=== PATIENT | male | born 1945 | race Caucasian/White ===

== ENCOUNTER → 2016-07-21 | Outpatient (CLI) | payer MEDICARE, BC | LOC: MW.CHFP 09:32 | PROVIDERS: ATTEND Physician Assistant | DX: R31.9 Hematuria, unspecified (principal); N41.0 Acute prostatitis; R97.20 Elevated prostate specific antigen [PSA] | CPT/HCPCS: 81001; 87086; G0463 ==

== ENCOUNTER → 2016-09-14 | Outpatient (CLI) | payer MEDICARE, BC | LOC: MW.CHFP 08:00 | PROVIDERS: ATTEND Emergency Medicine | DX: L82.1 Other seborrheic keratosis (principal); R31.29 Other microscopic hematuria; R97.20 Elevated prostate specific antigen [PSA]; N40.0 Benign prostatic hyperplasia without lower urinary tract symptoms | CPT/HCPCS: G0463 ==

== ENCOUNTER → 2016-09-21 | Outpatient (CLI) | payer MEDICARE, BC | LOC: MW.CHFP 08:06 | PROVIDERS: ATTEND Emergency Medicine | DX: R31.29 Other microscopic hematuria (principal); Z53.9 Procedure and treatment not carried out, unspecified reason ==

== ENCOUNTER → 2016-09-26 | Outpatient (CLI) | payer MEDICARE, BC | LOC: MW.CHFP 08:00 | PROVIDERS: ATTEND Physician Assistant | DX: L82.1 Other seborrheic keratosis (principal); S39.012A Strain of muscle, fascia and tendon of lower back, initial encounter | CPT/HCPCS: G0463 ==

== ENCOUNTER → 2016-10-04 | Outpatient (CLI) | payer MEDICARE, BC | LOC: MW.CHUR 11:42 | PROVIDERS: ATTEND Urology | DX: R97.20 Elevated prostate specific antigen [PSA] (principal); R31.9 Hematuria, unspecified; R31.29 Other microscopic hematuria; N40.0 Benign prostatic hyperplasia without lower urinary tract symptoms | CPT/HCPCS: 36415; 81001; 84153; G0463 ==

== ENCOUNTER 2017-01-30 10:17 | Observation (INO) | payer MEDICARE, BC ==
[2017-01-30] MEDS ORDERED: Haloperidol Lactate 5 MG/ML SDV IM ONE ×2 (10:29→10:35)
[2017-01-30] MEDS ORDERED: diphenhydrAMINE 50 MG/ML SDV IVPUSH ONE (10:29)
[2017-01-30] MEDS ORDERED: LORazepam 2 MG/ML MDV IVPUSH ONE (10:29)
[2017-01-30] MEDS ORDERED: diphenhydrAMINE 50 MG/ML SDV ONE (10:31)
[2017-01-30] MEDS ORDERED: Haloperidol Lactate 5 MG/ML SDV ONE (10:31)
[2017-01-30] MEDS ORDERED: LORazepam 2 MG/ML MDV ONE (10:32)
--- NOTE | 2017-01-30 10:37 | EDM.PDOC ---
ED HPI GENERAL MEDICAL PROBLEM - General Chief Complaint: Genitourinary Problem Stated Complaint: HASN'T URINATE ALL NIGHT Time Seen by Provider: 01/30/17 10:26 Source of Information: Reports: Patient, Family History Limitations: Reports: No Limitations - History of Present Illness INITIAL COMMENTS - FREE TEXT/NARRATIVE: HISTORY AND PHYSICAL: 72-year-old male presents to the emergency room with complaints of inability to void History of present illness: 72-year-old male brought into the emergency room by his with complaints of inability to void for the past 24 hours. His states he has been up and down all night with multiple attempts to urinate without success. Patient does have a history of Alzheimer's disease which at times he can have some agitation. Last night patient complained of inability to void and was up and down multiple times became more and more agitated complaining of suprapubic pain. does report that he has had some diarrhea this last evening. Patient has a history of BPH which he has seen Dr. Márquez for. reports he has not had any previous surgeries to prostate. Review of systems: As per history of present illness and below otherwise all systems reviewed and negative. Past medical history: As per history of present illness and as reviewed below otherwise noncontributory. Surgical history: As per history of present illness and as reviewed below otherwise noncontributory. Social history: No reported history of drug or alcohol abuse. Family history: As per history of present illness and as reviewed below otherwise noncontributory. Physical exam: Gen.: Nontoxic appearing 72-year-old male. Appears to be agitated, easily redirected, answers questions inappropriately ( reports this is normal for his mentation) HEENT: Atraumatic, normocephalic, pupils reactive, negative for conjunctival pallor or scleral icterus, mucous membranes moist, throat clear, neck supple, nontender, trachea midline. Lungs: Clear to auscultation, breath sounds equal bilaterally, chest nontender. Heart: S1S2, regular, negative for clicks, rubs, or JVD. Abdomen: Soft, slightly distended, generalized tenderness. Suprapubic tenderness. Negative for masses or hepatosplenomegaly. Negative for costovertebral tenderness. Pelvis: Stable nontender. Genitourinary: Deferred. Rectal: Deferred. Extremities: Atraumatic, negative for cords or calf pain. Neurovascular unremarkable. Neuro: Awake, alert and appropriate for self. Cranial nerves II through XII unremarkable. Cerebellum unremarkable. Motor and sensory unremarkable throughout. Exam nonfocal. 1100- Bladder scan revealed 703 mL. Diagnostics: CBC, CMP, ammonia level, UA/UC, chest x-ray, EKG, head CT without contrast Therapeutics: Benadryl IV, Haldol IV, Ativan IV Impression: #1 urinary retention #2 history of Alzheimer's #3 altered mental status Definitive disposition and diagnosis as appropriate pending reevaluation and review of above. Onset: Other (Last evening) Onset Date: 01/29/17 Duration: Hour(s): Location: Reports: Other (Suprapubic/denies abdominal) Bladder Pain Score (Numeric/FACES): 8 - Related Data Allergies Allergy/AdvReac Type Severity Reaction Status Date / Time No Known Allergies Allergy Verified 01/30/17 10:41 Home Meds: Home Meds ALPRAZolam [Alprazolam] 1 mg PO PRN 01/30/17 [History] Donepezil HCl [Aricept] 10 mg PO DAILY 01/30/17 [History] FLUoxetine [PROzac] 40 mg PO DAILY 01/30/17 [History] Memantine HCl [Namenda XR] 7 mg PO BID 01/30/17 [History] ED ROS GENERAL - Review of Systems Review Of Systems: See Below ED EXAM, RENAL/ - Physical Exam Exam: See Below (See dictation) EKG INTERPRETATION EKG Date: 01/30/17 Time: 10:57 Rhythm: NSR (Normal sinus rhythm with a rate of 72) Rate (Beats/Min): 72 Comparison: NA - No Prior EKG Course - Vital Signs Last Recorded V/S: Last Vital Signs Temp 36.5 C 01/30/17 10:23 Pulse 97 01/30/17 10:23 Resp 22 H 01/30/17 10:23 BP 139/86 01/30/17 10:23 Pulse Ox 98 01/30/17 10:23 - Orders/Labs/Meds Orders: Active Orders 24 hr Category Date Time Status EKG Documentation Completion [RC] STAT Care 01/30/17 10:31 Active Head wo Cont [CT] Stat Exams 01/30/17 11:42 Ordered CULTURE BLOOD [BC] Stat Lab 01/30/17 11:42 Ordered CULTURE BLOOD [BC] Stat Lab 01/30/17 11:42 Ordered CULTURE URINE [RM] Stat Lab 01/30/17 11:10 Received LACTIC ACID,WHOLE BLOOD [BG] Stat Lab 01/30/17 11:41 Ordered Blood Culture x2 Reflex Set [OM.PC] Stat Oth 01/30/17 11:42 Ordered Labs: Laboratory Tests 01/30/17 01/30/17 01/30/17 Range/Units 10:42 10:42 10:42 WBC 19.58 H (4.0-11.0) K/uL RBC 4.63 (4.50-5.90) M/uL Hgb 13.9 (13.0-17.0) g/dL Hct 41.2 (38.0-50.0) % MCV 89.0 (80.0-98.0) fL MCH 30.0 (27.0-32.0) pg MCHC 33.7 (31.0-37.0) g/dL RDW Std Deviation 43.6 (28.0-62.0) fl RDW Coeff of Giulia 14 (11.0-15.0) % Plt Count 169 (150-400) K/uL MPV 10.30 (7.40-12.00) fL Add Manual Diff YES Neutrophils % (Manual) 65 (48.0-80.0) % Band Neutrophils % 4 % Lymphocytes % (Manual) 12 L (16.0-40.0) % Monocytes % (Manual) 16 H (0.0-15.0) % Metamyelocytes % 3 % Nucleated RBC % 0.0 /100WBC Absolute Seg Neuts 12.7 Band Neutrophils # 0.8 Lymphocytes # (Manual) 2.3 Monocytes # (Manual) 3.1 Absolute Metamyelocyte 0.6 Nucleated RBCs # 0 K/uL Sodium 136 (136-146) mmol/L Potassium 4.2 (3.5-5.1) mmol/L Chloride 104 (98-110) mmol/L Carbon Dioxide 23 (21-31) mmol/L BUN 14 (6.0-23.0) mg/dL Creatinine 1.1 (0.6-1.5) mg/dL Est Cr Clr Drug Dosing 64.52 mL/min Estimated GFR (MDRD) > 60.0 ml/min Glucose 116 H (60-110) mg/dL Calcium 9.4 (8.8-10.8) mg/dL Total Bilirubin 0.6 (0.1-1.5) mg/dL AST 22 (5-40) IU/L ALT 19 (8-54) IU/L Alkaline Phosphatase 86 (40-150) Ammonia 29 (14-68) UG/DL Total Protein 7.3 (6.0-8.0) g/dL Albumin 4.3 (3.4-4.8) g/dL Globulin 3.0 (2.0-3.5) g/dL Albumin/Globulin Ratio 1.4 (1.3-2.8) Urine Color Urine Appearance Urine pH (5.0-8.0) Ur Specific Stephen (1.001-1.035) Urine Protein (NEGATIVE) mg/dL Urine Glucose (UA) (NEGATIVE) mg/dL Urine Ketones (NEGATIVE) mg/dL Urine Occult Blood (NEGATIVE) Urine Nitrite (NEGATIVE) Urine Bilirubin (NEGATIVE) Urine Urobilinogen (<2.0) EU/dL Ur Leukocyte Esterase (NEGATIVE) Urine RBC (0-2/HPF) Urine WBC (0-5/HPF) Ur Epithelial Cells (NONE-FEW) Urine Bacteria (NEGATIVE) 01/30/17 Range/Units 11:10 WBC (4.0-11.0) K/uL RBC (4.50-5.90) M/uL Hgb (13.0-17.0) g/dL Hct (38.0-50.0) % MCV (80.0-98.0) fL MCH (27.0-32.0) pg MCHC (31.0-37.0) g/dL RDW Std Deviation (28.0-62.0) fl RDW Coeff of Giulia (11.0-15.0) % Plt Count (150-400) K/uL MPV (7.40-12.00) fL Add Manual Diff Neutrophils % (Manual) (48.0-80.0) % Band Neutrophils % % Lymphocytes % (Manual) (16.0-40.0) % Monocytes % (Manual) (0.0-15.0) % Metamyelocytes % % Nucleated RBC % /100WBC Absolute Seg Neuts Band Neutrophils # Lymphocytes # (Manual) Monocytes # (Manual) Absolute Metamyelocyte Nucleated RBCs # K/uL Sodium (136-146) mmol/L Potassium (3.5-5.1) mmol/L Chloride (98-110) mmol/L Carbon Dioxide (21-31) mmol/L BUN (6.0-23.0) mg/dL Creatinine (0.6-1.5) mg/dL Est Cr Clr Drug Dosing mL/min Estimated GFR (MDRD) ml/min Glucose (60-110) mg/dL Calcium (8.8-10.8) mg/dL Total Bilirubin (0.1-1.5) mg/dL AST (5-40) IU/L ALT (8-54) IU/L Alkaline Phosphatase (40-150) Ammonia (14-68) UG/DL Total Protein (6.0-8.0) g/dL Albumin (3.4-4.8) g/dL Globulin (2.0-3.5) g/dL Albumin/Globulin Ratio (1.3-2.8) Urine Color YELLOW Urine Appearance CLEAR Urine pH 6.0 (5.0-8.0) Ur Specific Stephen 1.010 (1.001-1.035) Urine Protein NEGATIVE (NEGATIVE) mg/dL Urine Glucose (UA) NEGATIVE (NEGATIVE) mg/dL Urine Ketones NEGATIVE (NEGATIVE) mg/dL Urine Occult Blood LARGE H (NEGATIVE) Urine Nitrite NEGATIVE (NEGATIVE) Urine Bilirubin NEGATIVE (NEGATIVE) Urine Urobilinogen 0.2 (<2.0) EU/dL Ur Leukocyte Esterase NEGATIVE (NEGATIVE) Urine RBC 5-10 (0-2/HPF) Urine WBC 0-2 (0-5/HPF) Ur Epithelial Cells RARE (NONE-FEW) Urine Bacteria RARE (NEGATIVE) Meds: Medications Discontinued Medications Generic Name Dose Route Start Last Admin Trade Name Freq PRN Reason Stop Dose Admin Diphenhydramine HCl 50 mg 01/30/17 10:29 01/30/17 10:35 Benadryl IVPUSH 01/30/17 10:30 50 mg ONETIME ONE Administration Diphenhydramine HCl Confirm 01/30/17 10:31 01/30/17 10:51 Benadryl Administered 01/30/17 10:32 Not Given Dose 50 mg .ROUTE .STK-MED ONE Haloperidol Lactate Confirm 01/30/17 10:31 01/30/17 10:51 Haldol Administered 01/30/17 10:32 Not Given Dose 10 mg .ROUTE .STK-MED ONE Haloperidol Lactate 10 mg 01/30/17 10:35 01/30/17 10:54 Haldol IM 01/30/17 10:36 10 mg ONETIME ONE Administration Lorazepam 1 mg 01/30/17 10:29 01/30/17 10:35 Ativan IVPUSH 01/30/17 10:30 1 mg ONETIME ONE Administration Lorazepam Confirm 01/30/17 10:32 01/30/17 10:51 Ativan Administered 01/30/17 10:33 Not Given Dose 2 mg .ROUTE .STK-MED ONE Departure - Departure Time of Disposition: 11:44 Disposition: Refer to Observation Condition: Good Clinical Impression: Dementia, Leukocytosis, Urinary retention - Discharge Information Referrals: Andrei Wheeler MD [Primary Care Provider] - Forms: ED Department Discharge - My Orders Last 24 Hours: My Active Orders 01/30/17 10:31 EKG Documentation Completion [RC] STAT 01/30/17 11:10 CULTURE URINE [RM] Stat 01/30/17 11:41 LACTIC ACID,WHOLE BLOOD [BG] Stat 01/30/17 11:42 Head wo Cont [CT] Stat CULTURE BLOOD [BC] Stat CULTURE BLOOD [BC] Stat Blood Culture x2 Reflex Set [OM.PC] Stat - Assessment/Plan Last 24 Hours: My Active Orders 01/30/17 10:31 EKG Documentation Completion [RC] STAT 01/30/17 11:10 CULTURE URINE [RM] Stat 01/30/17 11:41 LACTIC ACID,WHOLE BLOOD [BG] Stat 01/30/17 11:42 Head wo Cont [CT] Stat CULTURE BLOOD [BC] Stat CULTURE BLOOD [BC] Stat Blood Culture x2 Reflex Set [OM.PC] Stat
[2017-01-30 11:22] LABS: CHLORIDE,CL 104 mmol/L (98-110); SODIUM,NA 136 mmol/L (136-146)
--- NOTE | 2017-01-30 11:29 | CR ---
EXAMINATION: Portable chest radiograph. HISTORY: Agitation. FINDINGS: The trachea is midline. The cardiomediastinal silhouette is within normal limits. No pulmonary infilt rates, effusions or pneumothorax. Osseous structures appear unremarkable. IMPRESSION: No acute cardiopulmonary process.
--- NOTE | 2017-01-30 12:08 | CT ---
EXAMINATION: Non contrast CT head. Coronal and sagittal reformats. HISTORY: Pain FINDINGS: No evidence of intra or extra axial hemorrhage, mass, midline shift, hydrocephalus or edema. There i s mild generalized atrophy. Mild periventricular white matter lucencies noted, nonspecific, likely sm all vessel ischemic changes. No hypoattenuation changes in the major vascular territories to suggest acute infarct. No abnormal intracranial calcifications are detected. Mild vascular calcifications noted. Paranasal sinuses and mastoid air cells are well aerated without substantial findings. Pituitary fossa appears unremarkable. The orbits and globes are symmetric. Calvarium is intact. No evidence of skull fracture. IMPRESSION: 1. No acute intracranial findings. 2. Generalized atrophy and trace small vessel ischemic changes.
--- NOTE | 2017-01-30 13:35 | PCM.HP ---
H&P History of Present Illness - General Date of Service: 01/30/17 Admit Problem/Dx: Urinary retention, leukocytosis Source of Information: Patient, Family ( at bedside) History Limitations: Reports: Altered Mental Status - History of Present Illness Initial Comments - Free Text/Narative: This 72 wilner old male with pmh of BPH Alzheimer's presented to the ED with his with concerns of urinary retention. His reports he has been unable to void since yesterday and has progressively become more agitated and complaining of suprapubic lower abdominal pain. She denies any recent illness, no fevers or chills. She denies him having any diarrhea recently. She report otherwise healthy as of recently. She has noticed increase in urinary frequency and urgency over the past couple weeks. He has never been on medications for BPH. He takes Aricept, Namenda, Prozac and Xanax now. She reports last Sunday he had a slip in [facility] shower and got "wedged" between a a shelf and the shower, he has some bruising and abrasions to R flank, but he has denied any pain. While in [facility] ED Luan was given Haldol, benadryl and Ativan due to agitation. He was resting for most of interview. He did awake on assessment and denied pain, SOB or abdominal pain. He was glad to have slept a little and felt better, he then quickly fell back asleep. He does follow with Dr. Delaney for BPH. In the ED leukocytosis noted at 19,580, lactate 0.8, BMP WNL. UA negative. Tomlinson was placed in the ED after bladder scan revealed 703 ml. CXR negative, Head CT revealed NO acute intracranial process, did show generalized atrophy with trace small vessel ischemic changes. He will be admitted for urinary retention and leukocytosis. PCP, Dr Wheeler. Bladder Pain Score (Numeric/FACES): 8 - Related Data Allergies/Adverse Reactions: Allergies Allergy/AdvReac Type Severity Reaction Status Date / Time No Known Allergies Allergy Verified 01/30/17 10:41 Home Medications: Home Meds ALPRAZolam [Alprazolam] 1 mg PO PRN 01/30/17 [History] Donepezil HCl [Aricept] 10 mg PO DAILY 01/30/17 [History] FLUoxetine [PROzac] 40 mg PO DAILY 01/30/17 [History] Memantine HCl [Namenda XR] 7 mg PO BID 01/30/17 [History] Past Medical History Cardiovascular History: Reports: None. Denies: Afib, Blood Clots/VTE/DVT, High Cholesterol, Hypertension, PR Respiratory History: Reports: None. Denies: Asthma, COPD, PE Gastrointestinal History: Reports: None. Denies: GERD, GI Bleed Genitourinary History: Reports: BPH, UTI, Recurrent Neurological History: Reports: Alzheimers Disease. Denies: CVA, TIA Endocrine/Metabolic History: Reports: None. 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 Denies: Fever, Chills, Malaise, Decreased Appetite Pulmonary: Reports: No Symptoms. Denies: Shortness of Breath Cardiovascular: Denies: Chest Pain Gastrointestinal: Reports: No Symptoms. Denies: Abdominal Pain, Black Stool, Bloody Stool, Nausea, Vomiting Genitourinary: Reports: Frequency, Urgency, Retention. Denies: Incontinence, Flank Pain Musculoskeletal: Reports: No Symptoms Skin: Reports: Bruising (R flank) Neurological: Reports: No Symptoms (no changes.) Hematologic/Lymphatic: Reports: No Symptoms Immunologic: Reports: No Symptoms Exam - Exam Exam: See Below - Vital Signs Vital Signs: Last Vital Signs Temp 97.7 F 01/30/17 10:23 Pulse 59 L 01/30/17 12:06 Resp 14 01/30/17 12:06 BP 118/75 01/30/17 12:06 Pulse Ox 98 01/30/17 12:06 Weight: 78.2 kg - Exam General: Alert, Cooperative. No: Oriented HEENT: Conjunctiva Clear, Mucosa Moist & [place], Posterior Pharynx Clear, Pupils Equal Neck: Supple, Trachea Midline, Full Range of Motion. No: Lymphadenopathy Lungs: Clear to Auscultation, Normal Respiratory Effort Cardiovascular: Regular Rate, Regular Rhythm GI/Abdominal Exam: Normal Bowel Sounds, Soft, Non-Tender, No Organomegaly, No Distention, No Abnormal Bruit, No Mass, Pelvis Stable Rectal (Males) Exam: Normal Rectal Tone, BPH (prostate large, unable to reach backside of prostate, firm and tender to palpation. ) Extremities: Normal Inspection, Normal Range of Motion, Non-Tender, No Pedal Edema, Normal Capillary Refill Skin: Ecchymosis (bruising and abrasion noted to R flank.) Neuro Extensive - Mental Status: Alert, Normal Mood/Affect, Normal Cognition, Other ( reports he is at baseline now that he has calmed down. ) Psychiatric: Alert, Normal Affect, Normal Mood - Patient Data Result Diagrams: 01/30/17 10:42 01/30/17 10:42 EKG INTERPRETATION Rhythm: NSR Rate (Beats/Min): 60 [place]: Normal P-Wave: Present QRS: Normal ST-T: Normal QT: Normal *Q Meaningful Use (ADM) - VTE *Q VTE Criteria *Q: - Stroke *Q Stroke Criteria *Q: - AMI *Q AMI Criteria *Q: - Problem List (1) Leukocytosis SNOMED Code(s): 309128864, 950456164 ICD Code: D72.829 - ELEVATED WHITE BLOOD CELL COUNT, UNSPECIFIED Status: Acute Current Visit: Yes (2) Urinary retention SNOMED Code(s): 761420066 ICD Code: R33.9 - RETENTION OF URINE, UNSPECIFIED Status: Acute Current Visit: Yes (3) Alzheimer disease SNOMED Code(s): 28314425 ICD Code: G30.9 - ALZHEIMER'S DISEASE, UNSPECIFIED Status: Chronic Current Visit: Yes Qualifiers: Alzheimer's disease onset: early-onset Dementia behavioral disturbance: with behavioral disturbance Qualified Code(s): G30.0 - Alzheimer's disease with early onset; F02.81 - Dementia in other diseases classified elsewhere with behavioral disturbance Problem List Initiated/Reviewed/Updated: Yes Assessment/Plan Comment:: This 72 year old male admitted with urinary retention and leukocytosis 1. Urinary retention: Tomlinson placed in ED will keep in place. Spoke with Dr Delaney who visited with patient and . He will review records and visit in the morning. Recommendation we could start Cipro and Flomax for prostatitis, which may be cause of leukocytosis. After rectal exam, remembers he has been complaining of some rectail pain and sitting in the bath to help with this. No rectal fissures noted or hemorrhoids, no rectal bleeding. 2. Alzheimers: Continue home medications, Namenda, Prozac, Aricept. Haldol for agitation PRN. VTE prophylaxis: Lovenox Dispo: 1-2 days pending improvement.
[2017-01-30] MEDS ORDERED: Acetaminophen 325 MG Tab PO PRN (13:44)
[2017-01-30] MEDS ORDERED: Ondansetron 4 MG/2 ML SDV IVPUSH PRN (13:44)
[2017-01-30] MEDS: Ciprofloxacin 500 MG Tab PO SCH ×2 (14:48→21:14)
[2017-01-30] MEDS: Tamsulosin 0.4 MG Cap.ER PO SCH (14:48)
[2017-01-30] MEDS ORDERED: Ibuprofen 400 MG Tab PO PRN (18:32)
[2017-01-30] MEDS ORDERED: oxyCODONE 5 MG Tab PO PRN (18:32)
[2017-01-30] MEDS: Haloperidol Lactate 5 MG/ML SDV IM PRN (18:45)
[2017-01-30] MEDS: BIMATOPROST 0.01% EYEBOTH SCH (21:14)
[2017-01-30] MEDS: Memantine 10 MG Tab PO SCH (21:14)
[2017-01-31] MEDS: Morphine 2 MG/ML Syringe IVPUSH PRN ×2 (04:57→20:53)
[2017-01-31] MEDS: Haloperidol Lactate 5 MG/ML SDV IM PRN ×2 (05:21→20:52)
[2017-01-31 05:29] LABS: CHLORIDE,CL 108 mmol/L (98-110); SODIUM,NA 140 mmol/L (136-146)
[2017-01-31] MEDS: Memantine 10 MG Tab PO SCH ×2 (09:05→20:43)
[2017-01-31] MEDS: FLUoxetine 20 MG Cap PO SCH (09:05)
[2017-01-31] MEDS: Ciprofloxacin 500 MG Tab PO SCH ×2 (09:05→20:43)
[2017-01-31] MEDS: Donepezil 10 MG Tab PO SCH (09:05)
[2017-01-31] MEDS: Enoxaparin 40 MG/0.4 ML Syringe SUBCUT SCH (09:06)
[2017-01-31] MEDS: Tamsulosin 0.4 MG Cap.ER PO SCH (09:06)
--- NOTE | 2017-01-31 10:15 | PCM.DCSUM1 ---
Discharge Summary - Discharge Data Discharge Date: 01/31/17 Discharge Disposition: Home, Self-Care 01 Condition: Good - Discharge Diagnosis/Problem(s) (1) Leukocytosis SNOMED Code(s): 943811879, 445037869 ICD Code: D72.829 - ELEVATED WHITE BLOOD CELL COUNT, UNSPECIFIED Status: Acute Current Visit: Yes (2) Urinary retention SNOMED Code(s): 687337381 ICD Code: R33.9 - RETENTION OF URINE, UNSPECIFIED Status: Acute Current Visit: Yes (3) Alzheimer disease SNOMED Code(s): 00347845 ICD Code: G30.9 - ALZHEIMER'S DISEASE, UNSPECIFIED Status: Chronic Current Visit: Yes Qualifiers: Alzheimer's disease onset: early-onset Dementia behavioral disturbance: with behavioral disturbance Qualified Code(s): G30.0 - Alzheimer's disease with early onset; F02.81 - Dementia in other diseases classified elsewhere with behavioral disturbance (4) Prostatitis SNOMED Code(s): 1984460 ICD Code: N41.9 - INFLAMMATORY DISEASE OF PROSTATE, UNSPECIFIED Status: Acute Current Visit: Yes - Patient Summary/Data Consults: Consultations 01/30/17 14:28 Consult to Physician [CONS] Routine - Patient Instructions Diet: Usual Diet as Tolerated Activity: As Tolerated Showering/Bathing: May Shower Notify Provider of: Fever, Increased Pain, Swelling and Redness, Drainage, Nausea and/or Vomiting - Discharge Plan Prescriptions/Med Rec: Ciprofloxacin [Ciprofloxacin HCl] 500 mg PO BID #12 tablet Tamsulosin [Flomax] 0.4 mg PO PCBREAKFAST #30 cap.er Home Medications: Home Meds ALPRAZolam [Alprazolam] 1 mg PO DAILY PRN 01/30/17 [History] Bimatoprost [LUMIGAN 0.01% Ophth Soln] 1 drop EYEBOTH BEDTIME 01/30/17 [History] Donepezil HCl [Aricept] 10 mg PO DAILY 01/30/17 [History] FLUoxetine [PROzac] 40 mg PO DAILY 01/30/17 [History] Memantine HCl 10 mg PO BID 01/30/17 [History] Ciprofloxacin [Ciprofloxacin HCl] 500 mg PO BID #12 tablet 01/31/17 [Rx] Tamsulosin [Flomax] 0.4 mg PO PCBREAKFAST #30 cap.er 01/31/17 [Rx] Forms: ED Department Discharge Referrals: Andrei Wheeler MD [Primary Care Provider] - - Patient Data Vitals - Most Recent: Last Vital Signs Temp 97.6 F 01/31/17 08:00 Pulse 66 01/31/17 08:00 Resp 22 H 01/31/17 08:00 BP 112/64 01/31/17 08:00 Pulse Ox 96 01/31/17 08:00 Weight - Most Recent: 78.2 kg I&O - Last 24 hours: Intake & Output 01/30/17 01/31/17 01/31/17 22:59 06:59 14:59 Intake Total 50 300 Output Total 380 400 Balance -330 -100 Lab Results - Last 24 hrs: Laboratory Results - last 24 hr 01/31/17 01/31/17 Range/Units 04:34 04:34 WBC 11.93 H (4.0-11.0) K/uL RBC 4.29 L (4.50-5.90) M/uL Hgb 12.9 L (13.0-17.0) g/dL Hct 38.9 (38.0-50.0) % MCV 90.7 (80.0-98.0) fL MCH 30.1 (27.0-32.0) pg MCHC 33.2 (31.0-37.0) g/dL RDW Std Deviation 45.7 (28.0-62.0) fl RDW Coeff of Giulia 14 (11.0-15.0) % Plt Count 149 L (150-400) K/uL MPV 10.60 (7.40-12.00) fL Add Manual Diff YES Neutrophils % (Manual) 58 (48.0-80.0) % Lymphocytes % (Manual) 27 (16.0-40.0) % Monocytes % (Manual) 10 (0.0-15.0) % Metamyelocytes % 5 % Nucleated RBC % 0.0 /100WBC Absolute Seg Neuts 6.9 Lymphocytes # (Manual) 3.2 Monocytes # (Manual) 1.2 Absolute Metamyelocyte 0.6 Nucleated RBCs # 0 K/uL Sodium 140 (136-146) mmol/L Potassium 3.9 (3.5-5.1) mmol/L Chloride 108 (98-110) mmol/L Carbon Dioxide 24 (21-31) mmol/L BUN 11 (6.0-23.0) mg/dL Creatinine 0.9 (0.6-1.5) mg/dL Est Cr Clr Drug Dosing 79.05 mL/min Estimated GFR (MDRD) > 60.0 ml/min Glucose 97 (60-110) mg/dL Calcium 8.8 (8.8-10.8) mg/dL Med Orders - Current: Current Medications Acetaminophen (Tylenol) 650 mg PO Q4H PRN PRN Reason: Pain Last Admin: 01/30/17 17:52 Dose: 650 mg Bimatoprost (Lumigan 0.01% Ophth Soln) 0 ml EYEBOTH BEDTIME [facility] Last Admin: 01/30/17 21:14 Dose: 1 drop Ciprofloxacin (Ciprofloxacin Hcl) 500 mg PO BID [facility] Last Admin: 01/31/17 09:05 Dose: 500 mg Donepezil HCl (Aricept) 10 mg PO DAILY [facility] Last Admin: 01/31/17 09:05 Dose: 10 mg Enoxaparin Sodium (Lovenox) 40 mg SUBCUT DAILY [facility] Last Admin: 01/31/17 09:06 Dose: 40 mg Fluoxetine HCl (Prozac) 40 mg PO DAILY [facility] Last Admin: 01/31/17 09:05 Dose: 40 mg Haloperidol Lactate (Haldol) 1 mg IM Q8H PRN PRN Reason: Agitation Last Admin: 01/31/17 05:21 Dose: 1 mg Ibuprofen (Motrin) 400 mg PO Q4H PRN PRN Reason: Pain Memantine (Namenda) 10 mg PO BID [facility] Last Admin: 01/31/17 09:05 Dose: 10 mg Morphine Sulfate (Morphine) 2 mg IVPUSH Q2H PRN PRN Reason: Pain Last Admin: 01/31/17 04:57 Dose: 2 mg Ondansetron HCl (Zofran) 4 mg IVPUSH Q4H PRN PRN Reason: Nausea Oxycodone HCl (Oxycodone) 5 mg PO Q4H PRN PRN Reason: Pain Last Admin: 01/31/17 05:22 Dose: 5 mg Tamsulosin HCl (Flomax) 0.4 mg PO PCBREAKFAST [facility] Last Admin: 01/31/17 09:06 Dose: 0.4 mg Discontinued Medications Diphenhydramine HCl (Benadryl) 50 mg IVPUSH ONETIME ONE Stop: 01/30/17 10:30 Last Admin: 01/30/17 10:35 Dose: 50 mg Diphenhydramine HCl (Benadryl) Confirm Administered Dose 50 mg .ROUTE .STK-MED ONE Stop: 01/30/17 10:32 Last Admin: 01/30/17 10:51 Dose: Not Given Haloperidol Lactate (Haldol) Confirm Administered Dose 10 mg .ROUTE .STK-MED ONE Stop: 01/30/17 10:32 Last Admin: 01/30/17 10:51 Dose: Not Given Haloperidol Lactate (Haldol) 10 mg IM ONETIME ONE Stop: 01/30/17 10:36 Last Admin: 01/30/17 10:54 Dose: 10 mg Lorazepam (Ativan) 1 mg IVPUSH ONETIME ONE Stop: 01/30/17 10:30 Last Admin: 01/30/17 10:35 Dose: 1 mg Lorazepam (Ativan) Confirm Administered Dose 2 mg .ROUTE .STK-MED ONE Stop: 01/30/17 10:33 Last Admin: 01/30/17 10:51 Dose: Not Given *Q Meaningful Use (DIS) - VTE *Q VTE Criteria *Q: - Stroke *Q Stroke Criteria *Q: - AMI *Q AMI Criteria *Q:
[2017-01-31] MEDS ORDERED: ALPRAZolam 0.5 MG Tab PO PRN (17:00)
--- NOTE | 2017-01-31 17:00 | PCM.PN ---
- General Info Date of Service: 01/31/17 Admission Dx/Problem (Free Text): Urinary retention, leukocytosis Subjective Update: Patient doing well this am, calm no AMS. at baseline. Denies any pain Functional Status: Reports: Pain Controlled, Tolerating Diet, Ambulating. Denies: Urinating - Review of Systems General: Reports: No Symptoms HEENT: Reports: No Symptoms Pulmonary: Reports: No Symptoms. Denies: Shortness of Breath Cardiovascular: Reports: No Symptoms. Denies: Chest Pain Gastrointestinal: Reports: No Symptoms. Denies: Abdominal Pain, Nausea, Vomiting Genitourinary: Reports: No Symptoms. Denies: Dysuria, Frequency, Burning Psychiatric: Reports: Confusion (baseline) - Patient Data Vitals - Most Recent: Last Vital Signs Temp 97.9 F 01/31/17 15:50 Pulse 65 01/31/17 15:50 Resp 20 01/31/17 15:50 BP 147/81 H 01/31/17 15:50 Pulse Ox 96 01/31/17 15:50 Weight - Most Recent: 78.2 kg I&O - Last 24 Hours: Intake & Output 01/31/17 01/31/17 01/31/17 06:59 14:59 22:59 Intake Total 300 400 Output Total 400 170 Balance -100 230 Lab Results Last 24 Hours: Laboratory Results - last 24 hr 01/31/17 01/31/17 Range/Units 04:34 04:34 WBC 11.93 H (4.0-11.0) K/uL RBC 4.29 L (4.50-5.90) M/uL Hgb 12.9 L (13.0-17.0) g/dL Hct 38.9 (38.0-50.0) % MCV 90.7 (80.0-98.0) fL MCH 30.1 (27.0-32.0) pg MCHC 33.2 (31.0-37.0) g/dL RDW Std Deviation 45.7 (28.0-62.0) fl RDW Coeff of Giulia 14 (11.0-15.0) % Plt Count 149 L (150-400) K/uL MPV 10.60 (7.40-12.00) fL Add Manual Diff YES Neutrophils % (Manual) 58 (48.0-80.0) % Lymphocytes % (Manual) 27 (16.0-40.0) % Monocytes % (Manual) 10 (0.0-15.0) % Metamyelocytes % 5 % Nucleated RBC % 0.0 /100WBC Absolute Seg Neuts 6.9 Lymphocytes # (Manual) 3.2 Monocytes # (Manual) 1.2 Absolute Metamyelocyte 0.6 Nucleated RBCs # 0 K/uL Sodium 140 (136-146) mmol/L Potassium 3.9 (3.5-5.1) mmol/L Chloride 108 (98-110) mmol/L Carbon Dioxide 24 (21-31) mmol/L BUN 11 (6.0-23.0) mg/dL Creatinine 0.9 (0.6-1.5) mg/dL Est Cr Clr Drug Dosing 79.05 mL/min Estimated GFR (MDRD) > 60.0 ml/min Glucose 97 (60-110) mg/dL Calcium 8.8 (8.8-10.8) mg/dL Med Orders - Current: Current Medications Acetaminophen (Tylenol) 650 mg PO Q4H PRN PRN Reason: Pain Last Admin: 01/30/17 17:52 Dose: 650 mg Bimatoprost (Lumigan 0.01% Ophth Soln) 0 ml EYEBOTH BEDTIME [facility] Last Admin: 01/30/17 21:14 Dose: 1 drop Ciprofloxacin (Ciprofloxacin Hcl) 500 mg PO BID [facility] Last Admin: 01/31/17 09:05 Dose: 500 mg Donepezil HCl (Aricept) 10 mg PO DAILY [facility] Last Admin: 01/31/17 09:05 Dose: 10 mg Enoxaparin Sodium (Lovenox) 40 mg SUBCUT DAILY [facility] Last Admin: 01/31/17 09:06 Dose: 40 mg Fluoxetine HCl (Prozac) 40 mg PO DAILY [facility] Last Admin: 01/31/17 09:05 Dose: 40 mg Haloperidol Lactate (Haldol) 1 mg IM Q8H PRN PRN Reason: Agitation Last Admin: 01/31/17 05:21 Dose: 1 mg Ibuprofen (Motrin) 400 mg PO Q4H PRN PRN Reason: Pain Memantine (Namenda) 10 mg PO BID [facility] Last Admin: 01/31/17 09:05 Dose: 10 mg Morphine Sulfate (Morphine) 2 mg IVPUSH Q2H PRN PRN Reason: Pain Last Admin: 01/31/17 04:57 Dose: 2 mg Ondansetron HCl (Zofran) 4 mg IVPUSH Q4H PRN PRN Reason: Nausea Oxycodone HCl (Oxycodone) 5 mg PO Q4H PRN PRN Reason: Pain Last Admin: 01/31/17 05:22 Dose: 5 mg Tamsulosin HCl (Flomax) 0.4 mg PO PCBREAKFAST [facility] Last Admin: 01/31/17 09:06 Dose: 0.4 mg Discontinued Medications Diphenhydramine HCl (Benadryl) 50 mg IVPUSH ONETIME ONE Stop: 01/30/17 10:30 Last Admin: 01/30/17 10:35 Dose: 50 mg Diphenhydramine HCl (Benadryl) Confirm Administered Dose 50 mg .ROUTE .STK-MED ONE Stop: 01/30/17 10:32 Last Admin: 01/30/17 10:51 Dose: Not Given Haloperidol Lactate (Haldol) Confirm Administered Dose 10 mg .ROUTE .STK-MED ONE Stop: 01/30/17 10:32 Last Admin: 01/30/17 10:51 Dose: Not Given Haloperidol Lactate (Haldol) 10 mg IM ONETIME ONE Stop: 01/30/17 10:36 Last Admin: 01/30/17 10:54 Dose: 10 mg Lorazepam (Ativan) 1 mg IVPUSH ONETIME ONE Stop: 01/30/17 10:30 Last Admin: 01/30/17 10:35 Dose: 1 mg Lorazepam (Ativan) Confirm Administered Dose 2 mg .ROUTE .STK-MED ONE Stop: 01/30/17 10:33 Last Admin: 01/30/17 10:51 Dose: Not Given - Exam General: Alert, Cooperative, No Acute Distress. No: Oriented Neck: Supple Lungs: Clear to Auscultation, Normal Respiratory Effort Cardiovascular: Regular Rate, Regular Rhythm GI/Abdominal Exam: Normal Bowel Sounds, Soft, Non-Tender, No Organomegaly, No Distention, No Abnormal Bruit, No Mass, Pelvis Stable Extremities: Normal Inspection, Normal Range of Motion, Non-Tender, No Pedal Edema, Normal Capillary Refill Neurological: No New Focal Deficit Psy/Mental Status: Alert, Normal Affect, Normal Mood - Problem List & Annotations (1) Leukocytosis SNOMED Code(s): 460740307, 786140612 Code(s): D72.829 - ELEVATED WHITE BLOOD CELL COUNT, UNSPECIFIED Status: Acute Current Visit: Yes (2) Urinary retention SNOMED Code(s): 887282352 Code(s): R33.9 - RETENTION OF URINE, UNSPECIFIED Status: Acute Current Visit: Yes (3) Alzheimer disease SNOMED Code(s): 80471768 Code(s): G30.9 - ALZHEIMER'S DISEASE, UNSPECIFIED Status: Chronic Current Visit: Yes Qualifiers: Alzheimer's disease onset: early-onset Dementia behavioral disturbance: with behavioral disturbance Qualified Code(s): G30.0 - Alzheimer's disease with early onset; F02.81 - Dementia in other diseases classified elsewhere with behavioral disturbance (4) Prostatitis SNOMED Code(s): 2161462 Code(s): N41.9 - INFLAMMATORY DISEASE OF PROSTATE, UNSPECIFIED Status: Acute Current Visit: Yes - Problem List Review Problem List Initiated/Reviewed/Updated: Yes - My Orders Last 24 Hours: My Active Orders 01/30/17 21:00 Memantine [Namenda] 10 mg PO BID 01/30/17 Dinner Regular Diet [DIET] 01/31/17 09:00 Donepezil [Aricept] 10 mg PO DAILY Enoxaparin [Lovenox] 40 mg SUBCUT DAILY FLUoxetine [PROzac] 40 mg PO DAILY 01/31/17 10:14 Ready for Discharge [RC] PER UNIT ROUTINE 01/31/17 10:15 Communication Order [RC] PRN - Plan Plan:: This 72 year old male admitted with urinary retention and leukocytosis 1. Urinary retention: Spoke with Dr Delaney today who recommended removal of catheter, make sure he can void and discharge. Continue Cipro x 7 days and Flomax for prostatitis. Leukocytosis improved to 11,000. Tomlinson removed this am and patient has been unable to void. Bladder scan shows 60 mls. Will keep patient overnight to monitor and make sure he is able to void. is ok with this plan. 2. Alzheimers: Continue home medications, Namenda, Prozac, Aricept. Haldol for agitation PRN. VTE prophylaxis: Lovenox Dispo: 1-2 days pending improvement.
[2017-01-31] MEDS: BIMATOPROST 0.01% EYEBOTH SCH (20:54)
[2017-02-01 05:31] LABS: CHLORIDE,CL 106 mmol/L (98-110); SODIUM,NA 139 mmol/L (136-146)
[2017-02-01 08:42] VITALS: BP 121/68
--- NOTE | 2017-02-01 08:56 | PCM.DCSUM1 ---
Discharge Summary - Hospital Course Brief History: This 72 year old male with pmh of BPH Alzheimer's presented to the ED with his with concerns of urinary retention. His reports he has been unable to void since yesterday and has progressively become more agitated and complaining of suprapubic lower abdominal pain. She denies any recent illness, no fevers or chills. She denies him having any diarrhea recently. She report otherwise healthy as of recently. She has noticed increase in urinary frequency and urgency over the past couple weeks. He has never been on medications for BPH. He takes Aricept, Namenda, Prozac and Xanax now. She reports last Sunday he had a slip in [facility] shower and got "wedged" between a a shelf and the shower, he has some bruising and abrasions to R flank, but he has denied any pain. While in [facility] ED Luan was given Haldol, benadryl and Ativan due to agitation. He was resting for most of interview. He did awake on assessment and denied pain, SOB or abdominal pain. He was glad to have slept a little and felt better, he then quickly fell back asleep. He does follow with Dr. Delaney for BPH. In the ED leukocytosis noted at 19,580, lactate 0.8, BMP WNL. UA negative. Unger was placed in the ED after bladder scan revealed 703 ml. CXR negative, Head CT revealed NO acute intracranial process, did show generalized atrophy with trace small vessel ischemic changes. He will be admitted for urinary retention and leukocytosis. PCP, Dr Wheeler. - Discharge Data Discharge Date: 02/01/17 Discharge Disposition: Home, Self-Care 01 Condition: Good - Discharge Diagnosis/Problem(s) (1) Leukocytosis SNOMED Code(s): 933541465, 183471052 ICD Code: D72.829 - ELEVATED WHITE BLOOD CELL COUNT, UNSPECIFIED Status: Acute Current Visit: Yes (2) Urinary retention SNOMED Code(s): 420026609 ICD Code: R33.9 - RETENTION OF URINE, UNSPECIFIED Status: Acute Current Visit: Yes (3) Alzheimer disease SNOMED Code(s): 77085698 ICD Code: G30.9 - ALZHEIMER'S DISEASE, UNSPECIFIED Status: Chronic Current Visit: Yes Qualifiers: Alzheimer's disease onset: early-onset Dementia behavioral disturbance: with behavioral disturbance Qualified Code(s): G30.0 - Alzheimer's disease with early onset; F02.81 - Dementia in other diseases classified elsewhere with behavioral disturbance (4) Prostatitis SNOMED Code(s): 4725208 ICD Code: N41.9 - INFLAMMATORY DISEASE OF PROSTATE, UNSPECIFIED Status: Acute Current Visit: Yes - Patient Summary/Data Consults: Consultations 01/30/17 14:28 Consult to Physician [CONS] Routine - Patient Instructions Diet: Usual Diet as Tolerated Activity: As Tolerated Showering/Bathing: May Shower Notify Provider of: Fever, Increased Pain, Swelling and Redness, Drainage, Nausea and/or Vomiting - Discharge Plan Prescriptions/Med Rec: Ciprofloxacin [Ciprofloxacin HCl] 500 mg PO BID #12 tablet Tamsulosin [Flomax] 0.4 mg PO PCBREAKFAST #30 cap.er Home Medications: Home Meds ALPRAZolam [Alprazolam] 1 mg PO DAILY PRN 01/30/17 [History] Bimatoprost [LUMIGAN 0.01% Ophth Soln] 1 drop EYEBOTH BEDTIME 01/30/17 [History] Donepezil HCl [Aricept] 10 mg PO DAILY 01/30/17 [History] FLUoxetine [PROzac] 40 mg PO DAILY 01/30/17 [History] Memantine HCl 10 mg PO BID 01/30/17 [History] Ciprofloxacin [Ciprofloxacin HCl] 500 mg PO BID #12 tablet 01/31/17 [Rx] Tamsulosin [Flomax] 0.4 mg PO PCBREAKFAST #30 cap.er 01/31/17 [Rx] Patient Handouts: Leukocytosis, Prostatitis, [id number], Acute Urinary Retention, Male, [id number] Referrals: Andrei Wheeler MD [Primary Care Provider] - 02/07/17 4:30 pm Nolberto Delaney MD [Physician] - 02/08/17 3:15 pm (Please check -in at 3:00 p.m. ) - Discharge Summary/Plan Comment DC Time >30 min.: No Discharge Summary/Plan Comment: Discharge diagnoses Urinary retention Leukocytosis Prostatitis Alzheimer's BPH-worsening? Luan was admitted from ED with unger in place due to urinary retention. I spoke with Dr. Delaney who has seen patient due to BPH in past. He recommended starting Cipro and Flomax. He was monitored overnight. Leukocytosis improved to 11,000. He remained afebrile and all other labwork negative. Questionable prostatitis or worsening of BPH symptoms. reports his having some rectal pain, increasing fatigue and increasing urinary frequency and urgency in the last couple weeks. Prostate was enlarged, firm and tender no nodules noted upon rectal exam. UA and UC negative. Unger was removed yesterday, unable to void during the day, Bladder scan revealed only 64 ml. He was encouraged to drink more fluids and monitored again overnight. He ended up voiding x4 per self. He will be discharged home today. He is at baseline orientation. He is follow up with PCP and Dr. Delaney. He will remain on CIpro for another 5 days and be placed on Flomax daily. He and were encouraged to return to clinic or ED if concerns should arise. - General Info Date of Service: 02/01/17 Admission Dx/Problem (Free Text: Urinary retention, leukocytosis Subjective Update: Alert and awake this morning. Voiding per self. Denies any pain, no chest pain or SOB. No abdominal pain Functional Status: Reports: Pain Controlled, Tolerating Diet, Ambulating, Urinating - Review of Systems General: Reports: No Symptoms. Denies: Fever HEENT: Reports: No Symptoms. Denies: Headaches, Visual Changes Pulmonary: Reports: No Symptoms. Denies: Shortness of Breath, Cough, Sputum Cardiovascular: Reports: No Symptoms. Denies: Chest Pain, Edema Gastrointestinal: Reports: No Symptoms. Denies: Abdominal Pain, Nausea, Vomiting Genitourinary: Reports: No Symptoms. Denies: Dysuria, Frequency, Burning - Patient Data Vitals - Most Recent: Last Vital Signs Temp 97.7 F 02/01/17 08:00 Pulse 60 02/01/17 08:00 Resp 13 02/01/17 08:00 BP 121/68 02/01/17 08:00 Pulse Ox 96 02/01/17 08:00 Weight - Most Recent: 78.2 kg I&O - Last 24 hours: Intake & Output 01/31/17 02/01/17 02/01/17 22:59 06:59 14:59 Intake Total 400 300 Output Total 170 170 Balance 230 130 Lab Results - Last 24 hrs: Laboratory Results - last 24 hr 02/01/17 02/01/17 Range/Units 04:45 04:45 WBC 11.49 H (4.0-11.0) K/uL RBC 4.38 L (4.50-5.90) M/uL Hgb 13.1 (13.0-17.0) g/dL Hct 39.9 (38.0-50.0) % MCV 91.1 (80.0-98.0) fL MCH 29.9 (27.0-32.0) pg MCHC 32.8 (31.0-37.0) g/dL RDW Std Deviation 45.6 (28.0-62.0) fl RDW Coeff of Giulia 14 (11.0-15.0) % Plt Count 141 L (150-400) K/uL MPV 10.30 (7.40-12.00) fL Add Manual Diff YES Neutrophils % (Manual) 50 (48.0-80.0) % Band Neutrophils % 4 % Lymphocytes % (Manual) 23 (16.0-40.0) % Monocytes % (Manual) 14 (0.0-15.0) % Eosinophils % (Manual) 1 (0.0-7.0) % Metamyelocytes % 8 % Nucleated RBC % 0.0 /100WBC Absolute Seg Neuts 5.7 Band Neutrophils # 0.5 Lymphocytes # (Manual) 2.6 Monocytes # (Manual) 1.6 Eosinophils # (Manual) 0.1 Absolute Metamyelocyte 0.9 Nucleated RBCs # 0 K/uL Sodium 139 (136-146) mmol/L Potassium 3.8 (3.5-5.1) mmol/L Chloride 106 (98-110) mmol/L Carbon Dioxide 25 (21-31) mmol/L BUN 12 (6.0-23.0) mg/dL Creatinine 0.9 (0.6-1.5) mg/dL Est Cr Clr Drug Dosing 79.05 mL/min Estimated GFR (MDRD) > 60.0 ml/min Glucose 94 (60-110) mg/dL Calcium 8.8 (8.8-10.8) mg/dL Med Orders - Current: Current Medications Acetaminophen (Tylenol) 650 mg PO Q4H PRN PRN Reason: Pain Last Admin: 01/30/17 17:52 Dose: 650 mg Alprazolam (Xanax) 1 mg PO DAILY PRN PRN Reason: Agitation Last Admin: 01/31/17 18:55 Dose: 1 mg Bimatoprost (Lumigan 0.01% Ophth Soln) 0 ml EYEBOTH BEDTIME [facility] Last Admin: 01/31/17 20:54 Dose: 1 drop Ciprofloxacin (Ciprofloxacin Hcl) 500 mg PO BID [facility] Last Admin: 01/31/17 20:43 Dose: 500 mg Donepezil HCl (Aricept) 10 mg PO DAILY [facility] Last Admin: 01/31/17 09:05 Dose: 10 mg Enoxaparin Sodium (Lovenox) 40 mg SUBCUT DAILY [facility] Last Admin: 01/31/17 09:06 Dose: 40 mg Fluoxetine HCl (Prozac) 40 mg PO DAILY [facility] Last Admin: 01/31/17 09:05 Dose: 40 mg Haloperidol Lactate (Haldol) 1 mg IM Q8H PRN PRN Reason: Agitation Last Admin: 01/31/17 20:52 Dose: 1 mg Ibuprofen (Motrin) 400 mg PO Q4H PRN PRN Reason: Pain Memantine (Namenda) 10 mg PO BID [facility] Last Admin: 01/31/17 20:43 Dose: 10 mg Morphine Sulfate (Morphine) 2 mg IVPUSH Q2H PRN PRN Reason: Pain Last Admin: 01/31/17 20:53 Dose: 2 mg Ondansetron HCl (Zofran) 4 mg IVPUSH Q4H PRN PRN Reason: Nausea Last Admin: 01/31/17 20:44 Dose: 4 mg Oxycodone HCl (Oxycodone) 5 mg PO Q4H PRN PRN Reason: Pain Last Admin: 01/31/17 05:22 Dose: 5 mg Tamsulosin HCl (Flomax) 0.4 mg PO PCBREAKFAST [facility] Last Admin: 01/31/17 09:06 Dose: 0.4 mg Discontinued Medications Diphenhydramine HCl (Benadryl) 50 mg IVPUSH ONETIME ONE Stop: 01/30/17 10:30 Last Admin: 01/30/17 10:35 Dose: 50 mg Diphenhydramine HCl (Benadryl) Confirm Administered Dose 50 mg .ROUTE .STK-MED ONE Stop: 01/30/17 10:32 Last Admin: 01/30/17 10:51 Dose: Not Given Haloperidol Lactate (Haldol) Confirm Administered Dose 10 mg .ROUTE .STK-MED ONE Stop: 01/30/17 10:32 Last Admin: 01/30/17 10:51 Dose: Not Given Haloperidol Lactate (Haldol) 10 mg IM ONETIME ONE Stop: 01/30/17 10:36 Last Admin: 01/30/17 10:54 Dose: 10 mg Lorazepam (Ativan) 1 mg IVPUSH ONETIME ONE Stop: 01/30/17 10:30 Last Admin: 01/30/17 10:35 Dose: 1 mg Lorazepam (Ativan) Confirm Administered Dose 2 mg .ROUTE .STK-MED ONE Stop: 01/30/17 10:33 Last Admin: 01/30/17 10:51 Dose: Not Given - Exam General: Reports: Alert, Cooperative, No Acute Distress Lungs: Reports: Clear to Auscultation, Normal Respiratory Effort Cardiovascular: Reports: Regular Rate, Regular Rhythm GI/Abdominal Exam: Normal Bowel Sounds, Soft, Non-Tender, No Organomegaly, No Distention, No Abnormal Bruit, No Mass, Pelvis Stable Neurological: Reports: No New Focal Deficit Psy/Mental Status: Reports: Alert, Normal Affect, Normal Mood *Q Meaningful Use (DIS) - VTE *Q VTE Criteria *Q: - Stroke *Q Stroke Criteria *Q: - AMI *Q AMI Criteria *Q:
[2017-02-01] MEDS: Tamsulosin 0.4 MG Cap.ER PO SCH (09:11)
[2017-02-01] MEDS: FLUoxetine 20 MG Cap PO SCH (09:11)
[2017-02-01] MEDS: Ciprofloxacin 500 MG Tab PO SCH (09:11)
[2017-02-01] MEDS: Donepezil 10 MG Tab PO SCH (09:12)
[2017-02-01] MEDS: Memantine 10 MG Tab PO SCH (09:12)
[2017-02-01] MEDS: Enoxaparin 40 MG/0.4 ML Syringe SUBCUT SCH (09:17)
== END 2017-02-01 09:30 | disposition home or self-care (01) ==
LOC: MW.ED 10:17 → MW.MS 13:02
PROVIDERS: ADMIT Internal Medicine; ATTEND Internal Medicine
DX: R33.9 Retention of urine, unspecified (principal); N40.1 Benign prostatic hyperplasia with lower urinary tract symptoms; D72.829 Elevated white blood cell count, unspecified; G30.0 Alzheimer's disease with early onset; F02.81 Dementia in other diseases classified elsewhere, unspecified severity, with behavioral disturbance; N41.9 Inflammatory disease of prostate, unspecified; Z87.440 Personal history of urinary (tract) infections; Z79.899 Other long term (current) drug therapy
CPT/HCPCS: 36415; 70450; 71010; 80048; 80053; 81001; 82140; 83605; 85025; 87040; 87086; 96372; 96374; 96375; 96376; 99285; A9270; G0378; J1200; J1630; J1650; J2060; J2270; J2405; 99283

== ENCOUNTER 2017-02-02 15:04 | Emergency (ER) | payer MEDICARE, BC ==
--- NOTE | 2017-02-02 15:38 | EDM.PDOC ---
ED HPI GENERAL MEDICAL PROBLEM - General Chief Complaint: Genitourinary Problem Stated Complaint: DIFFICULTY URINATING Time Seen by Provider: 02/02/17 15:06 Source of Information: Reports: Patient, Family History Limitations: Reports: No Limitations - History of Present Illness INITIAL COMMENTS - FREE TEXT/NARRATIVE: HISTORY AND PHYSICAL: History of present illness: Patient is a 72-year-old male that presents to the emergency room today with his with concerns of not being able to void. Earlier this week patient was seen in the emergency room for urinary retention and had a catheter placed in and was admitted for leukocytosis. He is being discharged a few days ago when he states he has been voiding without difficulty. Does have a follow-up appointment with Dr. Delaney and Dr. Wheeler early next week. Today patient made a comment he was unable to void and therefore the wanted him assessed. Upon arrival patient told his that he has been voiding and has no current concerns. Denies any pain or dysuria. Patient has a past medical history of prostatitis, urinary retention, Alzheimer' s disease, and dementia. Review of systems: As per history of present illness and below otherwise all systems reviewed and negative. Past medical history: As per history of present illness and as reviewed below otherwise noncontributory. Surgical history: As per history of present illness and as reviewed below otherwise noncontributory. Social history: No reported history of drug or alcohol abuse. Family history: As per history of present illness and as reviewed below otherwise noncontributory. Physical exam: Gen.: Nontoxic-appearing 72-year-old male. Able to speak in full sentences without shortness of breath. Appropriate for self. HEENT: Atraumatic, normocephalic, pupils reactive, negative for conjunctival pallor or scleral icterus, mucous membranes moist, throat clear, neck supple, nontender, trachea midline. Lungs: Clear to auscultation, breath sounds equal bilaterally, chest nontender. Heart: S1S2, regular, negative for clicks, rubs, or JVD. Abdomen: Soft, nondistended, nontender. Negative for masses or hepatosplenomegaly. Negative for costovertebral tenderness. Pelvis: Stable nontender. Genitourinary: Deferred. Rectal: Deferred. Extremities: Atraumatic, negative for cords or calf pain. Neurovascular unremarkable. Neuro: Awake, alert, oriented. Cranial nerves II through XII unremarkable. Cerebellum unremarkable. Motor and sensory unremarkable throughout. Exam nonfocal. Diagnostics: Bladder scanner Therapeutics: [] Impression: History of Urinary retention, medical screening exam Plan: 1. Please keep and attend your appointments that you have with Dr. Delaney and Dr. Wheeler. 2. Please return to the emergency room as needed as discussed. Definitive disposition and diagnosis as appropriate pending reevaluation and review of above. Onset: Today Onset Date: 02/02/17 Improves with: Reports: None Worsens with: Reports: None - Related Data Allergies Allergy/AdvReac Type Severity Reaction Status Date / Time No Known Allergies Allergy Verified 02/02/17 15:18 Home Meds: Home Meds ALPRAZolam [Alprazolam] 1 mg PO DAILY PRN 01/30/17 [History] Bimatoprost [LUMIGAN 0.01% Ophth Soln] 1 drop EYEBOTH BEDTIME 01/30/17 [History] Donepezil HCl [Aricept] 10 mg PO DAILY 01/30/17 [History] FLUoxetine [PROzac] 40 mg PO DAILY 01/30/17 [History] Memantine HCl 10 mg PO BID 01/30/17 [History] Ciprofloxacin [Ciprofloxacin HCl] 500 mg PO BID #12 tablet 01/31/17 [Rx] Tamsulosin [Flomax] 0.4 mg PO PCBREAKFAST #30 cap.er 01/31/17 [Rx] Past Medical History Cardiovascular History: Reports: None Respiratory History: Reports: None Gastrointestinal History: Reports: None Genitourinary History: Reports: BPH, UTI, Recurrent Other Genitourinary History: UTI hx Neurological History: Reports: Alzheimers Disease Psychiatric History: Reports: Anxiety Endocrine/Metabolic History: Reports: None Social & Family History - Family History Family Medical History: Noncontributory - Tobacco Use Smoking Status *Q: Never Smoker - Caffeine Use Caffeine Use: Reports: None - Recreational Drug Use Recreational Drug Use: No - Living Situation & Occupation Living situation: Reports: Occupation: Retired ED ROS GENERAL - Review of Systems Review Of Systems: ROS reveals no pertinent complaints other than HPI. ED EXAM, RENAL/ - Physical Exam Exam: See Below (See dictation) Course - Vital Signs Last Recorded V/S: Last Vital Signs Temp 36.4 C 02/02/17 15:21 Pulse 77 02/02/17 15:21 Resp 16 02/02/17 15:21 BP 141/77 H 02/02/17 15:21 Pulse Ox 98 02/02/17 15:21 - Orders/Labs/Meds Orders: Active Orders 24 hr Category Date Time Status Communication Order [RC] STAT Care 02/02/17 15:34 Active Labs: Laboratory Tests 02/02/17 Range/Units 15:58 Urine Color DARK YELLOW Urine Appearance CLOUDY Urine pH 5.5 (5.0-8.0) Ur Specific [place] >= 1.030 (1.001-1.035) Urine Protein 30 (NEGATIVE) mg/dL Urine Glucose (UA) NEGATIVE (NEGATIVE) mg/dL Urine Ketones NEGATIVE (NEGATIVE) mg/dL Urine Occult Blood LARGE H (NEGATIVE) Urine Nitrite NEGATIVE (NEGATIVE) Urine Bilirubin NEGATIVE (NEGATIVE) Urine Urobilinogen 0.2 (<2.0) EU/dL Ur Leukocyte Esterase TRACE (NEGATIVE) Urine RBC 68-75 (0-2/HPF) Urine WBC 2-4 (0-5/HPF) Ur Epithelial Cells OCCASIONAL (NONE-FEW) Urine Bacteria FEW (NEGATIVE) Urine Mucus LIGHT (NONE-MOD) Departure - Departure Time of Disposition: 16:28 Disposition: Home, Self-Care 01 Condition: Good Clinical Impression: Encounter for medical screening examination - Discharge Information Referrals: PCP,Unknown [Primary Care Provider] - Forms: ED Department Discharge Additional Instructions: The following information is given to patients seen in the emergency department who are being discharged to home. This information is to outline your options for follow-up care. We provide all patients seen in our emergency department with a follow-up referral. The need for follow-up, as well as the timing and circumstances, are variable depending upon the specifics of your emergency department visit. If you don't have a primary care physician on staff, we will provide you with a referral. We always advise you to contact your personal physician following an emergency department visit to inform them of the circumstance of the visit and for follow-up with them and/or the need for any referrals to a consulting specialist. The emergency department will also refer you to a specialist when appropriate. This referral assures that you have the opportunity for followup care with a specialist. All of these measure are taken in an effort to provide you with optimal care, which includes your followup. Under all circumstances we always encourage you to contact your private physician who remains a resource for coordinating your care. When calling for followup care, please make the office aware that this follow-up is from your recent emergency room visit. If for any reason you are refused follow-up, please contact the [facility] emergency department at and asked to speak to the emergency department charge nurse. [facility] Primary [facility] [address] [address] [facility] Specialty Care - Neurology Professional Building [address] [place] [address], [address] [place] [address] 1. Please keep and attend your appointments that you have with Dr. Delaney and Dr. Wheeler. 2. Please return to the emergency room as needed as discussed. - My Orders Last 24 Hours: My Active Orders 02/02/17 15:34 Communication Order [RC] STAT - Assessment/Plan Last 24 Hours: My Active Orders 02/02/17 15:34 Communication Order [RC] STAT
[2017-02-02 16:49] VITALS: BP 133/70
== END 2017-02-02 16:46 | disposition home or self-care (01) ==
LOC: MW.ED 15:04
DX: Z13.89 Encounter for screening for other disorder (principal); F41.9 Anxiety disorder, unspecified; Z79.899 Other long term (current) drug therapy; Z87.440 Personal history of urinary (tract) infections
CPT/HCPCS: 81001; 99282; 99284

== ENCOUNTER 2017-02-17 14:34 | Emergency (ER) | payer MEDICARE, BC ==
[2017-02-17 14:48] VITALS: BP 145/79
--- NOTE | 2017-02-17 14:49 | EDM.PDOC ---
ED HPI GENERAL MEDICAL PROBLEM - General Chief Complaint: Genitourinary Problem Stated Complaint: UNABLE TO URINATE Time Seen by Provider: 02/17/17 14:36 - History of Present Illness INITIAL COMMENTS - FREE TEXT/NARRATIVE: HISTORY AND PHYSICAL: History of present illness: The patient is a 72-year-old male with a known history of Alzheimer's dementia and BPH who was admitted here the end of January,January 30, with acute urinary retention leukocytosis and increased confusion. At that time he had a Toml[place] catheter placed and was admitted to the hospital and he has since been seen again in the ER on February 02 for again difficulty with urination. On that second ER visit he had a bladder scan which did not reveal urinary retention and he was advised to follow-up with his primary as well as our urologist. He has since seen Dr. Wheeler in the office but he has not seen Dr. Márquez. According to the he had a normal day with his urination but today she is not sure how much she has urinated and it seems to be much less than what should be normal. He's not good hydrating according to the . She says he was complaining of bladder pressure and feeling the urge but not able to get the urine out. He has no flank pain or fever no nausea vomiting or diarrhea and no upper respiratory symptoms or chest pain. Review of systems: As per history of present illness and below otherwise all systems reviewed and negative. Past medical history: As per history of present illness and as reviewed below otherwise noncontributory. Surgical history: As per history of present illness and as reviewed below otherwise noncontributory. Social history: No reported history of drug or alcohol abuse. Family history: As per history of present illness and as reviewed below otherwise noncontributory. Physical exam: General: Well-developed well-nourished man who ambulated into the ED ;vital signs of the note by me. HEENT: Atraumatic, normocephalic, negative for conjunctival pallor or scleral icterus, mucous membranes tacky, throat clear, neck supple, nontender, trachea midline. Lungs: Clear to auscultation, breath sounds equal bilaterally, chest nontender. No work of breathing Heart: S1S2, regular rate and rhythm no overt murmurs Abdomen: Soft, nondistended, nontender. NABS. The bladder feels distended at the pelvis but it is nontender Pelvis: Stable nontender. Genitourinary: Deferred. Rectal: Deferred. Extremities: Atraumatic, negative for cords or calf pain. Neurovascular unremarkable. Neuro: Awake, alert, and currently at his baseline per the . Motor and sensory unremarkable throughout. Exam nonfocal. Diagnostics: Bladder scan= 292cc per nursing Patient tried to give a urine sample to send for UA and culture but he was unable Therapeutics: none I discussed with the to continue to monitor his symptoms and to return if she felt like he was not passing urine for a recheck. I advised her to contact Dr. Aparicio and Dr. Delaney for follow-up. I also advised pushing more hydration As well as continuing the Flomax Impression: Medical screening exam with history of urinary retention and Alzheimer's dementia stable Definitive disposition and diagnosis as appropriate pending reevaluation and review of above. - Related Data Allergies Allergy/AdvReac Type Severity Reaction Status Date / Time No Known Allergies Allergy Verified 02/17/17 14:36 Home Meds: Home Meds ALPRAZolam [Alprazolam] 1 mg PO DAILY PRN 01/30/17 [History] Bimatoprost [LUMIGAN 0.01% Ophth Soln] 1 drop EYEBOTH BEDTIME 01/30/17 [History] Donepezil HCl [Aricept] 10 mg PO DAILY 01/30/17 [History] FLUoxetine [PROzac] 40 mg PO DAILY 01/30/17 [History] Memantine HCl 10 mg PO BID 01/30/17 [History] Tamsulosin [Flomax] 0.4 mg PO PCBREAKFAST #30 cap.er 01/31/17 [Rx] Past Medical History HEENT History: Reports: None Cardiovascular History: Reports: None Respiratory History: Reports: None Gastrointestinal History: Reports: None Genitourinary History: Reports: BPH, UTI, Recurrent Other Genitourinary History: UTI hx Musculoskeletal History: Reports: None Neurological History: Reports: Alzheimers Disease Psychiatric History: Reports: Anxiety Endocrine/Metabolic History: Reports: None Dermatologic History: Reports: None - Past Surgical History HEENT Surgical History: Reports: None Social & Family History - Family History Family Medical History: Noncontributory - Tobacco Use Smoking Status *Q: Never Smoker - Caffeine Use Caffeine Use: Reports: None - Recreational Drug Use Recreational Drug Use: No - Living Situation & Occupation Living situation: Reports: Occupation: Retired ED ROS GENERAL - Review of Systems Review Of Systems: ROS reveals no pertinent complaints other than HPI. ED EXAM, GENERAL - Physical Exam Exam: See Below (See dictation) Course - Vital Signs Last Recorded V/S: Last Vital Signs Temp 36.4 C 02/17/17 14:36 Pulse 69 02/17/17 14:36 Resp 16 02/17/17 14:36 BP 145/79 H 02/17/17 14:36 Pulse Ox 98 02/17/17 14:36 Departure - Departure Time of Disposition: 14:54 Disposition: Home, Self-Care 01 Condition: Good Clinical Impression: Encounter for medical screening examination - Discharge Information Referrals: PCP,None [Primary Care Provider] - Forms: ED Department Discharge Additional Instructions: The following information is given to patients seen in the emergency department who are being discharged to home. This information is to outline your options for follow-up care. We provide all patients seen in our emergency department with a follow-up referral. The need for follow-up, as well as the timing and circumstances, are variable depending upon the specifics of your emergency department visit. If you don't have a primary care physician on staff, we will provide you with a referral. We always advise you to contact your personal physician following an emergency department visit to inform them of the circumstance of the visit and for follow-up with them and/or the need for any referrals to a consulting specialist. The emergency department will also refer you to a specialist when appropriate. This referral assures that you have the opportunity for followup care with a specialist. All of these measure are taken in an effort to provide you with optimal care, which includes your followup. Under all circumstances we always encourage you to contact your private physician who remains a resource for coordinating your care. When calling for followup care, please make the office aware that this follow-up is from your recent emergency room visit. If for any reason you are refused follow-up, please contact the [facility] emergency department at and ask to speak to the emergency department charge nurse. [facility] Primary care- [place] [address] Wheeler early next week for discussion about further intervention evaluation and care. Push hydration and continue to monitor the symptoms and the urine output. Return to ER as needed and as discussed
== END 2017-02-17 15:03 | disposition home or self-care (01) ==
LOC: MW.ED 14:34
DX: R33.9 Retention of urine, unspecified (principal); G30.9 Alzheimer's disease, unspecified; F02.80 Dementia in other diseases classified elsewhere, unspecified severity, without behavioral disturbance, psychotic disturbance, mood disturbance, and anxiety; Z79.899 Other long term (current) drug therapy
CPT/HCPCS: 51798; 99282; 99283

== ENCOUNTER 2017-02-17 21:07 | Emergency (ER) | payer MEDICARE, BC ==
--- NOTE | 2017-02-17 21:27 | EDM.PDOC ---
ED HPI GENERAL MEDICAL PROBLEM - General Chief Complaint: Genitourinary Problem Stated Complaint: URINARY ISSUES Time Seen by Provider: 02/17/17 21:22 - History of Present Illness INITIAL COMMENTS - FREE TEXT/NARRATIVE: HISTORY AND PHYSICAL: History of present illness: Patient's a 72-year-old white male history of Alzheimer's disease presents with concern of dysuria he is on Flomax currently he has had prior episodes with urinary retention he was screened for this recently and was found to have no evidence of urinary retention. There's been no fever chills nausea vomiting or other complaints Review of systems: As per history of present illness and below otherwise all systems reviewed and negative. Past medical history: As per history of present illness and as reviewed below otherwise noncontributory. Surgical history: As per history of present illness and as reviewed below otherwise noncontributory. Social history: No reported history of drug or alcohol abuse. Family history: As per history of present illness and as reviewed below otherwise noncontributory. Physical exam: HEENT: Atraumatic, normocephalic, pupils reactive, negative for conjunctival pallor or scleral icterus, mucous membranes moist, throat clear, neck supple, nontender, trachea midline. Lungs: Clear to auscultation, breath sounds equal bilaterally, chest nontender. Heart: S1S2, regular, negative for clicks, rubs, or JVD. Abdomen: Soft, nondistended, nontender. Negative for masses or hepatosplenomegaly. Negative for costovertebral tenderness. Pelvis: Stable nontender. Genitourinary: Deferred. Rectal: Deferred. Extremities: Atraumatic, negative for cords or calf pain. Neurovascular unremarkable. Neuro: Awake, alert, oriented. Cranial nerves II through XII unremarkable. Cerebellum unremarkable. Motor and sensory unremarkable throughout. Exam nonfocal. Diagnostics: UA urine culture and sensitivity Therapeutics: None Impression: #1 dysuria etiology to be determined #2 history of Alzheimer's Definitive disposition and diagnosis as appropriate pending reevaluation and review of above. - Related Data Allergies Allergy/AdvReac Type Severity Reaction Status Date / Time No Known Allergies Allergy Verified 02/17/17 21:25 Home Meds: Home Meds ALPRAZolam [Alprazolam] 1 mg PO DAILY PRN 01/30/17 [History] Bimatoprost [LUMIGAN 0.01% Ophth Soln] 1 drop EYEBOTH BEDTIME 01/30/17 [History] Donepezil HCl [Aricept] 10 mg PO DAILY 01/30/17 [History] FLUoxetine [PROzac] 40 mg PO DAILY 01/30/17 [History] Memantine HCl 10 mg PO BID 01/30/17 [History] Tamsulosin [Flomax] 0.4 mg PO PCBREAKFAST #30 cap.er 01/31/17 [Rx] OLANZapine [ZyPREXA] 02/17/17 [History] Past Medical History HEENT History: Reports: None Cardiovascular History: Reports: None Respiratory History: Reports: None Gastrointestinal History: Reports: None Genitourinary History: Reports: BPH, UTI, Recurrent Other Genitourinary History: UTI hx Musculoskeletal History: Reports: None Neurological History: Reports: Alzheimers Disease Psychiatric History: Reports: Anxiety Endocrine/Metabolic History: Reports: None Dermatologic History: Reports: None - Past Surgical History HEENT Surgical History: Reports: None Social & Family History - Family History Family Medical History: Noncontributory - Tobacco Use Smoking Status *Q: Never Smoker - Caffeine Use Caffeine Use: Reports: None - Recreational Drug Use Recreational Drug Use: No - Living Situation & Occupation Living situation: Reports: Occupation: Retired ED ROS GENERAL - Review of Systems Review Of Systems: ROS reveals no pertinent complaints other than HPI. ED EXAM, GENERAL - Physical Exam Exam: See Below (See dictation) Course - Vital Signs Last Recorded V/S: Last Vital Signs Temp 36.7 C 02/17/17 21:07 Pulse 86 02/17/17 21:07 Resp 18 02/17/17 21:07 BP 120/70 02/17/17 21:07 Pulse Ox 95 02/17/17 21:07 - Orders/Labs/Meds Orders: Active Orders 24 hr Category Date Time Status CULTURE URINE [RM] Stat Lab 02/17/17 21:15 Received Labs: Laboratory Tests 02/17/17 Range/Units 21:15 Urine Color YELLOW Urine Appearance CLEAR Urine pH 6.5 (5.0-8.0) Ur Specific [place] 1.015 (1.001-1.035) Urine Protein NEGATIVE (NEGATIVE) mg/dL Urine Glucose (UA) NEGATIVE (NEGATIVE) mg/dL Urine Ketones NEGATIVE (NEGATIVE) mg/dL Urine Occult Blood SMALL H (NEGATIVE) Urine Nitrite NEGATIVE (NEGATIVE) Urine Bilirubin NEGATIVE (NEGATIVE) Urine Urobilinogen 0.2 (<2.0) EU/dL Ur Leukocyte Esterase NEGATIVE (NEGATIVE) Urine RBC 2-5 (0-2/HPF) Urine WBC 0-1 (0-5/HPF) Ur Epithelial Cells RARE (NONE-FEW) Urine Bacteria FEW (NEGATIVE) Departure - Departure Time of Disposition: 21:53 Disposition: Home, Self-Care 01 Condition: Good Clinical Impression: Encounter for medical screening examination - Discharge Information Referrals: PCP,Unknown [Primary Care Provider] - Forms: ED Department Discharge Additional Instructions: The following information is given to patients seen in the emergency department who are being discharged to home. This information is to outline your options for follow-up care. We provide all patients seen in our emergency department with a follow-up referral. The need for follow-up, as well as the timing and circumstances, are variable depending upon the specifics of your emergency department visit. If you don't have a primary care physician on staff, we will provide you with a referral. We always advise you to contact your personal physician following an emergency department visit to inform them of the circumstance of the visit and for follow-up with them and/or the need for any referrals to a consulting specialist. The emergency department will also refer you to a specialist when appropriate. This referral assures that you have the opportunity for followup care with a specialist. All of these measure are taken in an effort to provide you with optimal care, which includes your followup. Under all circumstances we always encourage you to contact your private physician who remains a resource for coordinating your care. When calling for followup care, please make the office aware that this follow-up is from your recent emergency room visit. If for any reason you are refused follow-up, please contact the [facility] emergency department at and asked to speak to the emergency department charge nurse. Follow-up private medical doctor continue current medications return as needed as discussed - My Orders Last 24 Hours: My Active Orders 02/17/17 21:15 CULTURE URINE [RM] Stat - Assessment/Plan Last 24 Hours: My Active Orders 02/17/17 21:15 CULTURE URINE [RM] Stat
[2017-02-17 22:00] VITALS: BP 117/67
== END 2017-02-17 22:02 | disposition home or self-care (01) ==
LOC: MW.ED 21:07
DX: R30.0 Dysuria (principal); G30.9 Alzheimer's disease, unspecified; F02.80 Dementia in other diseases classified elsewhere, unspecified severity, without behavioral disturbance, psychotic disturbance, mood disturbance, and anxiety; Z79.899 Other long term (current) drug therapy; Z87.440 Personal history of urinary (tract) infections; R33.9 Retention of urine, unspecified
CPT/HCPCS: 51798; 81001; 87086; 99282; 99283

== ENCOUNTER 2017-02-18 12:46 | Inpatient (IN) | payer MEDICARE, BC ==
[2017-02-18] MEDS ORDERED: Sodium Chloride 0.9% 2.5 ML Syringe FLUSH PRN (13:01)
[2017-02-18] MEDS ORDERED: Sodium Chloride 0.9% 10 ML Syringe FLUSH PRN (13:01)
[2017-02-18] MEDS ORDERED: Sodium Chloride 0.9% 1,000 ML IV SCH (13:15)
--- NOTE | 2017-02-18 13:22 | EDM.PDOC ---
ED HPI GENERAL MEDICAL PROBLEM - General Chief Complaint: Genitourinary Problem Stated Complaint: LOWER ABDMONIAL PAIN CANT NOT USE RESTROOM Time Seen by Provider: 02/18/17 12:48 - History of Present Illness INITIAL COMMENTS - FREE TEXT/NARRATIVE: HISTORY AND PHYSICAL: History of present illness: Patient 72-year-old white male with past medical history significant for Alzheimer's disease who was seen by myself recently for dysuria and frequency urinalysis was unremarkable urine was sent for culture sensitivity patient returns today with with concern of possible different etiology for this patient's seeming discomfort and agitation there's been no reported fever chills nausea or vomiting he does continue to have intermittent dribbling of urination and seeming discomfort different possibilities were offered by family including a retained stone at any level including his penis. This was specifically cited by family member is having occurred to one of their children and not having been diagnosed until seen by urology. They do have an Alzheimer' s unit that available in [place] per . Review of systems: As per history of present illness and below otherwise all systems reviewed and negative. Past medical history: As per history of present illness and as reviewed below otherwise noncontributory. Surgical history: As per history of present illness and as reviewed below otherwise noncontributory. Social history: No reported history of drug or alcohol abuse. Family history: As per history of present illness and as reviewed below otherwise noncontributory. Physical exam: HEENT: Atraumatic, normocephalic, pupils reactive, negative for conjunctival pallor or scleral icterus, mucous membranes moist, throat clear, neck supple, nontender, trachea midline. Lungs: Clear to auscultation, breath sounds equal bilaterally, chest nontender. Heart: S1S2, regular, negative for clicks, rubs, or JVD. Abdomen: Soft, nondistended, nontender. Negative for masses or hepatosplenomegaly. Negative for costovertebral tenderness. Pelvis: Stable nontender. Genitourinary: Deferred. Rectal: Deferred. Extremities: Atraumatic, negative for cords or calf pain. Neurovascular unremarkable. Neuro: Awake, alert, follows commands and is at baseline per family with a limited but grossly nonfocal exam Diagnostics: CBC CMP troponin UA lactic acid blood culture [address] brain EKG chest x-ray CT abdomen and pelvis Therapeutics: To be determined Impression: #1 medical screening exam of 2 history of Alzheimer's disease Definitive disposition and diagnosis as appropriate pending reevaluation and review of above. genital Pain Score (Numeric/FACES): 7 - Related Data Allergies Allergy/AdvReac Type Severity Reaction Status Date / Time No Known Allergies Allergy Verified 02/18/17 12:52 Home Meds: Home Meds ALPRAZolam [Alprazolam] 1 mg PO DAILY PRN 01/30/17 [History] Bimatoprost [LUMIGAN 0.01% Ophth Soln] 1 drop EYEBOTH BEDTIME 01/30/17 [History] Donepezil HCl [Aricept] 10 mg PO DAILY 01/30/17 [History] FLUoxetine [PROzac] 40 mg PO DAILY 01/30/17 [History] Memantine HCl 10 mg PO BID 01/30/17 [History] OLANZapine [ZyPREXA] 2.5 mg PO BID PRN 02/17/17 [History] Tamsulosin [Flomax] 0.4 mg PO DAILY 02/18/17 [History] Past Medical History HEENT History: Reports: None Cardiovascular History: Reports: None Respiratory History: Reports: None Gastrointestinal History: Reports: None Genitourinary History: Reports: BPH, UTI, Recurrent Other Genitourinary History: UTI hx Musculoskeletal History: Reports: None Neurological History: Reports: Alzheimers Disease Psychiatric History: Reports: Anxiety Endocrine/Metabolic History: Reports: None Dermatologic History: Reports: None - Past Surgical History HEENT Surgical History: Reports: None Social & Family History - Family History Family Medical History: Noncontributory - Tobacco Use Smoking Status *Q: Never Smoker - Caffeine Use Caffeine Use: Reports: None - Recreational Drug Use Recreational Drug Use: No - Living Situation & Occupation Living situation: Reports: Occupation: Retired ED ROS GENERAL - Review of Systems Review Of Systems: ROS reveals no pertinent complaints other than HPI. ED EXAM, GENERAL - Physical Exam Exam: See Below (See dictation) Course - Vital Signs Last Recorded V/S: Last Vital Signs Temp 36.5 C 02/18/17 12:52 Pulse 102 H 02/18/17 12:52 Resp 20 02/18/17 12:52 BP 156/100 H 02/18/17 12:52 Pulse Ox 97 02/18/17 12:52 - Orders/Labs/Meds Orders: Active Orders 24 hr Category Date Time Status EKG Documentation Completion [RC] STAT Care 02/18/17 12:59 Active Pulse Oximetry [RC] ASDIRECTED Care 02/18/17 13:00 Active Abdomen Pelvis wo Cont [CT] Stat Exams 02/18/17 13:00 Taken Chest 1V Frontal [CR] Stat Exams 02/18/17 13:01 Taken Head wo Cont [CT] Stat Exams 02/18/17 13:01 Taken CULTURE BLOOD [BC] Stat Lab 02/18/17 13:15 Received CULTURE BLOOD [BC] Stat Lab 02/18/17 13:22 Received CULTURE URINE [RM] Stat Lab 02/18/17 15:26 Received DRUG SCREEN, URINE [URCHEM] Stat Lab 02/18/17 15:26 Received UA W/MICROSCOPIC [URIN] Stat Lab 02/18/17 15:26 Received Sodium Chloride 0.9% [Normal Saline] 1,000 ml Med 02/18/17 13:15 Active IV STAT Sodium Chloride 0.9% [Saline Flush] Med 02/18/17 13:01 Active 10 ml FLUSH ASDIRECTED PRN Sodium Chloride 0.9% [Saline Flush] Med 02/18/17 13:01 Active 2.5 ml FLUSH ASDIRECTED PRN Blood Culture x2 Reflex Set [OM.PC] Stat Oth 02/18/17 13:00 Ordered Saline Lock Insert [OM.PC] Stat Oth 02/18/17 12:59 Ordered Medication Orders Sodium Chloride (Normal Saline) 1,000 mls @ 125 mls/hr IV STAT [facility] Last Admin: 02/18/17 13:20 Dose: 125 mls/hr Sodium Chloride (Saline Flush) 10 ml FLUSH ASDIRECTED PRN PRN Reason: Keep Vein Open Last Admin: 02/18/17 13:20 Dose: 10 ml Sodium Chloride (Saline Flush) 2.5 ml FLUSH ASDIRECTED PRN PRN Reason: Keep Vein Open Last Admin: 02/18/17 13:20 Dose: 2.5 ml Labs: Laboratory Tests 02/18/17 02/18/17 02/18/17 Range/Units 13:15 13:15 13:15 WBC 16.23 H (4.0-11.0) K/uL RBC 4.50 (4.50-5.90) M/uL Hgb 13.2 (13.0-17.0) g/dL Hct 41.2 (38.0-50.0) % MCV 91.6 (80.0-98.0) fL MCH 29.3 (27.0-32.0) pg MCHC 32.0 (31.0-37.0) g/dL RDW Std Deviation 48.2 (28.0-62.0) fl RDW Coeff of Giulia 14 (11.0-15.0) % Plt Count 119 L (150-400) K/uL MPV 10.90 (7.40-12.00) fL Add Manual Diff YES Neutrophils % (Manual) 54 (48.0-80.0) % Band Neutrophils % 11 % Lymphocytes % (Manual) 17 (16.0-40.0) % Monocytes % (Manual) 18 H (0.0-15.0) % Nucleated RBC % 0.0 /100WBC Absolute Seg Neuts 8.8 Band Neutrophils # 1.8 Lymphocytes # (Manual) 2.8 Monocytes # (Manual) 2.9 Nucleated RBCs # 0 K/uL INR 1.05 (0.86-1.11) Lactate 0.8 (0.20-2.00) mmol/L Sodium (136-146) mmol/L Potassium (3.5-5.1) mmol/L Chloride (98-110) mmol/L Carbon Dioxide (21-31) mmol/L BUN (6.0-23.0) mg/dL Creatinine (0.6-1.5) mg/dL Est Cr Clr Drug Dosing Estimated GFR (MDRD) ml/min Glucose (60-110) mg/dL Calcium (8.8-10.8) mg/dL Total Bilirubin (0.1-1.5) mg/dL AST (5-40) IU/L ALT (8-54) IU/L Alkaline Phosphatase (40-150) Ammonia (14-68) UG/DL Troponin I (0.0-0.29) NG/ML Total Protein (6.0-8.0) g/dL Albumin (3.4-4.8) g/dL Globulin (2.0-3.5) g/dL Albumin/Globulin Ratio (1.3-2.8) Amylase (10-90) U/L Lipase (7-80) U/L Ethyl Alcohol mg/dL 02/18/17 02/18/17 02/18/17 Range/Units 13:15 13:15 13:15 WBC (4.0-11.0) K/uL RBC (4.50-5.90) M/uL Hgb (13.0-17.0) g/dL Hct (38.0-50.0) % MCV (80.0-98.0) fL MCH (27.0-32.0) pg MCHC (31.0-37.0) g/dL RDW Std Deviation (28.0-62.0) fl RDW Coeff of Giulia (11.0-15.0) % Plt Count (150-400) K/uL MPV (7.40-12.00) fL Add Manual Diff Neutrophils % (Manual) (48.0-80.0) % Band Neutrophils % % Lymphocytes % (Manual) (16.0-40.0) % Monocytes % (Manual) (0.0-15.0) % Nucleated RBC % /100WBC Absolute Seg Neuts Band Neutrophils # Lymphocytes # (Manual) Monocytes # (Manual) Nucleated RBCs # K/uL INR (0.86-1.11) Lactate (0.20-2.00) mmol/L Sodium 137 (136-146) mmol/L Potassium 3.9 (3.5-5.1) mmol/L Chloride 105 (98-110) mmol/L Carbon Dioxide 22 (21-31) mmol/L BUN 14 (6.0-23.0) mg/dL Creatinine 0.9 (0.6-1.5) mg/dL Est Cr Clr Drug Dosing TNP Estimated GFR (MDRD) > 60.0 ml/min Glucose 105 (60-110) mg/dL Calcium 9.2 (8.8-10.8) mg/dL Total Bilirubin 0.9 (0.1-1.5) mg/dL AST 161 H (5-40) IU/L ALT 346 H (8-54) IU/L Alkaline Phosphatase 151 H (40-150) Ammonia 62 (14-68) UG/DL Troponin I < 0.10 (0.0-0.29) NG/ML Total Protein 7.0 (6.0-8.0) g/dL Albumin 4.3 (3.4-4.8) g/dL Globulin 2.7 (2.0-3.5) g/dL Albumin/Globulin Ratio 1.6 (1.3-2.8) Amylase 121 H (10-90) U/L Lipase 98 H (7-80) U/L Ethyl Alcohol < 10.0 mg/dL Meds: Medications Generic Name Dose Route Start Last Admin Trade Name Freq PRN Reason Stop Dose Admin Sodium Chloride 1,000 mls @ 125 mls/hr 02/18/17 13:15 02/18/17 13:20 Normal Saline IV 125 mls/hr STAT [facility] Administration Sodium Chloride 10 ml 02/18/17 13:01 02/18/17 13:20 Saline Flush FLUSH 10 ml ASDIRECTED PRN Administration Keep Vein Open Sodium Chloride 2.5 ml 02/18/17 13:01 02/18/17 13:20 Saline Flush FLUSH 2.5 ml ASDIRECTED PRN Administration Keep Vein Open Discontinued Medications Generic Name Dose Route Start Last Admin Trade Name Akhil PRN Reason Stop Dose Admin Ketorolac Tromethamine 15 mg 02/18/17 14:06 02/18/17 14:12 Toradol IVPUSH 02/18/17 14:07 15 mg ONETIME ONE Administration Departure - Departure Time of Disposition: 15:34 Disposition: Admitted As Inpatient 68 Condition: Good Clinical Impression: Leukocytosis, Dementia, Acute urinary retention - Discharge Information Referrals: PCP,None [Primary Care Provider] - Forms: ED Department Discharge - My Orders Last 24 Hours: My Active Orders 02/18/17 12:59 EKG Documentation Completion [RC] STAT Saline Lock Insert [OM.PC] Stat 02/18/17 13:00 Pulse Oximetry [RC] ASDIRECTED Abdomen Pelvis wo Cont [CT] Stat Blood Culture x2 Reflex Set [OM.PC] Stat 02/18/17 13:01 Chest 1V Frontal [CR] Stat Head wo Cont [CT] Stat Sodium Chloride 0.9% [Saline Flush] 10 ml FLUSH ASDIRECTED PRN Sodium Chloride 0.9% [Saline Flush] 2.5 ml FLUSH ASDIRECTED PRN 02/18/17 13:15 CULTURE BLOOD [BC] Stat Sodium Chloride 0.9% [Normal Saline] 1,000 ml IV STAT 02/18/17 13:22 CULTURE BLOOD [BC] Stat 02/18/17 15:26 CULTURE URINE [RM] Stat DRUG SCREEN, URINE [URCHEM] Stat UA W/MICROSCOPIC [URIN] Stat - Assessment/Plan Last 24 Hours: My Active Orders 02/18/17 12:59 EKG Documentation Completion [RC] STAT Saline Lock Insert [OM.PC] Stat 02/18/17 13:00 Pulse Oximetry [RC] ASDIRECTED Abdomen Pelvis wo Cont [CT] Stat Blood Culture x2 Reflex Set [OM.PC] Stat 02/18/17 13:01 Chest 1V Frontal [CR] Stat Head wo Cont [CT] Stat Sodium Chloride 0.9% [Saline Flush] 10 ml FLUSH ASDIRECTED PRN Sodium Chloride 0.9% [Saline Flush] 2.5 ml FLUSH ASDIRECTED PRN 02/18/17 13:15 CULTURE BLOOD [BC] Stat Sodium Chloride 0.9% [Normal Saline] 1,000 ml IV STAT 02/18/17 13:22 CULTURE BLOOD [BC] Stat 02/18/17 15:26 CULTURE URINE [RM] Stat DRUG SCREEN, URINE [URCHEM] Stat UA W/MICROSCOPIC [URIN] Stat
[2017-02-18 13:54] LABS: CHLORIDE,CL 105 mmol/L (98-110); SODIUM,NA 137 mmol/L (136-146)
[2017-02-18] MEDS ORDERED: Ketorolac 30 MG/ML SDV IVPUSH ONE (14:06)
[2017-02-18] MEDS ORDERED: cefTRIAXone 1,000 MG VIAL IVPUSH ONE (15:57)
--- NOTE | 2017-02-18 18:46 | PCM.HP ---
H&P History of Present Illness - General Date of Service: 02/18/17 Admit Problem/Dx: Admission Diagnosis/Problem Admission Diagnosis/Problem Urinary retention due to benign prostatic hyperplasia - History of Present Illness Initial Comments - Free Text/Narative: Seen in the ED today for increased agitation and noted to have acute urinary retention with 600 ml of urine noted on bladder scanning. leukocytosis noted but no definite source of infection found. He lives at home and has had agitation such that it has been difficult to manage him at home. genital Pain Score (Numeric/FACES): 7 - Related Data Allergies/Adverse Reactions: Allergies Allergy/AdvReac Type Severity Reaction Status Date / Time No Known Allergies Allergy Verified 02/18/17 12:52 Home Medications: Home Meds ALPRAZolam [Alprazolam] 1 mg PO DAILY PRN 01/30/17 [History] Bimatoprost [LUMIGAN 0.01% Ophth Soln] 1 drop EYEBOTH BEDTIME 01/30/17 [History] Donepezil HCl [Aricept] 10 mg PO DAILY 01/30/17 [History] FLUoxetine [PROzac] 40 mg PO DAILY 01/30/17 [History] Memantine HCl 10 mg PO BID 01/30/17 [History] OLANZapine [ZyPREXA] 2.5 mg PO BID PRN 02/17/17 [History] Tamsulosin [Flomax] 0.4 mg PO DAILY 02/18/17 [History] Past Medical History HEENT History: Reports: None Cardiovascular History: Reports: None Respiratory History: Reports: None. Denies: COPD Gastrointestinal History: Reports: None Genitourinary History: Reports: BPH, UTI, Recurrent Other Genitourinary History: UTI hx Musculoskeletal History: Reports: None Neurological History: Reports: Alzheimers Disease Psychiatric History: Reports: Anxiety Endocrine/Metabolic History: Reports: None Dermatologic History: Reports: None - Past Surgical History HEENT Surgical History: Reports: None Social & Family History - Family History Family Medical History: Noncontributory - Tobacco Use Smoking Status *Q: Never Smoker Second Hand Smoke Exposure: No - Caffeine Use Caffeine Use: Reports: None - Recreational Drug Use Recreational Drug Use: No - Living Situation & Occupation Living situation: Reports: Occupation: Retired H&P Review of Systems - Review of Systems: Review Of Systems: See Below Free Text/Narrative: no c/o pain no c/o dyspnea He is hungry unable to obtain a more detailed ROS from the patient; family members not present at the time of my interview with the patient. Exam - Exam Exam: See Below - Vital Signs Vital Signs: Last Vital Signs Temp 98 F 02/18/17 16:50 Pulse 66 02/18/17 15:30 Resp 12 02/18/17 18:00 BP 126/77 02/18/17 18:00 Pulse Ox 99 02/18/17 18:00 Weight: 80.1 kg - Exam General: Alert, Cooperative, Other (he cannot tell me what year it is. He was cooperative with me during the examination. ) HEENT: EOMI Lungs: Clear to Auscultation, Normal Respiratory Effort Cardiovascular: Regular Rate, Regular Rhythm GI/Abdominal Exam: Soft, Non-Tender (Male) Exam: Deferred Rectal (Males) Exam: Deferred Extremities: No Pedal Edema. No: Pedal Edema, Mottled, Pallor Neurological: Normal Speech Neuro Extensive - Mental Status: Normal Mood/Affect Neuro Extensive - Motor, Sensory, Reflexes: No: Facial palsy (L), Facial Palsy ( R), Hemeplagia (R), Hemeplagia (L) - Patient Data Result Diagrams: 02/18/17 13:15 02/18/17 13:15 *Q Meaningful Use (ADM) - VTE *Q VTE Criteria *Q: - Stroke *Q Stroke Criteria *Q: - AMI *Q AMI Criteria *Q: - Problem List (1) Agitation SNOMED Code(s): 11516455 ICD Code: R45.1 - RESTLESSNESS AND AGITATION Status: Acute Current Visit : Yes (2) Elevated liver enzymes SNOMED Code(s): 135598723 ICD Code: R74.8 - ABNORMAL LEVELS OF OTHER SERUM ENZYMES Status: Acute Current Visit: Yes (3) Acute urinary retention SNOMED Code(s): 055829340 ICD Code: R33.8 - OTHER RETENTION OF URINE Status: Acute Current Visit: Yes (4) Dementia SNOMED Code(s): 33007474 ICD Code: F03.90 - UNSPECIFIED DEMENTIA WITHOUT BEHAVIORAL DISTURBANCE Status: Acute Current Visit: Yes (5) Leukocytosis SNOMED Code(s): 892252746, 464760004 ICD Code: D72.829 - ELEVATED WHITE BLOOD CELL COUNT, UNSPECIFIED Status: Acute Current Visit: Yes Problem List Initiated/Reviewed/Updated: Yes Orders Last 24hrs: Active Orders 24 hr Category Date Time Status Regular Diet [DIET] Diet 02/18/17 Dinner Active Medication Orders Sodium Chloride (Normal Saline) 1,000 mls @ 125 mls/hr IV STAT [facility] Last Admin: 02/18/17 13:20 Dose: 125 mls/hr Sodium Chloride (Saline Flush) 10 ml FLUSH ASDIRECTED PRN PRN Reason: Keep Vein Open Last Admin: 02/18/17 13:20 Dose: 10 ml Sodium Chloride (Saline Flush) 2.5 ml FLUSH ASDIRECTED PRN PRN Reason: Keep Vein Open Last Admin: 02/18/17 13:20 Dose: 2.5 ml Assessment/Plan Comment:: will cover with broad spectrum antibiotics add flomax RUQ abdominal ultrasound tomorrow. catherine Kilgore MD
[2017-02-18] MEDS ORDERED: Bisacodyl 5 MG Tab PO PRN (18:53)
[2017-02-18] MEDS: Donepezil 10 MG Tab PO SCH ×2 (19:00→21:32)
[2017-02-18] MEDS: QUEtiapine 100 MG Tab PO SCH ×2 (19:02→20:32)
[2017-02-18] MEDS ORDERED: Acetaminophen 325 MG Tab PO PRN (19:05)
[2017-02-18] MEDS: Piperacillin/Tazobactam 3.375 GM in Sodium Chloride 0.9% 50 ML IV SCH (19:05)
[2017-02-18] MEDS: Memantine 10 MG Tab PO SCH (20:31)
[2017-02-18] MEDS: Docusate Sodium 100 MG Cap PO SCH (20:31)
[2017-02-18] MEDS ORDERED: traMADol 50 MG Tab PO PRN (20:45)
[2017-02-18] MEDS: LORazepam 2 MG/ML MDV IVPUSH PRN (20:50)
[2017-02-18] MEDS: Haloperidol Lactate 5 MG/ML SDV IM PRN (21:27)
[2017-02-18] MEDS: ALPRAZolam 0.5 MG Tab PO PRN (22:28)
[2017-02-19] MEDS: Piperacillin/Tazobactam 3.375 GM in Sodium Chloride 0.9% 50 ML IV SCH ×4 (06:00→18:39)
[2017-02-19 06:25] LABS: CHLORIDE,CL 111 mmol/L (98-110); SODIUM,NA 141 mmol/L (136-146)
[2017-02-19] MEDS: Docusate Sodium 100 MG Cap PO SCH ×2 (08:44→20:29)
[2017-02-19] MEDS: Memantine 10 MG Tab PO SCH ×2 (08:44→20:29)
[2017-02-19] MEDS: ALPRAZolam 0.5 MG Tab PO PRN ×2 (08:44→20:29)
[2017-02-19] MEDS: Tamsulosin 0.4 MG Cap.ER PO SCH (08:44)
[2017-02-19] MEDS: LORazepam 2 MG/ML MDV IVPUSH PRN ×3 (08:54→21:40)
[2017-02-19] MEDS: Haloperidol Lactate 5 MG/ML SDV IM PRN (10:42)
--- NOTE | 2017-02-19 11:15 | US ---
EXAMINATION: Right upper quadrant ultrasound HISTORY: Elevated liver enzymes COMPARISON: CT dated 02/18/2017 TECHNIQUE: Grayscale and color Doppler images obtained of the right upper quadrant. FINDINGS: The visualized pancreas appears normal. The visualized liver is normal in contour and echot exture without a focal hepatic mass. The gallbladder wall thickness is normal and no pericholecystic fluid or shadowing gallstones. The common bile duct measures 3 mm. Sonographic Cruz sign is reporte d. The right kidney measures at least 12 cm [id number] without evidence hydronephrosis. There is a cys t within the lower pole of the right kidney. IMPRESSION: 1. Normal hepatic echotexture. 2. No acute findings.
[2017-02-19] MEDS ORDERED: Bisacodyl 5 MG Tab PO ONE (12:56)
--- NOTE | 2017-02-19 16:28 | CT ---
EXAM DATE: 02/18/17 PATIENT'S AGE: 72 Patient: ANTWAN OSEI Facility: [place], [place] Site . Site : 1945 Study: CT Abdomen/Pelvis [id number]/17/2017 2:07:16 PM Ordering Physician: Raul Saba Final Report: HISTORY: Abdomen pain. TECHNIQUE: The abdomen and pelvis were scanned using helical technique at 3 mm intervals without IV contrast. Sagittal and coronal reconstructions were performed. FINDINGS: Lung bases: Minimal atelectatic lung in the right base. Liver and gallbladder: The unenhanced liver is homogeneous. No calcified gallstones. Spleen, pancreas and adrenal glands: Unremarkable. Kidneys and bladder: A 1.6 cm curvilinear calcification is in the inferior aspect of the left kidney. This most likely is in the wall of the 1.7 cm cyst. At the lower pole of the right kidney either a partially exophytic 4.2 cm cyst. There is no calcified urolithiasis or hydronephrosis. The bladder is distended. No bladder wall thickening. There is mild ill definition of the perivesicular fat. Retroperitoneum and lymph nodes: There is some calcification in the wall of the aorta. No aneurysm. No pathologic periaortic lymphadenopathy is seen. GI tract: Small hiatal hernia. The stomach is decompressed. No dilated small bowel loops are seen. Normal appendix is seen on images 94-101. Small amount of stool and gas are seen throughout the colon. There is diverticula of the descending and sigmoid colon. No pericolonic inflammatory change to suggest diverticulitis. There is no free air in the abdomen. There is trace free fluid in the paracolic gutters. Pelvic organs: The prostate is enlarged. Abdominal wall: Peritoneal fat extends on both inguinal canals. Osseous structures: There are degenerative changes of the SI joints with bridging spurring on the right. There is degenerative changes of the discs and facets within the lumbar spine. Vertebral body heights are maintained within the spine. IMPRESSION: 1. 4.2 cm cyst lower pole right kidney incompletely evaluated without IV contrast. In addition, there is a curvilinear calcification inferior aspect of the left kidney most likely within the wall of s 1.7 cm cyst. This is also incompletely evaluated without IV contrast. 2. Distention of the bladder. There is mild ill definition of the perivesicular fat making difficult to exclude cystitis. No bladder wall thickening is seen. 3. Prostatic hypertrophy. 4. Bilateral fat containing inguinal hernias. 5. Colonic diverticulosis. 6. Normal appendix. 7. Trace free fluid in the paracolic gutters. Dictated by Hortensia Cortez MD @ 02/18/2017 3:08:33 PM Dictated by: Hortensia Cortez MD @ 02/18/2017 15:09:06 (Electronic Signature) Report Signed by Proxy. NEL
--- NOTE | 2017-02-19 16:29 | CT ---
EXAM DATE: 02/18/17 PATIENT'S AGE: 72 Patient: ANTWAN OSEI Facility: [place], [place] Site . Site : 1945 Study: CT Head [id number]/17/2017 2:08:31 PM Ordering Physician: Raul Saba Final Report: HISTORY: Dementia. TECHNIQUE: The head was scanned in the axial plane at 3 mm intervals without IV contrast. Reconstructed bone windows obtained as well as coronal and sagittal reconstructions. COMPARISON: 30 January 2017. FINDINGS: 2.1 and 0.7 cm mucus retention cysts or polyps are seen in the right maxillary sinus. The remainder of the visualized paranasal sinuses and mastoid air cells are well aerated. The calvarium is intact. Calcifications seen within the right vertebral artery and the carotid siphons. The ventricles and sulci are enlarged. No intra-axial mass, edema or midline shift is identified. No extra- axial fluid collections are seen. Mcknight-white differentiation is preserved. IMPRESSION: 1. Atrophy. 2. No acute intracranial pathology or bleed. Dictated by Hortensia Cortez MD @ 02/18/2017 2:59:03 PM Dictated by: Hortensia oCrtez MD @ 02/18/2017 14:59:17 (Electronic Signature) Report Signed by Proxy. [facility] AMER[facility] HOSPITALRojelio
--- NOTE | 2017-02-19 16:29 | CR ---
EXAM DATE: 02/18/17 PATIENT'S AGE: 72 Patient: ANTWAN OSEI Facility: [place], [place] Site . Site : 1945 Study: XRay Chest [id number]/17/2017 2:09:04 PM Ordering Physician: Raul Saba Final Report: INDICATION: Chest pain; shortness of breath. Comparison: Portable AP chest radiograph January 30, 2017. Technique: Single AP chest. Findings: Normal size cardiac silhouette. Clear lung ramos without evidence of acute pneumonic infiltrates or CHF. No pneumothorax or pleural effusion. No interval change. Impression: Negative AP chest. Dictated by Mayo Sanabria MD @ Feb 18 2017 2:57PM (Electronic Signature) Report Signed by Proxy. NEL
--- NOTE | 2017-02-19 17:57 | PCM.PN ---
- General Info Date of Service: 02/19/17 Subjective Update: he is quite confused but slept fairly well for several hours last night. - Patient Data Vitals - Most Recent: Last Vital Signs Temp 98.6 F 02/19/17 14:00 Pulse 66 02/18/17 15:30 Resp 15 02/19/17 15:00 BP 114/63 02/19/17 15:00 Pulse Ox 95 02/19/17 15:00 Weight - Most Recent: 79.5 kg I&O - Last 24 Hours: Intake & Output 02/19/17 02/19/17 02/19/17 06:59 14:59 22:59 Intake Total 300 50 Output Total 950 Balance -650 50 Lab Results Last 24 Hours: Laboratory Results - last 24 hr 02/19/17 02/19/17 Range/Units 05:50 05:50 WBC 14.12 H (4.0-11.0) K/uL RBC 4.19 L (4.50-5.90) M/uL Hgb 12.5 L (13.0-17.0) g/dL Hct 39.1 (38.0-50.0) % MCV 93.3 (80.0-98.0) fL MCH 29.8 (27.0-32.0) pg MCHC 32.0 (31.0-37.0) g/dL RDW Std Deviation 49.6 (28.0-62.0) fl RDW Coeff of Giulia 15 (11.0-15.0) % Plt Count 122 L (150-400) K/uL MPV 10.50 (7.40-12.00) fL Add Manual Diff YES Neutrophils % (Manual) 64 (48.0-80.0) % Band Neutrophils % 8 % Lymphocytes % (Manual) 10 L (16.0-40.0) % Monocytes % (Manual) 18 H (0.0-15.0) % Nucleated RBC % 0.0 /100WBC Absolute Seg Neuts 9.0 Band Neutrophils # 1.1 Lymphocytes # (Manual) 1.4 Monocytes # (Manual) 2.5 Nucleated RBCs # 0 K/uL Sodium 141 (136-146) mmol/L Potassium 4.1 (3.5-5.1) mmol/L Chloride 111 H (98-110) mmol/L Carbon Dioxide 21 (21-31) mmol/L BUN 12 (6.0-23.0) mg/dL Creatinine 0.9 (0.6-1.5) mg/dL Est Cr Clr Drug Dosing 79.05 mL/min Estimated GFR (MDRD) > 60.0 ml/min Glucose 93 (60-110) mg/dL Calcium 8.9 (8.8-10.8) mg/dL Magnesium 1.8 (1.5-2.3) mEq/L Total Bilirubin 0.6 (0.1-1.5) mg/dL AST 97 H (5-40) IU/L ALT 237 H (8-54) IU/L Alkaline Phosphatase 119 (40-150) Total Protein 6.2 (6.0-8.0) g/dL Albumin 3.5 (3.4-4.8) g/dL Globulin 2.7 (2.0-3.5) g/dL Albumin/Globulin Ratio 1.3 (1.3-2.8) Med Orders - Current: Current Medications Acetaminophen (Tylenol) 325 mg PO Q4H PRN PRN Reason: Pain Last Admin: 02/18/17 20:50 Dose: 325 mg Alprazolam (Xanax) 1 mg PO BID PRN PRN Reason: Agitation Last Admin: 02/19/17 08:44 Dose: 1 mg Bimatoprost (Lumigan 0.01% Ophth Soln) 0 ml EYEBOTH BEDTIME [facility] Last Admin: 02/18/17 22:28 Dose: Not Given Bisacodyl (Dulcolax) 5 mg PO DAILY PRN PRN Reason: Constipation Docusate Sodium (Colace) 100 mg PO BID [facility] Last Admin: 02/19/17 08:44 Dose: 100 mg Donepezil HCl (Aricept) 10 mg PO BEDTIME [facility] Last Admin: 02/18/17 21:32 Dose: Not Given Haloperidol Lactate (Haldol) 5 mg IM Q8H PRN PRN Reason: Other Last Admin: 02/19/17 10:42 Dose: 5 mg Piperacillin Sod/Tazobactam (Sod 3.375 gm/ Sodium Chloride) 50 mls @ 100 mls/ hr IV Q6H [facility] Last Admin: 02/19/17 11:05 Dose: 100 mls/hr Lorazepam (Ativan) 1 mg IVPUSH Q4H PRN PRN Reason: Anxiety Last Admin: 02/19/17 12:54 Dose: 1 mg Memantine (Namenda) 10 mg PO BID [facility] Last Admin: 02/19/17 08:44 Dose: 10 mg Quetiapine Fumarate (Seroquel) 100 mg PO BEDTIME [facility] Last Admin: 02/18/17 20:32 Dose: 100 mg Quetiapine Fumarate (Seroquel) 50 mg PO DAILY [facility] Last Admin: 02/19/17 08:44 Dose: 50 mg Sodium Chloride (Saline Flush) 10 ml FLUSH ASDIRECTED PRN PRN Reason: Keep Vein Open Last Admin: 02/18/17 13:20 Dose: 10 ml Sodium Chloride (Saline Flush) 2.5 ml FLUSH ASDIRECTED PRN PRN Reason: Keep Vein Open Last Admin: 02/18/17 13:20 Dose: 2.5 ml Tamsulosin HCl (Flomax) 0.4 mg PO DAILY [facility] Last Admin: 02/19/17 08:44 Dose: 0.4 mg Tramadol HCl (Ultram) 50 mg PO Q4H PRN PRN Reason: Pain Last Admin: 02/19/17 09:43 Dose: 50 mg Discontinued Medications Bisacodyl (Dulcolax) 10 mg PO ONETIME ONE Stop: 02/19/17 12:57 Last Admin: 02/19/17 15:58 Dose: 10 mg Ceftriaxone Sodium (Rocephin) 1,000 mg IVPUSH ONETIME ONE Stop: 02/18/17 15:58 Last Admin: 02/18/17 16:03 Dose: 1,000 mg Sodium Chloride (Normal Saline) 1,000 mls @ 125 mls/hr IV STAT [facility] Last Admin: 02/18/17 13:20 Dose: 125 mls/hr Piperacillin Sod/Tazobactam (Sod 3.375 gm/ Sodium Chloride) 50 mls @ 100 mls/ hr IV Q6H [facility] Last Admin: 02/19/17 06:13 Dose: Not Given Ketorolac Tromethamine (Toradol) 15 mg IVPUSH ONETIME ONE Stop: 02/18/17 14:07 Last Admin: 02/18/17 14:12 Dose: 15 mg - Exam General: Alert, Cooperative, Other (confused; he has tried to get out of bed at times.). No: Oriented Lungs: Clear to Auscultation, Normal Respiratory Effort GI/Abdominal Exam: Soft - Problem List & Annotations (1) Agitation SNOMED Code(s): 18724648 Code(s): R45.1 - RESTLESSNESS AND AGITATION Status: Acute Current Visit: Yes (2) Elevated liver enzymes SNOMED Code(s): 868479524 Code(s): R74.8 - ABNORMAL LEVELS OF OTHER SERUM ENZYMES Status: Acute Current Visit: Yes (3) Acute urinary retention SNOMED Code(s): 953973702 Code(s): R33.8 - OTHER RETENTION OF URINE Status: Acute Current Visit: Yes (4) Dementia SNOMED Code(s): 20713524 Code(s): F03.90 - UNSPECIFIED DEMENTIA WITHOUT BEHAVIORAL DISTURBANCE Status: Acute Current Visit: Yes (5) Leukocytosis SNOMED Code(s): 350111043, 499420127 Code(s): D72.829 - ELEVATED WHITE BLOOD CELL COUNT, UNSPECIFIED Status: Acute Current Visit: Yes - Problem List Review Problem List Initiated/Reviewed/Updated: Yes - My Orders Last 24 Hours: My Active Orders 02/18/17 18:47 Oxygen Therapy [RC] PRN Vital Signs [RC] Q1H Resuscitation Status Routine 02/18/17 18:50 Haloperidol Lactate [Haldol] 5 mg IM Q8H PRN LORazepam [Ativan] 1 mg IVPUSH Q4H PRN 02/18/17 18:53 Bisacodyl [Dulcolax] 5 mg PO DAILY PRN 02/18/17 19:00 Donepezil [Aricept] 10 mg PO BEDTIME QUEtiapine [SEROquel] 100 mg PO BEDTIME 02/18/17 19:05 Acetaminophen [Tylenol] 325 mg PO Q4H PRN 02/18/17 20:45 traMADol [Ultram] 50 mg PO Q4H PRN 02/18/17 21:00 Bimatoprost [LUMIGAN 0.01% Ophth Soln] 0 ml EYEBOTH BEDTIME Docusate Sodium [Colace] 100 mg PO BID Memantine [Namenda] 10 mg PO BID 02/18/17 22:14 ALPRAZolam [Xanax] 1 mg PO BID PRN 02/19/17 09:00 QUEtiapine [SEROquel] 50 mg PO DAILY Tamsulosin [Flomax] 0.4 mg PO DAILY 02/19/17 12:00 Piperacillin/Tazobactam [Piperacil-Tazobact] 3.375 gm Sodium Chloride 0.9% [ Normal Saline] 50 ml IV Q6H 02/20/17 05:11 CBC WITH AUTO DIFF [HEME] AM COMPREHENSIVE METABOLIC PN,CMP [CHEM] AM MG [MAGNESIUM] [CHEM] AM 02/21/17 05:11 CBC WITH AUTO DIFF [HEME] AM COMPREHENSIVE METABOLIC PN,CMP [CHEM] AM MG [MAGNESIUM] [CHEM] AM - Assessment Assessment:: 02/19/17 suspected infection; must consider prostatitis. will trial of removing unger tomorrow am probable discharge home on Sunday may need outpatient urology consult. Kumar Kilgore - Plan Plan:: will cover with broad spectrum antibiotics add flomax RUQ abdominal ultrasound tomorrow. catherine Kilgore MD
[2017-02-19] MEDS: Donepezil 10 MG Tab PO SCH (20:29)
[2017-02-19] MEDS: QUEtiapine 100 MG Tab PO SCH (20:29)
[2017-02-20] MEDS: Piperacillin/Tazobactam 3.375 GM in Sodium Chloride 0.9% 50 ML IV SCH ×4 (00:27→18:42)
[2017-02-20] MEDS: Docusate Sodium 100 MG Cap PO SCH ×2 (08:56→20:42)
[2017-02-20] MEDS: ALPRAZolam 0.5 MG Tab PO PRN (08:57)
[2017-02-20] MEDS: Memantine 10 MG Tab PO SCH ×2 (08:57→20:42)
[2017-02-20] MEDS: Tamsulosin 0.4 MG Cap.ER PO SCH (08:57)
--- NOTE | 2017-02-20 16:41 | PCM.PN ---
- General Info Date of Service: 02/20/17 Subjective Update: He is resting peacefully this am. - Patient Data Vitals - Most Recent: Last Vital Signs Temp 97.7 F 02/20/17 12:00 Pulse 66 02/18/17 15:30 Resp 24 H 02/20/17 14:00 BP 144/83 H 02/20/17 14:00 Pulse Ox 98 02/20/17 14:00 Weight - Most Recent: 80.9 kg I&O - Last 24 Hours: Intake & Output 02/20/17 02/20/17 02/20/17 06:59 14:59 22:59 Intake Total 150 Output Total 560 Balance -410 Lab Results Last 24 Hours: Laboratory Results - last 24 hr 02/20/17 02/20/17 Range/Units 07:29 07:29 WBC 14.34 H (4.0-11.0) K/uL RBC 4.31 L (4.50-5.90) M/uL Hgb 13.1 (13.0-17.0) g/dL Hct 40.1 (38.0-50.0) % MCV 93.0 (80.0-98.0) fL MCH 30.4 (27.0-32.0) pg MCHC 32.7 (31.0-37.0) g/dL RDW Std Deviation 49.3 (28.0-62.0) fl RDW Coeff of Giulia 15 (11.0-15.0) % Plt Count 118 L (150-400) K/uL MPV 10.20 (7.40-12.00) fL Add Manual Diff YES Neutrophils % (Manual) 56 (48.0-80.0) % Band Neutrophils % 3 % Lymphocytes % (Manual) 20 (16.0-40.0) % Monocytes % (Manual) 21 H (0.0-15.0) % Nucleated RBC % 0.0 /100WBC Absolute Seg Neuts 8.0 Band Neutrophils # 0.4 Lymphocytes # (Manual) 2.9 Monocytes # (Manual) 3.0 Nucleated RBCs # 0 K/uL Sodium 144 (136-146) mmol/L Potassium 3.7 (3.5-5.1) mmol/L Chloride 112 H (98-110) mmol/L Carbon Dioxide 22 (21-31) mmol/L BUN 14 (6.0-23.0) mg/dL Creatinine 1.2 (0.6-1.5) mg/dL Est Cr Clr Drug Dosing 59.29 mL/min Estimated GFR (MDRD) 59.9 ml/min Glucose 98 (60-110) mg/dL Calcium 9.0 (8.8-10.8) mg/dL Magnesium 1.7 (1.5-2.3) mEq/L Total Bilirubin 0.8 (0.1-1.5) mg/dL AST 51 H (5-40) IU/L ALT 169 H (8-54) IU/L Alkaline Phosphatase 121 (40-150) Total Protein 6.5 (6.0-8.0) g/dL Albumin 3.6 (3.4-4.8) g/dL Globulin 2.9 (2.0-3.5) g/dL Albumin/Globulin Ratio 1.2 L (1.3-2.8) Med Orders - Current: Current Medications Acetaminophen (Tylenol) 325 mg PO Q4H PRN PRN Reason: Pain Last Admin: 02/18/17 20:50 Dose: 325 mg Alprazolam (Xanax) 1 mg PO BID PRN PRN Reason: Agitation Last Admin: 02/20/17 08:57 Dose: 1 mg Bimatoprost (Lumigan 0.01% [facility] Soln) 0 ml EYEBOTH BEDTIME [facility] Last Admin: 02/19/17 20:46 Dose: Not Given Bisacodyl (Dulcolax) 5 mg PO DAILY PRN PRN Reason: Constipation Last Admin: 02/20/17 08:57 Dose: 5 mg Docusate Sodium (Colace) 100 mg PO BID [facility] Last Admin: 02/20/17 08:56 Dose: 100 mg Donepezil HCl (Aricept) 10 mg PO BEDTIME [facility] Last Admin: 02/19/17 20:29 Dose: 10 mg Haloperidol Lactate (Haldol) 5 mg IM Q8H PRN PRN Reason: Other Last Admin: 02/19/17 10:42 Dose: 5 mg Piperacillin Sod/Tazobactam (Sod 3.375 gm/ Sodium Chloride) 50 mls @ 100 mls/ hr IV Q6H [facility] Last Admin: 02/20/17 13:14 Dose: 100 mls/hr Lorazepam (Ativan) 1 mg IVPUSH Q4H PRN PRN Reason: Anxiety Last Admin: 02/19/17 21:40 Dose: 1 mg Memantine (Namenda) 10 mg PO BID [facility] Last Admin: 02/20/17 08:57 Dose: 10 mg Quetiapine Fumarate (Seroquel) 100 mg PO BEDTIME [facility] Last Admin: 02/19/17 20:29 Dose: 100 mg Quetiapine Fumarate (Seroquel) 50 mg PO DAILY [facility] Last Admin: 02/20/17 08:57 Dose: 50 mg Sodium Chloride (Saline Flush) 10 ml FLUSH ASDIRECTED PRN PRN Reason: Keep Vein Open Last Admin: 02/18/17 13:20 Dose: 10 ml Sodium Chloride (Saline Flush) 2.5 ml FLUSH ASDIRECTED PRN PRN Reason: Keep Vein Open Last Admin: 02/18/17 13:20 Dose: 2.5 ml Tamsulosin HCl (Flomax) 0.4 mg PO DAILY [facility] Last Admin: 02/20/17 08:57 Dose: 0.4 mg Tramadol HCl (Ultram) 50 mg PO Q4H PRN PRN Reason: Pain Last Admin: 02/19/17 09:43 Dose: 50 mg Discontinued Medications Bisacodyl (Dulcolax) 10 mg PO ONETIME ONE Stop: 02/19/17 12:57 Last Admin: 02/19/17 15:58 Dose: 10 mg Ceftriaxone Sodium (Rocephin) 1,000 mg IVPUSH ONETIME ONE Stop: 02/18/17 15:58 Last Admin: 02/18/17 16:03 Dose: 1,000 mg Sodium Chloride (Normal Saline) 1,000 mls @ 125 mls/hr IV STAT [facility] Last Admin: 02/18/17 13:20 Dose: 125 mls/hr Piperacillin Sod/Tazobactam (Sod 3.375 gm/ Sodium Chloride) 50 mls @ 100 mls/ hr IV Q6H [facility] Last Admin: 02/19/17 06:13 Dose: Not Given Ketorolac Tromethamine (Toradol) 15 mg IVPUSH ONETIME ONE Stop: 02/18/17 14:07 Last Admin: 02/18/17 14:12 Dose: 15 mg - Exam Lungs: Clear to Auscultation, Normal Respiratory Effort Cardiovascular: Regular Rate, Regular Rhythm GI/Abdominal Exam: Soft, Non-Tender - Problem List & Annotations (1) Agitation SNOMED Code(s): 34580306 Code(s): R45.1 - RESTLESSNESS AND AGITATION Status: Acute Current Visit: Yes (2) Elevated liver enzymes SNOMED Code(s): 505884332 Code(s): R74.8 - ABNORMAL LEVELS OF OTHER SERUM ENZYMES Status: Acute Current Visit: Yes (3) Acute urinary retention SNOMED Code(s): 809882094 Code(s): R33.8 - OTHER RETENTION OF URINE Status: Acute Current Visit: Yes (4) Dementia SNOMED Code(s): 12080010 Code(s): F03.90 - UNSPECIFIED DEMENTIA WITHOUT BEHAVIORAL DISTURBANCE Status: Acute Current Visit: Yes (5) Leukocytosis SNOMED Code(s): 178779483, 924662434 Code(s): D72.829 - ELEVATED WHITE BLOOD CELL COUNT, UNSPECIFIED Status: Acute Current Visit: Yes - Problem List Review Problem List Initiated/Reviewed/Updated: Yes - My Orders Last 24 Hours: My Active Orders 02/21/17 05:11 CBC WITH AUTO DIFF [HEME] AM COMPREHENSIVE METABOLIC PN,CMP [CHEM] AM MG [MAGNESIUM] [CHEM] AM - Assessment Assessment:: 02/19/17 suspected infection; must consider prostatitis. will trial of removing unger tomorrow am probable discharge home on Sunday may need outpatient urology consult. Kumar Kilgore - Plan Plan:: will cover with broad spectrum antibiotics add flomax RUQ abdominal ultrasound tomorrow. seroquel Kumar Kilgore MD 02/20/2917 Nurses report that he has voided since discontinuation of unger catheter. I reviewed abdominal ultrasound etiology of elevated LFTs uncertain but could be secondary to sepsis anticipated discharge likely tomorrow. Kumar Kilgore MD
[2017-02-20] MEDS: LORazepam 2 MG/ML MDV IVPUSH PRN (19:02)
[2017-02-20] MEDS: Donepezil 10 MG Tab PO SCH (20:42)
[2017-02-20] MEDS: QUEtiapine 100 MG Tab PO SCH (20:42)
[2017-02-21] MEDS: Piperacillin/Tazobactam 3.375 GM in Sodium Chloride 0.9% 50 ML IV SCH ×3 (00:14→11:12)
[2017-02-21 07:59] LABS: CHLORIDE,CL 110 mmol/L (98-110); SODIUM,NA 142 mmol/L (136-146)
[2017-02-21] MEDS: Docusate Sodium 100 MG Cap PO SCH (08:10)
[2017-02-21] MEDS: Memantine 10 MG Tab PO SCH (08:10)
[2017-02-21] MEDS: Tamsulosin 0.4 MG Cap.ER PO SCH (08:10)
[2017-02-21 08:16] VITALS: BP 149/75
--- NOTE | 2017-02-21 13:37 | PCM.DCSUM1 ---
Discharge Summary - Hospital Course Brief History: He was admitted with suspected sepsis and with acute urinary retention. - Discharge Data Discharge Date: 02/21/17 Discharge Disposition: Home, Self-Care 01 Condition: Stable - Discharge Diagnosis/Problem(s) (1) Agitation SNOMED Code(s): 48219312 ICD Code: R45.1 - RESTLESSNESS AND AGITATION Status: Acute Current Visit : Yes (2) Elevated liver enzymes SNOMED Code(s): 016974957 ICD Code: R74.8 - ABNORMAL LEVELS OF OTHER SERUM ENZYMES Status: Acute Current Visit: Yes (3) Acute urinary retention SNOMED Code(s): 532969257 ICD Code: R33.8 - OTHER RETENTION OF URINE Status: Acute Current Visit: Yes (4) Dementia SNOMED Code(s): 81344922 ICD Code: F03.90 - UNSPECIFIED DEMENTIA WITHOUT BEHAVIORAL DISTURBANCE Status: Acute Current Visit: Yes (5) Leukocytosis SNOMED Code(s): 597563921, 333390564 ICD Code: D72.829 - ELEVATED WHITE BLOOD CELL COUNT, UNSPECIFIED Status: Acute Current Visit: Yes - Patient Summary/Data Hospital Course: He was started on zosyn. His flomax was continued. The unger catheter was removed one day before discharge and he is voiding well. perianal exam was performed which reviewed a very tight anal sphincter such that an accurate prostate digital exam was not done due to patient discomfort. He had chronic confusion and periods of agitation. Seroquel seemed very helpful in managing his agitation. His understands increased risk of in the elderly treated with atypical antipsychotics. He is being discharged home on a 28 day course of cipro for the possibility of a prostatitis. His wbc improved during the hospital course. - Patient Instructions Diet: Usual Diet as Tolerated - Discharge Plan Prescriptions/Med Rec: Ciprofloxacin HCl [Cipro] 500 mg PO BID #28 tablet QUEtiapine [SEROquel] 50 mg PO BID #90 tablet Home Medications: Home Meds ALPRAZolam [Alprazolam] 1 mg PO BID PRN 01/30/17 [History] Bimatoprost [LUMIGAN 0.01% Ophth Soln] 1 drop EYEBOTH BEDTIME 01/30/17 [History] Donepezil HCl [Aricept] 10 mg PO DAILY 01/30/17 [History] FLUoxetine [PROzac] 40 mg PO DAILY 01/30/17 [History] Memantine HCl 10 mg PO BID 01/30/17 [History] Tamsulosin [Flomax] 0.4 mg PO BEDTIME 02/18/17 [History] Ciprofloxacin HCl [Cipro] 500 mg PO BID #28 tablet 02/21/17 [Rx] QUEtiapine [SEROquel] 50 mg PO BID #90 tablet 02/21/17 [Rx] Patient Handouts: Benign Prostatic Hyperplasia, Acute Urinary Retention, Male, [id number] Referrals: Andrei Wheeler MD [Physician] - 03/09/17 9:00 am (Previously scheduled appointment) Jazmyne Jain NP [Nurse Practitioner] - 02/27/17 9:00 am - Patient Data Vitals - Most Recent: Last Vital Signs Temp 98.8 F 02/21/17 08:15 Pulse 75 02/21/17 08:15 Resp 18 02/21/17 08:15 BP 149/75 H 02/21/17 08:15 Pulse Ox 95 02/21/17 08:15 Weight - Most Recent: 80.9 kg I&O - Last 24 hours: Intake & Output 02/20/17 02/21/17 02/21/17 22:59 06:59 14:59 Intake Total 567 550 50 Output Total 681 980 Balance -114 -430 50 Lab Results - Last 24 hrs: Laboratory Results - last 24 hr 02/21/17 02/21/17 Range/Units 07:20 07:20 WBC 10.53 (4.0-11.0) K/uL RBC 4.32 L (4.50-5.90) M/uL Hgb 12.8 L (13.0-17.0) g/dL Hct 40.0 (38.0-50.0) % MCV 92.6 (80.0-98.0) fL MCH 29.6 (27.0-32.0) pg MCHC 32.0 (31.0-37.0) g/dL RDW Std Deviation 48.8 (28.0-62.0) fl RDW Coeff of Giulia 14 (11.0-15.0) % Plt Count 128 L (150-400) K/uL MPV 10.50 (7.40-12.00) fL Add Manual Diff YES Neutrophils % (Manual) 53 (48.0-80.0) % Band Neutrophils % 3 % Lymphocytes % (Manual) 14 L (16.0-40.0) % Monocytes % (Manual) 25 H (0.0-15.0) % Eosinophils % (Manual) 4 (0.0-7.0) % Basophils % (Manual) 1 (0.0-1.5) % Nucleated RBC % 0.0 /100WBC Absolute Seg Neuts 5.6 Band Neutrophils # 0.3 Lymphocytes # (Manual) 1.5 Monocytes # (Manual) 2.6 Eosinophils # (Manual) 0.4 Basophils # (Manual) 0 Nucleated RBCs # 0 K/uL Sodium 142 (136-146) mmol/L Potassium 3.6 (3.5-5.1) mmol/L Chloride 110 (98-110) mmol/L Carbon Dioxide 23 (21-31) mmol/L BUN 18 (6.0-23.0) mg/dL Creatinine 1.0 (0.6-1.5) mg/dL Est Cr Clr Drug Dosing 71.15 mL/min Estimated GFR (MDRD) > 60.0 ml/min Glucose 100 (60-110) mg/dL Calcium 9.2 (8.8-10.8) mg/dL Magnesium 1.5 (1.5-2.3) mEq/L Total Bilirubin 0.7 (0.1-1.5) mg/dL AST 34 (5-40) IU/L ALT 126 H (8-54) IU/L Alkaline Phosphatase 120 (40-150) Total Protein 6.5 (6.0-8.0) g/dL Albumin 3.6 (3.4-4.8) g/dL Globulin 2.9 (2.0-3.5) g/dL Albumin/Globulin Ratio 1.2 L (1.3-2.8) Med Orders - Current: Current Medications Acetaminophen (Tylenol) 325 mg PO Q4H PRN PRN Reason: Pain Last Admin: 02/18/17 20:50 Dose: 325 mg Alprazolam (Xanax) 1 mg PO BID PRN PRN Reason: Agitation Last Admin: 02/20/17 08:57 Dose: 1 mg Bimatoprost (Lumigan 0.01% Ophth Soln) 0 ml EYEBOTH BEDTIME [facility] Last Admin: 02/20/17 22:07 Dose: 1 drop Bisacodyl (Dulcolax) 5 mg PO DAILY PRN PRN Reason: Constipation Last Admin: 02/20/17 08:57 Dose: 5 mg Docusate Sodium (Colace) 100 mg PO BID [facility] Last Admin: 02/21/17 08:10 Dose: 100 mg Donepezil HCl (Aricept) 10 mg PO BEDTIME [facility] Last Admin: 02/20/17 20:42 Dose: 10 mg Haloperidol Lactate (Haldol) 5 mg IM Q8H PRN PRN Reason: Other Last Admin: 02/19/17 10:42 Dose: 5 mg Piperacillin Sod/Tazobactam (Sod 3.375 gm/ Sodium Chloride) 50 mls @ 100 mls/ hr IV Q6H [facility] Last Admin: 02/21/17 11:12 Dose: 100 mls/hr Lorazepam (Ativan) 1 mg IVPUSH Q4H PRN PRN Reason: Anxiety Last Admin: 02/20/17 19:02 Dose: 1 mg Memantine (Namenda) 10 mg PO BID [facility] Last Admin: 02/21/17 08:10 Dose: 10 mg Quetiapine Fumarate (Seroquel) 100 mg PO BEDTIME [facility] Last Admin: 02/20/17 20:42 Dose: 100 mg Quetiapine Fumarate (Seroquel) 50 mg PO DAILY [facility] Last Admin: 02/21/17 08:10 Dose: 50 mg Sodium Chloride (Saline Flush) 10 ml FLUSH ASDIRECTED PRN PRN Reason: Keep Vein Open Last Admin: 02/18/17 13:20 Dose: 10 ml Sodium Chloride (Saline Flush) 2.5 ml FLUSH ASDIRECTED PRN PRN Reason: Keep Vein Open Last Admin: 02/18/17 13:20 Dose: 2.5 ml Tamsulosin HCl (Flomax) 0.4 mg PO DAILY [facility] Last Admin: 02/21/17 08:10 Dose: 0.4 mg Tramadol HCl (Ultram) 50 mg PO Q4H PRN PRN Reason: Pain Last Admin: 02/19/17 09:43 Dose: 50 mg Discontinued Medications Bimatoprost (Lumigan 0.01% Oph Soln) 2.5 ml .ROUTE .STK-MED ONE Stop: 02/21/17 21:51 Bisacodyl (Dulcolax) 10 mg PO ONETIME ONE Stop: 02/19/17 12:57 Last Admin: 02/19/17 15:58 Dose: 10 mg Ceftriaxone Sodium (Rocephin) 1,000 mg IVPUSH ONETIME ONE Stop: 02/18/17 15:58 Last Admin: 02/18/17 16:03 Dose: 1,000 mg Sodium Chloride (Normal Saline) 1,000 mls @ 125 mls/hr IV STAT [facility] Last Admin: 02/18/17 13:20 Dose: 125 mls/hr Piperacillin Sod/Tazobactam (Sod 3.375 gm/ Sodium Chloride) 50 mls @ 100 mls/ hr IV Q6H [facility] Last Admin: 02/19/17 06:13 Dose: Not Given Ketorolac Tromethamine (Toradol) 15 mg IVPUSH ONETIME ONE Stop: 02/18/17 14:07 Last Admin: 02/18/17 14:12 Dose: 15 mg *Q Meaningful Use (DIS) - VTE *Q VTE Criteria *Q: - Stroke *Q Stroke Criteria *Q: - AMI *Q AMI Criteria *Q:
== END 2017-02-21 13:43 | disposition home or self-care (01) | DRG 872 ==
LOC: MW.ED 12:46 → MW.ICU 15:35
PROVIDERS: ADMIT Family Medicine; ATTEND Family Medicine
DX: R33.9 Retention of urine, unspecified (principal); A41.9 Sepsis, unspecified organism; N41.9 Inflammatory disease of prostate, unspecified; R33.8 Other retention of urine; R45.1 Restlessness and agitation; F41.9 Anxiety disorder, unspecified; D72.829 Elevated white blood cell count, unspecified; R74.8 Abnormal levels of other serum enzymes; G30.9 Alzheimer's disease, unspecified; F02.80 Dementia in other diseases classified elsewhere, unspecified severity, without behavioral disturbance, psychotic disturbance, mood disturbance, and anxiety; Z79.899 Other long term (current) drug therapy
CPT/HCPCS: 36415; 70450; 71010; 74176; 80053; 80305; 81001; 82140; 82150; 83605; 83690; 84484; 85025; 85610; 87040 ×2; 87086; 93005; 96361; 96374; 99285; G0480; J1885; J7040; 51701; 76705; 76705-26; 83735; 96375; 99283; A9270-GY; J0696; J1630; J2060; J2543; J7050

== ENCOUNTER 2017-07-09 12:52 | Emergency (ER) | payer MEDICARE, BC ==
[2017-07-09 13:21] VITALS: BP 178/111
--- NOTE | 2017-07-09 13:41 | EDM.PDOC ---
ED HPI GENERAL MEDICAL PROBLEM - General Chief Complaint: Gastrointestinal Problem Stated Complaint: LOSS OF APPETITE Time Seen by Provider: 07/09/17 13:28 - History of Present Illness INITIAL COMMENTS - FREE TEXT/NARRATIVE: HISTORY AND PHYSICAL: History of present illness: The patient is a 72-year-old male with a history of severe dementia and is unable to offer much history but his and family member here stating that they are concerned about decreased urine output that started today decreased by mouth intake that started today and bladder spasms. The patient has had prostatitis in the past and was admitted to the hospital in February for same and also is a history of urinary retention. The says that he had a good urine output today but he looks very bloated and he is complaining that his bladder is hurting him and he is grabbing at his crotch which is a sign that there is a problem according to the . He had a low-grade fever at home of 99 but no other symptoms of nausea vomiting or diarrhea. In fact the patient was constipated and the just recently gave him a laxative with good output today. Patient has had no chest pain coughing or flulike symptoms and most of the history is coming from the . The patient moves easily in the ED. The does tell me that he doesn't hydrate very well at home that has always been a problem. Review of systems: As per history of present illness and below otherwise all systems reviewed and negative. Past medical history: As per history of present illness and as reviewed below otherwise noncontributory. Surgical history: As per history of present illness and as reviewed below otherwise noncontributory. Social history: No reported history of drug or alcohol abuse. Family history: As per history of present illness and as reviewed below otherwise noncontributory. Physical exam: Gen.: Well-developed well-nourished man who is extremely demented but can be redirected and follow simple commands. Vital signs of the note by me. HEENT: Atraumatic, normocephalic, negative for conjunctival pallor or scleral icterus, mucous membranes moist, throat clear, neck supple, nontender, trachea midline. Lungs: Clear to auscultation, breath sounds equal bilaterally, chest nontender. Heart: S1S2, regular, negative for clicks, rubs, or JVD. Abdomen: Soft, lower abdomen is very distended and there appears to be a distended bladder appreciated with some mild tenderness diffusely but no rebound or guarding. Bowel sounds are present but hypoactive and there is no discrete tympany on percussion Negative for masses or hepatosplenomegaly. Negative for costovertebral tenderness. Pelvis: Stable nontender. Genitourinary: Deferred. Rectal: Deferred. Extremities: Atraumatic, negative for cords or calf pain. Neurovascular unremarkable. Neuro: Awake, alert, oriented. Cranial nerves II through XII unremarkable. Cerebellum unremarkable. Motor and sensory unremarkable throughout. Exam nonfocal. Diagnostics: CBC CMP UA urine culture bladder scan blood cultures Therapeutics: Tomlinson catheter Bladder scan revealed over 700 mL of retained urine swelling Tomlinson will be placed. I discussed with the and caregiver at bedside all testing results and I've also spoken with the patient's primary care physician Dr. Wheeler. The patient currently is on Flomax and Dr. Wheeler would like to start Levaquin and I sent blood and urine cultures. Both the and caregiver as well as Dr. Wheeler do not feel that the patient will do well on admission just to manage the white cell count as he is not toxic his lactic acid is normal and he is afebrile. We are going to try outpatient therapy with the Levaquin and close follow-up with Dr. Wheeler. His nurse is going to contact the later today with an appointment in 2 days for reevaluation and repeat blood work and care. The is aware to continue to monitor the temperature closely and reasons to return to the ED. The and caregiver both say that the patient will not do well on admission and they definitely want to try outpatient treatment as per the recommendation of Dr. Wheeler. Please also note that after the Tomlinson was placed the patient's vital signs normalized Impression: Acute urinary retention, leukocytosis rule out prostatitis stable Definitive disposition and diagnosis as appropriate pending reevaluation and review of above. - Related Data Allergies Allergy/AdvReac Type Severity Reaction Status Date / Time No Known Allergies Allergy Verified 07/09/17 13:18 Home Meds: Home Meds ALPRAZolam [Alprazolam ER] 1 mg PO TID PRN 07/09/17 [History] Bimatoprost [LUMIGAN 0.01% Ophth Soln] 1 drop EYEBOTH DAILY 07/09/17 [History] Donepezil HCl [Donepezil HCl Odt] 10 mg PO DAILY 07/09/17 [History] FLUoxetine [PROzac] 40 mg PO DAILY 07/09/17 [History] Finasteride 5 mg PO DAILY 07/09/17 [History] Memantine HCl 10 mg PO DAILY 07/09/17 [History] QUEtiapine Fumarate [Quetiapine Fumarate] 100 mg PO DAILY 07/09/17 [History] Past Medical History HEENT History: Reports: Glaucoma Cardiovascular History: Reports: None Respiratory History: Reports: None Gastrointestinal History: Reports: Other (See Below) Other Gastrointestinal History: dyslipidemia Genitourinary History: Reports: BPH, UTI, Recurrent Other Genitourinary History: UTI hx Musculoskeletal History: Reports: None Neurological History: Reports: Alzheimers Disease Psychiatric History: Reports: Anxiety Endocrine/Metabolic History: Reports: None Dermatologic History: Reports: None - Past Surgical History HEENT Surgical History: Reports: None Social & Family History - Family History Family Medical History: Noncontributory - Tobacco Use Smoking Status *Q: Never Smoker Second Hand Smoke Exposure: No - Caffeine Use Caffeine Use: Reports: None - Recreational Drug Use Recreational Drug Use: No - Living Situation & Occupation Living situation: Reports: Occupation: Retired ED ROS GENERAL - Review of Systems Review Of Systems: ROS reveals no pertinent complaints other than HPI. ED EXAM, GENERAL - Physical Exam Exam: See Below (See dictation) Course - Vital Signs Last Recorded V/S: Last Vital Signs Temp 36.1 C 07/09/17 13:18 Pulse 120 H 07/09/17 13:18 Resp 18 07/09/17 13:18 BP 178/111 H 07/09/17 13:18 Pulse Ox 97 07/09/17 13:18 - Orders/Labs/Meds Orders: Active Orders 24 hr Category Date Time Status Insert Tomlinson Catheter [Insert Urinary Catheter] [OM.PC] Care 07/09/17 14:00 Ordered Q24H Urinary Catheter Assessment [RC] ASDIRECTED Care 07/09/17 13:54 Active CULTURE BLOOD [BC] Stat Lab 07/09/17 14:29 Received CULTURE BLOOD [BC] Stat Lab 07/09/17 14:40 Received CULTURE URINE [RM] Stat Lab 07/09/17 14:09 Received Blood Culture x2 Reflex Set [OM.PC] Stat Oth 07/09/17 14:28 Ordered Labs: Laboratory Tests 07/09/17 07/09/17 07/09/17 Range/Units 13:57 13:57 14:09 WBC 22.96 H (4.0-11.0) K/uL RBC 4.67 (4.50-5.90) M/uL Hgb 13.9 (13.0-17.0) g/dL Hct 41.2 (38.0-50.0) % MCV 88.2 (80.0-98.0) fL MCH 29.8 (27.0-32.0) pg MCHC 33.7 (31.0-37.0) g/dL RDW Std Deviation 45.4 (28.0-62.0) fl RDW Coeff of Giulia 14 (11.0-15.0) % Plt Count 176 (150-400) K/uL MPV 10.60 (7.40-12.00) fL Add Manual Diff YES Neutrophils % (Manual) 76 (48.0-80.0) % Band Neutrophils % 3 % Lymphocytes % (Manual) 8 L (16.0-40.0) % Monocytes % (Manual) 13 (0.0-15.0) % Nucleated RBC % 0.0 /100WBC Absolute Seg Neuts 17.4 H (1.4-5.7) Band Neutrophils # 0.7 Lymphocytes # (Manual) 1.8 (0.6-2.4) Monocytes # (Manual) 3.0 H (0.0-0.8) Nucleated RBCs # 0 K/uL Lactate (0.20-2.00) mmol/L Sodium 139 (136-146) mmol/L Potassium 3.6 (3.5-5.1) mmol/L Chloride 107 (98-110) mmol/L Carbon Dioxide 18 L (21-31) mmol/L BUN 14 (6.0-23.0) mg/dL Creatinine 1.1 (0.6-1.5) mg/dL Est Cr Clr Drug Dosing 58.42 mL/min Estimated GFR (MDRD) > 60.0 ml/min Glucose 114 H (60-110) mg/dL Calcium 10.1 (8.8-10.8) mg/dL Total Bilirubin 0.9 (0.1-1.5) mg/dL AST 22 (5-40) IU/L ALT 19 (8-54) IU/L Alkaline Phosphatase 117 (40-150) Total Protein 8.1 H (6.0-8.0) g/dL Albumin 4.8 (3.4-4.8) g/dL Globulin 3.3 (2.0-3.5) g/dL Albumin/Globulin Ratio 1.5 (1.3-2.8) Urine Color DARK YELLOW Urine Appearance CLEAR Urine pH 5.5 (5.0-8.0) Ur Specific [place] >= 1.030 (1.001-1.035) Urine Protein NEGATIVE (NEGATIVE) mg/dL Urine Glucose (UA) NEGATIVE (NEGATIVE) mg/dL Urine Ketones NEGATIVE (NEGATIVE) mg/dL Urine Occult Blood SMALL H (NEGATIVE) Urine Nitrite NEGATIVE (NEGATIVE) Urine Bilirubin NEGATIVE (NEGATIVE) Urine Urobilinogen 0.2 (<2.0) EU/dL Ur Leukocyte Esterase NEGATIVE (NEGATIVE) Urine RBC 1-3 (0-2/HPF) Urine WBC 0-2 (0-5/HPF) Ur Epithelial Cells RARE (NONE-FEW) Amorphous Sediment LIGHT (NEGATIVE) Urine Bacteria FEW (NEGATIVE) Urine Mucus LIGHT (NONE-MOD) 07/09/17 Range/Units 14:29 WBC (4.0-11.0) K/uL RBC (4.50-5.90) M/uL Hgb (13.0-17.0) g/dL Hct (38.0-50.0) % MCV (80.0-98.0) fL MCH (27.0-32.0) pg MCHC (31.0-37.0) g/dL RDW Std Deviation (28.0-62.0) fl RDW Coeff of Giulia (11.0-15.0) % Plt Count (150-400) K/uL MPV (7.40-12.00) fL Add Manual Diff Neutrophils % (Manual) (48.0-80.0) % Band Neutrophils % % Lymphocytes % (Manual) (16.0-40.0) % Monocytes % (Manual) (0.0-15.0) % Nucleated RBC % /100WBC Absolute Seg Neuts (1.4-5.7) Band Neutrophils # Lymphocytes # (Manual) (0.6-2.4) Monocytes # (Manual) (0.0-0.8) Nucleated RBCs # K/uL Lactate 1.0 (0.20-2.00) mmol/L Sodium (136-146) mmol/L Potassium (3.5-5.1) mmol/L Chloride (98-110) mmol/L Carbon Dioxide (21-31) mmol/L BUN (6.0-23.0) mg/dL Creatinine (0.6-1.5) mg/dL Est Cr Clr Drug Dosing mL/min Estimated GFR (MDRD) ml/min Glucose (60-110) mg/dL Calcium (8.8-10.8) mg/dL Total Bilirubin (0.1-1.5) mg/dL AST (5-40) IU/L ALT (8-54) IU/L Alkaline Phosphatase (40-150) Total Protein (6.0-8.0) g/dL Albumin (3.4-4.8) g/dL Globulin (2.0-3.5) g/dL Albumin/Globulin Ratio (1.3-2.8) Urine Color Urine Appearance Urine pH (5.0-8.0) Ur Specific [place] (1.001-1.035) Urine Protein (NEGATIVE) mg/dL Urine Glucose (UA) (NEGATIVE) mg/dL Urine Ketones (NEGATIVE) mg/dL Urine Occult Blood (NEGATIVE) Urine Nitrite (NEGATIVE) Urine Bilirubin (NEGATIVE) Urine Urobilinogen (<2.0) EU/dL Ur Leukocyte Esterase (NEGATIVE) Urine RBC (0-2/HPF) Urine WBC (0-5/HPF) Ur Epithelial Cells (NONE-FEW) Amorphous Sediment (NEGATIVE) Urine Bacteria (NEGATIVE) Urine Mucus (NONE-MOD) Departure - Departure Time of Disposition: 15:14 Disposition: Home, Self-Care 01 Condition: Good Clinical Impression: Acute urinary retention Leukocytosis Qualifiers: Leukocytosis type: unspecified Qualified Code(s): D72.829 - Elevated white blood cell count, unspecified - Discharge Information Referrals: PCP,None [Primary Care Provider] - Forms: ED Department Discharge Additional Instructions: The following information is given to patients seen in the emergency department who are being discharged to home. This information is to outline your options for follow-up care. We provide all patients seen in our emergency department with a follow-up referral. The need for follow-up, as well as the timing and circumstances, are variable depending upon the specifics of your emergency department visit. If you don't have a primary care physician on staff, we will provide you with a referral. We always advise you to contact your personal physician following an emergency department visit to inform them of the circumstance of the visit and for follow-up with them and/or the need for any referrals to a consulting specialist. The emergency department will also refer you to a specialist when appropriate. This referral assures that you have the opportunity for followup care with a specialist. All of these measure are taken in an effort to provide you with optimal care, which includes your followup. Under all circumstances we always encourage you to contact your private physician who remains a resource for coordinating your care. When calling for followup care, please make the office aware that this follow-up is from your recent emergency room visit. If for any reason you are refused follow-up, please contact the [facility] emergency department at and ask to speak to the emergency department charge nurse. [facility] Primary care- [place] [address] Please take the Levaquin you had been prescribed and continue the Flomax that you have. Please keep your appointment with Dr. Wheeler in 2 days and the nurse should be contacting you with that information. Return to ER as needed and as discussed. - My Orders Last 24 Hours: My Active Orders 07/09/17 13:54 Urinary Catheter Assessment [RC] ASDIRECTED 07/09/17 14:00 Insert Tomlinson Catheter [Insert Urinary Catheter] [OM.PC] Q24H 07/09/17 14:09 CULTURE URINE [RM] Stat 07/09/17 14:28 Blood Culture x2 Reflex Set [OM.PC] Stat 07/09/17 14:29 CULTURE BLOOD [BC] Stat 07/09/17 14:40 CULTURE BLOOD [BC] Stat - Assessment/Plan Last 24 Hours: My Active Orders 07/09/17 13:54 Urinary Catheter Assessment [RC] ASDIRECTED 07/09/17 14:00 Insert Tomlinson Catheter [Insert Urinary Catheter] [OM.PC] Q24H 07/09/17 14:09 CULTURE URINE [RM] Stat 07/09/17 14:28 Blood Culture x2 Reflex Set [OM.PC] Stat 07/09/17 14:29 CULTURE BLOOD [BC] Stat 07/09/17 14:40 CULTURE BLOOD [BC] Stat
[2017-07-09 14:36] LABS: CHLORIDE,CL 107 mmol/L (98-110); SODIUM,NA 139 mmol/L (136-146)
== END 2017-07-09 15:36 | disposition home or self-care (01) ==
LOC: MW.ED 12:52
DX: R33.9 Retention of urine, unspecified (principal); D72.829 Elevated white blood cell count, unspecified
CPT/HCPCS: 36415; 51702; 51798; 80053; 81001; 83605; 85025; 87040; 87086; 99283

== ENCOUNTER 2017-07-14 17:47 | Emergency (ER) | payer MEDICARE, BC ==
[2017-07-14 18:04] VITALS: BP 145/83
--- NOTE | 2017-07-14 18:23 | EDM.PDOC ---
ED HPI GENERAL MEDICAL PROBLEM - General Chief Complaint: Genitourinary Problem Stated Complaint: BLADDER INFECTION Time Seen by Provider: 07/14/17 18:30 Source of Information: Reports: Patient History Limitations: Reports: No Limitations - History of Present Illness INITIAL COMMENTS - FREE TEXT/NARRATIVE: HISTORY AND PHYSICAL: History of present illness: [She comes to the emergency room brought in by his . He is well known to this emergency room. Has a history of enlarged prostate with frequent prostatitis. Was in the emergency room on July 09 started on Levaquin and had a Tomlinson catheter placed. Last night he woke up suddenly and got a bed clutching of his lower abdomen. This lasted for several seconds and then resolved. Patient described the sensation as a spasm last night. He has a well documented history of dementia and provides most of the patient's medical history information. denies fever and chills. Not had cough, or any signs or symptoms of illness. No nausea or vomiting. His appetite has been normal and he has been drinking normal amounts of fluids.] Review of systems: As per history of present illness and below otherwise all systems reviewed and negative. Past medical history: As per history of present illness and as reviewed below otherwise noncontributory. Surgical history: As per history of present illness and as reviewed below otherwise noncontributory. Social history: No reported history of drug or alcohol abuse. Family history: As per history of present illness and as reviewed below otherwise noncontributory. Physical exam: Vitals are stable and reviewed by me HEENT: Atraumatic, normocephalic. Mucous membranes are pink and moist. Lungs: Clear to auscultation, breath sounds equal bilaterally. Heart: S1S2, regular. Abdomen: Soft, nondistended, nontender. Is mildly tender with palpation over suprapubic area otherwise nontender. No distention noted. No masses guarding or rebound. Pelvis: Stable nontender. Genitourinary: Normal-appearing circumcised penis with catheter in place. [place] colored urine is present in leg bag. Catheter appears to be flushing well. Rectal: Deferred. Extremities: Atraumatic, negative for cords or calf pain. Neurovascular unremarkable. Neuro: Awake, alert. Makes good eye contact and answers questions reasonably. Diagnostics: [UA and culture] Impression: [UTI] Plan: [Urinalysis shows dark yellow slightly cloudy urine with large amount of blood, positive nitrates and 1-2 white blood cells present. Right blood cells are also present in the urine specimen. Urine culture is pending. Will have patient add Bactrim DS twice a day 10 days and continue Levaquin. He he is given a prescription for Pyridium 100 mg #10 sig 1 by mouth 3 times a day as needed for spasm 0 refills. Strict return precautions are reviewed with the . She is in agreement with today's plan.] Definitive disposition and diagnosis as appropriate pending reevaluation and review of above. - Related Data Allergies Allergy/AdvReac Type Severity Reaction Status Date / Time No Known Allergies Allergy Verified 07/09/17 13:18 Home Meds: Home Meds ALPRAZolam [Alprazolam ER] 1 mg PO TID PRN 07/09/17 [History] Donepezil HCl [Donepezil HCl Odt] 10 mg PO DAILY 07/09/17 [History] FLUoxetine [PROzac] 40 mg PO DAILY 07/09/17 [History] Finasteride 5 mg PO DAILY 07/09/17 [History] QUEtiapine Fumarate [Quetiapine Fumarate] 100 mg PO DAILY 07/09/17 [History] QUEtiapine Fumarate [Quetiapine Fumarate ER] 200 mg PO BEDTIME 07/14/17 [History ] Past Medical History - Past Health History Medical/Surgical History: Denies Medical/Surgical History HEENT History: Reports: Glaucoma Cardiovascular History: Reports: None Respiratory History: Reports: None Gastrointestinal History: Reports: Other (See Below) Other Gastrointestinal History: dyslipidemia Genitourinary History: Reports: BPH, UTI, Recurrent Other Genitourinary History: UTI hx Musculoskeletal History: Reports: None Neurological History: Reports: Alzheimers Disease Psychiatric History: Reports: Anxiety Endocrine/Metabolic History: Reports: None Dermatologic History: Reports: None - Past Surgical History HEENT Surgical History: Reports: None Social & Family History - Family History Family Medical History: Noncontributory - Tobacco Use Smoking Status *Q: Never Smoker Second Hand Smoke Exposure: No - Caffeine Use Caffeine Use: Reports: None - Recreational Drug Use Recreational Drug Use: No - Living Situation & Occupation Living situation: Reports: Occupation: Retired ED ROS GENERAL - Review of Systems Review Of Systems: ROS reveals no pertinent complaints other than HPI. ED EXAM, RENAL/ - Physical Exam Exam: See Below Course - Vital Signs Last Recorded V/S: Last Vital Signs Temp 98 F 07/14/17 17:47 Pulse 82 07/14/17 17:47 Resp 18 07/14/17 17:47 BP 145/83 H 07/14/17 17:47 Pulse Ox 94 L 07/14/17 17:47 - Orders/Labs/Meds Orders: Active Orders 24 hr Category Date Time Status CULTURE URINE [RM] Stat Lab 07/14/17 18:30 Received Labs: Laboratory Tests 07/14/17 Range/Units 18:30 Urine Color DARK YELLOW Urine Appearance SLT CLOUDY Urine pH 5.5 (5.0-8.0) Ur Specific [place] >= 1.030 (1.001-1.035) Urine Protein >=300 (NEGATIVE) mg/dL Urine Glucose (UA) NEGATIVE (NEGATIVE) mg/dL Urine Ketones TRACE H (NEGATIVE) mg/dL Urine Occult Blood LARGE H (NEGATIVE) Urine Nitrite POSITIVE H (NEGATIVE) Urine Bilirubin MODERATE H (NEGATIVE) Urine Ictotest NEGATIVE Urine Urobilinogen 0.2 (<2.0) EU/dL Ur Leukocyte Esterase TRACE (NEGATIVE) Urine RBC TOO NUMBEROUS TO CT (0-2/HPF) Urine WBC 1-2 (0-5/HPF) Ur Epithelial Cells FEW (NONE-FEW) Urine Bacteria FEW (NEGATIVE) Departure - Departure Time of Disposition: 19:05 Disposition: Home, Self-Care 01 Condition: Good Clinical Impression: UTI, Urinary tract infectious disease - Discharge Information Instructions: Urinary Tract Infection, Adult, [id number] Referrals: PCP,None [Primary Care Provider] - Forms: ED Department Discharge Additional Instructions: The following information is given to patients seen in the emergency department who are being discharged to home. This information is to outline your options for follow-up care. We provide all patients seen in our emergency department with a follow-up referral. The need for follow-up, as well as the timing and circumstances, are variable depending upon the specifics of your emergency department visit. If you don't have a primary care physician on staff, we will provide you with a referral. We always advise you to contact your personal physician following an emergency department visit to inform them of the circumstance of the visit and for follow-up with them and/or the need for any referrals to a consulting specialist. The emergency department will also refer you to a specialist when appropriate. This referral assures that you have the opportunity for follow-up care with a specialist. All of these measure are taken in an effort to provide you with optimal care, which includes your follow-up. Under all circumstances we always encourage you to contact your private physician who remains a resource for coordinating your care. When calling for follow-up care, please make the office aware that this follow-up is from your recent emergency room visit. If for any reason you are refused follow-up, please contact the [facility] emergency department at and asked to speak to the emergency department charge nurse. [facility] [address] [place] [id number] Follow-up with your primary care provider in the next 48-72 hours. Ad Bactrim and continue other antibiotics. Pyridium will help with bladder spasms. Push fluids. Return to ER as needed as discussed. - My Orders Last 24 Hours: My Active Orders 07/14/17 18:30 CULTURE URINE [RM] Stat - Assessment/Plan Last 24 Hours: My Active Orders 07/14/17 18:30 CULTURE URINE [RM] Stat
== END 2017-07-14 19:10 | disposition home or self-care (01) ==
LOC: MW.ED 17:47
DX: N39.0 Urinary tract infection, site not specified (principal); G30.9 Alzheimer's disease, unspecified; F02.80 Dementia in other diseases classified elsewhere, unspecified severity, without behavioral disturbance, psychotic disturbance, mood disturbance, and anxiety; F41.9 Anxiety disorder, unspecified; Z79.899 Other long term (current) drug therapy
CPT/HCPCS: 81001; 87086; 99283

== ENCOUNTER 2018-02-16 11:00 | Inpatient (IN) | payer MEDICARE, BC ==
[2018-02-16] MEDS ORDERED: Sodium Chloride 0.9% 1,000 ML IV ONE (11:02)
--- NOTE | 2018-02-16 11:09 | EDM.PDOC ---
ED HPI GENERAL MEDICAL PROBLEM - General Chief Complaint: General Stated Complaint: not feeling good Time Seen by Provider: 02/16/18 11:02 Source of Information: Reports: Patient History Limitations: Reports: No Limitations - History of Present Illness INITIAL COMMENTS - FREE TEXT/NARRATIVE: HISTORY AND PHYSICAL: History of present illness: Patient is a 73-year-old male who is brought to the emergency room by EMS with insertions of increased agitation. Patient's states that this morning he appeared to be restless and slightly agitated. They mentioned concern that he may have a UTI as he frequently does get bladder infections. also mentions concern that his Alzheimer's disease is progressing rapidly and his overall health appears to be declining. He normally does get up and walk about the house without any difficulty. states that Luan is progressively becoming more weak and does have frequent falls to where he lets himself to the ground. states he is able to control his "falls" and has not hit his head or had any loss of consciousness. reports that she does routinely give him stool softeners as Luan "does not have sensation of when he needs to go... he holds it all". Reports he has bad normal bowel movements. She believes that his right side of his abdomen appears distended. Upon arrival the patient is alert and appropriate for self, answering questions with short one word answers. He currently denies any pain or current complaints. Patient does have a medical history of enlarged prostate, frequent prostatitis, frequent UTI, Alzheimer's and dementia. Primary care provider is Dr Wheeler. Last visit was approx 6-8 months ago. Review of systems: As per history of present illness and below otherwise all systems reviewed and negative. Past medical history: As per history of present illness and as reviewed below otherwise noncontributory. Surgical history: As per history of present illness and as reviewed below otherwise noncontributory. Social history: No reported history of drug or alcohol abuse. Family history: As per history of present illness and as reviewed below otherwise noncontributory. Physical exam: General: Well-developed and well-nourished 73-year-old male. Alert and appropriate for self. Nontoxic appearing and in no acute distress. HEENT: Atraumatic, normocephalic, nontender with palpation. His pupils equal and reactive bilaterally, 3mm. Able to follow and has full intracular movement, has nystagmus of bilateral eyes. He is negative for conjunctival pallor or scleral icterus, mucous membranes moist, throat clear, neck supple, nontender, trachea midline. No drooling or trismus noted. No meningeal signs Lungs: Clear to auscultation, breath sounds equal bilaterally, chest nontender. Heart: S1S2, regular rate and rhythm without overt murmur Abdomen: Soft, nondistended, nontender. Negative for masses or hepatosplenomegaly. Negative for costovertebral tenderness. Pelvis: Stable nontender. Genitourinary: Deferred. Rectal: Deferred. Skin: Intact, warm, dry. No lesions or rashes noted. Extremities: Atraumatic, fatty mass to right shoulder cap ( reports he has lymphoma), moves all per self without difficulty, negative for cords or calf pain. Neurovascular unremarkable. Neuro: Awake, alert, oriented. Cranial nerves II through XII unremarkable. Cerebellum unremarkable. Motor and sensory unremarkable throughout. Exam nonfocal. Notes: Patient has become agitated and yelling at family members and staff. He appears restless on the cot. We'll give him some Ativan IV while waiting for labs. states that he will likely be incontinent of urine and will not give us a urine sample. She states that they usually have to straight catheter for a sample. Patient discontinued his IV per self. Staff nurse went down with patient to CT scan. VSS. Head CT shows no acute intracranial abnormalities. Moderate generalized cerebral volume loss. CT of the abdomen and pelvis shows possible constipation in the redundant colon, large amount of stool in rectum. Incidental finding of a benign 8 mm noncalcified nodule to the right middle lobe. 3.2 partially presumed cyst of the right kidney. 1315: I was called into the room by nursing staff. She had just returned from CT scan and staff was going back into the room to straight catheter for urine sample. Patient was found on the ground with a anterior scalp laceration. Staff states the patient was alert and appropriate when he was found. He stated he was trying to get up to use the bathroom. Assessment was performed to the C- spine and back. No pain with palpation of the c-spine or back. No crepitus, step -offs or obvious deformities. Able to move patient to the bed, assist 3. Vital signs stable. Physical examination was repeated. Patient has no pain with movement or palpation. The was informed of the patient's fall. She states she does not appear surprised, stating he has multiple falls at home - "I usually have to put in a time out, so he calms down". Scalp laceration was cleansed with chlorahexadin, # joo applied with education. The new head CT shows mild focal scalp swelling, otherwise no changes. No hemorrhage or fractures. 3 cm superficial laceration, linear to the mid upper anterior scalp. The area does appear that it could easily be ripped apart, I did leave the skin. #3 joo applied to ensure get approximation. Nonstick dressing applied. Patient tolerated well. VSS Dr. Campos was consulted on this case. He is agreeable to keeping this patient as inpatient on [facility]. The is aware that they do not have any extra staff to sit one-on-one with him. She is agreeable to staying with the patient as able. Dr Dickson was down to see patient before admission. Diagnostics: CBC, CMP, UA, CXR, EKG, head CT, abd/pelvis CT, repeat head CT Therapeutics: IV fluids 125ml/hr, Ativan, Haldol, wound care, joo Impression: Frequent Falls Head Injury Laceration Alzheimer's Dementia Plan: Inpatient admission to [facility] Definitive disposition and diagnosis as appropriate pending reevaluation and review of above. Onset: Today Duration: Day(s):, Chronic - Related Data Allergies Allergy/AdvReac Type Severity Reaction Status Date / Time No Known Allergies Allergy Verified 02/16/18 11:17 Home Meds: Home Meds ALPRAZolam [Alprazolam ER] 1 mg PO TID PRN 07/09/17 [History] Donepezil HCl [Donepezil HCl Odt] 10 mg PO DAILY 07/09/17 [History] FLUoxetine [PROzac] 40 mg PO DAILY 07/09/17 [History] Finasteride 5 mg PO DAILY 07/09/17 [History] QUEtiapine Fumarate [Quetiapine Fumarate] 100 mg PO DAILY 07/09/17 [History] QUEtiapine Fumarate [Quetiapine Fumarate ER] 200 mg PO BEDTIME 07/14/17 [History ] Past Medical History - Past Health History Medical/Surgical History: Denies Medical/Surgical History HEENT History: Reports: Glaucoma Cardiovascular History: Reports: None Respiratory History: Reports: None Gastrointestinal History: Reports: Other (See Below) Other Gastrointestinal History: dyslipidemia Genitourinary History: Reports: BPH, UTI, Recurrent Other Genitourinary History: UTI hx Musculoskeletal History: Reports: None Neurological History: Reports: Alzheimers Disease Psychiatric History: Reports: Anxiety Endocrine/Metabolic History: Reports: None Dermatologic History: Reports: None - Past Surgical History HEENT Surgical History: Reports: None Social & Family History - Family History Family Medical History: Noncontributory - Caffeine Use Caffeine Use: Reports: None - Living Situation & Occupation Living situation: Reports: Occupation: Retired ED ROS GENERAL - Review of Systems Review Of Systems: ROS reveals no pertinent complaints other than HPI. ED EXAM, GENERAL - Physical Exam Exam: See Below (See dictation) Course - Vital Signs Last Recorded V/S: Last Vital Signs Temp 97.2 F 02/16/18 11:09 Pulse 65 02/16/18 13:37 Resp 20 02/16/18 13:37 BP 119/77 02/16/18 13:37 Pulse Ox 96 02/16/18 13:37 - Orders/Labs/Meds Orders: Active Orders 24 hr Category Date Time Status Admission Status [Patient Status] [ADT] Stat ADT 02/16/18 14:22 Active EKG Documentation Completion [RC] STAT Care 02/16/18 11:02 Active Abdomen Pelvis wo Cont [CT] Stat Exams 02/16/18 12:13 Taken Chest 1V Frontal [CR] Stat Exams 02/16/18 11:02 Taken Head wo Cont [CT] Stat Exams 02/16/18 11:14 Taken Head wo Cont [CT] Stat Exams 02/16/18 13:23 Taken CULTURE SPUTUM + SMEAR [RM] Stat Lab 02/16/18 14:26 Received Sodium Chloride 0.9% [Normal Saline] 1,000 ml Med 02/16/18 11:02 Active IV STAT Medication Orders Sodium Chloride (Normal Saline) 1,000 mls @ 125 mls/hr IV STAT ONE Stop: 02/16/18 19:01 Last Admin: 02/16/18 12:14 Dose: 125 mls/hr Labs: Laboratory Tests 02/16/18 02/16/18 02/16/18 Range/Units 11:10 11:18 11:18 WBC 13.88 H (4.0-11.0) K/uL RBC 4.81 (4.50-5.90) M/uL Hgb 14.1 (13.0-17.0) g/dL Hct 42.7 (38.0-50.0) % MCV 88.8 (80.0-98.0) fL MCH 29.3 (27.0-32.0) pg MCHC 33.0 (31.0-37.0) g/dL RDW Std Deviation 45.6 (28.0-62.0) fl RDW Coeff of Giulia 14 (11.0-15.0) % Plt Count 123 L (150-400) K/uL MPV 10.60 (7.40-12.00) fL Add Manual Diff YES Neutrophils % (Manual) 54 (48.0-80.0) % Band Neutrophils % 7 % Lymphocytes % (Manual) 22 (16.0-40.0) % Monocytes % (Manual) 12 (0.0-15.0) % Eosinophils % (Manual) 2 (0.0-7.0) % Basophils % (Manual) 1 (0.0-1.5) % Metamyelocytes % 2 % Nucleated RBC % 0.0 /100WBC Absolute Seg Neuts 7.5 H (1.4-5.7) Band Neutrophils # 1.0 Lymphocytes # (Manual) 3.1 H (0.6-2.4) Monocytes # (Manual) 1.7 H (0.0-0.8) Eosinophils # (Manual) 0.3 (0.0-0.7) Basophils # (Manual) 0.1 (0.0-0.1) Absolute Metamyelocyte 0.3 Absolute Myelocytes 0.1 Nucleated RBCs # 0 K/uL Sodium 136 (136-148) mmol/L Potassium 3.9 (3.5-5.1) mmol/L Chloride 102 (98-107) mmol/L Carbon Dioxide 25.2 (21.0-32.0) mmol/L BUN 8 (7.0-18.0) mg/dL Creatinine 1.0 (0.8-1.3) mg/dL Est Cr Clr Drug Dosing 65.55 mL/min Estimated GFR (MDRD) > 60.0 ml/min Glucose 102 (74-106) mg/dL Calcium 9.0 (8.5-10.1) mg/dL Total Bilirubin 0.6 (0.2-1.0) mg/dL AST 51 H (15-37) IU/L ALT 86 H (14-63) IU/L Alkaline Phosphatase 125 H (46-116) U/L Troponin I < 0.050 (0.000-0.056) ng/mL Total Protein 7.3 (6.4-8.2) g/dL Albumin 3.7 (3.4-5.0) g/dL Globulin 3.6 H (2.0-3.5) g/dL Albumin/Globulin Ratio 1.0 L (1.3-2.8) Amylase 107 (25-115) U/L Lipase 368 (73-393) U/L Urine Color Urine Appearance Urine pH (5.0-8.0) Ur Specific [place] (1.001-1.035) Urine Protein (NEGATIVE) mg/dL Urine Glucose (UA) (NEGATIVE) mg/dL Urine Ketones (NEGATIVE) mg/dL Urine Occult Blood (NEGATIVE) Urine Nitrite (NEGATIVE) Urine Bilirubin (NEGATIVE) Urine Urobilinogen (<2.0) EU/dL Ur Leukocyte Esterase (NEGATIVE) Urine RBC (0-2/HPF) Urine WBC (0-5/HPF) Ur Epithelial Cells (NONE-FEW) Urine Bacteria (NEGATIVE) 02/16/18 Range/Units 13:44 WBC (4.0-11.0) K/uL RBC (4.50-5.90) M/uL Hgb (13.0-17.0) g/dL Hct (38.0-50.0) % MCV (80.0-98.0) fL MCH (27.0-32.0) pg MCHC (31.0-37.0) g/dL RDW Std Deviation (28.0-62.0) fl RDW Coeff of Giulia (11.0-15.0) % Plt Count (150-400) K/uL MPV (7.40-12.00) fL Add Manual Diff Neutrophils % (Manual) (48.0-80.0) % Band Neutrophils % % Lymphocytes % (Manual) (16.0-40.0) % Monocytes % (Manual) (0.0-15.0) % Eosinophils % (Manual) (0.0-7.0) % Basophils % (Manual) (0.0-1.5) % Metamyelocytes % % Nucleated RBC % /100WBC Absolute Seg Neuts (1.4-5.7) Band Neutrophils # Lymphocytes # (Manual) (0.6-2.4) Monocytes # (Manual) (0.0-0.8) Eosinophils # (Manual) (0.0-0.7) Basophils # (Manual) (0.0-0.1) Absolute Metamyelocyte Absolute Myelocytes Nucleated RBCs # K/uL Sodium (136-148) mmol/L Potassium (3.5-5.1) mmol/L Chloride (98-107) mmol/L Carbon Dioxide (21.0-32.0) mmol/L BUN (7.0-18.0) mg/dL Creatinine (0.8-1.3) mg/dL Est Cr Clr Drug Dosing mL/min Estimated GFR (MDRD) ml/min Glucose (74-106) mg/dL Calcium (8.5-10.1) mg/dL Total Bilirubin (0.2-1.0) mg/dL AST (15-37) IU/L ALT (14-63) IU/L Alkaline Phosphatase (46-116) U/L Troponin I (0.000-0.056) ng/mL Total Protein (6.4-8.2) g/dL Albumin (3.4-5.0) g/dL Globulin (2.0-3.5) g/dL Albumin/Globulin Ratio (1.3-2.8) Amylase (25-115) U/L Lipase (73-393) U/L Urine Color YELLOW Urine Appearance CLEAR Urine pH 6.0 (5.0-8.0) Ur Specific [place] 1.020 (1.001-1.035) Urine Protein NEGATIVE (NEGATIVE) mg/dL Urine Glucose (UA) NEGATIVE (NEGATIVE) mg/dL Urine Ketones NEGATIVE (NEGATIVE) mg/dL Urine Occult Blood SMALL H (NEGATIVE) Urine Nitrite NEGATIVE (NEGATIVE) Urine Bilirubin NEGATIVE (NEGATIVE) Urine Urobilinogen 0.2 (<2.0) EU/dL Ur Leukocyte Esterase NEGATIVE (NEGATIVE) Urine RBC 2-5 (0-2/HPF) Urine WBC 0-1 (0-5/HPF) Ur Epithelial Cells OCCASIONAL (NONE-FEW) Urine Bacteria RARE (NEGATIVE) Meds: Medications Generic Name Dose Route Start Last Admin Trade Name Freq PRN Reason Stop Dose Admin Sodium Chloride 1,000 mls @ 125 mls/hr 02/16/18 11:02 02/16/18 12:14 Normal Saline IV 02/16/18 19:01 125 mls/hr STAT ONE Administration Discontinued Medications Generic Name Dose Route Start Last Admin Trade Name Freq PRN Reason Stop Dose Admin Haloperidol 1 mg 02/16/18 14:15 02/16/18 14:31 Haldol PO 02/16/18 14:16 Not Given ONETIME ONE Haloperidol Lactate 1 mg 02/16/18 14:14 02/16/18 14:18 Haldol IM 02/16/18 14:15 Not Given ONETIME ONE Haloperidol Lactate 1 mg 02/16/18 14:27 02/16/18 14:34 Haldol IM 02/16/18 14:28 1 mg ONETIME ONE Administration Haloperidol Lactate 1 mg 02/16/18 14:32 02/16/18 14:34 Haldol IM 02/16/18 14:33 Not Given ONETIME ONE Lorazepam 0.5 mg 02/16/18 12:08 02/16/18 12:13 Ativan IVPUSH 02/16/18 12:09 0.5 mg ONETIME ONE Administration Lorazepam 0.5 mg 02/16/18 12:25 02/16/18 14:18 Ativan IVPUSH 02/16/18 12:26 Not Given ONETIME ONE Departure - Departure Time of Disposition: 14:38 Disposition: Admitted As Inpatient 68 Clinical Impression: Laceration, Frequent falls Head injury Qualifiers: Encounter type: initial encounter Qualified Code(s): S09.90XA - Unspecified injury of head, initial encounter Dementia Qualifiers: Dementia type: Alzheimer's disease Alzheimer's disease onset: unspecified onset Dementia behavioral disturbance: with behavioral disturbance Qualified Code(s): G30.9 - Alzheimer's disease, unspecified; F02.81 - Dementia in other diseases classified elsewhere with behavioral disturbance - Discharge Information Referrals: PCP,Unknown [Primary Care Provider] - Forms: ED Department Discharge - My Orders Last 24 Hours: My Active Orders 02/16/18 11:02 EKG Documentation Completion [RC] STAT Chest 1V Frontal [CR] Stat Sodium Chloride 0.9% [Normal Saline] 1,000 ml IV STAT 02/16/18 11:14 Head wo Cont [CT] Stat 02/16/18 12:13 Abdomen Pelvis wo Cont [CT] Stat 02/16/18 13:23 Head wo Cont [CT] Stat 02/16/18 14:22 Admission Status [Patient Status] [ADT] Stat 02/16/18 14:26 CULTURE SPUTUM + SMEAR [RM] Stat - Assessment/Plan Last 24 Hours: My Active Orders 02/16/18 11:02 EKG Documentation Completion [RC] STAT Chest 1V Frontal [CR] Stat Sodium Chloride 0.9% [Normal Saline] 1,000 ml IV STAT 02/16/18 11:14 Head wo Cont [CT] Stat 02/16/18 12:13 Abdomen Pelvis wo Cont [CT] Stat 02/16/18 13:23 Head wo Cont [CT] Stat 02/16/18 14:22 Admission Status [Patient Status] [ADT] Stat 02/16/18 14:26 CULTURE SPUTUM + SMEAR [RM] Stat
[2018-02-16 11:46] LABS: CHLORIDE,CL 102 mmol/L (98-107); SODIUM,NA 136 mmol/L (136-148)
[2018-02-16] MEDS ORDERED: LORazepam 2 MG/ML SDV IVPUSH ONE ×2 (12:08→12:25)
[2018-02-16] MEDS ORDERED: Haloperidol Lactate 5 MG/ML SDV IM ONE ×4 (14:14→17:58)
[2018-02-16] MEDS ORDERED: Haloperidol 1 MG Tab PO ONE (14:15)
[2018-02-16] MEDS ORDERED: Sodium Chloride 0.9% 10 ML Syringe FLUSH PRN (14:52)
[2018-02-16] MEDS ORDERED: Ondansetron 4 MG/2 ML SDV IVPUSH PRN (14:52)
[2018-02-16] MEDS ORDERED: Morphine 10 MG/ML Syringe IVPUSH PRN (14:52)
[2018-02-16] MEDS ORDERED: Sodium Chloride 0.9% 2.5 ML Syringe FLUSH PRN (14:52)
[2018-02-16] MEDS ORDERED: Magnesium Hydroxide 400 MG/5 ML Susp 30 ML Cup PO PRN (14:52)
[2018-02-16] MEDS ORDERED: Acetaminophen 325 MG Tab PO PRN (14:52)
[2018-02-16] MEDS ORDERED: Docusate Sodium/Sennosides Tab PO PRN (14:52)
--- NOTE | 2018-02-16 15:09 | PCM.HP ---
H&P History of Present Illness - General Date of Service: 02/16/18 Admit Problem/Dx: Admission Diagnosis/Problem Admission Diagnosis/Problem Falls Source of Information: Family - History of Present Illness Initial Comments - Free Text/Narative: 73-year-old male with a significant medical history of rapidly progressing Alzheimer's dementia is being admitted secondary to agitation and change in mental status, along with a head laceration of the patient suffered while in the ED after a fall from the bed. Patient had a head CT done prior to fall and a head CT done after fall both of which do not indicate any acute intracranial hemorrhage or issues, chest x-ray does not show any signs of pneumonia or underlying infection, and abdominal imaging did not show any signs of infection , the patient does have signs of constipation. Urine analysis did not indicate a urinary tract infection. The patient does have an elevated leukocytosis. At baseline the patient's agitation is well controlled by Xanax as needed per the patient's and he does follow commands well. Currently the patient is quite agitated he's pulled his IV out of his arm and was threatening to kill the staff and also made similar threat when I assessed this patient. The patient has received 2 doses of Haldol as well as a dose of Ativan. - Related Data Allergies/Adverse Reactions: Allergies Allergy/AdvReac Type Severity Reaction Status Date / Time No Known Allergies Allergy Verified 02/16/18 11:17 Home Medications: Home Meds ALPRAZolam [Alprazolam ER] 1 mg PO TID PRN 07/09/17 [History] Donepezil HCl [Donepezil HCl Odt] 10 mg PO DAILY 07/09/17 [History] FLUoxetine [PROzac] 40 mg PO DAILY 07/09/17 [History] Finasteride 5 mg PO DAILY 07/09/17 [History] QUEtiapine Fumarate [Quetiapine Fumarate] 100 mg PO DAILY 07/09/17 [History] QUEtiapine Fumarate [Quetiapine Fumarate ER] 200 mg PO BEDTIME 07/14/17 [History ] Past Medical History - Past Health History Medical/Surgical History: Denies Medical/Surgical History HEENT History: Reports: Glaucoma Cardiovascular History: Reports: None Respiratory History: Reports: None Gastrointestinal History: Reports: Other (See Below) Other Gastrointestinal History: dyslipidemia Genitourinary History: Reports: BPH, UTI, Recurrent Other Genitourinary History: UTI hx Musculoskeletal History: Reports: None Neurological History: Reports: Alzheimers Disease Psychiatric History: Reports: Anxiety Endocrine/Metabolic History: Reports: None Dermatologic History: Reports: None - Past Surgical History HEENT Surgical History: Reports: None Social & Family History - Family History Family Medical History: Noncontributory - Tobacco Use Smoking Status *Q: Never Smoker - Caffeine Use Caffeine Use: Reports: None - Recreational Drug Use Recreational Drug Use: No - Living Situation & Occupation Living situation: Reports: Occupation: Retired H&P Review of Systems - Review of Systems: Review Of Systems: ROS reveals no pertinent complaints other than HPI. Exam - Exam Exam: See Below - Vital Signs Vital Signs: Last Vital Signs Temp 36.2 C 02/16/18 11:09 Pulse 65 02/16/18 13:37 Resp 20 02/16/18 13:37 BP 119/77 02/16/18 13:37 Pulse Ox 96 02/16/18 13:37 Weight: 81.647 kg - Exam Quality Assessment: Supplemental Oxygen General: Mild Distress, Other (Agitated) Lungs: Clear to Auscultation, Normal Respiratory Effort Cardiovascular: Regular Rate, Regular Rhythm GI/Abdominal Exam: Normal Bowel Sounds Neuro Extensive - Mental Status: Disorientation to Person, Disorientation to Place, Disorientation to Time Psychiatric: Anxious, Agitated - Patient Data Lab Results Last 24 hrs: Laboratory Results - last 24 hr 02/16/18 02/16/18 02/16/18 Range/Units 11:10 11:18 11:18 WBC 13.88 H (4.0-11.0) K/uL RBC 4.81 (4.50-5.90) M/uL Hgb 14.1 (13.0-17.0) g/dL Hct 42.7 (38.0-50.0) % MCV 88.8 (80.0-98.0) fL MCH 29.3 (27.0-32.0) pg MCHC 33.0 (31.0-37.0) g/dL RDW Std Deviation 45.6 (28.0-62.0) fl RDW Coeff of Giulia 14 (11.0-15.0) % Plt Count 123 L (150-400) K/uL MPV 10.60 (7.40-12.00) fL Add Manual Diff YES Neutrophils % (Manual) 54 (48.0-80.0) % Band Neutrophils % 7 % Lymphocytes % (Manual) 22 (16.0-40.0) % Monocytes % (Manual) 12 (0.0-15.0) % Eosinophils % (Manual) 2 (0.0-7.0) % Basophils % (Manual) 1 (0.0-1.5) % Metamyelocytes % 2 % Nucleated RBC % 0.0 /100WBC Absolute Seg Neuts 7.5 H (1.4-5.7) Band Neutrophils # 1.0 Lymphocytes # (Manual) 3.1 H (0.6-2.4) Monocytes # (Manual) 1.7 H (0.0-0.8) Eosinophils # (Manual) 0.3 (0.0-0.7) Basophils # (Manual) 0.1 (0.0-0.1) Absolute Metamyelocyte 0.3 Absolute Myelocytes 0.1 Nucleated RBCs # 0 K/uL Sodium 136 (136-148) mmol/L Potassium 3.9 (3.5-5.1) mmol/L Chloride 102 (98-107) mmol/L Carbon Dioxide 25.2 (21.0-32.0) mmol/L BUN 8 (7.0-18.0) mg/dL Creatinine 1.0 (0.8-1.3) mg/dL Est Cr Clr Drug Dosing 65.55 mL/min Estimated GFR (MDRD) > 60.0 ml/min Glucose 102 (74-106) mg/dL Calcium 9.0 (8.5-10.1) mg/dL Total Bilirubin 0.6 (0.2-1.0) mg/dL AST 51 H (15-37) IU/L ALT 86 H (14-63) IU/L Alkaline Phosphatase 125 H (46-116) U/L Troponin I < 0.050 (0.000-0.056) ng/mL Total Protein 7.3 (6.4-8.2) g/dL Albumin 3.7 (3.4-5.0) g/dL Globulin 3.6 H (2.0-3.5) g/dL Albumin/Globulin Ratio 1.0 L (1.3-2.8) Amylase 107 (25-115) U/L Lipase 368 (73-393) U/L Urine Color Urine Appearance Urine pH (5.0-8.0) Ur Specific [place] (1.001-1.035) Urine Protein (NEGATIVE) mg/dL Urine Glucose (UA) (NEGATIVE) mg/dL Urine Ketones (NEGATIVE) mg/dL Urine Occult Blood (NEGATIVE) Urine Nitrite (NEGATIVE) Urine Bilirubin (NEGATIVE) Urine Urobilinogen (<2.0) EU/dL Ur Leukocyte Esterase (NEGATIVE) Urine RBC (0-2/HPF) Urine WBC (0-5/HPF) Ur Epithelial Cells (NONE-FEW) Urine Bacteria (NEGATIVE) 02/16/18 Range/Units 13:44 WBC (4.0-11.0) K/uL RBC (4.50-5.90) M/uL Hgb (13.0-17.0) g/dL Hct (38.0-50.0) % MCV (80.0-98.0) fL MCH (27.0-32.0) pg MCHC (31.0-37.0) g/dL RDW Std Deviation (28.0-62.0) fl RDW Coeff of Giulia (11.0-15.0) % Plt Count (150-400) K/uL MPV (7.40-12.00) fL Add Manual Diff Neutrophils % (Manual) (48.0-80.0) % Band Neutrophils % % Lymphocytes % (Manual) (16.0-40.0) % Monocytes % (Manual) (0.0-15.0) % Eosinophils % (Manual) (0.0-7.0) % Basophils % (Manual) (0.0-1.5) % Metamyelocytes % % Nucleated RBC % /100WBC Absolute Seg Neuts (1.4-5.7) Band Neutrophils # Lymphocytes # (Manual) (0.6-2.4) Monocytes # (Manual) (0.0-0.8) Eosinophils # (Manual) (0.0-0.7) Basophils # (Manual) (0.0-0.1) Absolute Metamyelocyte Absolute Myelocytes Nucleated RBCs # K/uL Sodium (136-148) mmol/L Potassium (3.5-5.1) mmol/L Chloride (98-107) mmol/L Carbon Dioxide (21.0-32.0) mmol/L BUN (7.0-18.0) mg/dL Creatinine (0.8-1.3) mg/dL Est Cr Clr Drug Dosing mL/min Estimated GFR (MDRD) ml/min Glucose (74-106) mg/dL Calcium (8.5-10.1) mg/dL Total Bilirubin (0.2-1.0) mg/dL AST (15-37) IU/L ALT (14-63) IU/L Alkaline Phosphatase (46-116) U/L Troponin I (0.000-0.056) ng/mL Total Protein (6.4-8.2) g/dL Albumin (3.4-5.0) g/dL Globulin (2.0-3.5) g/dL Albumin/Globulin Ratio (1.3-2.8) Amylase (25-115) U/L Lipase (73-393) U/L Urine Color YELLOW Urine Appearance CLEAR Urine pH 6.0 (5.0-8.0) Ur Specific [place] 1.020 (1.001-1.035) Urine Protein NEGATIVE (NEGATIVE) mg/dL Urine Glucose (UA) NEGATIVE (NEGATIVE) mg/dL Urine Ketones NEGATIVE (NEGATIVE) mg/dL Urine Occult Blood SMALL H (NEGATIVE) Urine Nitrite NEGATIVE (NEGATIVE) Urine Bilirubin NEGATIVE (NEGATIVE) Urine Urobilinogen 0.2 (<2.0) EU/dL Ur Leukocyte Esterase NEGATIVE (NEGATIVE) Urine RBC 2-5 (0-2/HPF) Urine WBC 0-1 (0-5/HPF) Ur Epithelial Cells OCCASIONAL (NONE-FEW) Urine Bacteria RARE (NEGATIVE) Result Diagrams: 02/16/18 11:18 02/16/18 11:18 Problem List Initiated/Reviewed/Updated: Yes Orders Last 24hrs: Active Orders 24 hr Category Date Time Status Admission Status [Patient Status] [ADT] Stat ADT 02/16/18 14:22 Active Cardiac Monitoring [RC] . DIRECTED Care 02/16/18 14:58 Ordered Communication Order [RC] ROUTINE Care 02/16/18 15:01 Ordered EKG Documentation Completion [RC] STAT Care 02/16/18 11:02 Active Enema [RC] ASDIRECTED Care 02/16/18 15:02 Ordered Height and Weight [RC] UPON Care 02/16/18 14:52 Ordered Intake and Output [RC] QSHIFT Care 02/16/18 14:53 Ordered Oxygen Therapy [RC] PRN Care 02/16/18 14:52 Ordered Peripheral IV Care [RC] . DIRECTED Care 02/16/18 14:52 Ordered Up With Assistance [RC] ASDIRECTED Care 02/16/18 14:52 Ordered VTE/DVT Education [RC] PER UNIT ROUTINE Care 02/16/18 14:52 Ordered Vital Signs [RC] Q4H Care 02/16/18 14:52 Ordered Wound Care [RC] DAILY Care 02/16/18 14:58 Ordered Consult to Case Management/Buttonholer [CONS] Cons 02/16/18 14:52 Ordered Routine Regular Diet [DIET] Diet 02/16/18 Breakfast Ordered Abdomen Pelvis wo Cont [CT] Stat Exams 02/16/18 12:13 Taken Chest 1V Frontal [CR] Stat Exams 02/16/18 11:02 Taken Head wo Cont [CT] Stat Exams 02/16/18 11:14 Taken Head wo Cont [CT] Stat Exams 02/16/18 13:23 Taken CBC WITH AUTO DIFF [HEME] AM Lab 02/17/18 05:11 Ordered COMPREHENSIVE METABOLIC PN,CMP [CHEM] AM Lab 02/17/18 05:11 Ordered CULTURE SPUTUM + SMEAR [RM] Stat Lab 02/16/18 14:26 Received Acetaminophen [Tylenol] Med 02/16/18 14:52 Ordered 650 mg PO Q4H PRN Docusate Sodium/Sennosides [Senokot-S] Med 02/16/18 14:52 Ordered 1 each PO BID PRN Enoxaparin [Lovenox] Med 02/16/18 15:00 Ordered 40 mg SUBCUT Q24H LORazepam [Ativan] Med 02/16/18 14:52 Ordered 1 mg IM Q4H PRN Magnesium Hydroxide [Milk of Magnesia] Med 02/16/18 14:52 Ordered 30 ml PO Q12H PRN Morphine Med 02/16/18 14:52 Ordered 2 mg IVPUSH Q2H PRN Ondansetron [Zofran] Med 02/16/18 14:52 Ordered 4 mg IVPUSH Q4H PRN Sodium Chloride 0.9% @ 125 MLS/HR (1000ml) Med 02/16/18 15:00 Ordered Sodium Chloride 0.9% [Normal Saline] 1,000 ml IV ASDIRECTED Sodium Chloride 0.9% [Normal Saline] 1,000 ml Med 02/16/18 11:02 Active IV STAT Sodium Chloride 0.9% [Saline Flush] Med 02/16/18 14:52 Ordered 10 ml FLUSH ASDIRECTED PRN Sodium Chloride 0.9% [Saline Flush] Med 02/16/18 14:52 Ordered 2.5 ml FLUSH ASDIRECTED PRN Peripheral IV Insertion Adult [OM.PC] Routine Oth 02/16/18 14:52 Ordered Saline Lock Insert [OM.PC] Routine Oth 02/16/18 14:52 Ordered Medication Orders Acetaminophen (Tylenol) 650 mg PO Q4H PRN PRN Reason: Pain (Mild 1-3)/fever Enoxaparin Sodium (Lovenox) 40 mg SUBCUT Q24H CLEMENTE Sodium Chloride (Normal Saline) 1,000 mls @ 125 mls/hr IV STAT ONE Stop: 02/16/18 19:01 Last Admin: 02/16/18 12:14 Dose: 125 mls/hr Sodium Chloride (Normal Saline) 1,000 mls @ 125 mls/hr IV ASDIRECTED [facility]MENTE Lorazepam (Ativan) 1 mg IM Q4H PRN PRN Reason: Agitation Magnesium Hydroxide (Milk Of Magnesia) 30 ml PO Q12H PRN PRN Reason: Constipation Morphine Sulfate (Morphine) 2 mg IVPUSH Q2H PRN PRN Reason: Pain (severe 7-10) Stop: 02/17/18 14:54 Ondansetron HCl (Zofran) 4 mg IVPUSH Q4H PRN PRN Reason: Nausea/Vomiting Senna/Docusate Sodium (Senokot-S) 1 each PO BID PRN PRN Reason: Constipation Sodium Chloride (Saline Flush) 10 ml FLUSH ASDIRECTED PRN PRN Reason: Keep Vein Open Sodium Chloride (Saline Flush) 2.5 ml FLUSH ASDIRECTED PRN PRN Reason: Keep Vein Open Assessment/Plan Comment:: 73-year-old male with a significant history of also missed dementia being admitted due to acute agitation, leukocytosis with no source of infection, fall in the ER resulting in a laceration that did not have any intracranial hemorrhaging. Most likely etiology for the patient's symptoms is dehydration. Patient is being admitted to the floor for fluid replacement, observation due to his head injury, and to obtain better control of his agitation and possible placement issue/disposition due to chronic issues. Patient reports constipation may benefit from a tap water enema and will also get stool softeners and laxatives for his constipation, IV normal saline at maintenance for his hydration. Consult to web content & social media manager for disposition related issues.
[2018-02-16] MEDS: LORazepam 2 MG/ML SDV IM PRN ×2 (16:16→21:58)
[2018-02-16] MEDS: Sodium Chloride 0.9% 1,000 ML IV SCH (17:31)
[2018-02-16] MEDS ORDERED: Haloperidol Lactate 5 MG/ML SDV IVPUSH ONE (17:45)
[2018-02-16] MEDS: Enoxaparin 40 MG/0.4 ML Syringe SUBCUT SCH (17:55)
[2018-02-16] MEDS: Morphine 2 MG/ML Syringe IVPUSH PRN (19:55)
[2018-02-16] MEDS ORDERED: Promethazine 25 MG/ML SDV IM PRN (20:03)
[2018-02-17] MEDS: Haloperidol Lactate 5 MG/ML SDV IM PRN (00:55)
[2018-02-17] MEDS: Sodium Chloride 0.9% 1,000 ML IV SCH ×3 (02:04→20:31)
[2018-02-17] MEDS: Morphine 2 MG/ML Syringe IVPUSH PRN (03:43)
[2018-02-17 06:34] LABS: CHLORIDE,CL 103 mmol/L (98-107); SODIUM,NA 137 mmol/L (136-148)
[2018-02-17] MEDS ORDERED: Cefepime 1 GM in Premix Bag 1 BAG IV SCH (10:45)
--- NOTE | 2018-02-17 10:59 | PCM.PN ---
- General Info Date of Service: 02/17/18 Subjective Update: He reportedly vomited last night. No definite aspiration suspected according to nursing staff. He ate breakfast. He has been less agitated. He remains very confused. - Patient Data Vitals - Most Recent: Last Vital Signs Temp 97.6 F 02/17/18 07:00 Pulse 76 02/17/18 07:00 Resp 18 02/17/18 07:00 BP 154/82 H 02/17/18 07:00 Pulse Ox 95 02/17/18 07:00 Weight - Most Recent: 81.964 kg I&O - Last 24 Hours: Intake & Output 02/16/18 02/17/18 02/17/18 22:59 06:59 14:59 Intake Total 0 1319 999 Output Total 0 1201 Balance 0 118 999 Lab Results Last 24 Hours: Laboratory Results - last 24 hr 02/16/18 02/16/18 02/16/18 Range/Units 11:10 11:18 11:18 WBC 13.88 H (4.0-11.0) K/uL RBC 4.81 (4.50-5.90) M/uL Hgb 14.1 (13.0-17.0) g/dL Hct 42.7 (38.0-50.0) % MCV 88.8 (80.0-98.0) fL MCH 29.3 (27.0-32.0) pg MCHC 33.0 (31.0-37.0) g/dL RDW Std Deviation 45.6 (28.0-62.0) fl RDW Coeff of Giulia 14 (11.0-15.0) % Plt Count 123 L (150-400) K/uL MPV 10.60 (7.40-12.00) fL Add Manual Diff YES Neutrophils % (Manual) 54 (48.0-80.0) % Band Neutrophils % 7 % Lymphocytes % (Manual) 22 (16.0-40.0) % Monocytes % (Manual) 12 (0.0-15.0) % Eosinophils % (Manual) 2 (0.0-7.0) % Basophils % (Manual) 1 (0.0-1.5) % Metamyelocytes % 2 % Nucleated RBC % 0.0 /100WBC Absolute Seg Neuts 7.5 H (1.4-5.7) Band Neutrophils # 1.0 Lymphocytes # (Manual) 3.1 H (0.6-2.4) Monocytes # (Manual) 1.7 H (0.0-0.8) Eosinophils # (Manual) 0.3 (0.0-0.7) Basophils # (Manual) 0.1 (0.0-0.1) Absolute Metamyelocyte 0.3 Absolute Myelocytes 0.1 Nucleated RBCs # 0 K/uL Sodium 136 (136-148) mmol/L Potassium 3.9 (3.5-5.1) mmol/L Chloride 102 (98-107) mmol/L Carbon Dioxide 25.2 (21.0-32.0) mmol/L BUN 8 (7.0-18.0) mg/dL Creatinine 1.0 (0.8-1.3) mg/dL Est Cr Clr Drug Dosing 65.55 mL/min Estimated GFR (MDRD) > 60.0 ml/min Glucose 102 (74-106) mg/dL Calcium 9.0 (8.5-10.1) mg/dL Total Bilirubin 0.6 (0.2-1.0) mg/dL AST 51 H (15-37) IU/L ALT 86 H (14-63) IU/L Alkaline Phosphatase 125 H (46-116) U/L Troponin I < 0.050 (0.000-0.056) ng/mL Total Protein 7.3 (6.4-8.2) g/dL Albumin 3.7 (3.4-5.0) g/dL Globulin 3.6 H (2.0-3.5) g/dL Albumin/Globulin Ratio 1.0 L (1.3-2.8) Amylase 107 (25-115) U/L Lipase 368 (73-393) U/L Urine Color Urine Appearance Urine pH (5.0-8.0) Ur Specific [place] (1.001-1.035) Urine Protein (NEGATIVE) mg/dL Urine Glucose (UA) (NEGATIVE) mg/dL Urine Ketones (NEGATIVE) mg/dL Urine Occult Blood (NEGATIVE) Urine Nitrite (NEGATIVE) Urine Bilirubin (NEGATIVE) Urine Urobilinogen (<2.0) EU/dL Ur Leukocyte Esterase (NEGATIVE) Urine RBC (0-2/HPF) Urine WBC (0-5/HPF) Ur Epithelial Cells (NONE-FEW) Urine Bacteria (NEGATIVE) 02/16/18 02/17/18 02/17/18 Range/Units 13:44 05:49 05:49 WBC 32.89 H (4.0-11.0) K/uL RBC 4.54 (4.50-5.90) M/uL Hgb 13.6 (13.0-17.0) g/dL Hct 40.0 (38.0-50.0) % MCV 88.1 (80.0-98.0) fL MCH 30.0 (27.0-32.0) pg MCHC 34.0 (31.0-37.0) g/dL RDW Std Deviation 44.6 (28.0-62.0) fl RDW Coeff of Giulia 14 (11.0-15.0) % Plt Count 137 L (150-400) K/uL MPV 10.50 (7.40-12.00) fL Add Manual Diff YES Neutrophils % (Manual) 72 (48.0-80.0) % Band Neutrophils % 5 % Lymphocytes % (Manual) 11 L (16.0-40.0) % Monocytes % (Manual) 12 (0.0-15.0) % Eosinophils % (Manual) (0.0-7.0) % Basophils % (Manual) (0.0-1.5) % Metamyelocytes % % Nucleated RBC % 0.0 /100WBC Absolute Seg Neuts 23.7 H (1.4-5.7) Band Neutrophils # 1.6 Lymphocytes # (Manual) 3.6 H (0.6-2.4) Monocytes # (Manual) 3.9 H (0.0-0.8) Eosinophils # (Manual) (0.0-0.7) Basophils # (Manual) (0.0-0.1) Absolute Metamyelocyte Absolute Myelocytes Nucleated RBCs # 0 K/uL Sodium 137 (136-148) mmol/L Potassium 3.6 (3.5-5.1) mmol/L Chloride 103 (98-107) mmol/L Carbon Dioxide 23.6 (21.0-32.0) mmol/L BUN 6 L (7.0-18.0) mg/dL Creatinine 0.9 (0.8-1.3) mg/dL Est Cr Clr Drug Dosing 72.83 mL/min Estimated GFR (MDRD) > 60.0 ml/min Glucose 114 H (74-106) mg/dL Calcium 8.5 (8.5-10.1) mg/dL Total Bilirubin 1.0 (0.2-1.0) mg/dL AST 46 H (15-37) IU/L ALT 79 H (14-63) IU/L Alkaline Phosphatase 130 H (46-116) U/L Troponin I (0.000-0.056) ng/mL Total Protein 7.1 (6.4-8.2) g/dL Albumin 3.7 (3.4-5.0) g/dL Globulin 3.4 (2.0-3.5) g/dL Albumin/Globulin Ratio 1.1 L (1.3-2.8) Amylase (25-115) U/L Lipase (73-393) U/L Urine Color YELLOW Urine Appearance CLEAR Urine pH 6.0 (5.0-8.0) Ur Specific [place] 1.020 (1.001-1.035) Urine Protein NEGATIVE (NEGATIVE) mg/dL Urine Glucose (UA) NEGATIVE (NEGATIVE) mg/dL Urine Ketones NEGATIVE (NEGATIVE) mg/dL Urine Occult Blood SMALL H (NEGATIVE) Urine Nitrite NEGATIVE (NEGATIVE) Urine Bilirubin NEGATIVE (NEGATIVE) Urine Urobilinogen 0.2 (<2.0) EU/dL Ur Leukocyte Esterase NEGATIVE (NEGATIVE) Urine RBC 2-5 (0-2/HPF) Urine WBC 0-1 (0-5/HPF) Ur Epithelial Cells OCCASIONAL (NONE-FEW) Urine Bacteria RARE (NEGATIVE) Peter Results Last 24 Hours: Microbiology 02/16/18 14:26 Gram Stain - Preliminary Sputum - Expectorated Med Orders - Current: Current Medications Acetaminophen (Tylenol) 650 mg PO Q4H PRN PRN Reason: Pain (Mild 1-3)/fever Alprazolam (Xanax) 1 mg PO TID PRN PRN Reason: Anxiety Donepezil HCl (Aricept) 10 mg PO DAILY [facility] Enoxaparin Sodium (Lovenox) 40 mg SUBCUT Q24H CLEMENTE Last Admin: 02/16/18 17:55 Dose: Not Given Finasteride (Proscar) 5 mg PO BEDTIME [facility] Fluoxetine HCl (Prozac) 40 mg PO DAILY [facility] Haloperidol Lactate (Haldol) 2 - 5 mg IM Q6H PRN PRN Reason: Agitation Last Admin: 02/17/18 00:55 Dose: 5 mg Sodium Chloride (Normal Saline) 1,000 mls @ 125 mls/hr IV ASDIRECTED CLEMENTE Last Admin: 02/17/18 10:10 Dose: 125 mls/hr Piperacillin Sod/Tazobactam (Sod 3.375 gm/ Sodium Chloride) 50 mls @ 100 mls/ hr IV Q6H [facility] Lorazepam (Ativan) 1 mg IM Q4H PRN PRN Reason: Agitation Last Admin: 02/16/18 21:58 Dose: 1 mg Magnesium Hydroxide (Milk Of Magnesia) 30 ml PO Q12H PRN PRN Reason: Constipation Memantine (Namenda) 10 mg PO BID [facility] Morphine Sulfate (Morphine) 2 mg IVPUSH Q2H PRN PRN Reason: Pain (severe 7-10) Stop: 02/17/18 14:54 Last Admin: 02/17/18 03:43 Dose: 2 mg Ondansetron HCl (Zofran) 4 mg IVPUSH Q4H PRN PRN Reason: Nausea/Vomiting Last Admin: 02/16/18 18:06 Dose: 4 mg Promethazine HCl (Phenergan) 25 mg IM Q6H PRN PRN Reason: nausea Last Admin: 02/16/18 20:15 Dose: 25 mg Quetiapine Fumarate (Seroquel) 100 mg PO DAILY [facility] Quetiapine Fumarate (Seroquel) 200 mg PO BEDTIME [facility] Senna/Docusate Sodium (Senokot-S) 1 each PO BID PRN PRN Reason: Constipation Sodium Chloride (Saline Flush) 10 ml FLUSH ASDIRECTED PRN PRN Reason: Keep Vein Open Sodium Chloride (Saline Flush) 2.5 ml FLUSH ASDIRECTED PRN PRN Reason: Keep Vein Open Tamsulosin HCl (Flomax) 0.4 mg PO BEDTIME [facility] Vancomycin HCl (Pharmacy To Dose - Vancomycin) 1 dose .XX ASDIRECTED [facility] Discontinued Medications Haloperidol (Haldol) 1 mg PO ONETIME ONE Stop: 02/16/18 14:16 Last Admin: 02/16/18 14:31 Dose: Not Given Haloperidol Lactate (Haldol) 1 mg IM ONETIME ONE Stop: 02/16/18 14:15 Last Admin: 02/16/18 14:18 Dose: Not Given Haloperidol Lactate (Haldol) 1 mg IM ONETIME ONE Stop: 02/16/18 14:28 Last Admin: 02/16/18 14:34 Dose: 1 mg Haloperidol Lactate (Haldol) 1 mg IM ONETIME ONE Stop: 02/16/18 14:33 Last Admin: 02/16/18 14:34 Dose: Not Given Haloperidol Lactate (Haldol) 2 mg IVPUSH ONETIME ONE Stop: 02/16/18 17:46 Last Admin: 02/16/18 18:07 Dose: Not Given Haloperidol Lactate (Haldol) 2 mg IM ONETIME ONE Stop: 02/16/18 17:59 Last Admin: 02/16/18 18:08 Dose: 2 mg Sodium Chloride (Normal Saline) 1,000 mls @ 125 mls/hr IV STAT ONE Stop: 02/16/18 19:01 Last Admin: 02/16/18 12:14 Dose: 125 mls/hr Cefepime HCl 1 gm/ Premix 50 mls @ 100 mls/hr IV Q8H [facility] Influenza Virus Vaccine (Pharmacy To Dose - Influenza Vaccine) 1 each IM ONETIME ONE Stop: 02/16/18 15:43 Lorazepam (Ativan) 0.5 mg IVPUSH ONETIME ONE Stop: 02/16/18 12:09 Last Admin: 02/16/18 12:13 Dose: 0.5 mg Lorazepam (Ativan) 0.5 mg IVPUSH ONETIME ONE Stop: 02/16/18 12:26 Last Admin: 02/16/18 14:18 Dose: Not Given Morphine Sulfate (Morphine) 2 mg IVPUSH Q2H PRN PRN Reason: Pain (severe 7-10) Stop: 02/17/18 14:54 - Exam Physical Findings Comments:: He is alert he is very confused with babbling type non sensical speech. He answers a few questions lungs CTA no increased work of breathing abdomen non tender no LE edema noted no facial droop he follows some simple commands sputum gram stain showed multiple organisms including some gr positive cocci in clusters - Problem List & Annotations (1) Dementia SNOMED Code(s): 01465082 Code(s): F03.90 - UNSPECIFIED DEMENTIA WITHOUT BEHAVIORAL DISTURBANCE Status: Acute Current Visit: Yes Qualifiers: Dementia type: Alzheimer's disease Alzheimer's disease onset: unspecified onset Dementia behavioral disturbance: with behavioral disturbance Qualified Code(s): G30.9 - Alzheimer's disease, unspecified; F02.81 - Dementia in other diseases classified elsewhere with behavioral disturbance (2) Frequent falls SNOMED Code(s): 161947745 Code(s): R29.6 - REPEATED FALLS Status: Acute Current Visit: Yes (3) Agitation SNOMED Code(s): 627397509 Code(s): R45.1 - RESTLESSNESS AND AGITATION Status: Acute Current Visit: No (4) Elevated liver enzymes SNOMED Code(s): 849649134 Code(s): R74.8 - ABNORMAL LEVELS OF OTHER SERUM ENZYMES Status: Acute Current Visit: No - Problem List Review Problem List Initiated/Reviewed/Updated: Yes - My Orders Last 24 Hours: My Active Orders 02/16/18 19:56 Haloperidol Lactate [Haldol] 2 - 5 mg IM Q6H PRN 02/16/18 20:05 Neuro Check [RC] Q4HR 02/16/18 23:00 Insert [place] Catheter [Insert Urinary Catheter] [OM.PC] Q24H 02/17/18 04:00 Urinary Catheter Assessment [RC] Q6HR 02/17/18 10:48 ALPRAZolam [Alprazolam ER] 1 mg PO TID PRN 02/17/18 10:51 Chest 1V Frontal [CR] Routine 02/17/18 10:56 CULTURE BLOOD [BC] Stat CULTURE BLOOD [BC] Stat Blood Culture x2 Reflex Set [OM.PC] Stat 02/17/18 11:00 Piperacillin/Tazobactam [Piperacil-Tazobact] 3.375 gm Sodium Chloride 0.9% [ Normal Saline] 50 ml IV Q6H QUEtiapine [SEROquel] 100 mg PO DAILY Vancomycin Pharmacy to Dose [Pharmacy to Dose - Vancomycin] 1 dose .XX ASDIRECTED 02/17/18 21:00 Finasteride [Proscar] 5 mg PO BEDTIME Memantine [Namenda] 10 mg PO BID QUEtiapine Fumarate [Quetiapine Fumarate ER] 200 mg PO BEDTIME Tamsulosin [Flomax] 0.4 mg PO BEDTIME 02/18/18 09:00 Donepezil HCl [Donepezil HCl Odt] 10 mg PO DAILY FLUoxetine [PROzac] 40 mg PO DAILY 02/18/18 10:57 CBC WITH AUTO DIFF [HEME] DAILY COMPREHENSIVE METABOLIC PN,CMP [CHEM] DAILY 02/19/18 10:57 CBC WITH AUTO DIFF [HEME] DAILY COMPREHENSIVE METABOLIC PN,CMP [CHEM] DAILY 02/20/18 10:57 CBC WITH AUTO DIFF [HEME] DAILY COMPREHENSIVE METABOLIC PN,CMP [CHEM] DAILY 02/21/18 10:57 CBC WITH AUTO DIFF [HEME] DAILY COMPREHENSIVE METABOLIC PN,CMP [CHEM] DAILY 02/22/18 10:57 CBC WITH AUTO DIFF [HEME] DAILY COMPREHENSIVE METABOLIC PN,CMP [CHEM] DAILY - Plan Plan:: 73-year-old male with a significant history of also missed dementia being admitted due to acute agitation, leukocytosis with no source of infection, fall in the ER resulting in a laceration that did not have any intracranial hemorrhaging. Most likely etiology for the patient's symptoms is dehydration. Patient is being admitted to the floor for fluid replacement, observation due to his head injury, and to obtain better control of his agitation and possible placement issue/disposition due to chronic issues. Patient reports constipation may benefit from a tap water enema and will also get stool softeners and laxatives for his constipation, IV normal saline at maintenance for his hydration. Consult to social work associate for disposition related issues. 02/17/2018 With marked increase in wbc will evaluated with CXR , blood culture , daily lab and will start zosyn and vancomycin. Most likely source is pulmonary in my opinion in light of recent cough noted on admission and sputum gram stain findings dulcolax suppository for fecal impaction. Kumar Kilgore MD
[2018-02-17] MEDS ORDERED: Bisacodyl 10 MG Supp RECTAL PRN (11:05)
[2018-02-17] MEDS: Donepezil 10 MG Tab PO SCH (12:02)
[2018-02-17] MEDS: Memantine 10 MG Tab PO SCH ×2 (12:02→21:06)
[2018-02-17] MEDS: Piperacillin/Tazobactam 3.375 GM in Sodium Chloride 0.9% 50 ML IV SCH ×3 (12:06→23:12)
[2018-02-17] MEDS: QUEtiapine 100 MG Tab PO SCH ×2 (12:09→21:04)
[2018-02-17] MEDS: Enoxaparin 40 MG/0.4 ML Syringe SUBCUT SCH (15:41)
[2018-02-17] MEDS: Tamsulosin 0.4 MG Cap.ER PO SCH (21:03)
[2018-02-17] MEDS: Finasteride 5 MG Tab PO SCH (21:05)
[2018-02-17] MEDS: ALPRAZolam 0.5 MG Tab PO PRN (21:31)
[2018-02-18] MEDS: Piperacillin/Tazobactam 3.375 GM in Sodium Chloride 0.9% 50 ML IV SCH ×4 (05:31→23:04)
[2018-02-18] MEDS: Sodium Chloride 0.9% 1,000 ML IV SCH ×2 (07:42→18:31)
[2018-02-18] MEDS: Donepezil 10 MG Tab PO SCH (08:59)
[2018-02-18] MEDS: QUEtiapine 100 MG Tab PO SCH ×2 (08:59→20:40)
[2018-02-18] MEDS: FLUoxetine 20 MG Cap PO SCH (08:59)
[2018-02-18] MEDS: Memantine 10 MG Tab PO SCH ×2 (08:59→20:39)
--- NOTE | 2018-02-18 09:16 | CR ---
EXAM DATE: 02/16/18 PATIENT'S AGE: 73 Patient: ANTWAN OSEI Facility: [place], [place] Site . Site : 1945 Study: XRay Chest [id number]/15/2018 11:40:06 AM Ordering Physician: Doctor Anaya Final Report: INDICATION: Altered mental status TECHNIQUE: Chest 1 view. COMPARISON: None FINDINGS: The heart size is in the normal range allowing for AP portable semi upright technique. Central vascular markings are within the normal range. The lungs are clear of acute appearing infiltrates. There are no pleural effusions evident. IMPRESSION: Unremarkable chest. Dictated by Dinesh Estrada MD @ Feb 16 2018 11:55AM (Electronic Signature) Report Signed by Proxy. NEL
--- NOTE | 2018-02-18 10:30 | CT ---
EXAM DATE: 02/16/18 PATIENT'S AGE: 73 Patient: ANTWAN OSEI Facility: [place], [place] Site . Site : 1945 Study: CT Head [id number]/15/2018 1:00:36 PM Ordering Physician: Doctor Anaya Final Report: INDICATION: Nystagmus, fall. COMPARISON: None. TECHNIQUE: Axial CT of the head without contrast. FINDINGS: Moderate generalized cerebral volume loss. Low-attenuation change within the white matter consistent with chronic small-vessel ischemic changes. Compared steroid mild dilatation ventricular system. No acute intracranial hemorrhage, acute infarct, mass effect, or fracture. No midline shift. Normal calvarium and skull base. Mastoid air cells are clear. Mucous retention cyst right maxillary sinus. Remaining visualized paranasal sinuses are unremarkable. Normal orbits bilaterally. IMPRESSION: 1. No acute intracranial abnormality. 2. Moderate generalized cerebral volume loss. Chronic deep white matter small vessel ischemic changes Please note that all CT scans at this facility use dose modulation, iterative reconstruction, and/or weight-based dosing when appropriate to reduce radiation dose to as low as reasonably achievable. Dictated by Jayce Ontiveros MD @ Feb 16 2018 1:06PM (Electronic Signature) Report Signed by Proxy. NEL
--- NOTE | 2018-02-18 10:31 | CT ---
EXAM DATE: 02/16/18 PATIENT'S AGE: 73 Patient: ANTWAN OSEI Facility: [place], [place] Site . Site : 1945 Study: CT Abdomen/Pelvis [id number]/15/2018 1:01:30 PM Ordering Physician: Doctor Anaya Final Report: INDICATION: Elevated LFTs. Pain and bloating. TECHNIQUE: CT abdomen and pelvis without contrast. COMPARISON: None FINDINGS: Lower chest: Oval 8 mm noncalcified nodule right middle lobe. Liver: Breathing motion degrades assessment. No discrete abnormality appreciated. Spleen: Unremarkable. Pancreas: Breathing motion degrades assessment. No abnormality appreciated. Gallbladder and bile ducts: Apparently mildly contracted gallbladder. No definitive filling defect. No ductal dilatation. Kidneys: 3.2 cm partially exophytic presumed cyst ventral mid right kidney. No nephrolithiasis. Curvilinear high attenuation inferior posterior left kidney may be capsular calcification. Adrenal glands: Unremarkable. GI tract: Moderate stool throughout the redundant colon. Moderately large volume of stool in the rectum. Clinical correlation for impaction recommended. Diverticula of the sigmoid. Appendix not apparent. Vascular structures: Unremarkable. Lymph nodes: Unremarkable. Miscellaneous: Unremarkable. No free air or significant free fluid. Pelvic Organs: Bilateral inguinal hernias. Mild prostatomegaly. Bones: No acute fracture or bone lesion. IMPRESSION: Breathing motion degrades assessment. No abnormality of liver or gallbladder appreciated. Clinical correlation for constipation and possible rectal impaction recommended. Presumed benign cyst right kidney. Small focus of peripheral parenchymal or capsular calcification inferior left kidney. Consider nonemergent ultrasound for further characterization. Likely benign 8 mm RML nodule. [employer] - SOLID NODULES: SINGLE LOW RISK - nodule less than 6 mm: No routine follow-up. - nodule 6-8 mm: CT at 6-12 months, then consider CT at 18-24 months. - nodule greater than 8 mm: Consider CT at 3 months, PET/CT or tissue sampling. SINGLE HIGH RISK - nodule less than 6 mm: Optional CT at 12 months. - nodule 6-8 mm: CT at 6-12 months, then CT at 18-24 months. - nodule greater than 8 mm: Consider CT at 3 months, PET/CT or tissue sampling. Please note that all CT scans at this facility use dose modulation, iterative reconstruction, and/or weight-based dosing when appropriate to reduce radiation dose to as low as reasonably achievable. Dictated by Callum Morel MD @ Feb 16 2018 1:25PM (Electronic Signature) Report Signed by Proxy. MTDD
--- NOTE | 2018-02-18 10:56 | CT ---
EXAM DATE: 02/16/18 PATIENT'S AGE: 73 Patient: ANTWAN OSEI Facility: [place], [place] Site . Site : 1945 Study: CT Head [id number] 2:06:19 PM Ordering Physician: Doctor Anaya Final Report: INDICATION: Fall. Head laceration. COMPARISON: CT from earlier today. TECHNIQUE: Axial CT of the head without contrast. FINDINGS: Compared to the earlier CT, there is new scalp swelling about the left frontal calvarium consistent with reported fall and laceration. No underlying fracture. Stable moderate generalized volume loss. Low-attenuation change within the white matter consistent with chronic small vessel ischemic changes. Compensatory ventricular dilatation. No acute intracranial hemorrhage, acute infarct, mass effect, or fracture. No midline shift. Normal calvarium and skull base. Mucous retention cyst right maxillary sinus. Remaining visualized paranasal sinuses and mastoid air cells are clear. Normal orbits bilaterally. IMPRESSION: 1. New mild focal scalp swelling adjacent to left frontal calvarium consistent with reported trauma. 2. Otherwise , no interval change. 3. No intracranial hemorrhage. No acute infarct. 4. Mild generalized volume loss. Chronic deep white matter small vessel ischemic changes. Please note that all CT scans at this facility use dose modulation, iterative reconstruction, and/or weight-based dosing when appropriate to reduce radiation dose to as low as reasonably achievable. Dictated by Jayce Ontiveros MD @ Feb 16 2018 2:10PM (Electronic Signature) Report Signed by Proxy. [facility] CAMPUSRojelio
--- NOTE | 2018-02-18 12:01 | PCM.PN ---
- General Info Date of Service: 02/18/18 Admission Dx/Problem (Free Text): He states" I don't feel well". Most of his speech is nonsensical . He follows some simple commands. - Patient Data Vitals - Most Recent: Last Vital Signs Temp 97.8 F 02/18/18 08:00 Pulse 74 02/18/18 08:00 Resp 16 02/18/18 08:00 BP 140/80 02/18/18 08:00 Pulse Ox 95 02/18/18 08:00 Weight - Most Recent: 81.964 kg I&O - Last 24 Hours: Intake & Output 02/17/18 02/18/18 02/18/18 22:59 06:59 14:59 Intake Total 250 800 100 Output Total 1550 1250 Balance -1300 -450 100 Lab Results Last 24 Hours: Laboratory Results - last 24 hr 02/18/18 Range/Units 11:15 WBC 18.94 H (4.0-11.0) K/uL RBC 4.38 L (4.50-5.90) M/uL Hgb 13.0 (13.0-17.0) g/dL Hct 39.0 (38.0-50.0) % MCV 89.0 (80.0-98.0) fL MCH 29.7 (27.0-32.0) pg MCHC 33.3 (31.0-37.0) g/dL RDW Std Deviation 46.6 (28.0-62.0) fl RDW Coeff of Giulia 14 (11.0-15.0) % Plt Count 126 L (150-400) K/uL MPV 10.50 (7.40-12.00) fL Add Manual Diff YES Neutrophils % (Manual) 59 (48.0-80.0) % Band Neutrophils % 2 % Lymphocytes % (Manual) 10 L (16.0-40.0) % Monocytes % (Manual) 26 H (0.0-15.0) % Metamyelocytes % 2 % Myelocytes % 1 % Nucleated RBC % 0.0 /100WBC Absolute Seg Neuts 11.2 H (1.4-5.7) Band Neutrophils # 0.4 Lymphocytes # (Manual) 1.9 (0.6-2.4) Monocytes # (Manual) 4.9 H (0.0-0.8) Absolute Metamyelocyte 0.4 Absolute Myelocytes 0.2 Nucleated RBCs # 0 K/uL Peter Results Last 24 Hours: Microbiology 02/17/18 11:15 Aerobic Blood Culture - Preliminary Blood - Venous - Lab Draw NO GROWTH AFTER 1 DAY Anaerobic Blood Culture - Preliminary NO GROWTH AFTER 1 DAY 02/17/18 11:10 Aerobic Blood Culture - Preliminary Blood - Venous NO GROWTH AFTER 1 DAY Anaerobic Blood Culture - Preliminary NO GROWTH AFTER 1 DAY 02/16/18 14:26 Gram Stain - Final Sputum - Expectorated Sputum Culture - Final Normal Respiratory Olga YEAST Med Orders - Current: Current Medications Acetaminophen (Tylenol) 650 mg PO Q4H PRN PRN Reason: Pain (Mild 1-3)/fever Alprazolam (Xanax) 1 mg PO TID PRN PRN Reason: Anxiety Last Admin: 02/17/18 21:31 Dose: 1 mg Bisacodyl (Dulcolax) 10 mg RECTAL DAILY PRN PRN Reason: Constipation Last Admin: 02/17/18 12:02 Dose: 10 mg Donepezil HCl (Aricept) 10 mg PO DAILY [facility] Last Admin: 02/18/18 08:59 Dose: 10 mg Enoxaparin Sodium (Lovenox) 40 mg SUBCUT Q24H [facility] Last Admin: 02/17/18 15:41 Dose: 40 mg Finasteride (Proscar) 5 mg PO BEDTIME [facility] Last Admin: 02/17/18 21:05 Dose: 5 mg Fluoxetine HCl (Prozac) 40 mg PO DAILY [facility] Last Admin: 02/18/18 08:59 Dose: 40 mg Haloperidol Lactate (Haldol) 2 - 5 mg IM Q6H PRN PRN Reason: Agitation Last Admin: 02/17/18 00:55 Dose: 5 mg Sodium Chloride (Normal Saline) 1,000 mls @ 125 mls/hr IV ASDIRECTED [facility] Last Admin: 02/18/18 07:42 Dose: 125 mls/hr Piperacillin Sod/Tazobactam (Sod 3.375 gm/ Sodium Chloride) 50 mls @ 100 mls/ hr IV Q6H [facility] Last Admin: 02/18/18 10:23 Dose: 100 mls/hr Vancomycin HCl 1,250 mg/ (Sodium Chloride) 500 mls @ 333.333 mls/hr IV Q12H [facility] Last Admin: 02/18/18 11:54 Dose: 333.333 mls/hr Lorazepam (Ativan) 1 mg IM Q4H PRN PRN Reason: Agitation Last Admin: 02/16/18 21:58 Dose: 1 mg Magnesium Hydroxide (Milk Of Magnesia) 30 ml PO Q12H PRN PRN Reason: Constipation Memantine (Namenda) 10 mg PO BID [facility] Last Admin: 02/18/18 08:59 Dose: 10 mg Ondansetron HCl (Zofran) 4 mg IVPUSH Q4H PRN PRN Reason: Nausea/Vomiting Last Admin: 02/16/18 18:06 Dose: 4 mg Promethazine HCl (Phenergan) 25 mg IM Q6H PRN PRN Reason: nausea Last Admin: 02/16/18 20:15 Dose: 25 mg Quetiapine Fumarate (Seroquel) 100 mg PO DAILY [facility] Last Admin: 02/18/18 08:59 Dose: 100 mg Quetiapine Fumarate (Seroquel) 200 mg PO BEDTIME [facility] Last Admin: 02/17/18 21:04 Dose: 200 mg Senna/Docusate Sodium (Senokot-S) 1 each PO BID PRN PRN Reason: Constipation Sodium Chloride (Saline Flush) 10 ml FLUSH ASDIRECTED PRN PRN Reason: Keep Vein Open Sodium Chloride (Saline Flush) 2.5 ml FLUSH ASDIRECTED PRN PRN Reason: Keep Vein Open Tamsulosin HCl (Flomax) 0.4 mg PO BEDTIME [facility] Last Admin: 02/17/18 21:03 Dose: 0.4 mg Vancomycin HCl (Pharmacy To Dose - Vancomycin) 1 dose .XX ASDIRECTED [facility] Discontinued Medications Haloperidol (Haldol) 1 mg PO ONETIME ONE Stop: 02/16/18 14:16 Last Admin: 02/16/18 14:31 Dose: Not Given Haloperidol Lactate (Haldol) 1 mg IM ONETIME ONE Stop: 02/16/18 14:15 Last Admin: 02/16/18 14:18 Dose: Not Given Haloperidol Lactate (Haldol) 1 mg IM ONETIME ONE Stop: 02/16/18 14:28 Last Admin: 02/16/18 14:34 Dose: 1 mg Haloperidol Lactate (Haldol) 1 mg IM ONETIME ONE Stop: 02/16/18 14:33 Last Admin: 02/16/18 14:34 Dose: Not Given Haloperidol Lactate (Haldol) 2 mg IVPUSH ONETIME ONE Stop: 02/16/18 17:46 Last Admin: 02/16/18 18:07 Dose: Not Given Haloperidol Lactate (Haldol) 2 mg IM ONETIME ONE Stop: 02/16/18 17:59 Last Admin: 02/16/18 18:08 Dose: 2 mg Sodium Chloride (Normal Saline) 1,000 mls @ 125 mls/hr IV STAT ONE Stop: 02/16/18 19:01 Last Admin: 02/16/18 12:14 Dose: 125 mls/hr Cefepime HCl 1 gm/ Premix 50 mls @ 100 mls/hr IV Q8H [facility] Last Admin: 02/17/18 15:13 Dose: Not Given Influenza Virus Vaccine (Pharmacy To Dose - Influenza Vaccine) 1 each IM ONETIME ONE Stop: 02/16/18 15:43 Lorazepam (Ativan) 0.5 mg IVPUSH ONETIME ONE Stop: 02/16/18 12:09 Last Admin: 02/16/18 12:13 Dose: 0.5 mg Lorazepam (Ativan) 0.5 mg IVPUSH ONETIME ONE Stop: 02/16/18 12:26 Last Admin: 02/16/18 14:18 Dose: Not Given Morphine Sulfate (Morphine) 2 mg IVPUSH Q2H PRN PRN Reason: Pain (severe 7-10) Stop: 02/17/18 14:54 Morphine Sulfate (Morphine) 2 mg IVPUSH Q2H PRN PRN Reason: Pain (severe 7-10) Stop: 02/17/18 14:54 Last Admin: 02/17/18 03:43 Dose: 2 mg - Exam General: Alert, Cooperative. No: Oriented Neck: Trachea Midline Lungs: Clear to Auscultation, Normal Respiratory Effort Cardiovascular: Regular Rate, Regular Rhythm GI/Abdominal Exam: Non-Tender Psy/Mental Status: Alert. No: Agitated - Problem List & Annotations (1) Dementia SNOMED Code(s): 60651560 Code(s): F03.90 - UNSPECIFIED DEMENTIA WITHOUT BEHAVIORAL DISTURBANCE Status: Acute Current Visit: Yes Qualifiers: Dementia type: Alzheimer's disease Alzheimer's disease onset: unspecified onset Dementia behavioral disturbance: with behavioral disturbance Qualified Code(s): G30.9 - Alzheimer's disease, unspecified; F02.81 - Dementia in other diseases classified elsewhere with behavioral disturbance (2) Frequent falls SNOMED Code(s): 694971957 Code(s): R29.6 - REPEATED FALLS Status: Acute Current Visit: Yes (3) Agitation SNOMED Code(s): 594806277 Code(s): R45.1 - RESTLESSNESS AND AGITATION Status: Acute Current Visit: No (4) Elevated liver enzymes SNOMED Code(s): 874271130 Code(s): R74.8 - ABNORMAL LEVELS OF OTHER SERUM ENZYMES Status: Acute Current Visit: No - Problem List Review Problem List Initiated/Reviewed/Updated: Yes - My Orders Last 24 Hours: My Active Orders 02/17/18 11:00 Donepezil [Aricept] 10 mg PO DAILY Memantine [Namenda] 10 mg PO BID Piperacillin/Tazobactam [Piperacil-Tazobact] 3.375 gm Sodium Chloride 0.9% [ Normal Saline] 50 ml IV Q6H QUEtiapine [SEROquel] 100 mg PO DAILY Vancomycin Pharmacy to Dose [Pharmacy to Dose - Vancomycin] 1 dose .XX ASDIRECTED 02/17/18 11:05 Bisacodyl [Dulcolax] 10 mg RECTAL DAILY PRN 02/17/18 11:10 CULTURE BLOOD [BC] Stat 02/17/18 11:15 CULTURE BLOOD [BC] Stat 02/17/18 12:00 Vancomycin 1,250 mg Sodium Chloride 0.9% [Normal Saline] 500 ml IV Q12H 02/17/18 18:21 Code Status [Resuscitation Status] Routine 02/17/18 21:00 Finasteride [Proscar] 5 mg PO BEDTIME QUEtiapine [SEROquel] 200 mg PO BEDTIME Tamsulosin [Flomax] 0.4 mg PO BEDTIME 02/18/18 09:00 FLUoxetine [PROzac] 40 mg PO DAILY 02/18/18 11:15 COMPREHENSIVE METABOLIC PN,CMP [CHEM] DAILY - Plan Plan:: 73-year-old male with a significant history of also missed dementia being admitted due to acute agitation, leukocytosis with no source of infection, fall in the ER resulting in a laceration that did not have any intracranial hemorrhaging. Most likely etiology for the patient's symptoms is dehydration. Patient is being admitted to the floor for fluid replacement, observation due to his head injury, and to obtain better control of his agitation and possible placement issue/disposition due to chronic issues. Patient reports constipation may benefit from a tap water enema and will also get stool softeners and laxatives for his constipation, IV normal saline at maintenance for his hydration. Consult to social service manager for disposition related issues. 02/17/2018 With marked increase in wbc will evaluated with CXR , blood culture , daily lab and will start zosyn and vancomycin. Most likely source is pulmonary in my opinion in light of recent cough noted on admission and sputum gram stain findings dulcolax suppository for fecal impaction. Kumar Kilgore MD 02/18/2018 WBC has decreased since starting broad spectrum antibiotics. I think that the most likely infection source is pulmonary as per above note. continue present care I spoke to his . anticipated discharge disposition is home likely this . MD [place]
[2018-02-18 12:13] LABS: CHLORIDE,CL 106 mmol/L (98-107); SODIUM,NA 137 mmol/L (136-148)
[2018-02-18] MEDS: Enoxaparin 40 MG/0.4 ML Syringe SUBCUT SCH (16:56)
[2018-02-18] MEDS: Tamsulosin 0.4 MG Cap.ER PO SCH (20:39)
[2018-02-18] MEDS: Finasteride 5 MG Tab PO SCH (20:39)
[2018-02-18] MEDS: ALPRAZolam 0.5 MG Tab PO PRN (23:09)
[2018-02-19] MEDS: Sodium Chloride 0.9% 1,000 ML IV SCH (03:49)
[2018-02-19] MEDS: Piperacillin/Tazobactam 3.375 GM in Sodium Chloride 0.9% 50 ML IV SCH ×4 (05:29→22:28)
[2018-02-19 05:41] LABS: CHLORIDE,CL 106 mmol/L (98-107); SODIUM,NA 140 mmol/L (136-148)
--- NOTE | 2018-02-19 10:27 | CR ---
EXAM DATE: 02/16/18 PATIENT'S AGE: 73 Patient: ANTWAN OSEI Facility: [place], [place] Site . Site : 1945 Study: XRay Chest [id number]/[id number] 2:54:36 PM Ordering Physician: Beth Capone Final Report: INDICATION: Leukocytosis. TECHNIQUE: AP portable semi upright chest. COMPARISON: February 16, 2018. FINDINGS: Shallow inspiration. Clear lungs. Normal heart size and pulmonary vascularity. The included skeletal thorax is unremarkable. IMPRESSION: Negative portable chest. Dictated by Giuseppe Espinal MD @ Feb 17 2018 3:02PM (Electronic Signature) Report Signed by Proxy. NEL
[2018-02-19] MEDS: QUEtiapine 100 MG Tab PO SCH ×2 (10:48→20:10)
[2018-02-19] MEDS: Donepezil 10 MG Tab PO SCH (10:48)
[2018-02-19] MEDS: FLUoxetine 20 MG Cap PO SCH (10:48)
[2018-02-19] MEDS: Memantine 10 MG Tab PO SCH ×2 (10:48→20:10)
[2018-02-19] MEDS: Levofloxacin/Dextrose 5%-Water 750 MG in Premix Bag 1 BAG IV SCH (11:21)
--- NOTE | 2018-02-19 11:26 | PCM.PN ---
- General Info Date of Service: 02/19/18 - Review of Systems Systems Review Comment:: He remains confused. He had a large BM today no vomiting he did not eat breakfast today and he did not take any po meds today. - Patient Data Vitals - Most Recent: Last Vital Signs Temp 98.1 F 02/19/18 08:00 Pulse 75 02/19/18 08:00 Resp 16 02/19/18 08:00 BP 143/79 H 02/19/18 08:00 Pulse Ox 97 02/19/18 08:00 Weight - Most Recent: 81.964 kg I&O - Last 24 Hours: Intake & Output 02/18/18 02/19/18 02/19/18 22:59 06:59 14:59 Intake Total 300 1890 Output Total 6513 975 Balance -9799 915 Lab Results Last 24 Hours: Laboratory Results - last 24 hr 02/18/18 02/18/18 02/19/18 Range/Units 11:15 11:15 04:55 WBC 18.94 H 18.31 H (4.0-11.0) K/uL RBC 4.38 L 4.39 L (4.50-5.90) M/uL Hgb 13.0 12.8 L (13.0-17.0) g/dL Hct 39.0 39.2 (38.0-50.0) % MCV 89.0 89.3 (80.0-98.0) fL MCH 29.7 29.2 (27.0-32.0) pg MCHC 33.3 32.7 (31.0-37.0) g/dL RDW Std Deviation 46.6 46.1 (28.0-62.0) fl RDW Coeff of Giulia 14 14 (11.0-15.0) % Plt Count 126 L 118 L (150-400) K/uL MPV 10.50 10.40 (7.40-12.00) fL Add Manual Diff YES YES Neutrophils % (Manual) 59 60 (48.0-80.0) % Band Neutrophils % 2 3 % Lymphocytes % (Manual) 10 L 19 (16.0-40.0) % Monocytes % (Manual) 26 H 14 (0.0-15.0) % Basophils % (Manual) 1 (0.0-1.5) % Metamyelocytes % 2 3 % Myelocytes % 1 % Nucleated RBC % 0.0 0.0 /100WBC Absolute Seg Neuts 11.2 H 11.0 H (1.4-5.7) Band Neutrophils # 0.4 0.5 Lymphocytes # (Manual) 1.9 3.5 H (0.6-2.4) Monocytes # (Manual) 4.9 H 2.6 H (0.0-0.8) Basophils # (Manual) 0.2 H (0.0-0.1) Absolute Metamyelocyte 0.4 0.5 Absolute Myelocytes 0.2 Nucleated RBCs # 0 0 K/uL Sodium 137 (136-148) mmol/L Potassium 3.6 (3.5-5.1) mmol/L Chloride 106 (98-107) mmol/L Carbon Dioxide 21.2 (21.0-32.0) mmol/L BUN 7 (7.0-18.0) mg/dL Creatinine 0.9 (0.8-1.3) mg/dL Est Cr Clr Drug Dosing 72.83 mL/min Estimated GFR (MDRD) > 60.0 ml/min Glucose 106 (74-106) mg/dL Calcium 8.2 L (8.5-10.1) mg/dL Total Bilirubin 1.0 (0.2-1.0) mg/dL AST 31 (15-37) IU/L ALT 53 (14-63) IU/L Alkaline Phosphatase 107 (46-116) U/L Total Protein 6.4 (6.4-8.2) g/dL Albumin 3.0 L (3.4-5.0) g/dL Globulin 3.4 (2.0-3.5) g/dL Albumin/Globulin Ratio 0.9 L (1.3-2.8) 02/19/18 Range/Units 04:55 WBC (4.0-11.0) K/uL RBC (4.50-5.90) M/uL Hgb (13.0-17.0) g/dL Hct (38.0-50.0) % MCV (80.0-98.0) fL MCH (27.0-32.0) pg MCHC (31.0-37.0) g/dL RDW Std Deviation (28.0-62.0) fl RDW Coeff of Giulia (11.0-15.0) % Plt Count (150-400) K/uL MPV (7.40-12.00) fL Add Manual Diff Neutrophils % (Manual) (48.0-80.0) % Band Neutrophils % % Lymphocytes % (Manual) (16.0-40.0) % Monocytes % (Manual) (0.0-15.0) % Basophils % (Manual) (0.0-1.5) % Metamyelocytes % % Myelocytes % % Nucleated RBC % /100WBC Absolute Seg Neuts (1.4-5.7) Band Neutrophils # Lymphocytes # (Manual) (0.6-2.4) Monocytes # (Manual) (0.0-0.8) Basophils # (Manual) (0.0-0.1) Absolute Metamyelocyte Absolute Myelocytes Nucleated RBCs # K/uL Sodium 140 (136-148) mmol/L Potassium 3.3 L (3.5-5.1) mmol/L Chloride 106 (98-107) mmol/L Carbon Dioxide 21.4 (21.0-32.0) mmol/L BUN 7 (7.0-18.0) mg/dL Creatinine 0.9 (0.8-1.3) mg/dL Est Cr Clr Drug Dosing 72.83 mL/min Estimated GFR (MDRD) > 60.0 ml/min Glucose 92 (74-106) mg/dL Calcium 7.9 L (8.5-10.1) mg/dL Total Bilirubin 0.9 (0.2-1.0) mg/dL AST 22 (15-37) IU/L ALT 45 (14-63) IU/L Alkaline Phosphatase 104 (46-116) U/L Total Protein 6.3 L (6.4-8.2) g/dL Albumin 2.9 L (3.4-5.0) g/dL Globulin 3.4 (2.0-3.5) g/dL Albumin/Globulin Ratio 0.9 L (1.3-2.8) Peter Results Last 24 Hours: Microbiology 02/17/18 11:15 Aerobic Blood Culture - Preliminary Blood - Venous - Lab Draw NO GROWTH AFTER 2 DAYS Anaerobic Blood Culture - Preliminary NO GROWTH AFTER 2 DAYS 02/17/18 11:10 Aerobic Blood Culture - Preliminary Blood - Venous NO GROWTH AFTER 2 DAYS Anaerobic Blood Culture - Preliminary NO GROWTH AFTER 2 DAYS 02/16/18 14:26 Gram Stain - Final Sputum - Expectorated Sputum Culture - Final Normal Respiratory Olga YEAST Med Orders - Current: Current Medications Acetaminophen (Tylenol) 650 mg PO Q4H PRN PRN Reason: Pain (Mild 1-3)/fever Last Admin: 02/18/18 23:09 Dose: 650 mg Alprazolam (Xanax) 1 mg PO TID PRN PRN Reason: Anxiety Last Admin: 02/18/18 23:09 Dose: 1 mg Bisacodyl (Dulcolax) 10 mg RECTAL DAILY PRN PRN Reason: Constipation Last Admin: 02/17/18 12:02 Dose: 10 mg Donepezil HCl (Aricept) 10 mg PO DAILY [facility] Last Admin: 02/19/18 10:48 Dose: Not Given Finasteride (Proscar) 5 mg PO BEDTIME [facility] Last Admin: 02/18/18 20:39 Dose: 5 mg Fluoxetine HCl (Prozac) 40 mg PO DAILY [facility] Last Admin: 02/19/18 10:48 Dose: Not Given Haloperidol Lactate (Haldol) 2 - 5 mg IM Q6H PRN PRN Reason: Agitation Last Admin: 02/17/18 00:55 Dose: 5 mg Sodium Chloride (Normal Saline) 1,000 mls @ 125 mls/hr IV ASDIRECTED [facility] Last Admin: 02/19/18 03:49 Dose: 125 mls/hr Piperacillin Sod/Tazobactam (Sod 3.375 gm/ Sodium Chloride) 50 mls @ 100 mls/ hr IV Q6H [facility] Last Admin: 02/19/18 11:21 Dose: 100 mls/hr Vancomycin HCl 1,250 mg/ (Sodium Chloride) 500 mls @ 333.333 mls/hr IV Q12H [facility] Last Admin: 02/19/18 00:06 Dose: 333.333 mls/hr Levofloxacin/Dextrose 750 mg/ (Premix) 150 mls @ 100 mls/hr IV Q24H [facility] Last Admin: 02/19/18 11:21 Dose: 100 mls/hr Lorazepam (Ativan) 1 mg IM Q4H PRN PRN Reason: Agitation Last Admin: 02/16/18 21:58 Dose: 1 mg Magnesium Hydroxide (Milk Of Magnesia) 30 ml PO Q12H PRN PRN Reason: Constipation Memantine (Namenda) 10 mg PO BID [facility] Last Admin: 02/19/18 10:48 Dose: Not Given Ondansetron HCl (Zofran) 4 mg IVPUSH Q4H PRN PRN Reason: Nausea/Vomiting Last Admin: 02/16/18 18:06 Dose: 4 mg Promethazine HCl (Phenergan) 25 mg IM Q6H PRN PRN Reason: nausea Last Admin: 02/16/18 20:15 Dose: 25 mg Quetiapine Fumarate (Seroquel) 100 mg PO DAILY [facility] Last Admin: 02/19/18 10:48 Dose: Not Given Quetiapine Fumarate (Seroquel) 200 mg PO BEDTIME [facility] Last Admin: 02/18/18 20:40 Dose: 200 mg Senna/Docusate Sodium (Senokot-S) 1 each PO BID PRN PRN Reason: Constipation Sodium Chloride (Saline Flush) 10 ml FLUSH ASDIRECTED PRN PRN Reason: Keep Vein Open Sodium Chloride (Saline Flush) 2.5 ml FLUSH ASDIRECTED PRN PRN Reason: Keep Vein Open Tamsulosin HCl (Flomax) 0.4 mg PO BEDTIME [facility] Last Admin: 02/18/18 20:39 Dose: 0.4 mg Vancomycin HCl (Pharmacy To Dose - Vancomycin) 1 dose .XX ASDIRECTED [facility] Discontinued Medications Enoxaparin Sodium (Lovenox) 40 mg SUBCUT Q24H [facility] Last Admin: 02/18/18 16:56 Dose: 40 mg Haloperidol (Haldol) 1 mg PO ONETIME ONE Stop: 02/16/18 14:16 Last Admin: 02/16/18 14:31 Dose: Not Given Haloperidol Lactate (Haldol) 1 mg IM ONETIME ONE Stop: 02/16/18 14:15 Last Admin: 02/16/18 14:18 Dose: Not Given Haloperidol Lactate (Haldol) 1 mg IM ONETIME ONE Stop: 02/16/18 14:28 Last Admin: 02/16/18 14:34 Dose: 1 mg Haloperidol Lactate (Haldol) 1 mg IM ONETIME ONE Stop: 02/16/18 14:33 Last Admin: 02/16/18 14:34 Dose: Not Given Haloperidol Lactate (Haldol) 2 mg IVPUSH ONETIME ONE Stop: 02/16/18 17:46 Last Admin: 02/16/18 18:07 Dose: Not Given Haloperidol Lactate (Haldol) 2 mg IM ONETIME ONE Stop: 02/16/18 17:59 Last Admin: 02/16/18 18:08 Dose: 2 mg Sodium Chloride (Normal Saline) 1,000 mls @ 125 mls/hr IV STAT ONE Stop: 02/16/18 19:01 Last Admin: 02/16/18 12:14 Dose: 125 mls/hr Cefepime HCl 1 gm/ Premix 50 mls @ 100 mls/hr IV Q8H [facility] Last Admin: 02/17/18 15:13 Dose: Not Given Influenza Virus Vaccine (Pharmacy To Dose - Influenza Vaccine) 1 each IM ONETIME ONE Stop: 02/16/18 15:43 Lorazepam (Ativan) 0.5 mg IVPUSH ONETIME ONE Stop: 02/16/18 12:09 Last Admin: 02/16/18 12:13 Dose: 0.5 mg Lorazepam (Ativan) 0.5 mg IVPUSH ONETIME ONE Stop: 02/16/18 12:26 Last Admin: 02/16/18 14:18 Dose: Not Given Morphine Sulfate (Morphine) 2 mg IVPUSH Q2H PRN PRN Reason: Pain (severe 7-10) Stop: 02/17/18 14:54 Morphine Sulfate (Morphine) 2 mg IVPUSH Q2H PRN PRN Reason: Pain (severe 7-10) Stop: 02/17/18 14:54 Last Admin: 02/17/18 03:43 Dose: 2 mg - Exam General: Alert, Cooperative Lungs: Clear to Auscultation, Normal Respiratory Effort Cardiovascular: Regular Rate, Regular Rhythm GI/Abdominal Exam: Soft, Non-Tender - Problem List & Annotations (1) Dementia SNOMED Code(s): 06409342 Code(s): F03.90 - UNSPECIFIED DEMENTIA WITHOUT BEHAVIORAL DISTURBANCE Status: Acute Current Visit: Yes Qualifiers: Dementia type: Alzheimer's disease Alzheimer's disease onset: unspecified onset Dementia behavioral disturbance: with behavioral disturbance Qualified Code(s): G30.9 - Alzheimer's disease, unspecified; F02.81 - Dementia in other diseases classified elsewhere with behavioral disturbance (2) Frequent falls SNOMED Code(s): 390215893 Code(s): R29.6 - REPEATED FALLS Status: Acute Current Visit: Yes (3) Agitation SNOMED Code(s): 181368460 Code(s): R45.1 - RESTLESSNESS AND AGITATION Status: Acute Current Visit: No (4) Elevated liver enzymes SNOMED Code(s): 871081958 Code(s): R74.8 - ABNORMAL LEVELS OF OTHER SERUM ENZYMES Status: Acute Current Visit: No - Problem List Review Problem List Initiated/Reviewed/Updated: Yes - My Orders Last 24 Hours: My Active Orders 02/18/18 16:26 Hand 2V Lt [CR] Routine 02/19/18 10:30 Levofloxacin/Dextrose 5%-Water [Levaquin in D5W 750 MG/150 ML] 750 mg Premix Bag 1 bag IV Q24H 02/20/18 05:11 CBC WITH AUTO DIFF [HEME] AM CMP [COMPREHENSIVE METABOLIC PN,CMP] [CHEM] AM 02/21/18 05:11 CBC WITH AUTO DIFF [HEME] AM CMP [COMPREHENSIVE METABOLIC PN,CMP] [CHEM] AM - Plan Plan:: 73-year-old male with a significant history of also missed dementia being admitted due to acute agitation, leukocytosis with no source of infection, fall in the ER resulting in a laceration that did not have any intracranial hemorrhaging. Most likely etiology for the patient's symptoms is dehydration. Patient is being admitted to the floor for fluid replacement, observation due to his head injury, and to obtain better control of his agitation and possible placement issue/disposition due to chronic issues. Patient reports constipation may benefit from a tap water enema and will also get stool softeners and laxatives for his constipation, IV normal saline at maintenance for his hydration. Consult to psychologist social for disposition related issues. 02/17/2018 With marked increase in wbc will evaluated with CXR , blood culture , daily lab and will start zosyn and vancomycin. Most likely source is pulmonary in my opinion in light of recent cough noted on admission and sputum gram stain findings dulcolax suppository for fecal impaction. Kumar Kilgore MD 02/18/2018 WBC has decreased since starting broad spectrum antibiotics. I think that the most likely infection source is pulmonary as per above note. continue present care I spoke to his . anticipated discharge disposition is home likely this . MD [place] 02/19/2018 WBC trending down but still elevated. Will add levaquin will monitor regarding po intake Low K noted IV K replacement recheck lab in am Kumar Kilgore MD
--- NOTE | 2018-02-19 11:52 | PCM.SN ---
- Free Text/Narrative Note: lovenox discontinued as platelets have dropped to 118K. Kumar Kilgore MD
[2018-02-19] MEDS: NS + KCl 20mEq/L 1,000 ML IV SCH (13:23)
--- NOTE | 2018-02-19 13:49 | CR ---
EXAM DATE: 02/16/18 PATIENT'S AGE: 73 Patient: ANTWAN OSEI Facility: [place], [place] Site . Site : [id number] Study: XRay Extremity Left hand [id number]/17/2018 4:48:35 PM Ordering Physician: Beth Capone Final Report: HISTORY: Left hand pain and swelling. Prior fall. TECHNIQUE: Two views of the left hand. COMPARISON: No prior. FINDINGS: There is no acute fracture. 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 Mild osteoarthritic change involving multiple interphalangeal joints. The bones appear osteopenic. No erosions. Vascular calcifications. IMPRESSION: 1. No acute fracture. 2. Degenerative changes. Dictated by Dominik Marmolejo MD @ 02/18/2018 5:13:41 PM Dictated by: Dominik Marmolejo MD @ 02/18/2018 17:13:45 (Electronic Signature) Report Signed by Proxy. [facility]ENT[facility]elio
[2018-02-19] MEDS: Tamsulosin 0.4 MG Cap.ER PO SCH (20:10)
[2018-02-19] MEDS: Finasteride 5 MG Tab PO SCH (20:10)
[2018-02-20] MEDS: ALPRAZolam 0.5 MG Tab PO PRN (01:43)
[2018-02-20] MEDS: Piperacillin/Tazobactam 3.375 GM in Sodium Chloride 0.9% 50 ML IV SCH ×4 (04:51→22:56)
[2018-02-20] MEDS: NS + KCl 20mEq/L 1,000 ML IV SCH ×2 (05:22→19:53)
[2018-02-20 05:50] LABS: CHLORIDE,CL 107 mmol/L (98-107); SODIUM,NA 140 mmol/L (136-148)
[2018-02-20] MEDS: FLUoxetine 20 MG Cap PO SCH (08:32)
[2018-02-20] MEDS: Donepezil 10 MG Tab PO SCH (08:32)
[2018-02-20] MEDS: QUEtiapine 100 MG Tab PO SCH ×2 (08:32→22:00)
[2018-02-20] MEDS: Memantine 10 MG Tab PO SCH ×2 (08:32→22:00)
[2018-02-20] MEDS: Levofloxacin/Dextrose 5%-Water 750 MG in Premix Bag 1 BAG IV SCH (10:34)
--- NOTE | 2018-02-20 11:33 | PCM.PN ---
- General Info Date of Service: 02/20/18 - Review of Systems Systems Review Comment:: HE is chronically confused. He is eating poorly. He ate very little yesterday and did not eat breakfast. - Patient Data Vitals - Most Recent: Last Vital Signs Temp 99.0 F 02/20/18 07:43 Pulse 80 02/20/18 07:43 Resp 20 02/20/18 07:43 BP 154/86 H 02/20/18 07:43 Pulse Ox 96 02/20/18 07:43 Weight - Most Recent: 81.964 kg I&O - Last 24 Hours: Intake & Output 02/19/18 02/20/18 02/20/18 22:59 06:59 14:59 Intake Total 2176 1300 Output Total 1530 1450 Balance 646 -150 Lab Results Last 24 Hours: Laboratory Results - last 24 hr 02/19/18 02/20/18 02/20/18 Range/Units 11:30 04:55 04:55 WBC 18.58 H (4.0-11.0) K/uL RBC 4.29 L (4.50-5.90) M/uL Hgb 12.5 L (13.0-17.0) g/dL Hct 37.8 L (38.0-50.0) % MCV 88.1 (80.0-98.0) fL MCH 29.1 (27.0-32.0) pg MCHC 33.1 (31.0-37.0) g/dL RDW Std Deviation 45.1 (28.0-62.0) fl RDW Coeff of Giulia 14 (11.0-15.0) % Plt Count 126 L (150-400) K/uL MPV 10.50 (7.40-12.00) fL Add Manual Diff YES Neutrophils % (Manual) 66 (48.0-80.0) % Band Neutrophils % 2 % Lymphocytes % (Manual) 11 L (16.0-40.0) % Monocytes % (Manual) 19 H (0.0-15.0) % Metamyelocytes % 2 % Nucleated RBC % 0.0 /100WBC Absolute Seg Neuts 12.3 H (1.4-5.7) Band Neutrophils # 0.4 Lymphocytes # (Manual) 2.0 (0.6-2.4) Monocytes # (Manual) 3.5 H (0.0-0.8) Absolute Metamyelocyte 0.4 Nucleated RBCs # 0 K/uL Sodium 140 (136-148) mmol/L Potassium 3.3 L (3.5-5.1) mmol/L Chloride 107 (98-107) mmol/L Carbon Dioxide 21.1 (21.0-32.0) mmol/L BUN 6 L (7.0-18.0) mg/dL Creatinine 0.9 (0.8-1.3) mg/dL Est Cr Clr Drug Dosing 72.83 mL/min Estimated GFR (MDRD) > 60.0 ml/min Glucose 99 (74-106) mg/dL Calcium 8.1 L (8.5-10.1) mg/dL Total Bilirubin 1.1 H (0.2-1.0) mg/dL AST 23 (15-37) IU/L ALT 39 (14-63) IU/L Alkaline Phosphatase 112 (46-116) U/L Total Protein 6.6 (6.4-8.2) g/dL Albumin 3.0 L (3.4-5.0) g/dL Globulin 3.6 H (2.0-3.5) g/dL Albumin/Globulin Ratio 0.8 L (1.3-2.8) Vancomycin Trough 10.7 H (5.0-10.0) ug/mL Peter Results Last 24 Hours: Microbiology 02/17/18 11:15 Aerobic Blood Culture - Preliminary Blood - Venous - Lab Draw NO GROWTH AFTER 3 DAYS Anaerobic Blood Culture - Preliminary NO GROWTH AFTER 3 DAYS 02/17/18 11:10 Aerobic Blood Culture - Preliminary Blood - Venous NO GROWTH AFTER 3 DAYS Anaerobic Blood Culture - Preliminary NO GROWTH AFTER 3 DAYS Med Orders - Current: Current Medications Acetaminophen (Tylenol) 650 mg PO Q4H PRN PRN Reason: Pain (Mild 1-3)/fever Last Admin: 02/18/18 23:09 Dose: 650 mg Alprazolam (Xanax) 1 mg PO TID PRN PRN Reason: Anxiety Last Admin: 02/20/18 01:43 Dose: 1 mg Bisacodyl (Dulcolax) 10 mg RECTAL DAILY PRN PRN Reason: Constipation Last Admin: 02/17/18 12:02 Dose: 10 mg Donepezil HCl (Aricept) 10 mg PO DAILY [facility] Last Admin: 02/20/18 08:32 Dose: 10 mg Finasteride (Proscar) 5 mg PO BEDTIME [facility] Last Admin: 02/19/18 20:10 Dose: 5 mg Fluoxetine HCl (Prozac) 40 mg PO DAILY [facility] Last Admin: 02/20/18 08:32 Dose: 40 mg Haloperidol Lactate (Haldol) 2 - 5 mg IM Q6H PRN PRN Reason: Agitation Last Admin: 02/17/18 00:55 Dose: 5 mg Piperacillin Sod/Tazobactam (Sod 3.375 gm/ Sodium Chloride) 50 mls @ 100 mls/ hr IV Q6H [facility] Last Admin: 02/20/18 10:37 Dose: 100 mls/hr Vancomycin HCl 1,250 mg/ (Sodium Chloride) 500 mls @ 333.333 mls/hr IV Q12H [facility] Last Admin: 02/20/18 00:06 Dose: 333.333 mls/hr Levofloxacin/Dextrose 750 mg/ (Premix) 150 mls @ 100 mls/hr IV Q24H [facility] Last Admin: 02/20/18 10:34 Dose: 100 mls/hr Potassium Chloride/Sodium Chloride (Normal Saline With 20 Meq Kcl) 1,000 mls @ 125 mls/hr IV ASDIRECTED [facility] Last Admin: 02/20/18 05:22 Dose: 100 mls/hr Lorazepam (Ativan) 1 mg IM Q4H PRN PRN Reason: Agitation Last Admin: 02/16/18 21:58 Dose: 1 mg Magnesium Hydroxide (Milk Of Magnesia) 30 ml PO Q12H PRN PRN Reason: Constipation Memantine (Namenda) 10 mg PO BID [facility] Last Admin: 02/20/18 08:32 Dose: 10 mg Ondansetron HCl (Zofran) 4 mg IVPUSH Q4H PRN PRN Reason: Nausea/Vomiting Last Admin: 02/16/18 18:06 Dose: 4 mg Promethazine HCl (Phenergan) 25 mg IM Q6H PRN PRN Reason: nausea Last Admin: 02/16/18 20:15 Dose: 25 mg Quetiapine Fumarate (Seroquel) 100 mg PO DAILY [facility] Last Admin: 02/20/18 08:32 Dose: 100 mg Quetiapine Fumarate (Seroquel) 200 mg PO BEDTIME [facility] Last Admin: 02/19/18 20:10 Dose: 200 mg Senna/Docusate Sodium (Senokot-S) 1 each PO BID PRN PRN Reason: Constipation Sodium Chloride (Saline Flush) 10 ml FLUSH ASDIRECTED PRN PRN Reason: Keep Vein Open Sodium Chloride (Saline Flush) 2.5 ml FLUSH ASDIRECTED PRN PRN Reason: Keep Vein Open Tamsulosin HCl (Flomax) 0.4 mg PO BEDTIME [facility] Last Admin: 02/19/18 20:10 Dose: 0.4 mg Vancomycin HCl (Pharmacy To Dose - Vancomycin) 1 dose .XX ASDIRECTED [facility] Discontinued Medications Enoxaparin Sodium (Lovenox) 40 mg SUBCUT Q24H [facility] Last Admin: 02/18/18 16:56 Dose: 40 mg Haloperidol (Haldol) 1 mg PO ONETIME ONE Stop: 02/16/18 14:16 Last Admin: 02/16/18 14:31 Dose: Not Given Haloperidol Lactate (Haldol) 1 mg IM ONETIME ONE Stop: 02/16/18 14:15 Last Admin: 02/16/18 14:18 Dose: Not Given Haloperidol Lactate (Haldol) 1 mg IM ONETIME ONE Stop: 02/16/18 14:28 Last Admin: 02/16/18 14:34 Dose: 1 mg Haloperidol Lactate (Haldol) 1 mg IM ONETIME ONE Stop: 02/16/18 14:33 Last Admin: 02/16/18 14:34 Dose: Not Given Haloperidol Lactate (Haldol) 2 mg IVPUSH ONETIME ONE Stop: 02/16/18 17:46 Last Admin: 02/16/18 18:07 Dose: Not Given Haloperidol Lactate (Haldol) 2 mg IM ONETIME ONE Stop: 02/16/18 17:59 Last Admin: 02/16/18 18:08 Dose: 2 mg Sodium Chloride (Normal Saline) 1,000 mls @ 125 mls/hr IV STAT ONE Stop: 02/16/18 19:01 Last Admin: 02/16/18 12:14 Dose: 125 mls/hr Sodium Chloride (Normal Saline) 1,000 mls @ 125 mls/hr IV ASDIRECTED [facility] Last Admin: 02/19/18 03:49 Dose: 125 mls/hr Cefepime HCl 1 gm/ Premix 50 mls @ 100 mls/hr IV Q8H [facility] Last Admin: 02/17/18 15:13 Dose: Not Given Influenza Virus Vaccine (Pharmacy To Dose - Influenza Vaccine) 1 each IM ONETIME ONE Stop: 02/16/18 15:43 Lorazepam (Ativan) 0.5 mg IVPUSH ONETIME ONE Stop: 02/16/18 12:09 Last Admin: 02/16/18 12:13 Dose: 0.5 mg Lorazepam (Ativan) 0.5 mg IVPUSH ONETIME ONE Stop: 02/16/18 12:26 Last Admin: 02/16/18 14:18 Dose: Not Given Morphine Sulfate (Morphine) 2 mg IVPUSH Q2H PRN PRN Reason: Pain (severe 7-10) Stop: 02/17/18 14:54 Morphine Sulfate (Morphine) 2 mg IVPUSH Q2H PRN PRN Reason: Pain (severe 7-10) Stop: 02/17/18 14:54 Last Admin: 02/17/18 03:43 Dose: 2 mg - Exam General: Alert, Cooperative. No: Oriented Neck: Trachea Midline Lungs: Clear to Auscultation, Normal Respiratory Effort Cardiovascular: Regular Rate, Regular Rhythm GI/Abdominal Exam: Other (abdomen slightly tight but seems non tender) Psy/Mental Status: No: Agitated - Problem List & Annotations (1) Dementia SNOMED Code(s): 75497777 Code(s): F03.90 - UNSPECIFIED DEMENTIA WITHOUT BEHAVIORAL DISTURBANCE Status: Acute Current Visit: Yes Qualifiers: Dementia type: Alzheimer's disease Alzheimer's disease onset: unspecified onset Dementia behavioral disturbance: with behavioral disturbance Qualified Code(s): G30.9 - Alzheimer's disease, unspecified; F02.81 - Dementia in other diseases classified elsewhere with behavioral disturbance (2) Frequent falls SNOMED Code(s): 821015696 Code(s): R29.6 - REPEATED FALLS Status: Acute Current Visit: Yes (3) Agitation SNOMED Code(s): 028819872 Code(s): R45.1 - RESTLESSNESS AND AGITATION Status: Acute Current Visit: No (4) Elevated liver enzymes SNOMED Code(s): 838600764 Code(s): R74.8 - ABNORMAL LEVELS OF OTHER SERUM ENZYMES Status: Acute Current Visit: No - Problem List Review Problem List Initiated/Reviewed/Updated: Yes - My Orders Last 24 Hours: My Active Orders 02/19/18 10:30 Levofloxacin/Dextrose 5%-Water [Levaquin in D5W 750 MG/150 ML] 750 mg Premix Bag 1 bag IV Q24H 02/19/18 11:30 NS + KCl 20mEq/L [Normal Saline with 20 mEq KCl] 1,000 ml IV ASDIRECTED 02/20/18 11:27 Abdomen Pelvis w wo Cont [CT] Routine Chest w wo Cont [CT] Routine 02/21/18 05:11 CBC WITH AUTO DIFF [HEME] AM CMP [COMPREHENSIVE METABOLIC PN,CMP] [CHEM] AM - Plan Plan:: 73-year-old male with a significant history of also missed dementia being admitted due to acute agitation, leukocytosis with no source of infection, fall in the ER resulting in a laceration that did not have any intracranial hemorrhaging. Most likely etiology for the patient's symptoms is dehydration. Patient is being admitted to the floor for fluid replacement, observation due to his head injury, and to obtain better control of his agitation and possible placement issue/disposition due to chronic issues. Patient reports constipation may benefit from a tap water enema and will also get stool softeners and laxatives for his constipation, IV normal saline at maintenance for his hydration. Consult to forensic social worker for disposition related issues. 02/17/2018 With marked increase in wbc will evaluated with CXR , blood culture , daily lab and will start zosyn and vancomycin. Most likely source is pulmonary in my opinion in light of recent cough noted on admission and sputum gram stain findings dulcolax suppository for fecal impaction. Kumar Kilgore MD 02/18/2018 WBC has decreased since starting broad spectrum antibiotics. I think that the most likely infection source is pulmonary as per above note. continue present care I spoke to his . anticipated discharge disposition is home likely this . MD [place] 02/19/2018 WBC trending down but still elevated. Will add levaquin will monitor regarding po intake Low K noted IV K replacement recheck lab in am Kumar Kilgore MD 02/20/2018 because of persistent leukocytosis and clinical worsening will order CT abdomen pelvis and chest w/ wo IV contrast increase NS with Kcl to 125 ml / hour follow lab I believe that he is too acutely ill to allow PT/ OT consultation at this point but may consider if improving over the next few days. Kumar Kilgore MD
[2018-02-20] MEDS ORDERED: Iopamidol 755 Mg/ML 100 ML Bottle IVPUSH STA (15:39)
--- NOTE | 2018-02-20 16:54 | CT ---
CT of the chest, abdomen and pelvis with and without contrast. HISTORY: Leukocytosis TECHNIQUE: Axial CT images were obtained of the chest, abdomen and pelvis before and following admini stration of 100 mL of Isovue-370 in the left hand without complication. Coronal and sagittal reconstr uctions obtained. FINDINGS: Chest: There is mild bibasilar atelectasis and trace bilateral pleural effusions. The lungs are other masters grossly clear. Mild motion artifact is noted. Tiny intrafissural nodule within the right minor f issure. The heart is normal in size without a pericardial effusion. Mild coronary artery calcificatio ns. The thoracic aorta is normal in caliber. The main pulmonary arteries are patent. Central airways are clear. Tiny 5 mm nodule in the right apex. Abdomen: There is mild fatty infiltration of the liver. The gallbladder appears normal. The spleen, a drenal glands, and pancreas appear normal. No bulky retroperitoneal lymphadenopathy or abdominal asci cathi. The kidneys enhance and function symmetrically without evidence of obstructive uropathy. Renal cortic al cysts are noted. Peripheral calcifications are noted within the cyst within the lower pole of the left kidney. Pelvis: The large and small bowel are normal in caliber without evidence of obstruction. No focal per icolonic inflammation or stranding. Mild to moderate diverticulosis without evidence of diverticuliti s. Moderate bladder wall thickening is noted, otherwise the bladder is minimally filled with a Tomlinson catheter in place. No bulky pelvic lymphadenopathy or free pelvic fluid. Degenerative changes noted within the spine and SI joints. No suspicious osseous abnormalities identi fied. IMPRESSION: 1. Trace bilateral pleural effusions. 2. Bladder wall thickening, however the bladder is minimally filled. 3. Diverticulosis without evidence of diverticulitis. 4. Renal cortical cysts. 5. Tiny 5 mm nodule within the right apex. Consider follow-up imaging in 12 months.
[2018-02-20] MEDS: Tamsulosin 0.4 MG Cap.ER PO SCH (22:00)
[2018-02-20] MEDS: Finasteride 5 MG Tab PO SCH (22:00)
[2018-02-21] MEDS: Piperacillin/Tazobactam 3.375 GM in Sodium Chloride 0.9% 50 ML IV SCH ×4 (05:12→22:05)
[2018-02-21 05:43] LABS: CHLORIDE,CL 104 mmol/L (98-107); SODIUM,NA 136 mmol/L (136-148)
[2018-02-21] MEDS: NS + KCl 20mEq/L 1,000 ML IV SCH (07:34)
[2018-02-21] MEDS: Memantine 10 MG Tab PO SCH ×3 (08:30→23:25)
[2018-02-21] MEDS: FLUoxetine 20 MG Cap PO SCH (08:31)
[2018-02-21] MEDS: QUEtiapine 100 MG Tab PO SCH ×3 (08:31→23:26)
[2018-02-21] MEDS: Donepezil 10 MG Tab PO SCH (08:32)
[2018-02-21] MEDS: Levofloxacin/Dextrose 5%-Water 750 MG in Premix Bag 1 BAG IV SCH (10:34)
--- NOTE | 2018-02-21 12:54 | PCM.PN ---
- General Info Date of Service: 02/21/18 - Review of Systems Psychiatric: Reports: Confusion Systems Review Comment:: very poor po intake occasional cough noted. - Patient Data Vitals - Most Recent: Last Vital Signs Temp 98.0 F 02/21/18 11:43 Pulse 78 02/21/18 11:43 Resp 16 02/21/18 11:43 BP 164/90 H 02/21/18 11:43 Pulse Ox 96 02/21/18 11:43 Weight - Most Recent: 81.964 kg I&O - Last 24 Hours: Intake & Output 02/20/18 02/21/18 02/21/18 22:59 06:59 14:59 Intake Total 1750 1700 Output Total 1500 Balance 1750 200 Lab Results Last 24 Hours: Laboratory Results - last 24 hr 02/21/18 02/21/18 02/21/18 Range/Units 05:05 05:05 11:28 WBC 24.26 H (4.0-11.0) K/uL RBC 4.35 L (4.50-5.90) M/uL Hgb 12.9 L (13.0-17.0) g/dL Hct 38.1 (38.0-50.0) % MCV 87.6 (80.0-98.0) fL MCH 29.7 (27.0-32.0) pg MCHC 33.9 (31.0-37.0) g/dL RDW Std Deviation 44.0 (28.0-62.0) fl RDW Coeff of Giulia 14 (11.0-15.0) % Plt Count 132 L (150-400) K/uL MPV 10.60 (7.40-12.00) fL Add Manual Diff YES Neutrophils % (Manual) 68 (48.0-80.0) % Band Neutrophils % 1 % Lymphocytes % (Manual) 12 L (16.0-40.0) % Monocytes % (Manual) 18 H (0.0-15.0) % Metamyelocytes % 1 % Nucleated RBC % 0.1 /100WBC Absolute Seg Neuts 16.5 H (1.4-5.7) Band Neutrophils # 0.2 Lymphocytes # (Manual) 2.9 H (0.6-2.4) Monocytes # (Manual) 4.4 H (0.0-0.8) Absolute Metamyelocyte 0.2 Nucleated RBCs # 0 K/uL Sodium 136 (136-148) mmol/L Potassium 3.5 (3.5-5.1) mmol/L Chloride 104 (98-107) mmol/L Carbon Dioxide 18.0 L (21.0-32.0) mmol/L BUN 7 (7.0-18.0) mg/dL Creatinine 0.7 L (0.8-1.3) mg/dL Est Cr Clr Drug Dosing 93.64 mL/min Estimated GFR (MDRD) > 60.0 ml/min Glucose 91 (74-106) mg/dL Calcium 8.2 L (8.5-10.1) mg/dL Magnesium 1.9 (1.8-2.4) mg/dL Total Bilirubin 1.2 H (0.2-1.0) mg/dL AST 27 (15-37) IU/L ALT 36 (14-63) IU/L Alkaline Phosphatase 125 H (46-116) U/L Total Protein 6.7 (6.4-8.2) g/dL Albumin 3.0 L (3.4-5.0) g/dL Globulin 3.7 H (2.0-3.5) g/dL Albumin/Globulin Ratio 0.8 L (1.3-2.8) Urine Color YELLOW Urine Appearance CLEAR Urine pH 5.5 (5.0-8.0) Ur Specific [place] >= 1.030 (1.001-1.035) Urine Protein 30 (NEGATIVE) mg/dL Urine Glucose (UA) NEGATIVE (NEGATIVE) mg/dL Urine Ketones >=80 (NEGATIVE) mg/dL Urine Occult Blood LARGE H (NEGATIVE) Urine Nitrite NEGATIVE (NEGATIVE) Urine Bilirubin SMALL H (NEGATIVE) Urine Ictotest NEGATIVE Urine Urobilinogen 0.2 (<2.0) EU/dL Ur Leukocyte Esterase TRACE (NEGATIVE) Urine RBC 50-60 (0-2/HPF) Urine WBC 4-6 (0-5/HPF) Ur Epithelial Cells OCCASIONAL (NONE-FEW) Amorphous Sediment NOT SEEN (NEGATIVE) Urine Bacteria 1+ H (NEGATIVE) Urine Mucus NOT SEEN (NONE-MOD) Vancomycin Trough (5.0-10.0) ug/mL 02/21/18 Range/Units 11:37 WBC (4.0-11.0) K/uL RBC (4.50-5.90) M/uL Hgb (13.0-17.0) g/dL Hct (38.0-50.0) % MCV (80.0-98.0) fL MCH (27.0-32.0) pg MCHC (31.0-37.0) g/dL RDW Std Deviation (28.0-62.0) fl RDW Coeff of Giulia (11.0-15.0) % Plt Count (150-400) K/uL MPV (7.40-12.00) fL Add Manual Diff Neutrophils % (Manual) (48.0-80.0) % Band Neutrophils % % Lymphocytes % (Manual) (16.0-40.0) % Monocytes % (Manual) (0.0-15.0) % Metamyelocytes % % Nucleated RBC % /100WBC Absolute Seg Neuts (1.4-5.7) Band Neutrophils # Lymphocytes # (Manual) (0.6-2.4) Monocytes # (Manual) (0.0-0.8) Absolute Metamyelocyte Nucleated RBCs # K/uL Sodium (136-148) mmol/L Potassium (3.5-5.1) mmol/L Chloride (98-107) mmol/L Carbon Dioxide (21.0-32.0) mmol/L BUN (7.0-18.0) mg/dL Creatinine (0.8-1.3) mg/dL Est Cr Clr Drug Dosing mL/min Estimated GFR (MDRD) ml/min Glucose (74-106) mg/dL Calcium (8.5-10.1) mg/dL Magnesium (1.8-2.4) mg/dL Total Bilirubin (0.2-1.0) mg/dL AST (15-37) IU/L ALT (14-63) IU/L Alkaline Phosphatase (46-116) U/L Total Protein (6.4-8.2) g/dL Albumin (3.4-5.0) g/dL Globulin (2.0-3.5) g/dL Albumin/Globulin Ratio (1.3-2.8) Urine Color Urine Appearance Urine pH (5.0-8.0) Ur Specific [place] (1.001-1.035) Urine Protein (NEGATIVE) mg/dL Urine Glucose (UA) (NEGATIVE) mg/dL Urine Ketones (NEGATIVE) mg/dL Urine Occult Blood (NEGATIVE) Urine Nitrite (NEGATIVE) Urine Bilirubin (NEGATIVE) Urine Ictotest Urine Urobilinogen (<2.0) EU/dL Ur Leukocyte Esterase (NEGATIVE) Urine RBC (0-2/HPF) Urine WBC (0-5/HPF) Ur Epithelial Cells (NONE-FEW) Amorphous Sediment (NEGATIVE) Urine Bacteria (NEGATIVE) Urine Mucus (NONE-MOD) Vancomycin Trough 9.3 (5.0-10.0) ug/mL Peter Results Last 24 Hours: Microbiology 02/17/18 11:15 Aerobic Blood Culture - Preliminary Blood - Venous - Lab Draw NO GROWTH AFTER 4 DAYS Anaerobic Blood Culture - Preliminary NO GROWTH AFTER 4 DAYS 02/17/18 11:10 Aerobic Blood Culture - Preliminary Blood - Venous NO GROWTH AFTER 4 DAYS Anaerobic Blood Culture - Preliminary NO GROWTH AFTER 4 DAYS Med Orders - Current: Current Medications Acetaminophen (Tylenol) 650 mg PO Q4H PRN PRN Reason: Pain (Mild 1-3)/fever Last Admin: 02/18/18 23:09 Dose: 650 mg Alprazolam (Xanax) 1 mg PO TID PRN PRN Reason: Anxiety Last Admin: 02/20/18 01:43 Dose: 1 mg Bisacodyl (Dulcolax) 10 mg RECTAL DAILY PRN PRN Reason: Constipation Last Admin: 02/17/18 12:02 Dose: 10 mg Donepezil HCl (Aricept) 10 mg PO DAILY [facility] Last Admin: 02/21/18 08:32 Dose: 10 mg Finasteride (Proscar) 5 mg PO BEDTIME [facility] Last Admin: 02/20/18 22:00 Dose: Not Given Fluoxetine HCl (Prozac) 40 mg PO DAILY [facility] Last Admin: 02/21/18 08:31 Dose: 40 mg Haloperidol Lactate (Haldol) 2 - 5 mg IM Q6H PRN PRN Reason: Agitation Last Admin: 02/17/18 00:55 Dose: 5 mg Piperacillin Sod/Tazobactam (Sod 3.375 gm/ Sodium Chloride) 50 mls @ 100 mls/ hr IV Q6H [facility] Last Admin: 02/21/18 10:33 Dose: 100 mls/hr Vancomycin HCl 1,250 mg/ (Sodium Chloride) 500 mls @ 333.333 mls/hr IV Q12H [facility] Last Admin: 02/20/18 23:25 Dose: 333.333 mls/hr Levofloxacin/Dextrose 750 mg/ (Premix) 150 mls @ 100 mls/hr IV Q24H [facility] Last Admin: 02/21/18 10:34 Dose: 100 mls/hr Potassium Chloride/Sodium Chloride (Normal Saline With 20 Meq Kcl) 1,000 mls @ 125 mls/hr IV ASDIRECTED [facility] Last Admin: 02/21/18 07:34 Dose: 125 mls/hr Lorazepam (Ativan) 1 mg IM Q4H PRN PRN Reason: Agitation Last Admin: 02/16/18 21:58 Dose: 1 mg Magnesium Hydroxide (Milk Of Magnesia) 30 ml PO Q12H PRN PRN Reason: Constipation Memantine (Namenda) 10 mg PO BID [facility] Last Admin: 02/21/18 08:30 Dose: 10 mg Ondansetron HCl (Zofran) 4 mg IVPUSH Q4H PRN PRN Reason: Nausea/Vomiting Last Admin: 02/16/18 18:06 Dose: 4 mg Promethazine HCl (Phenergan) 25 mg IM Q6H PRN PRN Reason: nausea Last Admin: 02/16/18 20:15 Dose: 25 mg Quetiapine Fumarate (Seroquel) 100 mg PO DAILY [facility] Last Admin: 02/21/18 08:31 Dose: 100 mg Quetiapine Fumarate (Seroquel) 200 mg PO BEDTIME [facility] Last Admin: 02/20/18 22:00 Dose: Not Given Senna/Docusate Sodium (Senokot-S) 1 each PO BID PRN PRN Reason: Constipation Sodium Chloride (Saline Flush) 10 ml FLUSH ASDIRECTED PRN PRN Reason: Keep Vein Open Sodium Chloride (Saline Flush) 2.5 ml FLUSH ASDIRECTED PRN PRN Reason: Keep Vein Open Tamsulosin HCl (Flomax) 0.4 mg PO BEDTIME [facility] Last Admin: 02/20/18 22:00 Dose: Not Given Vancomycin HCl (Pharmacy To Dose - Vancomycin) 1 dose .XX ASDIRECTED [facility] Discontinued Medications Enoxaparin Sodium (Lovenox) 40 mg SUBCUT Q24H [facility] Last Admin: 02/18/18 16:56 Dose: 40 mg Haloperidol (Haldol) 1 mg PO ONETIME ONE Stop: 02/16/18 14:16 Last Admin: 02/16/18 14:31 Dose: Not Given Haloperidol Lactate (Haldol) 1 mg IM ONETIME ONE Stop: 02/16/18 14:15 Last Admin: 02/16/18 14:18 Dose: Not Given Haloperidol Lactate (Haldol) 1 mg IM ONETIME ONE Stop: 02/16/18 14:28 Last Admin: 02/16/18 14:34 Dose: 1 mg Haloperidol Lactate (Haldol) 1 mg IM ONETIME ONE Stop: 02/16/18 14:33 Last Admin: 02/16/18 14:34 Dose: Not Given Haloperidol Lactate (Haldol) 2 mg IVPUSH ONETIME ONE Stop: 02/16/18 17:46 Last Admin: 02/16/18 18:07 Dose: Not Given Haloperidol Lactate (Haldol) 2 mg IM ONETIME ONE Stop: 02/16/18 17:59 Last Admin: 02/16/18 18:08 Dose: 2 mg Sodium Chloride (Normal Saline) 1,000 mls @ 125 mls/hr IV STAT ONE Stop: 02/16/18 19:01 Last Admin: 02/16/18 12:14 Dose: 125 mls/hr Sodium Chloride (Normal Saline) 1,000 mls @ 125 mls/hr IV ASDIRECTED [facility] Last Admin: 02/19/18 03:49 Dose: 125 mls/hr Cefepime HCl 1 gm/ Premix 50 mls @ 100 mls/hr IV Q8H [facility] Last Admin: 02/17/18 15:13 Dose: Not Given Influenza Virus Vaccine (Pharmacy To Dose - Influenza Vaccine) 1 each IM ONETIME ONE Stop: 02/16/18 15:43 Iopamidol (Isovue-370 (76%)) 100 ml IVPUSH ONETIME STA Stop: 02/20/18 15:40 Last Admin: 02/20/18 15:43 Dose: 100 ml Lorazepam (Ativan) 0.5 mg IVPUSH ONETIME ONE Stop: 02/16/18 12:09 Last Admin: 02/16/18 12:13 Dose: 0.5 mg Lorazepam (Ativan) 0.5 mg IVPUSH ONETIME ONE Stop: 02/16/18 12:26 Last Admin: 02/16/18 14:18 Dose: Not Given Morphine Sulfate (Morphine) 2 mg IVPUSH Q2H PRN PRN Reason: Pain (severe 7-10) Stop: 02/17/18 14:54 Morphine Sulfate (Morphine) 2 mg IVPUSH Q2H PRN PRN Reason: Pain (severe 7-10) Stop: 02/17/18 14:54 Last Admin: 02/17/18 03:43 Dose: 2 mg - Exam General: Alert. No: Oriented Neck: Trachea Midline Lungs: Clear to Auscultation, Normal Respiratory Effort Cardiovascular: Regular Rate, Regular Rhythm GI/Abdominal Exam: Non-Tender, Distended (minimal distention). No: Guarding, Rigid, Rebound Extremities: No Pedal Edema Physical Findings Comments:: CT chest abdomen pelvis results reviewed. - Problem List & Annotations (1) Dementia SNOMED Code(s): 89926421 Code(s): F03.90 - UNSPECIFIED DEMENTIA WITHOUT BEHAVIORAL DISTURBANCE Status: Acute Current Visit: Yes Qualifiers: Dementia type: Alzheimer's disease Alzheimer's disease onset: unspecified onset Dementia behavioral disturbance: with behavioral disturbance Qualified Code(s): G30.9 - Alzheimer's disease, unspecified; F02.81 - Dementia in other diseases classified elsewhere with behavioral disturbance (2) Frequent falls SNOMED Code(s): 105048539 Code(s): R29.6 - REPEATED FALLS Status: Acute Current Visit: Yes (3) Agitation SNOMED Code(s): 815231547 Code(s): R45.1 - RESTLESSNESS AND AGITATION Status: Acute Current Visit: No (4) Elevated liver enzymes SNOMED Code(s): 461277018 Code(s): R74.8 - ABNORMAL LEVELS OF OTHER SERUM ENZYMES Status: Acute Current Visit: No - Problem List Review Problem List Initiated/Reviewed/Updated: Yes - My Orders Last 24 Hours: My Active Orders 02/22/18 05:11 MAGNESIUM [CHEM] AM - Plan Plan:: 73-year-old male with a significant history of also missed dementia being admitted due to acute agitation, leukocytosis with no source of infection, fall in the ER resulting in a laceration that did not have any intracranial hemorrhaging. Most likely etiology for the patient's symptoms is dehydration. Patient is being admitted to the floor for fluid replacement, observation due to his head injury, and to obtain better control of his agitation and possible placement issue/disposition due to chronic issues. Patient reports constipation may benefit from a tap water enema and will also get stool softeners and laxatives for his constipation, IV normal saline at maintenance for his hydration. Consult to social services director for disposition related issues. 02/17/2018 With marked increase in wbc will evaluated with CXR , blood culture , daily lab and will start zosyn and vancomycin. Most likely source is pulmonary in my opinion in light of recent cough noted on admission and sputum gram stain findings dulcolax suppository for fecal impaction. Kumar Kilgore MD 02/18/2018 WBC has decreased since starting broad spectrum antibiotics. I think that the most likely infection source is pulmonary as per above note. continue present care I spoke to his . anticipated discharge disposition is home likely this . MD [place] 02/19/2018 WBC trending down but still elevated. Will add levaquin will monitor regarding po intake Low K noted IV K replacement recheck lab in am Kumar Kilgore MD 02/20/2018 because of persistent leukocytosis and clinical worsening will order CT abdomen pelvis and chest w/ wo IV contrast increase NS with Kcl to 125 ml / hour follow lab I believe that he is too acutely ill to allow PT/ OT consultation at this point but may consider if improving over the next few days. Kumar Kilgore MD 02/21/2018 I spoke in detail with his regarding the elevated wbc and CT results and his clinical course. I advised that prognosis is poor and we discussed the possibility of hospice or perhaps going to comfort measures if not improving over the next few days. She is interested in considering hiring aircraft time clerk help at home at discharge. I discussed with [place] social services assistant who will be talking to her. She verbalized understanding. Kumar Kilgore MD
[2018-02-21] MEDS: ALPRAZolam 0.5 MG Tab PO PRN (18:55)
[2018-02-21] MEDS: Finasteride 5 MG Tab PO SCH (20:19)
[2018-02-21] MEDS: Tamsulosin 0.4 MG Cap.ER PO SCH ×2 (20:20→23:25)
[2018-02-21] MEDS: LORazepam 2 MG/ML SDV IM PRN (22:06)
[2018-02-22] MEDS: NS + KCl 20mEq/L 1,000 ML IV SCH (00:55)
[2018-02-22] MEDS: Piperacillin/Tazobactam 3.375 GM in Sodium Chloride 0.9% 50 ML IV SCH ×4 (05:33→22:26)
[2018-02-22] MEDS: Levofloxacin/Dextrose 5%-Water 750 MG in Premix Bag 1 BAG IV SCH (09:40)
[2018-02-22] MEDS: Memantine 10 MG Tab PO SCH ×2 (09:45→20:39)
[2018-02-22] MEDS: Donepezil 10 MG Tab PO SCH (09:45)
[2018-02-22] MEDS: QUEtiapine 100 MG Tab PO SCH ×2 (09:46→20:40)
[2018-02-22] MEDS: FLUoxetine 20 MG Cap PO SCH (09:53)
[2018-02-22] MEDS: LORazepam 2 MG/ML SDV IM PRN ×2 (11:58→17:32)
--- NOTE | 2018-02-22 16:26 | CT ---
EXAMINATION: CT cervical spine without contrast HISTORY: Neck pain COMPARISON: None TECHNIQUE: Axial CT images obtained through the cervical spine without contrast. Coronal and sagittal reconstructions obtained. FINDINGS: The cervical spinal alignment is normal. The vertebral body heights and disc spaces appear well-maintained. There is no fracture or acute osseous or metallic. Bone mineralization is normal. Ma rginal osteophytes are noted. Paravertebral soft tissues appear normal. Lung apices are clear. IMPRESSION: 1. Mild degenerative changes noted within the cervical spine without acute findings.
[2018-02-22] MEDS: Tamsulosin 0.4 MG Cap.ER PO SCH (20:39)
[2018-02-22] MEDS: Finasteride 5 MG Tab PO SCH (20:40)
[2018-02-22] MEDS: Haloperidol Lactate 5 MG/ML SDV IM PRN (22:21)
[2018-02-23] MEDS: NS + KCl 20mEq/L 1,000 ML IV SCH (04:02)
[2018-02-23] MEDS: Piperacillin/Tazobactam 3.375 GM in Sodium Chloride 0.9% 50 ML IV SCH ×4 (04:09→22:44)
--- NOTE | 2018-02-23 07:21 | PCM.PN ---
- General Info Date of Service: 02/23/18 Admission Dx/Problem (Free Text): He states" I don't feel well". Most of his speech is nonsensical . He follows some simple commands. Subjective Update: The patient is a 73-year-old gentleman who had been admitted to acute hospitalization on February 16, 2018. He does have a significant history of rapidly progressing Alzheimer's dementia and today he is not awake or alert and is not conversational. The patient at this time is not able to participate in any meaningful way with his history of physical. Information therefore, has been taken from charting. The patient also has been noted in the charting to have behavioral issues requiring sedation. Functional Status: Denies: Tolerating Diet - Review of Systems General: Reports: No Symptoms HEENT: Reports: No Symptoms Pulmonary: Reports: No Symptoms Cardiovascular: Reports: No Symptoms Gastrointestinal: Reports: No Symptoms Genitourinary: Reports: No Symptoms Musculoskeletal: Reports: No Symptoms Skin: Reports: No Symptoms Neurological: Reports: No Symptoms Psychiatric: Reports: No Symptoms - Patient Data Vitals - Most Recent: Last Vital Signs Temp 37.1 C 02/23/18 04:00 Pulse 81 02/23/18 04:00 Resp 18 02/23/18 04:00 BP 153/96 H 02/23/18 04:00 Pulse Ox 96 02/23/18 04:00 Weight - Most Recent: 81.964 kg I&O - Last 24 Hours: Intake & Output 02/22/18 02/23/18 02/23/18 22:59 06:59 14:59 Intake Total 796 499 Output Total 1000 400 Balance -204 99 Peter Results Last 24 Hours: Microbiology 02/17/18 11:15 Aerobic Blood Culture - Final Blood - Venous - Lab Draw NO GROWTH AFTER 5 DAYS Anaerobic Blood Culture - Final NO GROWTH AFTER 5 DAYS 02/17/18 11:10 Aerobic Blood Culture - Final Blood - Venous NO GROWTH AFTER 5 DAYS Anaerobic Blood Culture - Final NO GROWTH AFTER 5 DAYS Med Orders - Current: Current Medications Acetaminophen (Tylenol) 650 mg PO Q4H PRN PRN Reason: Pain (Mild 1-3)/fever Last Admin: 02/18/18 23:09 Dose: 650 mg Alprazolam (Xanax) 1 mg PO TID PRN PRN Reason: Anxiety Last Admin: 02/21/18 18:55 Dose: 1 mg Bisacodyl (Dulcolax) 10 mg RECTAL DAILY PRN PRN Reason: Constipation Last Admin: 02/17/18 12:02 Dose: 10 mg Donepezil HCl (Aricept) 10 mg PO DAILY [facility] Last Admin: 02/22/18 09:45 Dose: Not Given Finasteride (Proscar) 5 mg PO BEDTIME [facility] Last Admin: 02/22/18 20:40 Dose: Not Given Fluoxetine HCl (Prozac) 40 mg PO DAILY [facility] Last Admin: 02/22/18 09:53 Dose: Not Given Haloperidol Lactate (Haldol) 2 - 5 mg IM Q6H PRN PRN Reason: Agitation Last Admin: 02/22/18 22:21 Dose: 2.5 mg Piperacillin Sod/Tazobactam (Sod 3.375 gm/ Sodium Chloride) 50 mls @ 100 mls/ hr IV Q6H [facility] Last Admin: 02/23/18 04:09 Dose: 100 mls/hr Levofloxacin/Dextrose 750 mg/ (Premix) 150 mls @ 100 mls/hr IV Q24H [facility] Last Admin: 02/22/18 09:40 Dose: 100 mls/hr Vancomycin HCl 1,500 mg/ (Sodium Chloride) 500 mls @ 333.333 mls/hr IV Q12H [facility] Last Admin: 02/22/18 20:37 Dose: 333.333 mls/hr Potassium Chloride/Sodium Chloride (Normal Saline With 20 Meq Kcl) 1,000 mls @ 50 mls/hr IV ASDIRECTED [facility] Last Admin: 02/23/18 04:02 Dose: 50 mls/hr Lorazepam (Ativan) 1 mg IM Q4H PRN PRN Reason: Agitation Last Admin: 02/22/18 17:32 Dose: 1 mg Magnesium Hydroxide (Milk Of Magnesia) 30 ml PO Q12H PRN PRN Reason: Constipation Memantine (Namenda) 10 mg PO BID [facility] Last Admin: 02/22/18 20:39 Dose: Not Given Morphine Sulfate (Morphine 10 Mg/0.5 Ml Oral Syringe) 5 - 10 mg SL Q2H PRN PRN Reason: Pain Ondansetron HCl (Zofran) 4 mg IVPUSH Q4H PRN PRN Reason: Nausea/Vomiting Last Admin: 02/16/18 18:06 Dose: 4 mg Promethazine HCl (Phenergan) 25 mg IM Q6H PRN PRN Reason: nausea Last Admin: 02/16/18 20:15 Dose: 25 mg Quetiapine Fumarate (Seroquel) 100 mg PO DAILY [facility] Last Admin: 02/22/18 09:46 Dose: Not Given Quetiapine Fumarate (Seroquel) 200 mg PO BEDTIME [facility] Last Admin: 02/22/18 20:40 Dose: Not Given Senna/Docusate Sodium (Senokot-S) 1 each PO BID PRN PRN Reason: Constipation Sodium Chloride (Saline Flush) 10 ml FLUSH ASDIRECTED PRN PRN Reason: Keep Vein Open Sodium Chloride (Saline Flush) 2.5 ml FLUSH ASDIRECTED PRN PRN Reason: Keep Vein Open Tamsulosin HCl (Flomax) 0.4 mg PO BEDTIME [facility] Last Admin: 02/22/18 20:39 Dose: Not Given Vancomycin HCl (Pharmacy To Dose - Vancomycin) 1 dose .XX ASDIRECTED [facility] Discontinued Medications Enoxaparin Sodium (Lovenox) 40 mg SUBCUT Q24H [facility] Last Admin: 02/18/18 16:56 Dose: 40 mg Haloperidol (Haldol) 1 mg PO ONETIME ONE Stop: 02/16/18 14:16 Last Admin: 02/16/18 14:31 Dose: Not Given Haloperidol Lactate (Haldol) 1 mg IM ONETIME ONE Stop: 02/16/18 14:15 Last Admin: 02/16/18 14:18 Dose: Not Given Haloperidol Lactate (Haldol) 1 mg IM ONETIME ONE Stop: 02/16/18 14:28 Last Admin: 02/16/18 14:34 Dose: 1 mg Haloperidol Lactate (Haldol) 1 mg IM ONETIME ONE Stop: 02/16/18 14:33 Last Admin: 02/16/18 14:34 Dose: Not Given Haloperidol Lactate (Haldol) 2 mg IVPUSH ONETIME ONE Stop: 02/16/18 17:46 Last Admin: 02/16/18 18:07 Dose: Not Given Haloperidol Lactate (Haldol) 2 mg IM ONETIME ONE Stop: 02/16/18 17:59 Last Admin: 02/16/18 18:08 Dose: 2 mg Sodium Chloride (Normal Saline) 1,000 mls @ 125 mls/hr IV STAT ONE Stop: 02/16/18 19:01 Last Admin: 02/16/18 12:14 Dose: 125 mls/hr Sodium Chloride (Normal Saline) 1,000 mls @ 125 mls/hr IV ASDIRECTED [facility] Last Admin: 02/19/18 03:49 Dose: 125 mls/hr Cefepime HCl 1 gm/ Premix 50 mls @ 100 mls/hr IV Q8H [facility] Last Admin: 02/17/18 15:13 Dose: Not Given Vancomycin HCl 1,250 mg/ (Sodium Chloride) 500 mls @ 333.333 mls/hr IV Q12H [facility] Last Admin: 02/21/18 14:19 Dose: 333.333 mls/hr Potassium Chloride/Sodium Chloride (Normal Saline With 20 Meq Kcl) 1,000 mls @ 125 mls/hr IV ASDIRECTED [facility] Last Admin: 02/21/18 07:34 Dose: 125 mls/hr Influenza Virus Vaccine (Pharmacy To Dose - Influenza Vaccine) 1 each IM ONETIME ONE Stop: 02/16/18 15:43 Iopamidol (Isovue-370 (76%)) 100 ml IVPUSH ONETIME STA Stop: 02/20/18 15:40 Last Admin: 02/20/18 15:43 Dose: 100 ml Lorazepam (Ativan) 0.5 mg IVPUSH ONETIME ONE Stop: 02/16/18 12:09 Last Admin: 02/16/18 12:13 Dose: 0.5 mg Lorazepam (Ativan) 0.5 mg IVPUSH ONETIME ONE Stop: 02/16/18 12:26 Last Admin: 02/16/18 14:18 Dose: Not Given Morphine Sulfate (Morphine) 2 mg IVPUSH Q2H PRN PRN Reason: Pain (severe 7-10) Stop: 02/17/18 14:54 Morphine Sulfate (Morphine) 2 mg IVPUSH Q2H PRN PRN Reason: Pain (severe 7-10) Stop: 02/17/18 14:54 Last Admin: 02/17/18 03:43 Dose: 2 mg - Exam Quality Assessment: Urine Catheter (Very dark urine). No: Supplemental Oxygen General: No: Alert, Oriented HEENT: Pupils Equal, Pupils Reactive Neck: Supple, Trachea Midline Lungs: Clear to Auscultation, Normal Respiratory Effort Cardiovascular: Regular Rate, Regular Rhythm GI/Abdominal Exam: Normal Bowel Sounds, Soft, Non-Tender (Male) Exam: Deferred Back Exam: Decreased Range of Motion Extremities: Normal Range of Motion, No Pedal Edema Skin: Warm, Dry, Intact Psy/Mental Status: No: Alert, Normal Affect, Normal Mood - Problem List & Annotations (1) Hematuria SNOMED Code(s): 79638672 Code(s): R31.9 - HEMATURIA, UNSPECIFIED Status: Acute Current Visit: Yes Qualifiers: Hematuria type: gross Qualified Code(s): R31.0 - Gross hematuria (2) Dementia SNOMED Code(s): 43845641 Code(s): F03.90 - UNSPECIFIED DEMENTIA WITHOUT BEHAVIORAL DISTURBANCE Status: Acute Current Visit: Yes Qualifiers: Dementia type: Alzheimer's disease Alzheimer's disease onset: unspecified onset Dementia behavioral disturbance: with behavioral disturbance Qualified Code(s): G30.9 - Alzheimer's disease, unspecified; F02.81 - Dementia in other diseases classified elsewhere with behavioral disturbance (3) Frequent falls SNOMED Code(s): 675000245 Code(s): R29.6 - REPEATED FALLS Status: Chronic Priority: Medium Current Visit: Yes (4) Head injury SNOMED Code(s): 32053837 Code(s): S09.90XA - UNSPECIFIED INJURY OF HEAD, INITIAL ENCOUNTER Status: Acute Priority: High Current Visit: Yes Qualifiers: Encounter type: subsequent encounter Qualified Code(s): S09.90XD - Unspecified injury of head, subsequent encounter (5) Agitation SNOMED Code(s): 094461637 Code(s): R45.1 - RESTLESSNESS AND AGITATION Status: Chronic Priority: Medium Current Visit: Yes (6) UTI, Urinary tract infectious disease SNOMED Code(s): 20210459 Code(s): N39.0 - URINARY TRACT INFECTION, SITE NOT SPECIFIED Status: Acute Priority: Medium Current Visit: Yes (7) Urinary retention SNOMED Code(s): 721653961 Code(s): R33.9 - RETENTION OF URINE, UNSPECIFIED Status: Acute Priority: Medium Current Visit: Yes - Problem List Review Problem List Initiated/Reviewed/Updated: Yes - Plan Plan:: The patient is a 73-year-old gentleman who has now a new symptom of gross hematuria. Urinalysis was obtained which confirms this. The patient is currently not on any blood thinners and this will be monitored for now. Family members are not present today. It's uncertain if this is secondary to Tomlinson manipulation by the patient or traumatic insertion. Secondly this can also be related to the patient's urinary tract infection. He'll be kept on Levaquin for this. Patient's white blood cells count is trending downward and will continue to monitor this with CBC and metabolic panel. The patient at this time is currently not conversational however, he does appear to be somewhat comfortable. Patient's vital signs will continue to be monitored for signs of fever. This would also include tachycardia or tachypnea which would be indicative of underlying sepsis. I do not believe the patient is septic at this time. I have also ordered a lactic acid as well as a pro-calcitonin for the morning. The patient does have mild hypokalemia and this will be replaced as necessary. His sodium is normal today. The patient will likely need to have advanced placement later this week.
[2018-02-23 08:41] LABS: CHLORIDE,CL 107 mmol/L (98-107); SODIUM,NA 140 mmol/L (136-148)
[2018-02-23] MEDS: FLUoxetine 20 MG Cap PO SCH (09:08)
[2018-02-23] MEDS: Donepezil 10 MG Tab PO SCH (09:08)
[2018-02-23] MEDS: QUEtiapine 100 MG Tab PO SCH ×2 (09:08→22:21)
[2018-02-23] MEDS: Memantine 10 MG Tab PO SCH ×2 (09:08→22:20)
[2018-02-23] MEDS: Levofloxacin/Dextrose 5%-Water 750 MG in Premix Bag 1 BAG IV SCH (10:41)
[2018-02-23] MEDS: LORazepam 2 MG/ML SDV IM PRN ×2 (12:31→18:13)
[2018-02-23] MEDS: Tamsulosin 0.4 MG Cap.ER PO SCH (22:20)
[2018-02-23] MEDS: Finasteride 5 MG Tab PO SCH (22:21)
[2018-02-24] MEDS: Piperacillin/Tazobactam 3.375 GM in Sodium Chloride 0.9% 50 ML IV SCH ×4 (04:38→22:48)
[2018-02-24] MEDS: NS + KCl 20mEq/L 1,000 ML IV SCH (04:40)
[2018-02-24] MEDS: LORazepam 2 MG/ML SDV IM PRN ×3 (04:43→13:39)
[2018-02-24 07:03] LABS: CHLORIDE,CL 111 mmol/L (98-107); SODIUM,NA 142 mmol/L (136-148)
[2018-02-24] MEDS: QUEtiapine 100 MG Tab PO SCH ×2 (09:06→20:52)
[2018-02-24] MEDS: FLUoxetine 20 MG Cap PO SCH (09:06)
[2018-02-24] MEDS: Memantine 10 MG Tab PO SCH ×2 (09:06→20:52)
[2018-02-24] MEDS: Donepezil 10 MG Tab PO SCH (09:06)
--- NOTE | 2018-02-24 09:41 | PCM.PN ---
- General Info Date of Service: 02/24/18 Admission Dx/Problem (Free Text): He states" I don't feel well". Most of his speech is nonsensical . He follows some simple commands. Subjective Update: The patient is a 73-year-old gentleman who was admitted to acute hospitalization on February 16, 2018. His is with him today. The patient is not awake or alert and is not conversational at this time. The patient's has been able to supply some information. The patient had been given Ativan approximately 1 hour ago.. Functional Status: Reports: Pain Controlled. Denies: Tolerating Diet - Review of Systems General: Reports: No Symptoms HEENT: Reports: No Symptoms Pulmonary: Reports: No Symptoms Cardiovascular: Reports: No Symptoms Gastrointestinal: Reports: No Symptoms Genitourinary: Reports: No Symptoms Musculoskeletal: Reports: No Symptoms Skin: Reports: No Symptoms Neurological: Reports: No Symptoms Psychiatric: Reports: No Symptoms - Patient Data Vitals - Most Recent: Last Vital Signs Temp 37.6 C 02/24/18 08:00 Pulse 98 02/24/18 08:00 Resp 18 02/24/18 08:00 BP 141/75 H 02/24/18 08:00 Pulse Ox 94 L 02/24/18 04:00 Weight - Most Recent: 81.964 kg I&O - Last 24 Hours: Intake & Output 02/23/18 02/24/18 02/24/18 22:59 06:59 14:59 Intake Total 1000 953 Output Total 725 975 Balance 275 -22 Lab Results Last 24 Hours: Laboratory Results - last 24 hr 02/23/18 02/24/18 02/24/18 Range/Units 10:46 06:29 06:29 WBC 26.84 H (4.0-11.0) K/uL RBC 4.26 L (4.50-5.90) M/uL Hgb 12.3 L (13.0-17.0) g/dL Hct 37.2 L (38.0-50.0) % MCV 87.3 (80.0-98.0) fL MCH 28.9 (27.0-32.0) pg MCHC 33.1 (31.0-37.0) g/dL RDW Std Deviation 43.6 (28.0-62.0) fl RDW Coeff of Giulia 14 (11.0-15.0) % Plt Count 165 (150-400) K/uL MPV 10.60 (7.40-12.00) fL Add Manual Diff YES Neutrophils % (Manual) 61 (48.0-80.0) % Band Neutrophils % 2 % Lymphocytes % (Manual) 17 (16.0-40.0) % Monocytes % (Manual) 20 H (0.0-15.0) % Nucleated RBC % 0.0 /100WBC Absolute Seg Neuts 16.4 H (1.4-5.7) Band Neutrophils # 0.5 Lymphocytes # (Manual) 4.6 H (0.6-2.4) Monocytes # (Manual) 5.4 H (0.0-0.8) Nucleated RBCs # 0 K/uL Sodium 142 (136-148) mmol/L Potassium 3.2 L (3.5-5.1) mmol/L Chloride 111 H (98-107) mmol/L Carbon Dioxide 16.7 L (21.0-32.0) mmol/L BUN 9 (7.0-18.0) mg/dL Creatinine 0.8 (0.8-1.3) mg/dL Est Cr Clr Drug Dosing 81.94 mL/min Estimated GFR (MDRD) > 60.0 ml/min Glucose 110 H (74-106) mg/dL Calcium 8.7 (8.5-10.1) mg/dL Phosphorus 2.7 (2.6-4.7) mg/dL Magnesium 1.9 (1.8-2.4) mg/dL Total Bilirubin 1.0 (0.2-1.0) mg/dL AST 24 (15-37) IU/L ALT 26 (14-63) IU/L Alkaline Phosphatase 108 (46-116) U/L Total Protein 7.1 (6.4-8.2) g/dL Albumin 3.0 L (3.4-5.0) g/dL Globulin 4.1 H (2.0-3.5) g/dL Albumin/Globulin Ratio 0.7 L (1.3-2.8) Urine Color RED Urine Appearance CLEAR Urine pH 6.0 (5.0-8.0) Ur Specific [place] >= 1.030 (1.001-1.035) Urine Protein 30 (NEGATIVE) mg/dL Urine Glucose (UA) NEGATIVE (NEGATIVE) mg/dL Urine Ketones >=80 (NEGATIVE) mg/dL Urine Occult Blood LARGE H (NEGATIVE) Urine Nitrite NEGATIVE (NEGATIVE) Urine Bilirubin SMALL H (NEGATIVE) Urine Ictotest NEGATIVE Urine Urobilinogen 0.2 (<2.0) EU/dL Ur Leukocyte Esterase NEGATIVE (NEGATIVE) Urine RBC TOO NUMEROUS TO CT (0-2/HPF) Urine WBC 5-7 (0-5/HPF) Ur Epithelial Cells RARE (NONE-FEW) Urine Bacteria 1+ H (NEGATIVE) Urinalysis Comment Med Orders - Current: Current Medications Acetaminophen (Tylenol) 650 mg PO Q4H PRN PRN Reason: Pain (Mild 1-3)/fever Last Admin: 02/18/18 23:09 Dose: 650 mg Alprazolam (Xanax) 1 mg PO TID PRN PRN Reason: Anxiety Last Admin: 02/21/18 18:55 Dose: 1 mg Bisacodyl (Dulcolax) 10 mg RECTAL DAILY PRN PRN Reason: Constipation Last Admin: 02/17/18 12:02 Dose: 10 mg Donepezil HCl (Aricept) 10 mg PO DAILY [facility] Last Admin: 02/24/18 09:06 Dose: Not Given Finasteride (Proscar) 5 mg PO BEDTIME [facility] Last Admin: 02/23/18 22:21 Dose: Not Given Fluoxetine HCl (Prozac) 40 mg PO DAILY [facility] Last Admin: 02/24/18 09:06 Dose: Not Given Haloperidol Lactate (Haldol) 2 - 5 mg IM Q6H PRN PRN Reason: Agitation Last Admin: 02/22/18 22:21 Dose: 2.5 mg Piperacillin Sod/Tazobactam (Sod 3.375 gm/ Sodium Chloride) 50 mls @ 100 mls/ hr IV Q6H [facility] Last Admin: 02/24/18 04:38 Dose: 100 mls/hr Levofloxacin/Dextrose 750 mg/ (Premix) 150 mls @ 100 mls/hr IV Q24H [facility] Last Admin: 02/23/18 10:41 Dose: 100 mls/hr Vancomycin HCl 1,500 mg/ (Sodium Chloride) 500 mls @ 333.333 mls/hr IV Q12H [facility] Last Admin: 02/24/18 09:00 Dose: 333.333 mls/hr Potassium Chloride/Sodium Chloride (Normal Saline With 20 Meq Kcl) 1,000 mls @ 50 mls/hr IV ASDIRECTED [facility] Last Admin: 02/24/18 04:40 Dose: 50 mls/hr Lorazepam (Ativan) 1 mg IM Q4H PRN PRN Reason: Agitation Last Admin: 02/24/18 08:56 Dose: 1 mg Magnesium Hydroxide (Milk Of Magnesia) 30 ml PO Q12H PRN PRN Reason: Constipation Memantine (Namenda) 10 mg PO BID [facility] Last Admin: 02/24/18 09:06 Dose: Not Given Morphine Sulfate (Morphine 10 Mg/0.5 Ml Oral Syringe) 5 - 10 mg SL Q2H PRN PRN Reason: Pain Ondansetron HCl (Zofran) 4 mg IVPUSH Q4H PRN PRN Reason: Nausea/Vomiting Last Admin: 02/16/18 18:06 Dose: 4 mg Promethazine HCl (Phenergan) 25 mg IM Q6H PRN PRN Reason: nausea Last Admin: 02/16/18 20:15 Dose: 25 mg Quetiapine Fumarate (Seroquel) 100 mg PO DAILY [facility] Last Admin: 02/24/18 09:06 Dose: Not Given Quetiapine Fumarate (Seroquel) 200 mg PO BEDTIME [facility] Last Admin: 02/23/18 22:21 Dose: Not Given Senna/Docusate Sodium (Senokot-S) 1 each PO BID PRN PRN Reason: Constipation Sodium Chloride (Saline Flush) 10 ml FLUSH ASDIRECTED PRN PRN Reason: Keep Vein Open Sodium Chloride (Saline Flush) 2.5 ml FLUSH ASDIRECTED PRN PRN Reason: Keep Vein Open Tamsulosin HCl (Flomax) 0.4 mg PO BEDTIME [facility] Last Admin: 02/23/18 22:20 Dose: Not Given Vancomycin HCl (Pharmacy To Dose - Vancomycin) 1 dose .XX ASDIRECTED [facility] Discontinued Medications Enoxaparin Sodium (Lovenox) 40 mg SUBCUT Q24H [facility] Last Admin: 02/18/18 16:56 Dose: 40 mg Haloperidol (Haldol) 1 mg PO ONETIME ONE Stop: 02/16/18 14:16 Last Admin: 02/16/18 14:31 Dose: Not Given Haloperidol Lactate (Haldol) 1 mg IM ONETIME ONE Stop: 02/16/18 14:15 Last Admin: 02/16/18 14:18 Dose: Not Given Haloperidol Lactate (Haldol) 1 mg IM ONETIME ONE Stop: 02/16/18 14:28 Last Admin: 02/16/18 14:34 Dose: 1 mg Haloperidol Lactate (Haldol) 1 mg IM ONETIME ONE Stop: 02/16/18 14:33 Last Admin: 02/16/18 14:34 Dose: Not Given Haloperidol Lactate (Haldol) 2 mg IVPUSH ONETIME ONE Stop: 02/16/18 17:46 Last Admin: 02/16/18 18:07 Dose: Not Given Haloperidol Lactate (Haldol) 2 mg IM ONETIME ONE Stop: 02/16/18 17:59 Last Admin: 02/16/18 18:08 Dose: 2 mg Sodium Chloride (Normal Saline) 1,000 mls @ 125 mls/hr IV STAT ONE Stop: 02/16/18 19:01 Last Admin: 02/16/18 12:14 Dose: 125 mls/hr Sodium Chloride (Normal Saline) 1,000 mls @ 125 mls/hr IV ASDIRECTED [facility] Last Admin: 02/19/18 03:49 Dose: 125 mls/hr Cefepime HCl 1 gm/ Premix 50 mls @ 100 mls/hr IV Q8H [facility] Last Admin: 02/17/18 15:13 Dose: Not Given Vancomycin HCl 1,250 mg/ (Sodium Chloride) 500 mls @ 333.333 mls/hr IV Q12H [facility] Last Admin: 02/21/18 14:19 Dose: 333.333 mls/hr Potassium Chloride/Sodium Chloride (Normal Saline With 20 Meq Kcl) 1,000 mls @ 125 mls/hr IV ASDIRECTED [facility] Last Admin: 02/21/18 07:34 Dose: 125 mls/hr Influenza Virus Vaccine (Pharmacy To Dose - Influenza Vaccine) 1 each IM ONETIME ONE Stop: 02/16/18 15:43 Iopamidol (Isovue-370 (76%)) 100 ml IVPUSH ONETIME STA Stop: 02/20/18 15:40 Last Admin: 02/20/18 15:43 Dose: 100 ml Lorazepam (Ativan) 0.5 mg IVPUSH ONETIME ONE Stop: 02/16/18 12:09 Last Admin: 02/16/18 12:13 Dose: 0.5 mg Lorazepam (Ativan) 0.5 mg IVPUSH ONETIME ONE Stop: 02/16/18 12:26 Last Admin: 02/16/18 14:18 Dose: Not Given Morphine Sulfate (Morphine) 2 mg IVPUSH Q2H PRN PRN Reason: Pain (severe 7-10) Stop: 02/17/18 14:54 Morphine Sulfate (Morphine) 2 mg IVPUSH Q2H PRN PRN Reason: Pain (severe 7-10) Stop: 02/17/18 14:54 Last Admin: 02/17/18 03:43 Dose: 2 mg - Exam Quality Assessment: Urine Catheter. No: Supplemental Oxygen General: No Acute Distress. No: Alert, Oriented HEENT: Pupils Equal (The patient resist opening eyes.), Pupils Reactive Neck: Supple, Trachea Midline Lungs: Clear to Auscultation, Normal Respiratory Effort Cardiovascular: Regular Rate, Regular Rhythm GI/Abdominal Exam: Normal Bowel Sounds, Soft, No Distention (Male) Exam: Deferred Back Exam: Normal Inspection. No: Full Range of Motion (Noncooperative) Extremities: Normal Inspection, No Pedal Edema Skin: Warm, Dry Neurological: No New Focal Deficit Psy/Mental Status: No: Alert, Normal Affect, Normal Mood - Problem List & Annotations (1) Dementia SNOMED Code(s): 52840904 Code(s): F03.90 - UNSPECIFIED DEMENTIA WITHOUT BEHAVIORAL DISTURBANCE Status: Chronic Priority: Medium Current Visit: Yes Qualifiers: Dementia type: Alzheimer's disease Alzheimer's disease onset: unspecified onset Dementia behavioral disturbance: with behavioral disturbance Qualified Code(s): G30.9 - Alzheimer's disease, unspecified; F02.81 - Dementia in other diseases classified elsewhere with behavioral disturbance (2) Hematuria SNOMED Code(s): 83956311 Code(s): R31.9 - HEMATURIA, UNSPECIFIED Status: Acute Current Visit: Yes Qualifiers: Hematuria type: gross Qualified Code(s): R31.0 - Gross hematuria (3) Frequent falls SNOMED Code(s): 551367618 Code(s): R29.6 - REPEATED FALLS Status: Chronic Priority: Medium Current Visit: Yes (4) Head injury SNOMED Code(s): 27835405 Code(s): S09.90XA - UNSPECIFIED INJURY OF HEAD, INITIAL ENCOUNTER Status: Acute Priority: High Current Visit: Yes Qualifiers: Encounter type: subsequent encounter Qualified Code(s): S09.90XD - Unspecified injury of head, subsequent encounter (5) Agitation SNOMED Code(s): 316911381 Code(s): R45.1 - RESTLESSNESS AND AGITATION Status: Chronic Priority: Medium Current Visit: Yes (6) UTI, Urinary tract infectious disease SNOMED Code(s): 50420083 Code(s): N39.0 - URINARY TRACT INFECTION, SITE NOT SPECIFIED Status: Acute Priority: Medium Current Visit: Yes (7) Urinary retention SNOMED Code(s): 776469847 Code(s): R33.9 - RETENTION OF URINE, UNSPECIFIED Status: Acute Priority: Medium Current Visit: Yes - Problem List Review Problem List Initiated/Reviewed/Updated: Yes - Plan Plan:: The patient is a 73-year-old gentleman with advanced rapidly progressing Alzheimer's dementia. Patient's today is asking about hospice care. I had a long discussion with her with regards to this. I placed a consult for hospice evaluation. The patient's hematuria has improved and the coloration of the urine in his Tomlinson and collection bag has improved. In spite of broad-spectrum antibiotic coverage patient's leukocytosis is worsening. His previous blood cultures continued to show no growth. The patient does have yeast growth in sputum which is likely secondary to colonization. For now the patient will be continued on his current antibiotic regimen. I have recommended to the patient' s that we do no further testing and consider comfort care measures as necessary and continue with hospice care. The patient's has expressed a desire for hospice care at home.
[2018-02-24] MEDS: Levofloxacin/Dextrose 5%-Water 750 MG in Premix Bag 1 BAG IV SCH (11:53)
[2018-02-24] MEDS: Finasteride 5 MG Tab PO SCH (20:52)
[2018-02-24] MEDS: Tamsulosin 0.4 MG Cap.ER PO SCH (20:53)
[2018-02-24] MEDS: ALPRAZolam 0.5 MG Tab PO PRN (23:18)
[2018-02-25] MEDS: Piperacillin/Tazobactam 3.375 GM in Sodium Chloride 0.9% 50 ML IV SCH ×4 (04:34→23:36)
[2018-02-25] MEDS: NS + KCl 20mEq/L 1,000 ML IV SCH (05:18)
[2018-02-25 06:56] LABS: CHLORIDE,CL 113 mmol/L (98-107); SODIUM,NA 145 mmol/L (136-148)
[2018-02-25] MEDS: QUEtiapine 100 MG Tab PO SCH ×2 (08:17→21:53)
[2018-02-25] MEDS: Memantine 10 MG Tab PO SCH ×2 (08:17→21:53)
[2018-02-25] MEDS: Donepezil 10 MG Tab PO SCH (08:18)
[2018-02-25] MEDS: FLUoxetine 20 MG Cap PO SCH (09:32)
[2018-02-25] MEDS: Levofloxacin/Dextrose 5%-Water 750 MG in Premix Bag 1 BAG IV SCH (09:53)
--- NOTE | 2018-02-25 15:21 | PCM.PN ---
<Daryl Almeida - Last Filed: 02/25/18 15:18> - General Info Date of Service: 02/25/18 Subjective Update: Patient w/ history of rapidly deteriorating Alzheimer's dementia, leukocytosis. As per charting and attending, discussion has taken place with further plan of care. A hospice consult has been placed. Patient this morning was minimally verbal, wasn't conversational. Did not appear to be in any pain. - Review of Systems General: Reports: No Symptoms HEENT: Reports: No Symptoms Pulmonary: Reports: No Symptoms Cardiovascular: Reports: No Symptoms Gastrointestinal: Reports: No Symptoms Genitourinary: Reports: No Symptoms Musculoskeletal: Reports: No Symptoms Skin: Reports: No Symptoms Neurological: Reports: No Symptoms Psychiatric: Reports: No Symptoms - Patient Data Vitals - Most Recent: Last Vital Signs Temp 37.1 C 02/25/18 12:00 Pulse 95 02/25/18 12:00 Resp 16 02/25/18 12:00 BP 140/74 02/25/18 12:00 Pulse Ox 95 02/25/18 12:00 Weight - Most Recent: 81.964 kg I&O - Last 24 Hours: Intake & Output 02/25/18 02/25/18 02/25/18 06:59 14:59 22:59 Intake Total 1160 700 Output Total 500 Balance 660 700 Lab Results Last 24 Hours: Laboratory Results - last 24 hr 02/25/18 02/25/18 02/25/18 Range/Units 06:30 06:30 08:00 WBC 26.54 H (4.0-11.0) K/uL RBC 4.18 L (4.50-5.90) M/uL Hgb 12.3 L (13.0-17.0) g/dL Hct 36.7 L (38.0-50.0) % MCV 87.8 (80.0-98.0) fL MCH 29.4 (27.0-32.0) pg MCHC 33.5 (31.0-37.0) g/dL RDW Std Deviation 44.8 (28.0-62.0) fl RDW Coeff of Giulia 14 (11.0-15.0) % Plt Count 170 (150-400) K/uL MPV 10.30 (7.40-12.00) fL Add Manual Diff YES Neutrophils % (Manual) 74 (48.0-80.0) % Band Neutrophils % 3 % Lymphocytes % (Manual) 5 L (16.0-40.0) % Monocytes % (Manual) 14 (0.0-15.0) % Metamyelocytes % 1 % Myelocytes % 3 % Nucleated RBC % 0.0 /100WBC Absolute Seg Neuts 19.6 H (1.4-5.7) Band Neutrophils # 0.8 Lymphocytes # (Manual) 1.3 (0.6-2.4) Monocytes # (Manual) 3.7 H (0.0-0.8) Absolute Metamyelocyte 0.3 Absolute Myelocytes 0.8 Nucleated RBCs # 0 K/uL Sodium 145 (136-148) mmol/L Potassium 3.1 L (3.5-5.1) mmol/L Chloride 113 H (98-107) mmol/L Carbon Dioxide 21.3 (21.0-32.0) mmol/L BUN 10 (7.0-18.0) mg/dL Creatinine 0.9 (0.8-1.3) mg/dL Est Cr Clr Drug Dosing 72.83 mL/min Estimated GFR (MDRD) > 60.0 ml/min Glucose 128 H (74-106) mg/dL Calcium 8.6 (8.5-10.1) mg/dL Total Bilirubin 0.8 (0.2-1.0) mg/dL AST 21 (15-37) IU/L ALT 26 (14-63) IU/L Alkaline Phosphatase 103 (46-116) U/L Total Protein 6.7 (6.4-8.2) g/dL Albumin 2.8 L (3.4-5.0) g/dL Globulin 3.9 H (2.0-3.5) g/dL Albumin/Globulin Ratio 0.7 L (1.3-2.8) Vancomycin Trough 11.1 H (5.0-10.0) ug/mL Med Orders - Current: Current Medications Acetaminophen (Tylenol) 650 mg PO Q4H PRN PRN Reason: Pain (Mild 1-3)/fever Last Admin: 02/18/18 23:09 Dose: 650 mg Alprazolam (Xanax) 1 mg PO TID PRN PRN Reason: Anxiety Last Admin: 02/24/18 23:18 Dose: 1 mg Bisacodyl (Dulcolax) 10 mg RECTAL DAILY PRN PRN Reason: Constipation Last Admin: 02/17/18 12:02 Dose: 10 mg Donepezil HCl (Aricept) 10 mg PO DAILY [facility] Last Admin: 02/25/18 08:18 Dose: 10 mg Finasteride (Proscar) 5 mg PO BEDTIME [facility] Last Admin: 02/24/18 20:52 Dose: Not Given Fluoxetine HCl (Prozac) 40 mg PO DAILY [facility] Last Admin: 02/25/18 09:32 Dose: 40 mg Haloperidol Lactate (Haldol) 2 - 5 mg IM Q6H PRN PRN Reason: Agitation Last Admin: 02/22/18 22:21 Dose: 2.5 mg Piperacillin Sod/Tazobactam (Sod 3.375 gm/ Sodium Chloride) 50 mls @ 100 mls/ hr IV Q6H [facility] Last Admin: 02/25/18 11:46 Dose: 100 mls/hr Levofloxacin/Dextrose 750 mg/ (Premix) 150 mls @ 100 mls/hr IV Q24H [facility] Last Admin: 02/25/18 09:53 Dose: 100 mls/hr Vancomycin HCl 1,500 mg/ (Sodium Chloride) 500 mls @ 333.333 mls/hr IV Q12H [facility] Last Admin: 02/25/18 08:17 Dose: 333.333 mls/hr Potassium Chloride/Sodium Chloride (Normal Saline With 20 Meq Kcl) 1,000 mls @ 50 mls/hr IV ASDIRECTED [facility] Last Admin: 02/25/18 05:18 Dose: 50 mls/hr Lorazepam (Ativan) 1 mg IM Q4H PRN PRN Reason: Agitation Last Admin: 02/24/18 13:39 Dose: 1 mg Magnesium Hydroxide (Milk Of Magnesia) 30 ml PO Q12H PRN PRN Reason: Constipation Memantine (Namenda) 10 mg PO BID [facility] Last Admin: 02/25/18 08:17 Dose: 10 mg Morphine Sulfate (Morphine 10 Mg/0.5 Ml Oral Syringe) 5 - 10 mg SL Q2H PRN PRN Reason: Pain Nystatin (Nystop) 0 gm TOP QID [facility] Ondansetron HCl (Zofran) 4 mg IVPUSH Q4H PRN PRN Reason: Nausea/Vomiting Last Admin: 02/16/18 18:06 Dose: 4 mg Promethazine HCl (Phenergan) 25 mg IM Q6H PRN PRN Reason: nausea Last Admin: 02/16/18 20:15 Dose: 25 mg Quetiapine Fumarate (Seroquel) 100 mg PO DAILY [facility] Last Admin: 02/25/18 08:17 Dose: 100 mg Quetiapine Fumarate (Seroquel) 200 mg PO BEDTIME [facility] Last Admin: 02/24/18 20:52 Dose: Not Given Senna/Docusate Sodium (Senokot-S) 1 each PO BID PRN PRN Reason: Constipation Sodium Chloride (Saline Flush) 10 ml FLUSH ASDIRECTED PRN PRN Reason: Keep Vein Open Sodium Chloride (Saline Flush) 2.5 ml FLUSH ASDIRECTED PRN PRN Reason: Keep Vein Open Tamsulosin HCl (Flomax) 0.4 mg PO BEDTIME [facility] Last Admin: 02/24/18 20:53 Dose: Not Given Vancomycin HCl (Pharmacy To Dose - Vancomycin) 1 dose .XX ASDIRECTED [facility] Discontinued Medications Enoxaparin Sodium (Lovenox) 40 mg SUBCUT Q24H [facility] Last Admin: 02/18/18 16:56 Dose: 40 mg Haloperidol (Haldol) 1 mg PO ONETIME ONE Stop: 02/16/18 14:16 Last Admin: 02/16/18 14:31 Dose: Not Given Haloperidol Lactate (Haldol) 1 mg IM ONETIME ONE Stop: 02/16/18 14:15 Last Admin: 02/16/18 14:18 Dose: Not Given Haloperidol Lactate (Haldol) 1 mg IM ONETIME ONE Stop: 02/16/18 14:28 Last Admin: 02/16/18 14:34 Dose: 1 mg Haloperidol Lactate (Haldol) 1 mg IM ONETIME ONE Stop: 02/16/18 14:33 Last Admin: 02/16/18 14:34 Dose: Not Given Haloperidol Lactate (Haldol) 2 mg IVPUSH ONETIME ONE Stop: 02/16/18 17:46 Last Admin: 02/16/18 18:07 Dose: Not Given Haloperidol Lactate (Haldol) 2 mg IM ONETIME ONE Stop: 02/16/18 17:59 Last Admin: 02/16/18 18:08 Dose: 2 mg Sodium Chloride (Normal Saline) 1,000 mls @ 125 mls/hr IV STAT ONE Stop: 02/16/18 19:01 Last Admin: 02/16/18 12:14 Dose: 125 mls/hr Sodium Chloride (Normal Saline) 1,000 mls @ 125 mls/hr IV ASDIRECTED [facility] Last Admin: 02/19/18 03:49 Dose: 125 mls/hr Cefepime HCl 1 gm/ Premix 50 mls @ 100 mls/hr IV Q8H [facility] Last Admin: 02/17/18 15:13 Dose: Not Given Vancomycin HCl 1,250 mg/ (Sodium Chloride) 500 mls @ 333.333 mls/hr IV Q12H [facility] Last Admin: 02/21/18 14:19 Dose: 333.333 mls/hr Potassium Chloride/Sodium Chloride (Normal Saline With 20 Meq Kcl) 1,000 mls @ 125 mls/hr IV ASDIRECTED [facility] Last Admin: 02/21/18 07:34 Dose: 125 mls/hr Influenza Virus Vaccine (Pharmacy To Dose - Influenza Vaccine) 1 each IM ONETIME ONE Stop: 02/16/18 15:43 Iopamidol (Isovue-370 (76%)) 100 ml IVPUSH ONETIME STA Stop: 02/20/18 15:40 Last Admin: 02/20/18 15:43 Dose: 100 ml Lorazepam (Ativan) 0.5 mg IVPUSH ONETIME ONE Stop: 02/16/18 12:09 Last Admin: 02/16/18 12:13 Dose: 0.5 mg Lorazepam (Ativan) 0.5 mg IVPUSH ONETIME ONE Stop: 02/16/18 12:26 Last Admin: 02/16/18 14:18 Dose: Not Given Morphine Sulfate (Morphine) 2 mg IVPUSH Q2H PRN PRN Reason: Pain (severe 7-10) Stop: 02/17/18 14:54 Morphine Sulfate (Morphine) 2 mg IVPUSH Q2H PRN PRN Reason: Pain (severe 7-10) Stop: 02/17/18 14:54 Last Admin: 02/17/18 03:43 Dose: 2 mg - Exam General: Other (awake, not oriented) HEENT: Pupils Equal Neck: Supple Lungs: Clear to Auscultation, Normal Respiratory Effort Cardiovascular: Regular Rate, Regular Rhythm GI/Abdominal Exam: Normal Bowel Sounds, Soft Extremities: Normal Inspection, Normal Range of Motion, Non-Tender - Problem List Review Problem List Initiated/Reviewed/Updated: Yes - My Orders Last 24 Hours: My Active Orders 02/25/18 18:00 Nystatin [Nystop] See Dose Instructions TOP QID - Plan Plan:: The patient is a 73-year-old gentleman with advanced rapidly progressing Alzheimer's dementia. Patient's today is asking about hospice care. I had a long discussion with her with regards to this. I placed a consult for hospice evaluation. The patient's hematuria has improved and the coloration of the urine in his [place] and collection bag has improved. In spite of broad-spectrum antibiotic coverage patient's leukocytosis is worsening. His previous blood cultures continued to show no growth. The patient does have yeast growth in sputum which is likely secondary to colonization. For now the patient will be continued on his current antibiotic regimen. I have recommended to the patient' s that we do no further testing and consider comfort care measures as necessary and continue with hospice care. The patient's has expressed a desire for hospice care at home. 02/25/18 As per hospice consult, patient's family is uncertain about if they would like to proceed with hospice or go home with home health. Will touch base with the family today and proceed accordingly. Will hold off any further labs for tomorrow now. <Giuseppe Partida - Last Filed: 02/25/18 15:53> - Patient Data Vitals - Most Recent: Last Vital Signs Temp 37.1 C 02/25/18 12:00 Pulse 95 02/25/18 12:00 Resp 16 02/25/18 12:00 BP 140/74 02/25/18 12:00 Pulse Ox 94 L 02/25/18 15:51 I&O - Last 24 Hours: Intake & Output 02/25/18 02/25/18 02/25/18 06:59 14:59 22:59 Intake Total 1160 700 Output Total 500 Balance 660 700 Lab Results Last 24 Hours: Laboratory Results - last 24 hr 02/25/18 02/25/18 02/25/18 Range/Units 06:30 06:30 08:00 WBC 26.54 H (4.0-11.0) K/uL RBC 4.18 L (4.50-5.90) M/uL Hgb 12.3 L (13.0-17.0) g/dL Hct 36.7 L (38.0-50.0) % MCV 87.8 (80.0-98.0) fL MCH 29.4 (27.0-32.0) pg MCHC 33.5 (31.0-37.0) g/dL RDW Std Deviation 44.8 (28.0-62.0) fl RDW Coeff of Giulia 14 (11.0-15.0) % Plt Count 170 (150-400) K/uL MPV 10.30 (7.40-12.00) fL Add Manual Diff YES Neutrophils % (Manual) 74 (48.0-80.0) % Band Neutrophils % 3 % Lymphocytes % (Manual) 5 L (16.0-40.0) % Monocytes % (Manual) 14 (0.0-15.0) % Metamyelocytes % 1 % Myelocytes % 3 % Nucleated RBC % 0.0 /100WBC Absolute Seg Neuts 19.6 H (1.4-5.7) Band Neutrophils # 0.8 Lymphocytes # (Manual) 1.3 (0.6-2.4) Monocytes # (Manual) 3.7 H (0.0-0.8) Absolute Metamyelocyte 0.3 Absolute Myelocytes 0.8 Nucleated RBCs # 0 K/uL Sodium 145 (136-148) mmol/L Potassium 3.1 L (3.5-5.1) mmol/L Chloride 113 H (98-107) mmol/L Carbon Dioxide 21.3 (21.0-32.0) mmol/L BUN 10 (7.0-18.0) mg/dL Creatinine 0.9 (0.8-1.3) mg/dL Est Cr Clr Drug Dosing 72.83 mL/min Estimated GFR (MDRD) > 60.0 ml/min Glucose 128 H (74-106) mg/dL Calcium 8.6 (8.5-10.1) mg/dL Total Bilirubin 0.8 (0.2-1.0) mg/dL AST 21 (15-37) IU/L ALT 26 (14-63) IU/L Alkaline Phosphatase 103 (46-116) U/L Total Protein 6.7 (6.4-8.2) g/dL Albumin 2.8 L (3.4-5.0) g/dL Globulin 3.9 H (2.0-3.5) g/dL Albumin/Globulin Ratio 0.7 L (1.3-2.8) Vancomycin Trough 11.1 H (5.0-10.0) ug/mL Med Orders - Current: Current Medications Acetaminophen (Tylenol) 650 mg PO Q4H PRN PRN Reason: Pain (Mild 1-3)/fever Last Admin: 02/18/18 23:09 Dose: 650 mg Alprazolam (Xanax) 1 mg PO TID PRN PRN Reason: Anxiety Last Admin: 02/24/18 23:18 Dose: 1 mg Bisacodyl (Dulcolax) 10 mg RECTAL DAILY PRN PRN Reason: Constipation Last Admin: 02/17/18 12:02 Dose: 10 mg Donepezil HCl (Aricept) 10 mg PO DAILY [facility] Last Admin: 02/25/18 08:18 Dose: 10 mg Finasteride (Proscar) 5 mg PO BEDTIME [facility] Last Admin: 02/24/18 20:52 Dose: Not Given Fluoxetine HCl (Prozac) 40 mg PO DAILY [facility] Last Admin: 02/25/18 09:32 Dose: 40 mg Haloperidol Lactate (Haldol) 2 - 5 mg IM Q6H PRN PRN Reason: Agitation Last Admin: 02/22/18 22:21 Dose: 2.5 mg Piperacillin Sod/Tazobactam (Sod 3.375 gm/ Sodium Chloride) 50 mls @ 100 mls/ hr IV Q6H [facility] Last Admin: 02/25/18 11:46 Dose: 100 mls/hr Levofloxacin/Dextrose 750 mg/ (Premix) 150 mls @ 100 mls/hr IV Q24H [facility] Last Admin: 02/25/18 09:53 Dose: 100 mls/hr Vancomycin HCl 1,500 mg/ (Sodium Chloride) 500 mls @ 333.333 mls/hr IV Q12H [facility] Last Admin: 02/25/18 08:17 Dose: 333.333 mls/hr Potassium Chloride/Sodium Chloride (Normal Saline With 20 Meq Kcl) 1,000 mls @ 50 mls/hr IV ASDIRECTED [facility] Last Admin: 02/25/18 05:18 Dose: 50 mls/hr Lorazepam (Ativan) 1 mg IM Q4H PRN PRN Reason: Agitation Last Admin: 02/24/18 13:39 Dose: 1 mg Magnesium Hydroxide (Milk Of Magnesia) 30 ml PO Q12H PRN PRN Reason: Constipation Memantine (Namenda) 10 mg PO BID [facility] Last Admin: 02/25/18 08:17 Dose: 10 mg Morphine Sulfate (Morphine 10 Mg/0.5 Ml Oral Syringe) 5 - 10 mg SL Q2H PRN PRN Reason: Pain Nystatin (Nystop) 0 gm TOP QID [facility] Ondansetron HCl (Zofran) 4 mg IVPUSH Q4H PRN PRN Reason: Nausea/Vomiting Last Admin: 02/16/18 18:06 Dose: 4 mg Promethazine HCl (Phenergan) 25 mg IM Q6H PRN PRN Reason: nausea Last Admin: 02/16/18 20:15 Dose: 25 mg Quetiapine Fumarate (Seroquel) 100 mg PO DAILY [facility] Last Admin: 02/25/18 08:17 Dose: 100 mg Quetiapine Fumarate (Seroquel) 200 mg PO BEDTIME [facility] Last Admin: 02/24/18 20:52 Dose: Not Given Senna/Docusate Sodium (Senokot-S) 1 each PO BID PRN PRN Reason: Constipation Sodium Chloride (Saline Flush) 10 ml FLUSH ASDIRECTED PRN PRN Reason: Keep Vein Open Sodium Chloride (Saline Flush) 2.5 ml FLUSH ASDIRECTED PRN PRN Reason: Keep Vein Open Tamsulosin HCl (Flomax) 0.4 mg PO BEDTIME [facility] Last Admin: 02/24/18 20:53 Dose: Not Given Vancomycin HCl (Pharmacy To Dose - Vancomycin) 1 dose .XX ASDIRECTED [facility] Discontinued Medications Enoxaparin Sodium (Lovenox) 40 mg SUBCUT Q24H [facility] Last Admin: 02/18/18 16:56 Dose: 40 mg Haloperidol (Haldol) 1 mg PO ONETIME ONE Stop: 02/16/18 14:16 Last Admin: 02/16/18 14:31 Dose: Not Given Haloperidol Lactate (Haldol) 1 mg IM ONETIME ONE Stop: 02/16/18 14:15 Last Admin: 02/16/18 14:18 Dose: Not Given Haloperidol Lactate (Haldol) 1 mg IM ONETIME ONE Stop: 02/16/18 14:28 Last Admin: 02/16/18 14:34 Dose: 1 mg Haloperidol Lactate (Haldol) 1 mg IM ONETIME ONE Stop: 02/16/18 14:33 Last Admin: 02/16/18 14:34 Dose: Not Given Haloperidol Lactate (Haldol) 2 mg IVPUSH ONETIME ONE Stop: 02/16/18 17:46 Last Admin: 02/16/18 18:07 Dose: Not Given Haloperidol Lactate (Haldol) 2 mg IM ONETIME ONE Stop: 02/16/18 17:59 Last Admin: 02/16/18 18:08 Dose: 2 mg Sodium Chloride (Normal Saline) 1,000 mls @ 125 mls/hr IV STAT ONE Stop: 02/16/18 19:01 Last Admin: 02/16/18 12:14 Dose: 125 mls/hr Sodium Chloride (Normal Saline) 1,000 mls @ 125 mls/hr IV ASDIRECTED [facility] Last Admin: 02/19/18 03:49 Dose: 125 mls/hr Cefepime HCl 1 gm/ Premix 50 mls @ 100 mls/hr IV Q8H [facility] Last Admin: 02/17/18 15:13 Dose: Not Given Vancomycin HCl 1,250 mg/ (Sodium Chloride) 500 mls @ 333.333 mls/hr IV Q12H [facility] Last Admin: 02/21/18 14:19 Dose: 333.333 mls/hr Potassium Chloride/Sodium Chloride (Normal Saline With 20 Meq Kcl) 1,000 mls @ 125 mls/hr IV ASDIRECTED [facility] Last Admin: 02/21/18 07:34 Dose: 125 mls/hr Influenza Virus Vaccine (Pharmacy To Dose - Influenza Vaccine) 1 each IM ONETIME ONE Stop: 02/16/18 15:43 Iopamidol (Isovue-370 (76%)) 100 ml IVPUSH ONETIME STA Stop: 02/20/18 15:40 Last Admin: 02/20/18 15:43 Dose: 100 ml Lorazepam (Ativan) 0.5 mg IVPUSH ONETIME ONE Stop: 02/16/18 12:09 Last Admin: 02/16/18 12:13 Dose: 0.5 mg Lorazepam (Ativan) 0.5 mg IVPUSH ONETIME ONE Stop: 02/16/18 12:26 Last Admin: 02/16/18 14:18 Dose: Not Given Morphine Sulfate (Morphine) 2 mg IVPUSH Q2H PRN PRN Reason: Pain (severe 7-10) Stop: 02/17/18 14:54 Morphine Sulfate (Morphine) 2 mg IVPUSH Q2H PRN PRN Reason: Pain (severe 7-10) Stop: 02/17/18 14:54 Last Admin: 02/17/18 03:43 Dose: 2 mg - Problem List & Annotations (1) Dementia SNOMED Code(s): 65999096 Code(s): F03.90 - UNSPECIFIED DEMENTIA WITHOUT BEHAVIORAL DISTURBANCE Status: Chronic Priority: Medium Current Visit: Yes Qualifiers: Dementia type: Alzheimer's disease Alzheimer's disease onset: unspecified onset Dementia behavioral disturbance: with behavioral disturbance Qualified Code(s): G30.9 - Alzheimer's disease, unspecified; F02.81 - Dementia in other diseases classified elsewhere with behavioral disturbance (2) Hematuria SNOMED Code(s): 71654682 Code(s): R31.9 - HEMATURIA, UNSPECIFIED Status: Acute Current Visit: Yes Qualifiers: Hematuria type: gross Qualified Code(s): R31.0 - Gross hematuria (3) Frequent falls SNOMED Code(s): 746290433 Code(s): R29.6 - REPEATED FALLS Status: Chronic Priority: Medium Current Visit: Yes (4) Head injury SNOMED Code(s): 92960134 Code(s): S09.90XA - UNSPECIFIED INJURY OF HEAD, INITIAL ENCOUNTER Status: Acute Priority: High Current Visit: Yes Qualifiers: Encounter type: subsequent encounter Qualified Code(s): S09.90XD - Unspecified injury of head, subsequent encounter (5) Agitation SNOMED Code(s): 267445172 Code(s): R45.1 - RESTLESSNESS AND AGITATION Status: Chronic Priority: Medium Current Visit: Yes (6) UTI, Urinary tract infectious disease SNOMED Code(s): 75672702 Code(s): N39.0 - URINARY TRACT INFECTION, SITE NOT SPECIFIED Status: Acute Priority: Medium Current Visit: Yes (7) Urinary retention SNOMED Code(s): 187957592 Code(s): R33.9 - RETENTION OF URINE, UNSPECIFIED Status: Acute Priority: Medium Current Visit: Yes - Assessment Assessment:: I have seen and examined the patient independently of medical office manager. I had a long discussion with the patient's and family with regards to hospice care. Hospice care consult has been ordered. We'll consider transitioning to comfort measures or palliative care soon. The patient does have advanced rapidly progressing Alzheimer's dementia and can sometimes be combative. See orders.
[2018-02-25] MEDS: Nystatin Topical Powder 15 GM Bottle TOP SCH ×2 (17:59→23:47)
[2018-02-25] MEDS: LORazepam 2 MG/ML SDV IM PRN ×2 (18:06→23:37)
[2018-02-25] MEDS: Finasteride 5 MG Tab PO SCH (21:53)
[2018-02-25] MEDS: Tamsulosin 0.4 MG Cap.ER PO SCH (21:53)
[2018-02-26] MEDS: Piperacillin/Tazobactam 3.375 GM in Sodium Chloride 0.9% 50 ML IV SCH ×4 (05:18→23:13)
[2018-02-26] MEDS: NS + KCl 20mEq/L 1,000 ML IV SCH (05:20)
[2018-02-26] MEDS: Nystatin Topical Powder 15 GM Bottle TOP SCH ×4 (05:25→23:16)
[2018-02-26] MEDS: QUEtiapine 100 MG Tab PO SCH ×2 (11:05→21:32)
[2018-02-26] MEDS: Donepezil 10 MG Tab PO SCH (11:05)
[2018-02-26] MEDS: FLUoxetine 20 MG Cap PO SCH (11:05)
[2018-02-26] MEDS: Memantine 10 MG Tab PO SCH ×2 (11:05→21:32)
--- NOTE | 2018-02-26 11:11 | PCM.PN ---
<AlmeidaDaryl - Last Filed: 02/26/18 11:05> - General Info Date of Service: 02/26/18 Subjective Update: Patient appears to be stable this morning. He voiced that he was hungry and wanted something to eat to me. Aside from that he wasn't able to answer my questions. He does not appear to be in any pain or discomfort. - Review of Systems General: Reports: Other (unable to obtain secondary to AMS) - Patient Data Vitals - Most Recent: Last Vital Signs Temp 36.7 C 02/26/18 08:00 Pulse 96 02/26/18 08:00 Resp 18 02/26/18 08:00 BP 163/95 H 02/26/18 08:00 Pulse Ox 93 L 02/26/18 04:00 Weight - Most Recent: 81.964 kg I&O - Last 24 Hours: Intake & Output 02/25/18 02/26/18 02/26/18 22:59 06:59 14:59 Intake Total 1090 1315 Output Total 800 1000 Balance 290 315 Med Orders - Current: Current Medications Acetaminophen (Tylenol) 650 mg PO Q4H PRN PRN Reason: Pain (Mild 1-3)/fever Last Admin: 02/18/18 23:09 Dose: 650 mg Alprazolam (Xanax) 1 mg PO TID PRN PRN Reason: Anxiety Last Admin: 02/24/18 23:18 Dose: 1 mg Bisacodyl (Dulcolax) 10 mg RECTAL DAILY PRN PRN Reason: Constipation Last Admin: 02/17/18 12:02 Dose: 10 mg Donepezil HCl (Aricept) 10 mg PO DAILY [facility] Last Admin: 02/25/18 08:18 Dose: 10 mg Finasteride (Proscar) 5 mg PO BEDTIME [facility] Last Admin: 02/25/18 21:53 Dose: 5 mg Fluoxetine HCl (Prozac) 40 mg PO DAILY [facility] Last Admin: 02/25/18 09:32 Dose: 40 mg Haloperidol Lactate (Haldol) 2 - 5 mg IM Q6H PRN PRN Reason: Agitation Last Admin: 02/22/18 22:21 Dose: 2.5 mg Piperacillin Sod/Tazobactam (Sod 3.375 gm/ Sodium Chloride) 50 mls @ 100 mls/ hr IV Q6H [facility] Last Admin: 02/26/18 05:18 Dose: 100 mls/hr Levofloxacin/Dextrose 750 mg/ (Premix) 150 mls @ 100 mls/hr IV Q24H [facility] Last Admin: 02/25/18 09:53 Dose: 100 mls/hr Vancomycin HCl 1,500 mg/ (Sodium Chloride) 500 mls @ 333.333 mls/hr IV Q12H [facility] Last Admin: 02/25/18 21:52 Dose: 333.333 mls/hr Potassium Chloride/Sodium Chloride (Normal Saline With 20 Meq Kcl) 1,000 mls @ 50 mls/hr IV ASDIRECTED [facility] Last Admin: 02/26/18 05:20 Dose: 50 mls/hr Lorazepam (Ativan) 1 mg IM Q4H PRN PRN Reason: Agitation Last Admin: 02/25/18 23:37 Dose: 1 mg Magnesium Hydroxide (Milk Of Magnesia) 30 ml PO Q12H PRN PRN Reason: Constipation Memantine (Namenda) 10 mg PO BID [facility] Last Admin: 02/25/18 21:53 Dose: 10 mg Morphine Sulfate (Morphine 10 Mg/0.5 Ml Oral Syringe) 5 - 10 mg SL Q2H PRN PRN Reason: Pain Nystatin (Nystop) 0 gm TOP QID [facility] Last Admin: 02/26/18 05:25 Dose: 1 applic Ondansetron HCl (Zofran) 4 mg IVPUSH Q4H PRN PRN Reason: Nausea/Vomiting Last Admin: 02/16/18 18:06 Dose: 4 mg Promethazine HCl (Phenergan) 25 mg IM Q6H PRN PRN Reason: nausea Last Admin: 02/16/18 20:15 Dose: 25 mg Quetiapine Fumarate (Seroquel) 100 mg PO DAILY [facility] Last Admin: 02/25/18 08:17 Dose: 100 mg Quetiapine Fumarate (Seroquel) 200 mg PO BEDTIME [facility] Last Admin: 02/25/18 21:53 Dose: 200 mg Senna/Docusate Sodium (Senokot-S) 1 each PO BID PRN PRN Reason: Constipation Sodium Chloride (Saline Flush) 10 ml FLUSH ASDIRECTED PRN PRN Reason: Keep Vein Open Sodium Chloride (Saline Flush) 2.5 ml FLUSH ASDIRECTED PRN PRN Reason: Keep Vein Open Tamsulosin HCl (Flomax) 0.4 mg PO BEDTIME [facility] Last Admin: 02/25/18 21:53 Dose: 0.4 mg Vancomycin HCl (Pharmacy To Dose - Vancomycin) 1 dose .XX ASDIRECTED [facility] Discontinued Medications Enoxaparin Sodium (Lovenox) 40 mg SUBCUT Q24H [facility] Last Admin: 02/18/18 16:56 Dose: 40 mg Haloperidol (Haldol) 1 mg PO ONETIME ONE Stop: 02/16/18 14:16 Last Admin: 02/16/18 14:31 Dose: Not Given Haloperidol Lactate (Haldol) 1 mg IM ONETIME ONE Stop: 02/16/18 14:15 Last Admin: 02/16/18 14:18 Dose: Not Given Haloperidol Lactate (Haldol) 1 mg IM ONETIME ONE Stop: 02/16/18 14:28 Last Admin: 02/16/18 14:34 Dose: 1 mg Haloperidol Lactate (Haldol) 1 mg IM ONETIME ONE Stop: 02/16/18 14:33 Last Admin: 02/16/18 14:34 Dose: Not Given Haloperidol Lactate (Haldol) 2 mg IVPUSH ONETIME ONE Stop: 02/16/18 17:46 Last Admin: 02/16/18 18:07 Dose: Not Given Haloperidol Lactate (Haldol) 2 mg IM ONETIME ONE Stop: 02/16/18 17:59 Last Admin: 02/16/18 18:08 Dose: 2 mg Sodium Chloride (Normal Saline) 1,000 mls @ 125 mls/hr IV STAT ONE Stop: 02/16/18 19:01 Last Admin: 02/16/18 12:14 Dose: 125 mls/hr Sodium Chloride (Normal Saline) 1,000 mls @ 125 mls/hr IV ASDIRECTED [facility] Last Admin: 02/19/18 03:49 Dose: 125 mls/hr Cefepime HCl 1 gm/ Premix 50 mls @ 100 mls/hr IV Q8H [facility] Last Admin: 02/17/18 15:13 Dose: Not Given Vancomycin HCl 1,250 mg/ (Sodium Chloride) 500 mls @ 333.333 mls/hr IV Q12H [facility] Last Admin: 02/21/18 14:19 Dose: 333.333 mls/hr Potassium Chloride/Sodium Chloride (Normal Saline With 20 Meq Kcl) 1,000 mls @ 125 mls/hr IV ASDIRECTED [facility] Last Admin: 02/21/18 07:34 Dose: 125 mls/hr Influenza Virus Vaccine (Pharmacy To Dose - Influenza Vaccine) 1 each IM ONETIME ONE Stop: 02/16/18 15:43 Iopamidol (Isovue-370 (76%)) 100 ml IVPUSH ONETIME STA Stop: 02/20/18 15:40 Last Admin: 02/20/18 15:43 Dose: 100 ml Lorazepam (Ativan) 0.5 mg IVPUSH ONETIME ONE Stop: 02/16/18 12:09 Last Admin: 02/16/18 12:13 Dose: 0.5 mg Lorazepam (Ativan) 0.5 mg IVPUSH ONETIME ONE Stop: 02/16/18 12:26 Last Admin: 02/16/18 14:18 Dose: Not Given Morphine Sulfate (Morphine) 2 mg IVPUSH Q2H PRN PRN Reason: Pain (severe 7-10) Stop: 02/17/18 14:54 Morphine Sulfate (Morphine) 2 mg IVPUSH Q2H PRN PRN Reason: Pain (severe 7-10) Stop: 02/17/18 14:54 Last Admin: 02/17/18 03:43 Dose: 2 mg - Exam General: Other (not awake or alert) HEENT: Pupils Equal Neck: Supple Lungs: Clear to Auscultation, Normal Respiratory Effort Cardiovascular: Regular Rate, Regular Rhythm GI/Abdominal Exam: Normal Bowel Sounds, Soft Extremities: Normal Inspection Peripheral Pulses: 2+: Dorsalis Pedis (L), Dorsalis Pedis (R) Skin: Warm, Dry, Intact - Problem List Review Problem List Initiated/Reviewed/Updated: Yes - My Orders Last 24 Hours: My Active Orders 02/25/18 18:00 Nystatin [Nystop] See Dose Instructions TOP QID 02/26/18 11:15 Acidophilus/Pectin, [place] 1 tab PO DAILY 02/27/18 05:11 CBC WITH AUTO DIFF [HEME] AM COMPREHENSIVE METABOLIC PN,CMP [CHEM] AM - Assessment Assessment:: I have seen and examined the patient independently of medical supply technician. I had a long discussion with the patient's and family with regards to hospice care. Hospice care consult has been ordered. We'll consider transitioning to comfort measures or palliative care soon. The patient does have advanced rapidly progressing Alzheimer's dementia and can sometimes be combative. See orders. - Plan Plan:: The patient is a 73-year-old gentleman with advanced rapidly progressing Alzheimer's dementia. Patient's today is asking about hospice care. I had a long discussion with her with regards to this. I placed a consult for hospice evaluation. The patient's hematuria has improved and the coloration of the urine in his [place] and collection bag has improved. In spite of broad-spectrum antibiotic coverage patient's leukocytosis is worsening. His previous blood cultures continued to show no growth. The patient does have yeast growth in sputum which is likely secondary to colonization. For now the patient will be continued on his current antibiotic regimen. I have recommended to the patient' s that we do no further testing and consider comfort care measures as necessary and continue with hospice care. The patient's has expressed a desire for hospice care at home. 02/25/18 As per hospice consult, patient's family is uncertain about if they would like to proceed with hospice or go home with home health. Will touch base with the family today and proceed accordingly. Will hold off any further labs for tomorrow now. 02/26/2018 Sat down with the patients POMonica this AM and discussed the options available for Luan. POMonica states that she understands the options available and will likely proceed with hospice tomorrow but would like to go over this with the patients step-son. She is confused because she thinks hes doing better and is hesitant with hospice for this reason. She is requesting another lab draw and a probiotic for his diarrhea that he has started to get likely secondary to the antibiotics hes receiving. Discussed in detail with her about the prognosis and that the patient will likely not clinically improve. She seems to understand this. Will re-evaluate and likely DC to home w/ hospice tomorrow. <Giuseppe Partida - Last Filed: 02/26/18 11:32> - General Info Admission Dx/Problem (Free Text): I have seen and examined the patient independently of medical supply technician. I agree with his findings and plan of care. The patient's has been present and has expressed concern with regards to the patient being at home with home health care as she feels that she is not able to take care of him and she has not arranged for medical visits. The patient is also considering hospice but she "doesn't want to kill him" and is reluctant to consider hospice care at this time. The says that she also has noted significant improvement in his physical health. I have explained to patient's advanced dementia is not going to improve. The patient reports that she is waiting for a stepson to come in late afternoon. I have ordered repeated laboratory testings for the morning. See orders. - Patient Data Vitals - Most Recent: Last Vital Signs Temp 36.7 C 02/26/18 08:00 Pulse 96 02/26/18 08:00 Resp 18 02/26/18 08:00 BP 163/95 H 02/26/18 08:00 Pulse Ox 93 L 02/26/18 04:00 I&O - Last 24 Hours: Intake & Output 02/25/18 02/26/18 02/26/18 22:59 06:59 14:59 Intake Total 1090 1315 Output Total 800 1000 Balance 290 315 Med Orders - Current: Current Medications Acetaminophen (Tylenol) 650 mg PO Q4H PRN PRN Reason: Pain (Mild 1-3)/fever Last Admin: 02/18/18 23:09 Dose: 650 mg Acidophilus/Pectin (Acidophilus/Pectin, [place]) 1 tab PO DAILY [facility] Alprazolam (Xanax) 1 mg PO TID PRN PRN Reason: Anxiety Last Admin: 02/24/18 23:18 Dose: 1 mg Bisacodyl (Dulcolax) 10 mg RECTAL DAILY PRN PRN Reason: Constipation Last Admin: 02/17/18 12:02 Dose: 10 mg Donepezil HCl (Aricept) 10 mg PO DAILY [facility] Last Admin: 02/26/18 11:05 Dose: Not Given Finasteride (Proscar) 5 mg PO BEDTIME [facility] Last Admin: 02/25/18 21:53 Dose: 5 mg Fluoxetine HCl (Prozac) 40 mg PO DAILY [facility] Last Admin: 02/26/18 11:05 Dose: Not Given Haloperidol Lactate (Haldol) 2 - 5 mg IM Q6H PRN PRN Reason: Agitation Last Admin: 02/22/18 22:21 Dose: 2.5 mg Piperacillin Sod/Tazobactam (Sod 3.375 gm/ Sodium Chloride) 50 mls @ 100 mls/ hr IV Q6H [facility] Last Admin: 02/26/18 05:18 Dose: 100 mls/hr Levofloxacin/Dextrose 750 mg/ (Premix) 150 mls @ 100 mls/hr IV Q24H [facility] Last Admin: 02/25/18 09:53 Dose: 100 mls/hr Vancomycin HCl 1,500 mg/ (Sodium Chloride) 500 mls @ 333.333 mls/hr IV Q12H [facility] Last Admin: 02/26/18 11:09 Dose: 333.333 mls/hr Potassium Chloride/Sodium Chloride (Normal Saline With 20 Meq Kcl) 1,000 mls @ 50 mls/hr IV ASDIRECTED [facility] Last Admin: 02/26/18 05:20 Dose: 50 mls/hr Lorazepam (Ativan) 1 mg IM Q4H PRN PRN Reason: Agitation Last Admin: 02/25/18 23:37 Dose: 1 mg Magnesium Hydroxide (Milk Of Magnesia) 30 ml PO Q12H PRN PRN Reason: Constipation Memantine (Namenda) 10 mg PO BID [facility] Last Admin: 02/26/18 11:05 Dose: Not Given Morphine Sulfate (Morphine 10 Mg/0.5 Ml Oral Syringe) 5 - 10 mg SL Q2H PRN PRN Reason: Pain Nystatin (Nystop) 0 gm TOP QID [facility] Last Admin: 02/26/18 05:25 Dose: 1 applic Ondansetron HCl (Zofran) 4 mg IVPUSH Q4H PRN PRN Reason: Nausea/Vomiting Last Admin: 02/16/18 18:06 Dose: 4 mg Promethazine HCl (Phenergan) 25 mg IM Q6H PRN PRN Reason: nausea Last Admin: 02/16/18 20:15 Dose: 25 mg Quetiapine Fumarate (Seroquel) 100 mg PO DAILY [facility] Last Admin: 02/26/18 11:05 Dose: Not Given Quetiapine Fumarate (Seroquel) 200 mg PO BEDTIME [facility] Last Admin: 02/25/18 21:53 Dose: 200 mg Senna/Docusate Sodium (Senokot-S) 1 each PO BID PRN PRN Reason: Constipation Sodium Chloride (Saline Flush) 10 ml FLUSH ASDIRECTED PRN PRN Reason: Keep Vein Open Sodium Chloride (Saline Flush) 2.5 ml FLUSH ASDIRECTED PRN PRN Reason: Keep Vein Open Tamsulosin HCl (Flomax) 0.4 mg PO BEDTIME [facility] Last Admin: 02/25/18 21:53 Dose: 0.4 mg Vancomycin HCl (Pharmacy To Dose - Vancomycin) 1 dose .XX ASDIRECTED [facility] Discontinued Medications Enoxaparin Sodium (Lovenox) 40 mg SUBCUT Q24H [facility] Last Admin: 02/18/18 16:56 Dose: 40 mg Haloperidol (Haldol) 1 mg PO ONETIME ONE Stop: 02/16/18 14:16 Last Admin: 02/16/18 14:31 Dose: Not Given Haloperidol Lactate (Haldol) 1 mg IM ONETIME ONE Stop: 02/16/18 14:15 Last Admin: 02/16/18 14:18 Dose: Not Given Haloperidol Lactate (Haldol) 1 mg IM ONETIME ONE Stop: 02/16/18 14:28 Last Admin: 02/16/18 14:34 Dose: 1 mg Haloperidol Lactate (Haldol) 1 mg IM ONETIME ONE Stop: 02/16/18 14:33 Last Admin: 02/16/18 14:34 Dose: Not Given Haloperidol Lactate (Haldol) 2 mg IVPUSH ONETIME ONE Stop: 02/16/18 17:46 Last Admin: 02/16/18 18:07 Dose: Not Given Haloperidol Lactate (Haldol) 2 mg IM ONETIME ONE Stop: 02/16/18 17:59 Last Admin: 02/16/18 18:08 Dose: 2 mg Sodium Chloride (Normal Saline) 1,000 mls @ 125 mls/hr IV STAT ONE Stop: 02/16/18 19:01 Last Admin: 02/16/18 12:14 Dose: 125 mls/hr Sodium Chloride (Normal Saline) 1,000 mls @ 125 mls/hr IV ASDIRECTED [facility] Last Admin: 02/19/18 03:49 Dose: 125 mls/hr Cefepime HCl 1 gm/ Premix 50 mls @ 100 mls/hr IV Q8H [facility] Last Admin: 02/17/18 15:13 Dose: Not Given Vancomycin HCl 1,250 mg/ (Sodium Chloride) 500 mls @ 333.333 mls/hr IV Q12H [facility] Last Admin: 02/21/18 14:19 Dose: 333.333 mls/hr Potassium Chloride/Sodium Chloride (Normal Saline With 20 Meq Kcl) 1,000 mls @ 125 mls/hr IV ASDIRECTED [facility] Last Admin: 02/21/18 07:34 Dose: 125 mls/hr Influenza Virus Vaccine (Pharmacy To Dose - Influenza Vaccine) 1 each IM ONETIME ONE Stop: 02/16/18 15:43 Iopamidol (Isovue-370 (76%)) 100 ml IVPUSH ONETIME STA Stop: 02/20/18 15:40 Last Admin: 02/20/18 15:43 Dose: 100 ml Lorazepam (Ativan) 0.5 mg IVPUSH ONETIME ONE Stop: 02/16/18 12:09 Last Admin: 02/16/18 12:13 Dose: 0.5 mg Lorazepam (Ativan) 0.5 mg IVPUSH ONETIME ONE Stop: 02/16/18 12:26 Last Admin: 02/16/18 14:18 Dose: Not Given Morphine Sulfate (Morphine) 2 mg IVPUSH Q2H PRN PRN Reason: Pain (severe 7-10) Stop: 02/17/18 14:54 Morphine Sulfate (Morphine) 2 mg IVPUSH Q2H PRN PRN Reason: Pain (severe 7-10) Stop: 02/17/18 14:54 Last Admin: 02/17/18 03:43 Dose: 2 mg - Problem List & Annotations (1) Dementia SNOMED Code(s): 03141348 Code(s): F03.90 - UNSPECIFIED DEMENTIA WITHOUT BEHAVIORAL DISTURBANCE Status: Chronic Priority: Medium Current Visit: Yes Qualifiers: Dementia type: Alzheimer's disease Alzheimer's disease onset: unspecified onset Dementia behavioral disturbance: with behavioral disturbance Qualified Code(s): G30.9 - Alzheimer's disease, unspecified; F02.81 - Dementia in other diseases classified elsewhere with behavioral disturbance (2) Hematuria SNOMED Code(s): 45217489 Code(s): R31.9 - HEMATURIA, UNSPECIFIED Status: Acute Current Visit: Yes Qualifiers: Hematuria type: gross Qualified Code(s): R31.0 - Gross hematuria (3) Frequent falls SNOMED Code(s): 401615675 Code(s): R29.6 - REPEATED FALLS Status: Chronic Priority: Medium Current Visit: Yes (4) Head injury SNOMED Code(s): 72005826 Code(s): S09.90XA - UNSPECIFIED INJURY OF HEAD, INITIAL ENCOUNTER Status: Acute Priority: High Current Visit: Yes Qualifiers: Encounter type: subsequent encounter Qualified Code(s): S09.90XD - Unspecified injury of head, subsequent encounter (5) Agitation SNOMED Code(s): 781737925 Code(s): R45.1 - RESTLESSNESS AND AGITATION Status: Chronic Priority: Medium Current Visit: Yes (6) UTI, Urinary tract infectious disease SNOMED Code(s): 97538792 Code(s): N39.0 - URINARY TRACT INFECTION, SITE NOT SPECIFIED Status: Acute Priority: Medium Current Visit: Yes (7) Urinary retention SNOMED Code(s): 708368190 Code(s): R33.9 - RETENTION OF URINE, UNSPECIFIED Status: Acute Priority: Medium Current Visit: Yes
[2018-02-26] MEDS: Acidophilus with Citrus Pectin Tab PO SCH (13:26)
[2018-02-26] MEDS: Levofloxacin/Dextrose 5%-Water 750 MG in Premix Bag 1 BAG IV SCH (13:46)
[2018-02-26] MEDS: Morphine 10 MG/0.5 ML Oral Syringe SL PRN (18:47)
[2018-02-26] MEDS: Finasteride 5 MG Tab PO SCH (21:32)
[2018-02-26] MEDS: Tamsulosin 0.4 MG Cap.ER PO SCH (21:32)
[2018-02-27] MEDS: Piperacillin/Tazobactam 3.375 GM in Sodium Chloride 0.9% 50 ML IV SCH (05:38)
[2018-02-27] MEDS: Nystatin Topical Powder 15 GM Bottle TOP SCH ×3 (05:39→17:37)
[2018-02-27] MEDS: Memantine 10 MG Tab PO SCH ×2 (08:23→21:52)
[2018-02-27] MEDS: QUEtiapine 100 MG Tab PO SCH (08:24)
[2018-02-27] MEDS: Donepezil 10 MG Tab PO SCH (08:25)
[2018-02-27] MEDS: FLUoxetine 20 MG Cap PO SCH (08:35)
[2018-02-27] MEDS: Acidophilus with Citrus Pectin Tab PO SCH (08:35)
[2018-02-27] MEDS ORDERED: Carboxymethylcellulose Sodium 0.5% Ophth Soln 0.4 ML UD Box of 30 EYEBOTH PRN (09:13)
[2018-02-27] MEDS ORDERED: Sodium Chloride 0.45% 1,000 ML IV SCH (09:15)
--- NOTE | 2018-02-27 10:03 | PCM.PN ---
<Daryl Almeida - Last Filed: 02/27/18 09:58> - General Info Date of Service: 02/27/18 Subjective Update: no acute changes. at the bedside today says she has decided to get Luan on hospice along with managed care director assistance than she plans on hiring. Luan appears to be well today with no significant changes. - Review of Systems General: Reports: Other (see hpi) - Patient Data Vitals - Most Recent: Last Vital Signs Temp 36.6 C 02/27/18 08:00 Pulse 74 02/27/18 08:00 Resp 16 02/27/18 08:00 BP 141/75 H 02/27/18 08:00 Pulse Ox 97 02/27/18 08:00 Weight - Most Recent: 81.964 kg I&O - Last 24 Hours: Intake & Output 02/26/18 02/27/18 02/27/18 22:59 06:59 14:59 Intake Total 1763 1204 Output Total 1000 1000 Balance 763 204 Lab Results Last 24 Hours: Laboratory Results - last 24 hr 02/27/18 02/27/18 02/27/18 Range/Units 08:08 08:08 08:08 WBC 29.02 H (4.0-11.0) K/uL RBC 4.13 L (4.50-5.90) M/uL Hgb 11.8 L (13.0-17.0) g/dL Hct 36.6 L (38.0-50.0) % MCV 88.6 (80.0-98.0) fL MCH 28.6 (27.0-32.0) pg MCHC 32.2 (31.0-37.0) g/dL RDW Std Deviation 46.9 (28.0-62.0) fl RDW Coeff of Giulia 15 (11.0-15.0) % Plt Count 172 (150-400) K/uL MPV 10.70 (7.40-12.00) fL Add Manual Diff YES Nucleated RBC % 0.0 /100WBC Nucleated RBCs # 0 K/uL Sodium 152 H (136-148) mmol/L Potassium 3.6 (3.5-5.1) mmol/L Chloride 122 H (98-107) mmol/L Carbon Dioxide 17.7 L (21.0-32.0) mmol/L BUN 29 H (7.0-18.0) mg/dL Creatinine 2.8 H (0.8-1.3) mg/dL Est Cr Clr Drug Dosing 23.41 mL/min Estimated GFR (MDRD) 22.5 ml/min Glucose 119 H (74-106) mg/dL Calcium 8.7 (8.5-10.1) mg/dL Total Bilirubin 0.6 (0.2-1.0) mg/dL AST 28 (15-37) IU/L ALT 24 (14-63) IU/L Alkaline Phosphatase 83 (46-116) U/L Total Protein 6.2 L (6.4-8.2) g/dL Albumin 2.4 L (3.4-5.0) g/dL Globulin 3.8 H (2.0-3.5) g/dL Albumin/Globulin Ratio 0.6 L (1.3-2.8) Vancomycin Trough 46.8 H (5.0-10.0) ug/mL Med Orders - Current: Current Medications Acetaminophen (Tylenol) 650 mg PO Q4H PRN PRN Reason: Pain (Mild 1-3)/fever Last Admin: 02/18/18 23:09 Dose: 650 mg Acidophilus/Pectin (Acidophilus/Pectin, [place]) 1 tab PO DAILY [facility] Last Admin: 02/27/18 08:35 Dose: 1 tab Alprazolam (Xanax) 1 mg PO TID PRN PRN Reason: Anxiety Last Admin: 02/24/18 23:18 Dose: 1 mg Artificial Tears (Refresh Plus 0.5%) 1 each EYEBOTH ASDIRECTED PRN PRN Reason: Dry Eyes Bisacodyl (Dulcolax) 10 mg RECTAL DAILY PRN PRN Reason: Constipation Last Admin: 02/17/18 12:02 Dose: 10 mg Donepezil HCl (Aricept) 10 mg PO DAILY [facility] Last Admin: 02/27/18 08:25 Dose: 10 mg Finasteride (Proscar) 5 mg PO BEDTIME [facility] Last Admin: 02/26/18 21:32 Dose: 5 mg Fluoxetine HCl (Prozac) 40 mg PO DAILY [facility] Last Admin: 02/27/18 08:35 Dose: 40 mg Haloperidol Lactate (Haldol) 2 - 5 mg IM Q6H PRN PRN Reason: Agitation Last Admin: 02/22/18 22:21 Dose: 2.5 mg Piperacillin Sod/Tazobactam (Sod 3.375 gm/ Sodium Chloride) 50 mls @ 100 mls/ hr IV Q6H [facility] Last Admin: 02/27/18 05:38 Dose: 100 mls/hr Levofloxacin/Dextrose 750 mg/ (Premix) 150 mls @ 100 mls/hr IV Q24H [facility] Last Admin: 02/26/18 13:46 Dose: 100 mls/hr Vancomycin HCl 1,500 mg/ (Sodium Chloride) 500 mls @ 333.333 mls/hr IV Q12H [facility] Last Admin: 02/26/18 21:32 Dose: 333.333 mls/hr Potassium Chloride/Sodium Chloride (Normal Saline With 20 Meq Kcl) 1,000 mls @ 50 mls/hr IV ASDIRECTED [facility] Last Admin: 02/26/18 05:20 Dose: 50 mls/hr Sodium Chloride (Sodium Chloride 0.45%) 1,000 mls @ 999 mls/hr IV ASDIRECTED [facility] Lorazepam (Ativan) 1 mg IM Q4H PRN PRN Reason: Agitation Last Admin: 02/25/18 23:37 Dose: 1 mg Magnesium Hydroxide (Milk Of Magnesia) 30 ml PO Q12H PRN PRN Reason: Constipation Memantine (Namenda) 10 mg PO BID [facility] Last Admin: 02/27/18 08:23 Dose: 10 mg Morphine Sulfate (Morphine 10 Mg/0.5 Ml Oral Syringe) 5 - 10 mg SL Q2H PRN PRN Reason: Pain Last Admin: 02/26/18 18:47 Dose: 10 mg Nystatin (Nystop) 0 gm TOP QID [facility] Last Admin: 02/27/18 05:39 Dose: 1 applic Ondansetron HCl (Zofran) 4 mg IVPUSH Q4H PRN PRN Reason: Nausea/Vomiting Last Admin: 02/16/18 18:06 Dose: 4 mg Promethazine HCl (Phenergan) 25 mg IM Q6H PRN PRN Reason: nausea Last Admin: 02/16/18 20:15 Dose: 25 mg Quetiapine Fumarate (Seroquel) 100 mg PO DAILY [facility] Last Admin: 02/27/18 08:24 Dose: 100 mg Quetiapine Fumarate (Seroquel) 200 mg PO BEDTIME [facility] Last Admin: 02/26/18 21:32 Dose: 200 mg Senna/Docusate Sodium (Senokot-S) 1 each PO BID PRN PRN Reason: Constipation Sodium Chloride (Saline Flush) 10 ml FLUSH ASDIRECTED PRN PRN Reason: Keep Vein Open Sodium Chloride (Saline Flush) 2.5 ml FLUSH ASDIRECTED PRN PRN Reason: Keep Vein Open Tamsulosin HCl (Flomax) 0.4 mg PO BEDTIME [facility] Last Admin: 02/26/18 21:32 Dose: 0.4 mg Vancomycin HCl (Pharmacy To Dose - Vancomycin) 1 dose .XX ASDIRECTED [facility] Discontinued Medications Enoxaparin Sodium (Lovenox) 40 mg SUBCUT Q24H [facility] Last Admin: 02/18/18 16:56 Dose: 40 mg Haloperidol (Haldol) 1 mg PO ONETIME ONE Stop: 02/16/18 14:16 Last Admin: 02/16/18 14:31 Dose: Not Given Haloperidol Lactate (Haldol) 1 mg IM ONETIME ONE Stop: 02/16/18 14:15 Last Admin: 02/16/18 14:18 Dose: Not Given Haloperidol Lactate (Haldol) 1 mg IM ONETIME ONE Stop: 02/16/18 14:28 Last Admin: 02/16/18 14:34 Dose: 1 mg Haloperidol Lactate (Haldol) 1 mg IM ONETIME ONE Stop: 02/16/18 14:33 Last Admin: 02/16/18 14:34 Dose: Not Given Haloperidol Lactate (Haldol) 2 mg IVPUSH ONETIME ONE Stop: 02/16/18 17:46 Last Admin: 02/16/18 18:07 Dose: Not Given Haloperidol Lactate (Haldol) 2 mg IM ONETIME ONE Stop: 02/16/18 17:59 Last Admin: 02/16/18 18:08 Dose: 2 mg Sodium Chloride (Normal Saline) 1,000 mls @ 125 mls/hr IV STAT ONE Stop: 02/16/18 19:01 Last Admin: 02/16/18 12:14 Dose: 125 mls/hr Sodium Chloride (Normal Saline) 1,000 mls @ 125 mls/hr IV ASDIRECTED [facility] Last Admin: 02/19/18 03:49 Dose: 125 mls/hr Cefepime HCl 1 gm/ Premix 50 mls @ 100 mls/hr IV Q8H [facility] Last Admin: 02/17/18 15:13 Dose: Not Given Vancomycin HCl 1,250 mg/ (Sodium Chloride) 500 mls @ 333.333 mls/hr IV Q12H [facility] Last Admin: 02/21/18 14:19 Dose: 333.333 mls/hr Potassium Chloride/Sodium Chloride (Normal Saline With 20 Meq Kcl) 1,000 mls @ 125 mls/hr IV ASDIRECTED [facility] Last Admin: 02/21/18 07:34 Dose: 125 mls/hr Influenza Virus Vaccine (Pharmacy To Dose - Influenza Vaccine) 1 each IM ONETIME ONE Stop: 02/16/18 15:43 Iopamidol (Isovue-370 (76%)) 100 ml IVPUSH ONETIME STA Stop: 02/20/18 15:40 Last Admin: 02/20/18 15:43 Dose: 100 ml Lorazepam (Ativan) 0.5 mg IVPUSH ONETIME ONE Stop: 02/16/18 12:09 Last Admin: 02/16/18 12:13 Dose: 0.5 mg Lorazepam (Ativan) 0.5 mg IVPUSH ONETIME ONE Stop: 02/16/18 12:26 Last Admin: 02/16/18 14:18 Dose: Not Given Morphine Sulfate (Morphine) 2 mg IVPUSH Q2H PRN PRN Reason: Pain (severe 7-10) Stop: 02/17/18 14:54 Morphine Sulfate (Morphine) 2 mg IVPUSH Q2H PRN PRN Reason: Pain (severe 7-10) Stop: 02/17/18 14:54 Last Admin: 02/17/18 03:43 Dose: 2 mg - Exam General: Lethargic (awake, not oriented to person/place/time) HEENT: Pupils Equal, Pupils Reactive, EOMI, Mucous Membr. Moist/[place] Neck: Supple Lungs: Clear to Auscultation, Normal Respiratory Effort Cardiovascular: Regular Rate, Regular Rhythm GI/Abdominal Exam: Normal Bowel Sounds, Soft, Non-Tender, No Organomegaly, No Distention, No Abnormal Bruit, No Mass Extremities: Normal Inspection, Normal Range of Motion, Non-Tender, No Pedal Edema, Normal Capillary Refill Skin: Warm, Dry, Intact Wound/Incisions: Healing Well Neurological: No New Focal Deficit Psy/Mental Status: Alert, Normal Affect, Normal Mood - Problem List Review Problem List Initiated/Reviewed/Updated: Yes - My Orders Last 24 Hours: My Active Orders 02/26/18 11:15 Acidophilus/Pectin, [place] 1 tab PO DAILY 02/27/18 08:08 CBC WITH AUTO DIFF [HEME] AM 02/27/18 09:13 Carboxymethylcellulose Sodium [Refresh Plus 0.5%] 1 each EYEBOTH ASDIRECTED PRN 02/27/18 09:15 Ready for Discharge [RC] PER UNIT ROUTINE Sodium Chloride 0.45% 1,000 ml IV ASDIRECTED - Assessment Assessment:: I have seen and examined the patient independently of medical numerical control operator. I had a long discussion with the patient's and family with regards to hospice care. Hospice care consult has been ordered. We'll consider transitioning to comfort measures or palliative care soon. The patient does have advanced rapidly progressing Alzheimer's dementia and can sometimes be combative. See orders. - Plan Plan:: The patient is a 73-year-old gentleman with advanced rapidly progressing Alzheimer's dementia. Patient's today is asking about hospice care. I had a long discussion with her with regards to this. I placed a consult for hospice evaluation. The patient's hematuria has improved and the coloration of the urine in his [place] and collection bag has improved. In spite of broad-spectrum antibiotic coverage patient's leukocytosis is worsening. His previous blood cultures continued to show no growth. The patient does have yeast growth in sputum which is likely secondary to colonization. For now the patient will be continued on his current antibiotic regimen. I have recommended to the patient' s that we do no further testing and consider comfort care measures as necessary and continue with hospice care. The patient's has expressed a desire for hospice care at home. 02/25/18 As per hospice consult, patient's family is uncertain about if they would like to proceed with hospice or go home with home health. Will touch base with the family today and proceed accordingly. Will hold off any further labs for tomorrow now. 02/26/2018 Sat down with the patients POA this AM and discussed the options available for Luan. POA states that she understands the options available and will likely proceed with hospice tomorrow but would like to go over this with the patients step-son. She is confused because she thinks hes doing better and is hesitant with hospice for this reason. She is requesting another lab draw and a probiotic for his diarrhea that he has started to get likely secondary to the antibiotics hes receiving. Discussed in detail with her about the prognosis and that the patient will likely not clinically improve. She seems to understand this. Will re-evaluate and likely DC to home w/ hospice tomorrow. 02/27/2018 A: #1. Altered mental status - unchanged #2. Leukocytosis - increased #3. ARF - Cr 2.8 likely secondary to dehydration #4. History of rapidly progressing alzheimers P: #1. has decided that he go onto hospice. Will make arrangements for DC tomorrow. For new increase in creatinine, will give a 1L 0.45% NS bolus. Advised of the lab results and that given that hes going on to hospice and the lack of response to IV antibiotics, we'll forego further abx upon discharge. He seems to be complaining of dry eyes though isnt able to verbalize that. Will give eye drops for this issue. <Giuseppe Partida - Last Filed: 02/27/18 11:23> - General Info Admission Dx/Problem (Free Text): I have seen and examined the patient independently of medical numerical control operator. The patient is a 73-year-old gentleman with advanced Alzheimer's dementia that has been rapidly progressing. 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 The patient and the patient's have been in conversation with hospice care and the plan is to go to home hospice possibly tomorrow. I have discussed the case with the medical numerical control operator and agree with assessment and plan of care. Please see orders. - Patient Data Vitals - Most Recent: Last Vital Signs Temp 36.6 C 02/27/18 08:00 Pulse 74 02/27/18 08:00 Resp 16 02/27/18 08:00 BP 141/75 H 02/27/18 08:00 Pulse Ox 97 02/27/18 08:00 I&O - Last 24 Hours: Intake & Output 02/26/18 02/27/18 02/27/18 22:59 06:59 14:59 Intake Total 1763 1204 252 Output Total 1000 1000 Balance 763 204 252 Lab Results Last 24 Hours: Laboratory Results - last 24 hr 02/27/18 02/27/18 02/27/18 Range/Units 08:08 08:08 08:08 WBC 29.02 H (4.0-11.0) K/uL RBC 4.13 L (4.50-5.90) M/uL Hgb 11.8 L (13.0-17.0) g/dL Hct 36.6 L (38.0-50.0) % MCV 88.6 (80.0-98.0) fL MCH 28.6 (27.0-32.0) pg MCHC 32.2 (31.0-37.0) g/dL RDW Std Deviation 46.9 (28.0-62.0) fl RDW Coeff of Giulia 15 (11.0-15.0) % Plt Count 172 (150-400) K/uL MPV 10.70 (7.40-12.00) fL Add Manual Diff YES Neutrophils % (Manual) 62 (48.0-80.0) % Band Neutrophils % 4 % Lymphocytes % (Manual) 8 L (16.0-40.0) % Monocytes % (Manual) 19 H (0.0-15.0) % Basophils % (Manual) 1 (0.0-1.5) % Metamyelocytes % 2 % Myelocytes % 4 % Nucleated RBC % 0.0 /100WBC Absolute Seg Neuts 18.0 H (1.4-5.7) Band Neutrophils # 1.2 Lymphocytes # (Manual) 2.3 (0.6-2.4) Monocytes # (Manual) 5.5 H (0.0-0.8) Basophils # (Manual) 0.3 H (0.0-0.1) Absolute Metamyelocyte 0.6 Absolute Myelocytes 1.2 Nucleated RBCs # 0 K/uL Sodium 152 H (136-148) mmol/L Potassium 3.6 (3.5-5.1) mmol/L Chloride 122 H (98-107) mmol/L Carbon Dioxide 17.7 L (21.0-32.0) mmol/L BUN 29 H (7.0-18.0) mg/dL Creatinine 2.8 H (0.8-1.3) mg/dL Est Cr Clr Drug Dosing 23.41 mL/min Estimated GFR (MDRD) 22.5 ml/min Glucose 119 H (74-106) mg/dL Calcium 8.7 (8.5-10.1) mg/dL Total Bilirubin 0.6 (0.2-1.0) mg/dL AST 28 (15-37) IU/L ALT 24 (14-63) IU/L Alkaline Phosphatase 83 (46-116) U/L Total Protein 6.2 L (6.4-8.2) g/dL Albumin 2.4 L (3.4-5.0) g/dL Globulin 3.8 H (2.0-3.5) g/dL Albumin/Globulin Ratio 0.6 L (1.3-2.8) Vancomycin Trough 46.8 H (5.0-10.0) ug/mL Med Orders - Current: Current Medications Acetaminophen (Tylenol) 650 mg PO Q4H PRN PRN Reason: Pain (Mild 1-3)/fever Last Admin: 02/18/18 23:09 Dose: 650 mg Acidophilus/Pectin (Acidophilus/Pectin, [place]) 1 tab PO DAILY [facility] Last Admin: 02/27/18 08:35 Dose: 1 tab Alprazolam (Xanax) 1 mg PO TID PRN PRN Reason: Anxiety Last Admin: 02/24/18 23:18 Dose: 1 mg Artificial Tears (Refresh Plus 0.5%) 1 each EYEBOTH ASDIRECTED PRN PRN Reason: Dry Eyes Last Admin: 02/27/18 11:01 Dose: 1 dose Bisacodyl (Dulcolax) 10 mg RECTAL DAILY PRN PRN Reason: Constipation Last Admin: 02/17/18 12:02 Dose: 10 mg Donepezil HCl (Aricept) 10 mg PO DAILY [facility] Last Admin: 02/27/18 08:25 Dose: 10 mg Finasteride (Proscar) 5 mg PO BEDTIME [facility] Last Admin: 02/26/18 21:32 Dose: 5 mg Fluoxetine HCl (Prozac) 40 mg PO DAILY [facility] Last Admin: 02/27/18 08:35 Dose: 40 mg Haloperidol Lactate (Haldol) 2 - 5 mg IM Q6H PRN PRN Reason: Agitation Last Admin: 02/22/18 22:21 Dose: 2.5 mg Potassium Chloride/Sodium Chloride (Normal Saline With 20 Meq Kcl) 1,000 mls @ 50 mls/hr IV ASDIRECTED [facility] Last Admin: 02/26/18 05:20 Dose: 50 mls/hr Sodium Chloride (Sodium Chloride 0.45%) 1,000 mls @ 999 mls/hr IV ASDIRECTED [facility] Last Admin: 02/27/18 10:52 Dose: 999 mls/hr Lorazepam (Ativan) 1 mg IM Q4H PRN PRN Reason: Agitation Last Admin: 02/25/18 23:37 Dose: 1 mg Magnesium Hydroxide (Milk Of Magnesia) 30 ml PO Q12H PRN PRN Reason: Constipation Memantine (Namenda) 10 mg PO BID [facility] Last Admin: 02/27/18 08:23 Dose: 10 mg Morphine Sulfate (Morphine 10 Mg/0.5 Ml Oral Syringe) 5 - 10 mg SL Q2H PRN PRN Reason: Pain Last Admin: 02/26/18 18:47 Dose: 10 mg Nystatin (Nystop) 0 gm TOP QID [facility] Last Admin: 02/27/18 11:00 Dose: 1 applic Ondansetron HCl (Zofran) 4 mg IVPUSH Q4H PRN PRN Reason: Nausea/Vomiting Last Admin: 02/16/18 18:06 Dose: 4 mg Promethazine HCl (Phenergan) 25 mg IM Q6H PRN PRN Reason: nausea Last Admin: 02/16/18 20:15 Dose: 25 mg Quetiapine Fumarate (Seroquel) 100 mg PO DAILY [facility] Last Admin: 02/27/18 08:24 Dose: 100 mg Quetiapine Fumarate (Seroquel) 200 mg PO BEDTIME [facility] Last Admin: 02/26/18 21:32 Dose: 200 mg Senna/Docusate Sodium (Senokot-S) 1 each PO BID PRN PRN Reason: Constipation Sodium Chloride (Saline Flush) 10 ml FLUSH ASDIRECTED PRN PRN Reason: Keep Vein Open Sodium Chloride (Saline Flush) 2.5 ml FLUSH ASDIRECTED PRN PRN Reason: Keep Vein Open Tamsulosin HCl (Flomax) 0.4 mg PO BEDTIME [facility] Last Admin: 02/26/18 21:32 Dose: 0.4 mg Discontinued Medications Enoxaparin Sodium (Lovenox) 40 mg SUBCUT Q24H [facility] Last Admin: 02/18/18 16:56 Dose: 40 mg Haloperidol (Haldol) 1 mg PO ONETIME ONE Stop: 02/16/18 14:16 Last Admin: 02/16/18 14:31 Dose: Not Given Haloperidol Lactate (Haldol) 1 mg IM ONETIME ONE Stop: 02/16/18 14:15 Last Admin: 02/16/18 14:18 Dose: Not Given Haloperidol Lactate (Haldol) 1 mg IM ONETIME ONE Stop: 02/16/18 14:28 Last Admin: 02/16/18 14:34 Dose: 1 mg Haloperidol Lactate (Haldol) 1 mg IM ONETIME ONE Stop: 02/16/18 14:33 Last Admin: 02/16/18 14:34 Dose: Not Given Haloperidol Lactate (Haldol) 2 mg IVPUSH ONETIME ONE Stop: 02/16/18 17:46 Last Admin: 02/16/18 18:07 Dose: Not Given Haloperidol Lactate (Haldol) 2 mg IM ONETIME ONE Stop: 02/16/18 17:59 Last Admin: 02/16/18 18:08 Dose: 2 mg Sodium Chloride (Normal Saline) 1,000 mls @ 125 mls/hr IV STAT ONE Stop: 02/16/18 19:01 Last Admin: 02/16/18 12:14 Dose: 125 mls/hr Sodium Chloride (Normal Saline) 1,000 mls @ 125 mls/hr IV ASDIRECTED [facility] Last Admin: 02/19/18 03:49 Dose: 125 mls/hr Cefepime HCl 1 gm/ Premix 50 mls @ 100 mls/hr IV Q8H [facility] Last Admin: 02/17/18 15:13 Dose: Not Given Piperacillin Sod/Tazobactam (Sod 3.375 gm/ Sodium Chloride) 50 mls @ 100 mls/ hr IV Q6H [facility] Last Admin: 02/27/18 05:38 Dose: 100 mls/hr Vancomycin HCl 1,250 mg/ (Sodium Chloride) 500 mls @ 333.333 mls/hr IV Q12H [facility] Last Admin: 02/21/18 14:19 Dose: 333.333 mls/hr Levofloxacin/Dextrose 750 mg/ (Premix) 150 mls @ 100 mls/hr IV Q24H [facility] Last Admin: 02/26/18 13:46 Dose: 100 mls/hr Potassium Chloride/Sodium Chloride (Normal Saline With 20 Meq Kcl) 1,000 mls @ 125 mls/hr IV ASDIRECTED [facility] Last Admin: 02/21/18 07:34 Dose: 125 mls/hr Vancomycin HCl 1,500 mg/ (Sodium Chloride) 500 mls @ 333.333 mls/hr IV Q12H [facility] Last Admin: 02/27/18 10:52 Dose: Not Given Influenza Virus Vaccine (Pharmacy To Dose - Influenza Vaccine) 1 each IM ONETIME ONE Stop: 02/16/18 15:43 Iopamidol (Isovue-370 (76%)) 100 ml IVPUSH ONETIME STA Stop: 02/20/18 15:40 Last Admin: 02/20/18 15:43 Dose: 100 ml Lorazepam (Ativan) 0.5 mg IVPUSH ONETIME ONE Stop: 02/16/18 12:09 Last Admin: 02/16/18 12:13 Dose: 0.5 mg Lorazepam (Ativan) 0.5 mg IVPUSH ONETIME ONE Stop: 02/16/18 12:26 Last Admin: 02/16/18 14:18 Dose: Not Given Morphine Sulfate (Morphine) 2 mg IVPUSH Q2H PRN PRN Reason: Pain (severe 7-10) Stop: 02/17/18 14:54 Morphine Sulfate (Morphine) 2 mg IVPUSH Q2H PRN PRN Reason: Pain (severe 7-10) Stop: 02/17/18 14:54 Last Admin: 02/17/18 03:43 Dose: 2 mg Vancomycin HCl (Pharmacy To Dose - Vancomycin) 1 dose .XX ASDIRECTED [facility] - Problem List & Annotations (1) Dementia SNOMED Code(s): 74381573 Code(s): F03.90 - UNSPECIFIED DEMENTIA WITHOUT BEHAVIORAL DISTURBANCE Status: Chronic Priority: Medium Current Visit: Yes Qualifiers: Dementia type: Alzheimer's disease Alzheimer's disease onset: unspecified onset Dementia behavioral disturbance: with behavioral disturbance Qualified Code(s): G30.9 - Alzheimer's disease, unspecified; F02.81 - Dementia in other diseases classified elsewhere with behavioral disturbance (2) Hematuria SNOMED Code(s): 13415394 Code(s): R31.9 - HEMATURIA, UNSPECIFIED Status: Acute Current Visit: Yes Qualifiers: Hematuria type: gross Qualified Code(s): R31.0 - Gross hematuria (3) Frequent falls SNOMED Code(s): 156844899 Code(s): R29.6 - REPEATED FALLS Status: Chronic Priority: Medium Current Visit: Yes (4) Head injury SNOMED Code(s): 02247166 Code(s): S09.90XA - UNSPECIFIED INJURY OF HEAD, INITIAL ENCOUNTER Status: Acute Priority: High Current Visit: Yes Qualifiers: Encounter type: subsequent encounter Qualified Code(s): S09.90XD - Unspecified injury of head, subsequent encounter (5) Agitation SNOMED Code(s): 398592438 Code(s): R45.1 - RESTLESSNESS AND AGITATION Status: Chronic Priority: Medium Current Visit: Yes (6) UTI, Urinary tract infectious disease SNOMED Code(s): 55463585 Code(s): N39.0 - URINARY TRACT INFECTION, SITE NOT SPECIFIED Status: Acute Priority: Medium Current Visit: Yes (7) Urinary retention SNOMED Code(s): 804326421 Code(s): R33.9 - RETENTION OF URINE, UNSPECIFIED Status: Acute Priority: Medium Current Visit: Yes
[2018-02-27] MEDS: Morphine 10 MG/0.5 ML Oral Syringe SL PRN (12:28)
[2018-02-27] MEDS: Bacitracin Oint 28.35 GM Tube TOP PRN (17:35)
[2018-02-27] MEDS: Tamsulosin 0.4 MG Cap.ER PO SCH (21:52)
[2018-02-27] MEDS: Finasteride 5 MG Tab PO SCH (21:52)
[2018-02-27] MEDS: ALPRAZolam 0.5 MG Tab PO PRN (23:55)
[2018-02-28] MEDS: QUEtiapine 100 MG Tab PO SCH ×2 (00:19→08:29)
[2018-02-28] MEDS: Nystatin Topical Powder 15 GM Bottle TOP SCH ×3 (06:00→13:09)
[2018-02-28] MEDS ORDERED: Dextrose 5% in Water 1,000 ML IV SCH (06:30)
[2018-02-28] MEDS: Memantine 10 MG Tab PO SCH (08:29)
[2018-02-28] MEDS: Donepezil 10 MG Tab PO SCH (08:30)
[2018-02-28] MEDS: Acidophilus with Citrus Pectin Tab PO SCH (08:30)
[2018-02-28] MEDS: FLUoxetine 20 MG Cap PO SCH (08:30)
[2018-02-28] MEDS: Bacitracin Oint 28.35 GM Tube TOP PRN (08:31)
[2018-02-28 09:12] VITALS: BP 157/84
--- NOTE | 2018-02-28 09:51 | PCM.DCSUM1 ---
<Daryl Almeida - Last Filed: 02/28/18 09:45> Discharge Summary - Hospital Course Free Text/Narrative:: Admission date: 02/16/2018 Discharge date: 02/28/2018 Admission diagnosis: #1. Dementia with acute agitation #2. Leukocytosis w/ no source of infection #3. Dehydration #4. Constipation Discharge diagnosis: #1. Rapidly progressing alzheimers dementia #2. Chronic myelomonocytic leukemia #3. Chronic hypernatremia #4. Constipation - stable #5. Leukocytosis secondary to #2 #6. Urinary incontinence Hospital course: 73-year-old male with a hx of dementia that was admitted to the hospital for reasons above. Patient initially was believed to have leukocytosis secondary to infection thus was placed on triple antibiotic therapy. Pace scan CT did not reveal a significant source of infection aside from possible pneumonia as per attending physicians findings. Clinically, patients mental status wax and waned but throughout my care, he was not oriented to person, place, or time. He was able to tolerate PO. Patients prognosis w/ dementia and CML was discussed in length with the family including the who decided to place the patient on hospice care. Peripheral smear was obtained and as per pathology, patient likely has chronic myelomonocytic leukemia which explains the leukocytosis. Patient was afebrile. Antibiotics were thus discontinued. Family understands and agrees to the plan. They also plan on hiring further anatomic pathology assistant care given that he is completely dependent at this point. Disposition: home with home hospice. - Discharge Data Discharge Date: 02/28/18 Discharge Disposition: DC/Tfer to Hospice - Home 52 Condition: Poor - Patient Summary/Data Consults: Consultations 02/16/18 14:52 Consult to Case Management/Dairy Machine Operator Farmworker [CONS] Routine 02/24/18 11:57 Consult to Hospice [CONS] Routine - Patient Instructions Diet: Usual Diet as Tolerated Activity: As Tolerated - Discharge Plan *PRESCRIPTION DRUG MONITORING PROGRAM REVIEWED*: Not Applicable *COPY OF PRESCRIPTION DRUG MONITORING REPORT IN PATIENT [place]: Not Applicable Home Medications: Home Meds ALPRAZolam [Alprazolam ER] 1 mg PO TID PRN 07/09/17 [History] Donepezil HCl [Donepezil HCl Odt] 10 mg PO DAILY 07/09/17 [History] FLUoxetine [PROzac] 40 mg PO DAILY 07/09/17 [History] Finasteride 5 mg PO BEDTIME 07/09/17 [History] QUEtiapine Fumarate [Quetiapine Fumarate] 100 mg PO DAILY 07/09/17 [History] QUEtiapine Fumarate [Quetiapine Fumarate ER] 200 mg PO BEDTIME 07/14/17 [History ] Memantine [Namenda] 10 mg PO BID 02/16/18 [History] Tamsulosin [Flomax] 0.4 mg PO BEDTIME 02/16/18 [History] Patient Handouts: Fall Prevention in the Home, [id number], Indwelling Urinary Catheter Care, Adult, [id number], Fecal Incontinence - Patient Data Vitals - Most Recent: Last Vital Signs Temp 36.9 C 02/28/18 08:00 Pulse 77 02/28/18 08:00 Resp 16 02/28/18 08:00 BP 157/84 H 02/28/18 08:00 Pulse Ox 98 02/28/18 08:00 Weight - Most Recent: 81.964 kg I&O - Last 24 hours: Intake & Output 02/27/18 02/28/18 02/28/18 22:59 06:59 14:59 Intake Total 700 120 Output Total 900 1000 Balance -200 -880 Lab Results - Last 24 hrs: Laboratory Results - last 24 hr 02/27/18 Range/Units 08:08 Neutrophils % (Manual) 62 (48.0-80.0) % Band Neutrophils % 4 % Lymphocytes % (Manual) 8 L (16.0-40.0) % Monocytes % (Manual) 19 H (0.0-15.0) % Basophils % (Manual) 1 (0.0-1.5) % Metamyelocytes % 2 % Myelocytes % 4 % Absolute Seg Neuts 18.0 H (1.4-5.7) Band Neutrophils # 1.2 Lymphocytes # (Manual) 2.3 (0.6-2.4) Monocytes # (Manual) 5.5 H (0.0-0.8) Basophils # (Manual) 0.3 H (0.0-0.1) Absolute Metamyelocyte 0.6 Absolute Myelocytes 1.2 Med Orders - Current: Current Medications Acetaminophen (Tylenol) 650 mg PO Q4H PRN PRN Reason: Pain (Mild 1-3)/fever Last Admin: 02/18/18 23:09 Dose: 650 mg Acidophilus/Pectin (Acidophilus/Pectin, Yermo) 1 tab PO DAILY [facility] Last Admin: 02/28/18 08:30 Dose: 1 tab Alprazolam (Xanax) 1 mg PO TID PRN PRN Reason: Anxiety Last Admin: 02/27/18 23:55 Dose: 1 mg Artificial Tears (Refresh Plus 0.5%) 1 each EYEBOTH ASDIRECTED PRN PRN Reason: Dry Eyes Last Admin: 02/27/18 11:01 Dose: 1 dose Bacitracin (Bacitracin Oint) 1 gm TOP TID PRN PRN Reason: Wound Care Last Admin: 02/28/18 08:31 Dose: 1 applic Bisacodyl (Dulcolax) 10 mg RECTAL DAILY PRN PRN Reason: Constipation Last Admin: 02/17/18 12:02 Dose: 10 mg Donepezil HCl (Aricept) 10 mg PO DAILY [facility] Last Admin: 02/28/18 08:30 Dose: 10 mg Finasteride (Proscar) 5 mg PO BEDTIME [facility] Last Admin: 02/27/18 21:52 Dose: 5 mg Fluoxetine HCl (Prozac) 40 mg PO DAILY [facility] Last Admin: 02/28/18 08:30 Dose: 40 mg Haloperidol Lactate (Haldol) 2 - 5 mg IM Q6H PRN PRN Reason: Agitation Last Admin: 02/22/18 22:21 Dose: 2.5 mg Potassium Chloride/Sodium Chloride (Normal Saline With 20 Meq Kcl) 1,000 mls @ 50 mls/hr IV ASDIRECTED [facility] Last Admin: 02/26/18 05:20 Dose: 50 mls/hr Sodium Chloride (Sodium Chloride 0.45%) 1,000 mls @ 999 mls/hr IV ASDIRECTED [facility] Last Admin: 02/27/18 10:52 Dose: 999 mls/hr Dextrose/Water (Dextrose 5% In Water) 1,000 mls @ 100 mls/hr IV ASDIRECTED [facility] Lorazepam (Ativan) 1 mg IM Q4H PRN PRN Reason: Agitation Last Admin: 02/25/18 23:37 Dose: 1 mg Magnesium Hydroxide (Milk Of Magnesia) 30 ml PO Q12H PRN PRN Reason: Constipation Memantine (Namenda) 10 mg PO BID [facility] Last Admin: 02/28/18 08:29 Dose: 10 mg Morphine Sulfate (Morphine 10 Mg/0.5 Ml Oral Syringe) 5 - 10 mg SL Q2H PRN PRN Reason: Pain Last Admin: 02/27/18 12:28 Dose: 10 mg Nystatin (Nystop) 0 gm TOP QID [facility] Last Admin: 02/28/18 08:31 Dose: 1 applic Ondansetron HCl (Zofran) 4 mg IVPUSH Q4H PRN PRN Reason: Nausea/Vomiting Last Admin: 02/16/18 18:06 Dose: 4 mg Promethazine HCl (Phenergan) 25 mg IM Q6H PRN PRN Reason: nausea Last Admin: 02/16/18 20:15 Dose: 25 mg Quetiapine Fumarate (Seroquel) 100 mg PO DAILY [facility] Last Admin: 02/28/18 08:29 Dose: 100 mg Quetiapine Fumarate (Seroquel) 200 mg PO BEDTIME [facility] Last Admin: 02/28/18 00:19 Dose: 200 mg Senna/Docusate Sodium (Senokot-S) 1 each PO BID PRN PRN Reason: Constipation Sodium Chloride (Saline Flush) 10 ml FLUSH ASDIRECTED PRN PRN Reason: Keep Vein Open Sodium Chloride (Saline Flush) 2.5 ml FLUSH ASDIRECTED PRN PRN Reason: Keep Vein Open Tamsulosin HCl (Flomax) 0.4 mg PO BEDTIME [facility] Last Admin: 02/27/18 21:52 Dose: 0.4 mg Discontinued Medications Enoxaparin Sodium (Lovenox) 40 mg SUBCUT Q24H [facility] Last Admin: 02/18/18 16:56 Dose: 40 mg Haloperidol (Haldol) 1 mg PO ONETIME ONE Stop: 02/16/18 14:16 Last Admin: 02/16/18 14:31 Dose: Not Given Haloperidol Lactate (Haldol) 1 mg IM ONETIME ONE Stop: 02/16/18 14:15 Last Admin: 02/16/18 14:18 Dose: Not Given Haloperidol Lactate (Haldol) 1 mg IM ONETIME ONE Stop: 02/16/18 14:28 Last Admin: 02/16/18 14:34 Dose: 1 mg Haloperidol Lactate (Haldol) 1 mg IM ONETIME ONE Stop: 09/15/18 14:33 Last Admin: 02/16/18 14:34 Dose: Not Given Haloperidol Lactate (Haldol) 2 mg IVPUSH ONETIME ONE Stop: 02/16/18 17:46 Last Admin: 02/16/18 18:07 Dose: Not Given Haloperidol Lactate (Haldol) 2 mg IM ONETIME ONE Stop: 02/16/18 17:59 Last Admin: 02/16/18 18:08 Dose: 2 mg Sodium Chloride (Normal Saline) 1,000 mls @ 125 mls/hr IV STAT ONE Stop: 02/16/18 19:01 Last Admin: 02/16/18 12:14 Dose: 125 mls/hr Sodium Chloride (Normal Saline) 1,000 mls @ 125 mls/hr IV ASDIRECTED [facility] Last Admin: 02/19/18 03:49 Dose: 125 mls/hr Cefepime HCl 1 gm/ Premix 50 mls @ 100 mls/hr IV Q8H [facility] Last Admin: 02/17/18 15:13 Dose: Not Given Piperacillin Sod/Tazobactam (Sod 3.375 gm/ Sodium Chloride) 50 mls @ 100 mls/ hr IV Q6H [facility] Last Admin: 02/27/18 05:38 Dose: 100 mls/hr Vancomycin HCl 1,250 mg/ (Sodium Chloride) 500 mls @ 333.333 mls/hr IV Q12H [facility] Last Admin: 02/21/18 14:19 Dose: 333.333 mls/hr Levofloxacin/Dextrose 750 mg/ (Premix) 150 mls @ 100 mls/hr IV Q24H [facility] Last Admin: 02/26/18 13:46 Dose: 100 mls/hr Potassium Chloride/Sodium Chloride (Normal Saline With 20 Meq Kcl) 1,000 mls @ 125 mls/hr IV ASDIRECTED [facility] Last Admin: 02/21/18 07:34 Dose: 125 mls/hr Vancomycin HCl 1,500 mg/ (Sodium Chloride) 500 mls @ 333.333 mls/hr IV Q12H [facility] Last Admin: 02/27/18 10:52 Dose: Not Given Influenza Virus Vaccine (Pharmacy To Dose - Influenza Vaccine) 1 each IM ONETIME ONE Stop: 02/16/18 15:43 Iopamidol (Isovue-370 (76%)) 100 ml IVPUSH ONETIME STA Stop: 02/20/18 15:40 Last Admin: 02/20/18 15:43 Dose: 100 ml Lorazepam (Ativan) 0.5 mg IVPUSH ONETIME ONE Stop: 02/16/18 12:09 Last Admin: 02/16/18 12:13 Dose: 0.5 mg Lorazepam (Ativan) 0.5 mg IVPUSH ONETIME ONE Stop: 02/16/18 12:26 Last Admin: 02/16/18 14:18 Dose: Not Given Morphine Sulfate (Morphine) 2 mg IVPUSH Q2H PRN PRN Reason: Pain (severe 7-10) Stop: 02/17/18 14:54 Morphine Sulfate (Morphine) 2 mg IVPUSH Q2H PRN PRN Reason: Pain (severe 7-10) Stop: 02/17/18 14:54 Last Admin: 02/17/18 03:43 Dose: 2 mg Vancomycin HCl (Pharmacy To Dose - Vancomycin) 1 dose .XX ASDIRECTED [facility] <Giuseppe Partida - Last Filed: 02/28/18 09:56> Discharge Summary - Hospital Course HPI Initial Comments: I seen and examined the patient independently of medical/surgery registered nurse. The patient is a 73-year-old gentleman with a history of severe rapidly progressing Alzheimer's dementia. The patient had been admitted secondary to leukocytosis and concern for infection. The patient initially had been started on triple antibiotic therapy and his leukocytosis did not resolve. Pathologies peripheral smear review was consistent with myelodysplastic disorder or CML. A discussion with the patient's family had indicated recommendation for hospice care for this patient as his dementia has progressed severely to the point that he is unable to recall his name. The patient had hospice evaluation and he had been recommended be discharged home and to follow-up with his primary care physician. I have reviewed and agree with the medical residents and of care. Please see orders. - Discharge Diagnosis/Problem(s) (1) Dementia SNOMED Code(s): 36941867 ICD Code: F03.90 - UNSPECIFIED DEMENTIA WITHOUT BEHAVIORAL DISTURBANCE Status: Chronic Priority: Medium Current Visit: Yes Qualifiers: Dementia type: Alzheimer's disease Alzheimer's disease onset: unspecified onset Dementia behavioral disturbance: with behavioral disturbance Qualified Code(s): G30.9 - Alzheimer's disease, unspecified; F02.81 - Dementia in other diseases classified elsewhere with behavioral disturbance (2) Hematuria SNOMED Code(s): 44683140 ICD Code: R31.9 - HEMATURIA, UNSPECIFIED Status: Acute Current Visit: Yes Qualifiers: Hematuria type: gross Qualified Code(s): R31.0 - Gross hematuria (3) Frequent falls SNOMED Code(s): 521230667 ICD Code: R29.6 - REPEATED FALLS Status: Chronic Priority: Medium Current Visit: Yes (4) Head injury SNOMED Code(s): 79750489 ICD Code: S09.90XA - UNSPECIFIED INJURY OF HEAD, INITIAL ENCOUNTER Status: Acute Priority: High Current Visit: Yes Qualifiers: Encounter type: subsequent encounter Qualified Code(s): S09.90XD - Unspecified injury of head, subsequent encounter (5) Agitation SNOMED Code(s): 869170121 ICD Code: R45.1 - RESTLESSNESS AND AGITATION Status: Chronic Priority: Medium Current Visit: Yes (6) UTI, Urinary tract infectious disease SNOMED Code(s): 21286900 ICD Code: N39.0 - URINARY TRACT INFECTION, SITE NOT SPECIFIED Status: Acute Priority: Medium Current Visit: Yes (7) Urinary retention SNOMED Code(s): 291477395 ICD Code: R33.9 - RETENTION OF URINE, UNSPECIFIED Status: Acute Priority : Medium Current Visit: Yes - Patient Summary/Data Consults: Consultations 02/16/18 14:52 Consult to Case Management/Dairy Machine Operator Farmworker [CONS] Routine 02/24/18 11:57 Consult to Hospice [CONS] Routine - Patient Data Vitals - Most Recent: Last Vital Signs Temp 36.9 C 02/28/18 08:00 Pulse 77 02/28/18 08:00 Resp 16 02/28/18 08:00 BP 157/84 H 02/28/18 08:00 Pulse Ox 98 02/28/18 08:00 I&O - Last 24 hours: Intake & Output 02/27/18 02/28/18 02/28/18 22:59 06:59 14:59 Intake Total 700 120 Output Total 900 1000 Balance -200 -880 Lab Results - Last 24 hrs: Laboratory Results - last 24 hr 02/27/18 Range/Units 08:08 Neutrophils % (Manual) 62 (48.0-80.0) % Band Neutrophils % 4 % Lymphocytes % (Manual) 8 L (16.0-40.0) % Monocytes % (Manual) 19 H (0.0-15.0) % Basophils % (Manual) 1 (0.0-1.5) % Metamyelocytes % 2 % Myelocytes % 4 % Absolute Seg Neuts 18.0 H (1.4-5.7) Band Neutrophils # 1.2 Lymphocytes # (Manual) 2.3 (0.6-2.4) Monocytes # (Manual) 5.5 H (0.0-0.8) Basophils # (Manual) 0.3 H (0.0-0.1) Absolute Metamyelocyte 0.6 Absolute Myelocytes 1.2 Med Orders - Current: Current Medications Acetaminophen (Tylenol) 650 mg PO Q4H PRN PRN Reason: Pain (Mild 1-3)/fever Last Admin: 02/18/18 23:09 Dose: 650 mg Acidophilus/Pectin (Acidophilus/Pectin, Yermo) 1 tab PO DAILY [facility] Last Admin: 02/28/18 08:30 Dose: 1 tab Alprazolam (Xanax) 1 mg PO TID PRN PRN Reason: Anxiety Last Admin: 02/27/18 23:55 Dose: 1 mg Artificial Tears (Refresh Plus 0.5%) 1 each EYEBOTH ASDIRECTED PRN PRN Reason: Dry Eyes Last Admin: 02/27/18 11:01 Dose: 1 dose Bacitracin (Bacitracin Oint) 1 gm TOP TID PRN PRN Reason: Wound Care Last Admin: 02/28/18 08:31 Dose: 1 applic Bisacodyl (Dulcolax) 10 mg RECTAL DAILY PRN PRN Reason: Constipation Last Admin: 02/17/18 12:02 Dose: 10 mg Donepezil HCl (Aricept) 10 mg PO DAILY [facility] Last Admin: 02/28/18 08:30 Dose: 10 mg Finasteride (Proscar) 5 mg PO BEDTIME [facility] Last Admin: 02/27/18 21:52 Dose: 5 mg Fluoxetine HCl (Prozac) 40 mg PO DAILY [facility] Last Admin: 02/28/18 08:30 Dose: 40 mg Haloperidol Lactate (Haldol) 2 - 5 mg IM Q6H PRN PRN Reason: Agitation Last Admin: 02/22/18 22:21 Dose: 2.5 mg Potassium Chloride/Sodium Chloride (Normal Saline With 20 Meq Kcl) 1,000 mls @ 50 mls/hr IV ASDIRECTED [facility] Last Admin: 02/26/18 05:20 Dose: 50 mls/hr Sodium Chloride (Sodium Chloride 0.45%) 1,000 mls @ 999 mls/hr IV ASDIRECTED [facility] Last Admin: 02/27/18 10:52 Dose: 999 mls/hr Dextrose/Water (Dextrose 5% In Water) 1,000 mls @ 100 mls/hr IV ASDIRECTED [facility] Lorazepam (Ativan) 1 mg IM Q4H PRN PRN Reason: Agitation Last Admin: 02/25/18 23:37 Dose: 1 mg Magnesium Hydroxide (Milk Of Magnesia) 30 ml PO Q12H PRN PRN Reason: Constipation Memantine (Namenda) 10 mg PO BID [facility] Last Admin: 02/28/18 08:29 Dose: 10 mg Morphine Sulfate (Morphine 10 Mg/0.5 Ml Oral Syringe) 5 - 10 mg SL Q2H PRN PRN Reason: Pain Last Admin: 02/27/18 12:28 Dose: 10 mg Nystatin (Nystop) 0 gm TOP QID [facility] Last Admin: 02/28/18 08:31 Dose: 1 applic Ondansetron HCl (Zofran) 4 mg IVPUSH Q4H PRN PRN Reason: Nausea/Vomiting Last Admin: 02/16/18 18:06 Dose: 4 mg Promethazine HCl (Phenergan) 25 mg IM Q6H PRN PRN Reason: nausea Last Admin: 02/16/18 20:15 Dose: 25 mg Quetiapine Fumarate (Seroquel) 100 mg PO DAILY [facility] Last Admin: 02/28/18 08:29 Dose: 100 mg Quetiapine Fumarate (Seroquel) 200 mg PO BEDTIME [facility] Last Admin: 02/28/18 00:19 Dose: 200 mg Senna/Docusate Sodium (Senokot-S) 1 each PO BID PRN PRN Reason: Constipation Sodium Chloride (Saline Flush) 10 ml FLUSH ASDIRECTED PRN PRN Reason: Keep Vein Open Sodium Chloride (Saline Flush) 2.5 ml FLUSH ASDIRECTED PRN PRN Reason: Keep Vein Open Tamsulosin HCl (Flomax) 0.4 mg PO BEDTIME [facility] Last Admin: 02/27/18 21:52 Dose: 0.4 mg Discontinued Medications Enoxaparin Sodium (Lovenox) 40 mg SUBCUT Q24H [facility] Last Admin: 02/18/18 16:56 Dose: 40 mg Haloperidol (Haldol) 1 mg PO ONETIME ONE Stop: 02/16/18 14:16 Last Admin: 02/16/18 14:31 Dose: Not Given Haloperidol Lactate (Haldol) 1 mg IM ONETIME ONE Stop: 02/16/18 14:15 Last Admin: 02/16/18 14:18 Dose: Not Given Haloperidol Lactate (Haldol) 1 mg IM ONETIME ONE Stop: 02/16/18 14:28 Last Admin: 02/16/18 14:34 Dose: 1 mg Haloperidol Lactate (Haldol) 1 mg IM ONETIME ONE Stop: 02/16/18 14:33 Last Admin: 02/16/18 14:34 Dose: Not Given Haloperidol Lactate (Haldol) 2 mg IVPUSH ONETIME ONE Stop: 02/16/18 17:46 Last Admin: 02/16/18 18:07 Dose: Not Given Haloperidol Lactate (Haldol) 2 mg IM ONETIME ONE Stop: 02/16/18 17:59 Last Admin: 02/16/18 18:08 Dose: 2 mg Sodium Chloride (Normal Saline) 1,000 mls @ 125 mls/hr IV STAT ONE Stop: 02/16/18 19:01 Last Admin: 02/16/18 12:14 Dose: 125 mls/hr Sodium Chloride (Normal Saline) 1,000 mls @ 125 mls/hr IV ASDIRECTED [facility] Last Admin: 02/19/18 03:49 Dose: 125 mls/hr Cefepime HCl 1 gm/ Premix 50 mls @ 100 mls/hr IV Q8H [facility] Last Admin: 02/17/18 15:13 Dose: Not Given Piperacillin Sod/Tazobactam (Sod 3.375 gm/ Sodium Chloride) 50 mls @ 100 mls/ hr IV Q6H [facility] Last Admin: 02/27/18 05:38 Dose: 100 mls/hr Vancomycin HCl 1,250 mg/ (Sodium Chloride) 500 mls @ 333.333 mls/hr IV Q12H [facility] Last Admin: 02/21/18 14:19 Dose: 333.333 mls/hr Levofloxacin/Dextrose 750 mg/ (Premix) 150 mls @ 100 mls/hr IV Q24H [facility] Last Admin: 02/26/18 13:46 Dose: 100 mls/hr Potassium Chloride/Sodium Chloride (Normal Saline With 20 Meq Kcl) 1,000 mls @ 125 mls/hr IV ASDIRECTED [facility] Last Admin: 02/21/18 07:34 Dose: 125 mls/hr Vancomycin HCl 1,500 mg/ (Sodium Chloride) 500 mls @ 333.333 mls/hr IV Q12H [facility] Last Admin: 02/27/18 10:52 Dose: Not Given Influenza Virus Vaccine (Pharmacy To Dose - Influenza Vaccine) 1 each IM ONETIME ONE Stop: 02/16/18 15:43 Iopamidol (Isovue-370 (76%)) 100 ml IVPUSH ONETIME STA Stop: 02/20/18 15:40 Last Admin: 02/20/18 15:43 Dose: 100 ml Lorazepam (Ativan) 0.5 mg IVPUSH ONETIME ONE Stop: 02/16/18 12:09 Last Admin: 02/16/18 12:13 Dose: 0.5 mg Lorazepam (Ativan) 0.5 mg IVPUSH ONETIME ONE Stop: 02/16/18 12:26 Last Admin: 02/16/18 14:18 Dose: Not Given Morphine Sulfate (Morphine) 2 mg IVPUSH Q2H PRN PRN Reason: Pain (severe 7-10) Stop: 02/17/18 14:54 Morphine Sulfate (Morphine) 2 mg IVPUSH Q2H PRN PRN Reason: Pain (severe 7-10) Stop: 02/17/18 14:54 Last Admin: 02/17/18 03:43 Dose: 2 mg Vancomycin HCl (Pharmacy To Dose - Vancomycin) 1 dose .XX ASDIRECTED [facility]
[2018-02-28] MEDS: LORazepam 2 MG/ML SDV IM PRN (13:01)
== END 2018-02-28 13:10 | disposition hospice, home (50) | DRG 56 ==
LOC: MW.ED 11:00 → MW.MS 14:51
PROVIDERS: ADMIT Internal Medicine; ATTEND Internal Medicine
DX: G30.9 Alzheimer's disease, unspecified (principal); J18.9 Pneumonia, unspecified organism; K52.1 Toxic gastroenteritis and colitis; N17.9 Acute kidney failure, unspecified; C93.10 Chronic myelomonocytic leukemia not having achieved remission; E87.0 Hyperosmolality and hypernatremia; Z51.5 Encounter for palliative care; Z66 Do not resuscitate; N39.0 Urinary tract infection, site not specified; F02.80 Dementia in other diseases classified elsewhere, unspecified severity, without behavioral disturbance, psychotic disturbance, mood disturbance, and anxiety; S01.01XA Laceration without foreign body of scalp, initial encounter; W18.30XA Fall on same level, unspecified, initial encounter; Y92.238 Other place in hospital as the place of occurrence of the external cause; R29.6 Repeated falls; H40.9 Unspecified glaucoma; E78.5 Hyperlipidemia, unspecified; E86.0 Dehydration; T36.95XA Adverse effect of unspecified systemic antibiotic, initial encounter; K59.00 Constipation, unspecified; H04.129 Dry eye syndrome of unspecified lacrimal gland; R31.0 Gross hematuria; E87.6 Hypokalemia; R74.8 Abnormal levels of other serum enzymes; N40.0 Benign prostatic hyperplasia without lower urinary tract symptoms; F41.9 Anxiety disorder, unspecified; Z79.899 Other long term (current) drug therapy; Z87.440 Personal history of urinary (tract) infections
CPT/HCPCS: 36415; 70450 ×2; 71045; 74176; 80053; 81001; 82150; 83690; 84484; 85025; 87070; 87205; 93005; 96372; 96374; 99285; J1630; J2060; J7040; 51701; 51702; 71270; 71270-26; 72125; 72125-26; 73120-26-LT; 73120-LT; 74178; 74178-26; 80048; 80202; 83735; 84100; 85027; 87040; A9270-GY; J1650; J1956; J2270; J2405; J2543; J2550; J3370; J3480; J7030; J7050; Q9967